=== PATIENT | male | born 1935 | race Hispanic/Latino ===

== ENCOUNTER 2018-11-17 07:55 | Emergency (ER) | payer OTHER ==
[2018-11-17 09:01] LABS: Absolute Lymphocytes (CBC) 0.7 K/uL (0.7-4.9); Basophils % 0.4 % (0-1.3); Eosinophils % 0.3 % (0-4.4); Hematocrit 38.8 % (39.6-49.0); Lymphocytes % 5.5 % (15.3-44.8); MPV 8.3 fL (7.6-11.3); Monocytes % 7.7 % (3.3-12.3); RBC Red Blood Cell Count 4.28 M/uL (4.33-5.43)
--- NOTE | 2018-11-17 09:16 | RAD REPORT ---
EXAM DESCRIPTION: CT - Stone Protocol - 11/17/2018 8:44 am CLINICAL HISTORY: Abdominal pain. COMPARISON: 2016 TECHNIQUE: Computed axial tomography of the abdomen pelvis was obtained without oral or IV contrast. Lack of IV and oral contrast limits evaluation of solid organs, bowel, and vessels. Coronal reformat ivana images were obtained and reviewed. All CT scans are performed using dose optimization technique as appropriate and may include automated exposure control or mA/KV adjustment according to patient size. FINDINGS: A renal calculus is not seen. An ureteral calculus is not noted. A bladder calculus is not present. The liver, spleen, pancreas and adrenals appear grossly normal There is no evidence of diverticulitis. The appendix appears normal Marked enlargement of the prostate gland. Small left inguinal hernia contains fat. Postsurgical gale es of a right inguinal hernia repair Mild to moderate anterior subluxation of L5 on S1 with obliteration of the disc space Tiny ventral hernia IMPRESSION: Negative for a genitourinary calculus
[2018-11-17 09:24] LABS: Blood Morphology Comment NOT SEEN (NOT SEEN); Platelet Estimate DECR; Urine White Blood Cell Casts OK
[2018-11-17 09:46] LABS: BUN Blood Urea Nitrogen 18 mg/dL (7-18); Bicarbonate 25 mmol/L (21-32); Glucose Level 111 mg/dL (74-106); Potassium 3.5 mmol/L (3.5-5.1); Sodium Level 143 mmol/L (136-145)
[2018-11-17] MEDS ORDERED: METHOCARBAMOL 1,000 MG in NA CHLORIDE 0.9% 100 ML IV ONE (10:30)
[2018-11-17] MEDS ORDERED: KETOROLAC 30 MG/ML INJ ONE (10:31)
[2018-11-17] MEDS ORDERED: dexAMETHasone 10 MG/ML VIAL ONE (10:31)
[2018-11-17 11:18] LABS: Urine Bacteria <20 /HPF (NONE SEEN); Urine Culture Reflex Order NOT NEEDED; Urine Mucus LIGHT /HPF (NONE SEEN); Urine RBC NONE SEEN /HPF (NONE SEEN)
--- NOTE | 2018-11-17 11:21 | EDPHYS ---
Physician Documentation [facility] Name: Mati Broderick Age: 83 yrs Sex: Male : 1935 Arrival Date: 11/17/2018 Time: 07:56 Bed 15 Private MD: ED Physician Rajesh Zimmerman HPI: 11/17 08:28 This 83 yrs old Male presents to ER via EMS with complaints of Back Pain. jr8 08:28 The patient presents with pain that is acute, with no known mechanism of injury. The jr8 symptoms are located in the low back, right sided. Onset: The symptoms/episode began/occurred suddenly, yesterday, at 07:00. Location: RLQ abdomen, right groin, and down right leg. Associated signs and symptoms: Pertinent positives: abdominal pain, Pertinent negatives: chest pain, dysuria, fever, hematuria, incontinence, nausea, numbness, tingling, urinary retention, vomiting, weakness. The problem was sustained from unknown cause. Modifying factors: The patient symptoms are alleviated by nothing, the patient symptoms are aggravated by any movement. Severity of symptoms: At their worst the symptoms were moderate, in the emergency department the symptoms are unchanged, a " 10" out of "10". The patient has experienced similar episodes in the past, chronically, but today's symptoms are worse, and lasting longer, today's symptoms are similar. The patient has not recently seen a physician. 08:28 right flank pain radiating to RLQ, right groin, and down right leg. Hx of back jr8 surgeries. Reports similar symptoms in past but less severe and resolved spontaneously. Sudden onset of pain at 0700 yesterday and has been constant. Took tylenol with no relief.. Historical: - Allergies: 11:18 No Known Allergies; tw2 - Home Meds: 08:02 tamsulosin 0.4 mg Oral cp24 1 cap once daily [Active]; simvastatin 40 mg Oral tab 1 tab tw2 once daily [Active]; metoprolol tartrate 100 mg Oral tab 1 tab once daily [Active]; aspirin 81 mg Oral chew PRN [Active]; - PMHx: 08:02 Hernia; Prostate Cancer; tw2 - PSHx: 08:02 cardiac stent; Heart attack; tw2 - Immunization history:: Adult Immunizations. - Social history:: Smoking status: . - Ebola Screening: : Patient negative for fever greater than or equal to 101.5 degrees Fahrenheit, and additional compatible Ebola Virus Disease symptoms. ROS: 08:28 Constitutional: Negative for fever, chills, and weight loss, Eyes: Negative for injury, jr8 pain, redness, and discharge, ENT: Negative for injury, pain, and discharge, Neck: Negative for injury, pain, and swelling, Cardiovascular: Negative for chest pain, palpitations, and edema, Respiratory: Negative for shortness of breath, cough, wheezing, and pleuritic chest pain, MS/Extremity: Negative for injury and deformity, Skin: Negative for injury, rash, and discoloration, Neuro: Negative for headache, weakness, numbness, tingling, and seizure. 08:28 Abdomen/GI: Positive for abdominal pain, Negative for nausea, vomiting, and diarrhea, jr8 constipation, rectal bleeding. 08:28 Back: Positive for flank pain, on the right, radiated pain, Negative for injury or acute deformity. 08:28 : Positive for flank pain, Negative for urinary symptoms, testicular pain 08:28 Neuro: Negative for numbness, tingling, weakness. Exam: 08:28 Constitutional: This is a well developed, well nourished patient who is awake, alert, jr8 and in no acute distress. Head/Face: Normocephalic, atraumatic. Eyes: Pupils equal round and reactive to light, extra-ocular motions intact. Lids and lashes normal. Conjunctiva and sclera are non-icteric and not injected. Cornea within normal limits. Periorbital areas with no swelling, redness, or edema. ENT: Nares patent. No nasal discharge, no septal abnormalities noted. Tympanic membranes are normal and external auditory canals are clear. Oropharynx with no redness, swelling, or masses, exudates, or evidence of obstruction, uvula midline. Mucous membranes moist. Neck: Trachea midline, no thyromegaly or masses palpated, and no cervical lymphadenopathy. Supple, full range of motion without nuchal rigidity, or vertebral point tenderness. No Meningismus. Cardiovascular: Regular rate and rhythm with a normal S1 and S2. No gallops, murmurs, or rubs. Normal PMI, no JVD. No pulse deficits. Respiratory: Lungs have equal breath sounds bilaterally, clear to auscultation and percussion. No rales, rhonchi or wheezes noted. No increased work of breathing, no retractions or nasal flaring. Skin: Warm, dry with normal turgor. Normal color with no rashes, no lesions, and no evidence of cellulitis. 08:28 Neuro: Awake and alert, GCS 15, oriented to person, place, time, and situation. Cranial nerves II-XII grossly intact. Sensory grossly intact. 08:28 Abdomen/GI: Inspection: abdomen appears normal, Bowel sounds: normal, Palpation: soft, moderate abdominal tenderness, in the right lower quadrant, no appreciated organomegaly. 08:28 Back: pain, that is moderate, of the right low back, ROM is painful, normal spinal alignment noted, CVA tenderness, that is moderate, is noted on the right, vertebral tenderness, is not appreciated, muscle spasm, is not present, Straight leg raises: left lower extremity does not illicit pain, right lower extremity illicits pain, at 30 degrees. 08:28 : CVA tenderness, on the right. 08:28 Neuro: Orientation: Vital Signs: 07:58 BP 136 / 78; Pulse 79; Resp 17; Temp 97.6(TE); Pulse Ox 95% on R/A; Weight 97.52 kg; tw2 Height 5 ft. 6 in. (167.64 cm) (R); Pain 10/10; 09:11 BP 124 / 68; Pulse 72; Resp 17; Pulse Ox 96% on R/A; tw2 10:22 BP 126 / 74; Pulse 71; Resp 17; Pulse Ox 100% on R/A; tw2 11:18 BP 110 / 68; Pulse 67; Resp 17; Pulse Ox 97% on R/A; tw2 07:58 Body Mass Index 34.70 (97.52 kg, 167.64 cm) tw2 MDM: 08:00 Patient medically screened. jr8 11:05 Data reviewed: vital signs, nurses notes, lab test result(s), radiologic studies, CT jr8 scan, and as a result, I will discharge patient. Data interpreted: Pulse oximetry: on room air is 100 %. Interpretation: normal. Counseling: I had a detailed discussion with the patient and/or guardian regarding: the historical points, exam findings, and any diagnostic results supporting the discharge/admit diagnosis, lab results, radiology results, the need for outpatient follow up, a family practitioner, to return to the emergency department if symptoms worsen or persist or if there are any questions or concerns that arise at home. 11/17 08:25 Order name: Basic Metabolic Panel; Complete Time: 09:52 11/17 08:25 Order name: CBC with Diff; Complete Time: 09:36 8 11/17 08:25 Order name: Creatinine for Radiology; Complete Time: 09:52 8 11/17 09:06 Order name: CBC Smear Scan; Complete Time: 09:36 EDMS 11/17 10:04 Order name: Urine Microscopic Only; Complete Time: 11:20 8 11/17 10:09 Order name: Urine Dipstick--Ancillary (enter results) bd 11/17 08:25 Order name: IV Saline Lock; Complete Time: 08:36 11/17 08:25 Order name: Labs collected and sent; Complete Time: 08:36 8 11/17 08:25 Order name: CT Stone Protocol; Complete Time: 09:23 11/17 08:25 Order name: Urine Dipstick-Ancillary (obtain specimen); Complete Time: 09:41 Administered Medications: 10:15 Drug: TORadol - Ketorolac 15 mg Route: IVP; Site: left antecubital; tw2 11:17 Follow up: Response: No adverse reaction tw2 11:17 Follow up: Response: No adverse reaction; Pain is decreased tw2 10:17 Drug: Decadron - Dexamethasone 10 mg Route: IVP; Site: left antecubital; tw2 11:17 Follow up: Response: No adverse reaction tw2 10:36 Drug: Robaxin 1 grams Route: IVPB; Infused Over: 30 mins; Site: left antecubital; tw2 11:09 Follow up: Response: No adverse reaction; IV Status: Completed infusion; IV Intake: aj 100ml Disposition: 13:54 Co-signature as Attending Physician, Rajesh Zimmerman MD. rn Disposition: 11/17/18 11:20 Discharged to Home. Impression: Low back pain, Radiculopathy, lumbar region. - Condition is Stable. - Discharge Instructions: Back Pain, Adult, Lumbosacral Radiculopathy, Musculoskeletal Pain, Back Exercises, [id number], Heat Therapy. - Prescriptions for Mobic 7.5 mg Oral Tablet - take 1 tablet by ORAL route once daily take with food; 20 tablet. Zanaflex 4 mg Oral Tablet - take 1 tablet by ORAL route every 8 hours As needed; 20 tablet. Medrol (Maldonado) 4 mg Oral Tablets, Dose Pack - take 1 tablet by ORAL route as directed - follow package instructions; 1 packet. - Medication Reconciliation Form, Thank You Letter, Antibiotic Education, Prescription Opioid Use form. - Follow up: Private Physician; When: 2 - 3 days; Reason: Recheck today's complaints, Continuance of care, Re-evaluation by your physician. - Problem is new. - Symptoms have improved. Signatures: Dispatcher [employer] EDMS Rajesh Zimmerman MD MD rn Roszak, Josh, PA PA jr8 Alma Velasquez RN RN tw2 Juliana Jolley RN Corrections: (The following items were deleted from the chart) 08:35 08:28 Constitutional: Negative for fever, chills, and weight loss, Eyes: Negative for jr8 injury, pain, redness, and discharge, ENT: Negative for injury, pain, and discharge, Neck: Negative for injury, pain, and swelling, Cardiovascular: Negative for chest pain, palpitations, and edema, jr8 11:44 11:20 11/17/2018 11:20 Discharged to Home. Impression: Low back pain; Radiculopathy, tw2 lumbar region. Condition is Stable. Forms are Medication Reconciliation Form, Thank You Letter, Antibiotic Education, Prescription Opioid Use. Follow up: Private Physician; When: 2 - 3 days; Reason: Recheck today's complaints, Continuance of care, Re-evaluation by your physician. Problem is new. Symptoms have improved. jr8
--- NOTE | 2018-11-17 11:21 | ER ---
Nurse's Notes [facility] Name: Mati Broderick Age: 83 yrs Sex: Male : 1935 Arrival Date: 11/17/2018 Time: 07:56 Bed 15 Private MD: Diagnosis: Low back pain;Radiculopathy, lumbar region Presentation: 11/17 07:57 Presenting complaint: EMS states: pt was walking yesterday and started having back tw2 pain, he describes as a throbbing pain, it feels better when he lays down, he has hx of chronic back pain for herniated discs, vs stable, NKDA, hx: htn, hyperlipidemia. Transition of care: patient was not received from another setting of care. Onset of symptoms was November 17, 2018. Risk Assessment: Do you want to hurt yourself or someone else? Patient reports no desire to harm self or others. Initial Sepsis Screen: Does the patient meet any 2 criteria? No. Patient's initial sepsis screen is negative. Does the patient have a suspected source of infection? No. Patient's initial sepsis screen is negative. Care prior to arrival: None. IV initiated. 20 GA, in the left antecubital area. 07:57 Method Of Arrival: EMS: [facility] tw2 07:57 Acuity: KATIE 4 tw2 09:57 Acuity: KATIE 3 iw Triage Assessment: 07:59 General: Appears in no apparent distress. Behavior is calm, cooperative, appropriate tw2 for age. Pain: Complains of pain in back. Musculoskeletal: Circulation, motion, and sensation intact. Range of motion: intact in all extremities. Historical: - Allergies: 11:18 No Known Allergies; tw2 - Home Meds: 08:02 tamsulosin 0.4 mg Oral cp24 1 cap once daily [Active]; simvastatin 40 mg Oral tab 1 tab tw2 once daily [Active]; metoprolol tartrate 100 mg Oral tab 1 tab once daily [Active]; aspirin 81 mg Oral chew PRN [Active]; - PMHx: 08:02 Hernia; Prostate Cancer; tw2 - PSHx: 08:02 cardiac stent; Heart attack; tw2 - Immunization history:: Adult Immunizations. - Social history:: Smoking status: . - Ebola Screening: : Patient negative for fever greater than or equal to 101.5 degrees Fahrenheit, and additional compatible Ebola Virus Disease symptoms. Screenin:11 Abuse screen: Denies threats or abuse. Nutritional screening: No deficits noted. tw2 Tuberculosis screening: No symptoms or risk factors identified. Fall Risk None identified. Assessment: 08:00 General: Appears in no apparent distress. Behavior is calm, cooperative, appropriate tw2 for age. Pain: Complains of pain in back. Neuro: Level of Consciousness is awake, alert, obeys commands, Oriented to person, place, time, situation. Cardiovascular: Heart tones S1 S2 Patient's skin is warm and dry. Respiratory: Airway is patent Respiratory effort is even, unlabored, Respiratory pattern is regular, symmetrical, Breath sounds are clear bilaterally. GI: Abdomen is round non-distended, Bowel sounds present X 4 quads. : No signs and/or symptoms were reported regarding the genitourinary system. EENT: No signs and/or symptoms were reported regarding the EENT system. Derm: No signs and/or symptoms reported regarding the dermatologic system. Musculoskeletal: Range of motion: intact in all extremities. 09:11 Reassessment: Patient appears in no apparent distress at this time. No changes from tw2 previously documented assessment. Patient and/or family updated on plan of care and expected duration. Pain level reassessed. Patient is alert, oriented x 3, equal unlabored respirations, skin warm/dry/pink. 10:22 Reassessment: Patient appears in no apparent distress at this time. No changes from tw2 previously documented assessment. Patient and/or family updated on plan of care and expected duration. Pain level reassessed. Patient is alert, oriented x 3, equal unlabored respirations, skin warm/dry/pink. 11:18 Reassessment: Patient appears in no apparent distress at this time. Patient and/or tw2 family updated on plan of care and expected duration. Pain level reassessed. Patient is alert, oriented x 3, equal unlabored respirations, skin warm/dry/pink. 11:42 Reassessment: Patient appears in no apparent distress at this time. No changes from tw2 previously documented assessment. Patient and/or family updated on plan of care and expected duration. Pain level reassessed. Patient is alert, oriented x 3, equal unlabored respirations, skin warm/dry/pink. Vital Signs: 07:58 BP 136 / 78; Pulse 79; Resp 17; Temp 97.6(TE); Pulse Ox 95% on R/A; Weight 97.52 kg; tw2 Height 5 ft. 6 in. (167.64 cm) (R); Pain 10/10; 09:11 BP 124 / 68; Pulse 72; Resp 17; Pulse Ox 96% on R/A; tw2 10:22 BP 126 / 74; Pulse 71; Resp 17; Pulse Ox 100% on R/A; tw2 11:18 BP 110 / 68; Pulse 67; Resp 17; Pulse Ox 97% on R/A; tw2 07:58 Body Mass Index 34.70 (97.52 kg, 167.64 cm) tw2 ED Course: 07:56 Patient arrived in ED. tw2 07:58 Triage completed. tw2 07:58 Bed in low position. Call light in reach. Side rails up X2. Pulse ox on. NIBP on. tw2 07:59 Arm band placed on. tw2 08:00 Ned Be PA is PHCP. jr8 08:00 Rajesh Zimmerman MD is Attending Physician. jr8 08:26 Alma Velasquez RN is Primary Nurse. tw2 08:36 Maintain EMS IV. Dressing intact. Good blood return noted. Site clean \T\ dry. Gauge \T\ tw 2 site: 20g LEFT ac. 08:40 CT completed. Patient tolerated procedure well. Patient moved to CT via stretcher. sj Patient moved back from CT. 08:44 CT Stone Protocol In Process Unspecified. EDMS 11:42 No provider procedures requiring assistance completed. IV discontinued, intact, tw2 bleeding controlled, No redness/swelling at site. Pressure dressing applied. Administered Medications: 10:15 Drug: TORadol - Ketorolac 15 mg Route: IVP; Site: left antecubital; tw2 11:17 Follow up: Response: No adverse reaction tw2 11:17 Follow up: Response: No adverse reaction; Pain is decreased tw2 10:17 Drug: Decadron - Dexamethasone 10 mg Route: IVP; Site: left antecubital; tw2 11:17 Follow up: Response: No adverse reaction tw2 10:36 Drug: Robaxin 1 grams Route: IVPB; Infused Over: 30 mins; Site: left antecubital; tw2 11:09 Follow up: Response: No adverse reaction; IV Status: Completed infusion; IV Intake: aj 100ml Intake: 11:09 IV: 100ml; Total: 100ml. aj Outcome: 11:20 Discharge ordered by . wade 11:42 Discharged to home via wheelchair. tw2 11:42 Condition: stable 11:42 Discharge instructions given to patient, family, Instructed on discharge instructions, follow up and referral plans. no drinking with medication, no driving heavy equipment, medication usage, Demonstrated understanding of instructions, follow-up care, medications, Prescriptions given X 3. 11:44 Patient left the ED. tw2 Signatures: Dispatcher [employer] EDMS Juliana Jolley RN Isabelle Haywood Irene, RN RN iw Roszak, Josh, PA PA jr8 Wise, Tara, RN RN tw2
[2018-11-17 13:10] LABS: Urine Blood TRACE (NEG); Urine Glucose NEGATIVE (NEG); Urine Protein 1+ (NEG); Urine Specific Gravity 1.025 (1.005-1.030); Urine pH 5.5 (5.0-7.0)
== END 2018-11-17 11:44 | disposition home or self-care (01) ==
LOC: ER 07:55
DX: M54.16 Radiculopathy, lumbar region (principal); C61 Malignant neoplasm of prostate; Z79.82 Long term (current) use of aspirin
CPT/HCPCS: 96365; 85025; 80048; 36415; 76377; 74176; 96375; 99284; J1100; J2800; 81003; 81015

== ENCOUNTER 2019-02-14 19:40 | Emergency (ER) | payer OTHER ==
--- NOTE | 2019-02-14 20:28 | ER ---
Nurse's Notes [facility] Name: Mati Broderick Age: 84 yrs Sex: Male : 1935 Arrival Date: 02/14/2019 Time: 19:42 Bed Treatment Private MD: Diagnosis: Wart right heel Presentation: 02/14 20:05 Presenting complaint: daughter states pt has wound to lateral aspect of right heel x 4 bb days but wound is not heeling and has a growth from it. Transition of care: patient was not received from another setting of care. Onset of symptoms was February 10, 2019. Risk Assessment: Do you want to hurt yourself or someone else? Patient reports no desire to harm self or others. Initial Sepsis Screen: Does the patient meet any 2 criteria? No. Patient's initial sepsis screen is negative. Does the patient have a suspected source of infection? No. Patient's initial sepsis screen is negative. Care prior to arrival: None. 20:05 Method Of Arrival: Ambulatory bb 20:05 Acuity: KATIE 4 bb Triage Assessment: 20:10 General: Appears in no apparent distress. Behavior is calm, cooperative. Pain: bb Complains of pain in lateral side of right heel Pain currently is 7 out of 10 on a pain scale. Neuro: Level of Consciousness is awake, alert, obeys commands, Oriented to person, place, situation. Cardiovascular: No deficits noted. Respiratory: Respiratory effort is even, unlabored, Respiratory pattern is regular. Derm: Wound noted lateral side of right heel. Musculoskeletal: Circulation, motion, and sensation intact. Historical: - Allergies: 20:10 No Known Allergies; bb - Home Meds: 20:10 aspirin 81 mg Oral chew PRN [Active]; tamsulosin 0.4 mg Oral cp24 1 cap once daily bb [Active]; simvastatin 40 mg Oral tab 1 tab once daily [Active]; metoprolol succinate 100 mg oral Tb24 1 tab once daily [Active]; - PMHx: 20:10 Hernia; Prostate Cancer; Myocardial infarction; CAD; bb - PSHx: 20:10 cardiac stent; back surgery; prostate surgery; bb - Immunization history:: Adult Immunizations up to date. - Social history:: Smoking status: Patient/guardian denies using tobacco. - Ebola Screening: : No symptoms or risks identified at this time. Screenin:00 Abuse screen: Denies threats or abuse. Denies injuries from another. Nutritional rv screening: No deficits noted. Tuberculosis screening: No symptoms or risk factors identified. 20:00 Fall Risk None identified. No fall in past 12 months (0 pts). Secondary diagnosis (15 rv points) impaired mobility, No IV (0 pts). Ambulatory Aid- Crutches/Cane/Walker (15 pts). Gait- Impaired (20 pts.). Mental Status- Oriented to own ability (0 pts). Total Polk Fall Scale indicates No Risk (0-24 pts). Assessment: 20:00 General: Appears in no apparent distress. uncomfortable, Behavior is calm, cooperative. rv 20:00 Pain: Complains of pain in right foot. Neuro: Level of Consciousness is awake, alert, rv obeys commands, Oriented to person, place, time, situation. Cardiovascular: Patient's skin is warm and dry. Respiratory: Airway is patent. GI: No signs and/or symptoms were reported involving the gastrointestinal system. : No signs and/or symptoms were reported regarding the genitourinary system. EENT: No signs and/or symptoms were reported regarding the EENT system. Derm: Wound noted lateral side of right heel. Musculoskeletal: Swelling present in lateral side of right heel. Vital Signs: 20:10 BP 123 / 73; Pulse 77; Resp 16 S; Temp 98.1(O); Pulse Ox 98% on R/A; Weight 84.37 kg bb (R); Height 5 ft. 9 in. (175.26 cm) (R); Pain 8/10; 20:10 Body Mass Index 27.47 (84.37 kg, 175.26 cm) bb ED Course: 19:42 Patient arrived in ED. ds1 20:00 Patient has correct armband on for positive identification. Call light in reach. rv 20:00 Cardiac monitoring not applicable on this patient. rv 20:07 Triage completed. bb 20:10 Arm band placed on Patient placed in an exam room, on a stretcher, on pulse oximetry. bb Family accompanied patient. 20:13 Mat Friend MD is Attending Physician. pkl 20:26 Dale Locke MD is Referral Physician. pkl 20:32 Héctor Hutchinson RN is Primary Nurse. rv 20:33 No provider procedures requiring assistance completed. Patient did not have IV access rv during this emergency room visit. 20:34 Wound care: to open wound located on lateral side of right heel was cleaned with rv Hibiclens, irrigated with normal saline, Patient tolerated well. put 4x4 gauze. Administered Medications: No medications were administered Outcome: 20:27 Discharge ordered by . harsha 20:33 Discharged to home ambulatory, with family. rv 20:33 Condition: good 20:33 Discharge instructions given to patient, family, Instructed on discharge instructions, follow up and referral plans. medication usage, wound care, Demonstrated understanding of instructions, follow-up care, medications, Prescriptions given X 1. 20:35 Patient left the ED. rv Signatures: Mat Friend MD MD pkl Sanford, Demi ds1 Danyell Christopher, RN RN Héctor Clemons RN RN rv
--- NOTE | 2019-02-14 20:28 | EDPHYS ---
Physician Documentation [facility] Name: Mati Broderick Age: 84 yrs Sex: Male : 1935 Arrival Date: 02/14/2019 Time: 19:42 Bed Treatment Private MD: ED Physician Mat Friend HPI: 02/14 20:22 This 84 yrs old Male presents to ER via Ambulatory with complaints of Open pkl Wound On Foot. 20:22 The patient presents with Wart on right heel. Onset: The symptoms/episode pkl began/occurred 4 day(s) ago. Historical: - Allergies: 20:10 No Known Allergies; bb - Home Meds: 20:10 aspirin 81 mg Oral chew PRN [Active]; tamsulosin 0.4 mg Oral cp24 1 cap once daily bb [Active]; simvastatin 40 mg Oral tab 1 tab once daily [Active]; metoprolol succinate 100 mg oral Tb24 1 tab once daily [Active]; - PMHx: 20:10 Hernia; Prostate Cancer; Myocardial infarction; CAD; bb - PSHx: 20:10 cardiac stent; back surgery; prostate surgery; bb - Immunization history:: Adult Immunizations up to date. - Social history:: Smoking status: Patient/guardian denies using tobacco. - Ebola Screening: : No symptoms or risks identified at this time. ROS: 20:22 MS/extremity: Positive for Wart on right heel. pkl 20:22 Eyes: Negative for injury, pain, redness, and discharge, ENT: Negative for injury, pain, and discharge, Neck: Negative for injury, pain, and swelling, Cardiovascular: Negative for chest pain, palpitations, and edema, Respiratory: Negative for shortness of breath, cough, wheezing, and pleuritic chest pain, Abdomen/GI: Negative for abdominal pain, nausea, vomiting, diarrhea, and constipation, Back: Negative for injury and pain, : Negative for injury, bleeding, discharge, and swelling. 20:22 Neuro: Negative for altered mental status. Exam: 20:22 Head/Face: Normocephalic, atraumatic. Eyes: Pupils equal round and reactive to light, pkl extra-ocular motions intact. Lids and lashes normal. Conjunctiva and sclera are non-icteric and not injected. Cornea within normal limits. Periorbital areas with no swelling, redness, or edema. ENT: Nares patent. No nasal discharge, no septal abnormalities noted. Tympanic membranes are normal and external auditory canals are clear. Oropharynx with no redness, swelling, or masses, exudates, or evidence of obstruction, uvula midline. Mucous membranes moist. Neck: Trachea midline, no thyromegaly or masses palpated, and no cervical lymphadenopathy. Supple, full range of motion without nuchal rigidity, or vertebral point tenderness. No Meningismus. Chest/axilla: Normal chest wall appearance and motion. Nontender with no deformity. No lesions are appreciated. Cardiovascular: Regular rate and rhythm with a normal S1 and S2. No gallops, murmurs, or rubs. Normal PMI, no JVD. No pulse deficits. Respiratory: Lungs have equal breath sounds bilaterally, clear to auscultation and percussion. No rales, rhonchi or wheezes noted. No increased work of breathing, no retractions or nasal flaring. Abdomen/GI: Soft, non-tender, with normal bowel sounds. No distension or tympany. No guarding or rebound. No evidence of tenderness throughout. Back: No spinal tenderness. No costovertebral tenderness. Full range of motion. Neuro: Awake and alert, GCS 15, oriented to person, place, time, and situation. Cranial nerves II-XII grossly intact. Motor strength 5/5 in all extremities. Sensory grossly intact. Cerebellar exam normal. Normal gait. 20:22 Musculoskeletal/extremity: Extremities: grossly normal except: noted in the lateral side of right heel: Wart noted. Minimal bleeding.. Vital Signs: 20:10 BP 123 / 73; Pulse 77; Resp 16 S; Temp 98.1(O); Pulse Ox 98% on R/A; Weight 84.37 kg bb (R); Height 5 ft. 9 in. (175.26 cm) (R); Pain 8/10; 20:10 Body Mass Index 27.47 (84.37 kg, 175.26 cm) bb MDM: 20:13 Patient medically screened. pkl 20:22 Data reviewed: vital signs, nurses notes. pkl Administered Medications: No medications were administered Disposition: 02/14/19 20:27 Discharged to Home. Impression: Wart right heel. - Condition is Stable. - Prescriptions for Augmentin 875- 125 mg Oral Tablet - take 1 tablet by ORAL route every 12 hours for 7 days; 14 tablet. - Medication Reconciliation Form, Thank You Letter, Antibiotic Education, Prescription Opioid Use form. - Follow up: Dale Locke MD; When: 1 - 2 days; Reason: Re-evaluation by your physician. - Problem is new. - Symptoms are unchanged. Signatures: Mat Friend MD MD pkl Danyell Christopher, RN RN bb Héctor Hutchinson RN RN rv Corrections: (The following items were deleted from the chart) 20:35 20:27 02/14/2019 20:27 Discharged to Home. Impression: Wart right heel. Condition is rv Stable. Forms are Medication Reconciliation Form, Thank You Letter, Antibiotic Education, Prescription Opioid Use. Follow up: Dale Locke; When: 1 - 2 days; Reason: Re-evaluation by your physician. Problem is new. Symptoms are unchanged. pkl
[2019-02-14 21:00] VITALS: BP 123/73; TEMP 98.1; O2SAT 98
== END 2019-02-14 20:35 | disposition home or self-care (01) ==
LOC: ER 19:40
DX: B07.0 Plantar wart (principal); I25.2 Old myocardial infarction; I25.10 Atherosclerotic heart disease of native coronary artery without angina pectoris; Z85.46 Personal history of malignant neoplasm of prostate
CPT/HCPCS: 99284

== ENCOUNTER 2020-07-14 16:35 | Emergency (ER) | payer OTHER ==
--- OUTSIDE RECORDS SUMMARY | 2020-07-14 16:38 | XMS REPORT | Continuity of Care Document ---
:1935 Author Organization [facility] t Address [address] [place] [address] Care Team Providers Name Role Phone Unavailable Unavailable Unavailable Problems This patient has no known problems. Allergies, Adverse Reactions, Alerts This patient has no known allergies or adverse reactions. Medications This patient has no known medications. Procedures This patient has no known procedures. Encounters Start End Encounter Admission Attending Care Care Encounter Source Date/Time Date/Time Type Type Clinicians Facility Department ID 2020-07-09 2020-07-[address] [facility] [id number] [facility] 2020-03-26 2020-03-[address] [facility] [id number] [facility] 00[facility]00[facility]00 [facility] 2020-01-24 2020-01-[address] [facility] [id number] [facility] 00:00:00 00:00:00 [facility] Results This patient has no known results.
--- NOTE | 2020-07-14 17:42 | RAD REPORT ---
EXAM DESCRIPTION: RAD - Chest Single View - 07/14/2020 5:26 pm CLINICAL HISTORY: SOB Chest pain. COMPARISON: CHEST PA AND LAT 2 VIEW dated 12/12/2010; CHEST SINGLE VIEW dated 11/24/2010; CHEST SINGLE VIEW dated 09/05/2008; CHEST PA AND LAT 2 VIEW dated 02/03/2008 FINDINGS: Portable technique limits examination quality. Mild linear opacity is present in the left upper lobe. The lungs are otherwise clear. The heart is mi ldly enlarged in size. No displaced fractures. IMPRESSION: Mild pattern of left upper lobe infiltrate/infection.
[2020-07-14 17:45] LABS: Absolute Lymphocytes (CBC) 0.6 K/uL (0.7-4.9); Basophils % 0.3 % (0-1.3); Hematocrit 40.1 % (39.6-49.0); Lymphocytes % 13.3 % (15.3-44.8); MPV 8.7 fL (7.6-11.3); RBC Red Blood Cell Count 4.56 M/uL (4.33-5.43)
[2020-07-14 17:48] LABS: Protime INR 1.18
[2020-07-14 17:52] LABS: ALT/SGPT 29 U/L (12-78); AST/SGOT 35 U/L (15-37); Albumin 2.8 g/dL (3.4-5.0); Alkaline Phosphatase 64 U/L (45-117); Amylase 60 U/L (25-115); BUN Blood Urea Nitrogen 17 mg/dL (7-18); Bicarbonate 26 mmol/L (21-32); Bilirubin Direct 0.2 mg/dL (0-0.2); Bilirubin Total 0.5 mg/dL (0.2-1.0); CKMB Creatine Kinase MB < 1.0 ng/mL (0.3-3.6); Creatine Phosphokinase 63 U/L (39-308); Glucose Level 107 mg/dL (74-106); Lipase 261 U/L (73-393); Potassium 3.9 mmol/L (3.5-5.1); Protein, Total 6.8 g/dL (6.4-8.2); Sodium Level 137 mmol/L (136-145); Troponin (Emerg Dept Use Only) < 0.02 ng/mL (0.0-0.045)
--- NOTE | 2020-07-14 19:42 | EDPHYS ---
Physician Documentation [facility] Name: Mati Broderick Age: 85 yrs Sex: Male : 1935 Arrival Date: 07/14/2020 Time: 16:37 Bed 25 Private MD: ED Physician Teto Smith HPI: 07/14 16:40 This 85 yrs old Male presents to ER via EMS with complaints of Shortness Of jmm Breath. 16:40 The patient has shortness of breath at rest. Onset: The symptoms/episode began/occurred jmm gradually, 5 day(s) ago. Duration: The symptoms are continuous. The patient's shortness of breath is aggravated by exertion, is alleviated by rest. Associated signs and symptoms: Pertinent negatives: fever. This is an 85 year old male with a history of CA, HTN that presents to the ED with complaints of of generalized weakness. Denies chest pain, fever, vomiting, abdominal pain. . Historical: - Allergies: 16:44 No Known Allergies; ss - PMHx: 16:44 CAD; Hernia; Myocardial infarction; Prostate Cancer; Hypertension; High Cholesterol; ss - PSHx: 16:44 cardiac stent; back surgery; prostate surgery; ss - Immunization history:: Adult Immunizations up to date. - Social history:: Smoking status: Patient denies any tobacco usage or history of. ROS: 16:40 Constitutional: Negative for fever, chills, and weight loss, Cardiovascular: Negative jmm for chest pain, palpitations, and edema, Respiratory: Negative for shortness of breath, cough, wheezing, and pleuritic chest pain. 16:40 Neuro: Positive for weakness. 16:40 All other systems are negative. Exam: 16:40 Constitutional: This is a well developed, well nourished patient who is awake, alert, jmm and in no acute distress. Head/Face: atraumatic. Eyes: EOMI, no conjunctival erythema appreciated ENT: Moist Mucus Membranes Neck: Trachea midline, Supple Chest/axilla: Normal chest wall appearance and motion. Cardiovascular: Regular rate and rhythm. No edema appreciated Respiratory: Normal respirations, no respiratory distress appreciated Abdomen/GI: Non distended, soft Back: Normal ROM Skin: General appearance color normal MS/ Extremity: Moves all extremities, no obvious deformities appreciated, no edema noted to the lower extremities Neuro: Awake and alert, normal gait Psych: Behavior is normal, Mood is normal, Patient is cooperative and pleasant Vital Signs: 16:39 BP 99 / 62; Pulse 66; Resp 26; Temp 98.8(O); Pulse Ox 95% ; Weight 90.72 kg; Height 5 ss ft. 8 in. (172.72 cm); Pain 0/10; 16:54 BP 102 / 61; Pulse 88; Resp 24; Pulse Ox 97% on 2 lpm NC; vg1 18:00 BP 116 / 70; Pulse 74; Resp 22; Pulse Ox 96% 2 lpm ; vg1 19:00 BP 115 / 71; Pulse 68; Resp 16; Pulse Ox 93% on R/A; vg1 16:39 Body Mass Index 30.41 (90.72 kg, 172.72 cm) ss MDM: 16:43 Patient medically screened. [facility] 19:37 Data reviewed: vital signs, nurses notes. Counseling: I had a detailed discussion with consuelo the patient and/or guardian regarding: the historical points, exam findings, and any diagnostic results supporting the discharge/admit diagnosis, lab results, radiology results, the need for outpatient follow up, to return to the emergency department if symptoms worsen or persist or if there are any questions or concerns that arise at home. ED course: Patient is alert and non toxic in appearance in the ED. No signs of resp distress. VS WNL. Given strict return precautions. Family understood and agrees with the plan of care. . 07/14 16:40 Order name: Amylase, Serum [facility] 07/14 16:40 Order name: Basic Metabolic Panel [facility] 07/14 16:40 Order name: Blood Culture Adult (2) [facility] 07/14 16:40 Order name: CBC with Diff [facility] 07/14 16:40 Order name: Ckmb [facility] 07/14 16:40 Order name: CPK [facility] 07/14 16:40 Order name: Lactate [facility] 07/14 16:40 Order name: LFT's [facility] 07/14 16:40 Order name: Lipase [facility] 07/14 16:40 Order name: Procalcitonin [facility] 07/14 16:40 Order name: Protime (+inr); Complete Time: 17:54 [facility] 07/14 16:40 Order name: Ptt, Activated; Complete Time: 17:54 [facility] 07/14 16:40 Order name: Troponin (emerg Dept Use Only); Complete Time: 17:54 [facility] 07/14 16:40 Order name: Chest Single View XRAY; Complete Time: 17:43 [facility] 07/14 16:41 Order name: Amylase; Complete Time: 17:54 [facility] 07/14 16:41 Order name: Basic Metabolic Panel; Complete Time: 17:54 [facility] 07/14 16:41 Order name: Blood Culture [facility] 07/14 16:41 Order name: CBC with Automated Diff; Complete Time: 17:54 [facility] 07/14 16:41 Order name: CKMB Creatine Kinase MB; Complete Time: 17:54 [facility] 07/14 16:41 Order name: Creatine Phosphokinase; Complete Time: 17:54 [facility] 07/14 16:41 Order name: Lactate; Complete Time: 17:54 [facility] 07/14 16:41 Order name: Liver (Hepatic) Function; Complete Time: 17:54 [facility] 07/14 16:41 Order name: Lipase; Complete Time: 17:54 [facility] 07/14 16:41 Order name: Procalcitonin; Complete Time: 18:29 [facility] 07/14 18:01 Order name: Glucose, Ancillary Testing; Complete Time: 18:08 [facility] 07/14 18:45 Order name: SARS-COV-2 RT PCR; Complete Time: 18:55 [facility] 07/14 16:40 Order name: Accucheck; Complete Time: 17:55 [facility] 07/14 16:40 Order name: Cardiac monitoring; Complete Time: 17:54 [facility] 07/14 16:40 Order name: EKG - Nurse/Tech; Complete Time: 17:54 [facility] 07/14 16:40 Order name: IV Saline Lock - Large Bore; Complete Time: 17:44 [facility] 07/14 16:40 Order name: Labs collected and sent; Complete Time: 17:44 [facility] 07/14 16:40 Order name: O2 Per Protocol; Complete Time: 17:44 [facility] 07/14 16:40 Order name: O2 Sat Monitoring; Complete Time: 17:44 jm Administered Medications: 19:58 Not Given (IV d/c): Decadron - Dexamethasone 10 mg IVP once vg1 19:58 Drug: AZITHromycin 500 mg Route: PO; vg1 20:00 Follow up: Response: No adverse reaction; Medication administered at discharge. vg1 19:58 Drug: Decadron 10 mg Route: IM; Site: left deltoid; vg1 19:59 Follow up: Response: No adverse reaction; Medication administered at discharge. vg1 Disposition: 07/14/20 19:41 Discharged to Home. Impression: Coronavirus infection, unspecified. - Condition is Stable. - Discharge Instructions: COVID-19. - Prescriptions for ivermectin 3 mg Oral tablet - take 6 tablet by ORAL route as directed one dose now and one dose on day 3; 12 tablet. Prednisone 20 mg Oral Tablet - take 3 tablet by ORAL route once daily for 5 days; 15 tablet. Zithromax Z- Maldonado 250 mg Oral Tablet - take 1 tablet by ORAL route as directed for 5 days Day 1 - take two (2) tablets one time. Day 2, 3, 4 , 5 take one (1) tablet once daily.; 6 tablet. Albuterol Sulfate 90 mcg/actuation - inhale 1-2 puff by INHALATION route every 4-6 hours; 1 Inhaler. - Medication Reconciliation Form, Thank You Letter, Antibiotic Education, Prescription Opioid Use form. - Follow up: Private Physician; When: As needed; Reason: Recheck today's complaints, Continuance of care, Re-evaluation by your physician. Addendum: 07/16/2020 05:21 Co-signature as Attending Physician, Teto Smith MD I agree with the assessment and t w4 plan of care. Signatures: Dispatcher [employer] [facility] Iván Calloway PA PA jmm Smirch, Shelby, RN RN ss Wadley, Terrence, MD MD tw4 Lazara Preciado RN RN vg1 Corrections: (The following items were deleted from the chart) 07/14 17:48 16:42 CORONAVIRUS+[email or web address] ordered. [facility] EDTX 20:02 19:41 07/14/2020 19:41 Discharged to Home. Impression: Coronavirus infection, vg1 unspecified. Condition is Stable. Forms are Medication Reconciliation Form, Thank You Letter, Antibiotic Education, Prescription Opioid Use. Follow up: Private Physician; When: As needed; Reason: Recheck today's complaints, Continuance of care, Re-evaluation by your physician. consuelo
--- NOTE | 2020-07-14 19:42 | ER ---
Nurse's Notes [facility] Name: Mati Broderick Age: 85 yrs Sex: Male : 1935 Arrival Date: 07/14/2020 Time: 16:37 Bed 25 Private MD: Diagnosis: Coronavirus infection, unspecified Presentation: 07/14 16:39 Chief complaint: Patient states: shortness of breath, decreased appetite, cough and ss fatigue that began 5 days ago. Denies fever. Coronavirus screen: cough unrelated to allergies, difficulty breathing, fatigue, Client presents with at least one sign or symptom that may indicate coronavirus-19. Standard/surgical mask placed on the client. Provider contacted for isolation considerations. Ebola Screen: Patient denies exposure to infectious person. Patient denies travel to an Ebola-affected area in the 21 days before illness onset. Initial Sepsis Screen: Does the patient meet any 2 criteria? RR > 20 per min. No. Patient's initial sepsis screen is negative. Does the patient have a suspected source of infection? No. Patient's initial sepsis screen is negative. Risk Assessment: Do you want to hurt yourself or someone else? Patient reports no desire to harm self or others. Onset of symptoms was July 09, 2020. 16:39 Method Of Arrival: EMS: [facility] 16:39 Acuity: KATIE 3 ss Historical: - Allergies: 16:44 No Known Allergies; ss - PMHx: 16:44 CAD; Hernia; Myocardial infarction; Prostate Cancer; Hypertension; High Cholesterol; ss - PSHx: 16:44 cardiac stent; back surgery; prostate surgery; ss - Immunization history:: Adult Immunizations up to date. - Social history:: Smoking status: Patient denies any tobacco usage or history of. Screenin:54 Abuse screen: Denies threats or abuse. Nutritional screening: No deficits noted. vg1 Tuberculosis screening: No symptoms or risk factors identified. Fall Risk No fall in past 12 months (0 pts). No secondary diagnosis (0 pts). IV access (20 points). Ambulatory Aid- None/Bed Rest/Nurse Assist (0 pts). Gait- Weak (10 pts.). Mental Status- Oriented to own ability (0 pts). Total Polk Fall Scale indicates No Risk (0-24 pts). Assessment: 16:43 General: Appears in no apparent distress. comfortable, Behavior is calm, cooperative. vg1 Pain: Denies pain. Neuro: Level of Consciousness is awake, alert, obeys commands, Oriented to person, place, time, situation. Cardiovascular: Patient's skin is warm and dry. Respiratory: Airway is patent Respiratory effort is even, labored, Breath sounds with crackles in left posterior lower lobe and right posterior lower lobe. GI: Reports nausea, loss of appetitie. : No signs and/or symptoms were reported regarding the genitourinary system. EENT: No signs and/or symptoms were reported regarding the EENT system. Derm: Skin is clammy. Musculoskeletal: Circulation, motion, and sensation intact. 17:59 Reassessment: Patient appears in no apparent distress at this time. Patient and/or vg1 family updated on plan of care and expected duration. Pain level reassessed. Patient is alert, oriented x 3, equal unlabored respirations, skin warm/dry/pink. Pt stated feeling better with the oxygen Patient states feeling better. 19:38 Reassessment: Patient's oxygen was removed for 5mins and patient's SPO2 before was 95% jg8 and pt was still 95%-93% on room air. Patient was not in any distress in room air. 19:39 Reassessment: Patient appears in no apparent distress at this time. Patient and/or vg1 family updated on plan of care and expected duration. Pain level reassessed. Patient is alert, oriented x 3, equal unlabored respirations, skin warm/dry/pink. Patient denies pain at this time. Patient states feeling better. Vital Signs: 16:39 BP 99 / 62; Pulse 66; Resp 26; Temp 98.8(O); Pulse Ox 95% ; Weight 90.72 kg; Height 5 ss ft. 8 in. (172.72 cm); Pain 0/10; 16:54 BP 102 / 61; Pulse 88; Resp 24; Pulse Ox 97% on 2 lpm NC; vg1 18:00 BP 116 / 70; Pulse 74; Resp 22; Pulse Ox 96% 2 lpm ; vg1 19:00 BP 115 / 71; Pulse 68; Resp 16; Pulse Ox 93% on R/A; vg1 16:39 Body Mass Index 30.41 (90.72 kg, 172.72 cm) ss ED Course: 16:37 Patient arrived in ED. vg1 16:39 Iván Calloway PA is PHCP. [facility] 16:39 Teto Smith MD is Attending Physician. [facility] 16:43 Triage completed. 16:43 Lazara Preciado, RN is Primary Nurse. vg1 16:44 Arm band placed on right wrist. ss 16:55 Patient has correct armband on for positive identification. Call light in reach. Side vg1 rails up X2. 17:08 Inserted saline lock: 20 gauge in left antecubital area, using aseptic technique. Blood jp3 collected. 17:08 First set of blood cultures drawn by me. jp3 17:15 Initial lab(s) drawn, by me, sent to lab. jp3 17:17 COVID swab sent to lab. X-ray(s) taken. jp3 17:18 Second set of blood cultures drawn by me. Oxygen administration via nasal cannula \T\ jp3 2L/min. 17:26 Chest Single View XRAY In Process Unspecified. EDMS 20:01 No provider procedures requiring assistance completed. IV discontinued, intact, vg1 bleeding controlled, No redness/swelling at site. Pressure dressing applied. Administered Medications: 19:58 Not Given (IV d/c): Decadron - Dexamethasone 10 mg IVP once vg1 19:58 Drug: AZITHromycin 500 mg Route: PO; vg1 20:00 Follow up: Response: No adverse reaction; Medication administered at discharge. vg1 19:58 Drug: Decadron 10 mg Route: IM; Site: left deltoid; vg1 19:59 Follow up: Response: No adverse reaction; Medication administered at discharge. vg1 Outcome: 19:[address] . [facility] 20:01 Discharged to home via wheelchair, with family. vg1 20:01 Condition: stable 20:01 Discharge instructions given to patient, family, Instructed on discharge instructions, follow up and referral plans. medication usage, Demonstrated understanding of instructions, follow-up care, medications, Prescriptions given X 4. 20:02 Patient left the ED. vg1 Signatures: Dispatcher [employer] EDMS Ivná Calloway PA PA jmm Smirch, Shelby, RN RN [employer] jp3 Lazara Preciado, RN RN vg1 Ilene Ashley jg8
[2020-07-14] MEDS ORDERED: dexAMETHasone 10 MG/ML VIAL ONE (20:06)
[2020-07-14] MEDS ORDERED: AZITHROMYCIN 250 MG TAB ONE (20:06)
[2020-07-14 20:13] VITALS: TEMP 98.8
[2020-07-14 20:16] VITALS: BP 115/71; O2SAT 93
== END 2020-07-14 20:02 | disposition home or self-care (01) ==
LOC: ER 16:35
DX: U07.1 COVID-19 (principal); I10 Essential (primary) hypertension; I25.2 Old myocardial infarction; Z95.818 Presence of other cardiac implants and grafts
CPT/HCPCS: 87040 ×2; 85025; 80048; 36415; 82150; 82550; 85610; 82947; 80076; 83605; 85730; 84484; 82553; 83690; 84145; 71045; U0003; J1100; 93005; 96372; 99284

== ENCOUNTER 2020-11-10 02:54 | Emergency (ER) | payer OTHER ==
--- OUTSIDE RECORDS SUMMARY | 2020-11-10 02:57 | XMS REPORT | Continuity of Care Document ---
:1935 Author Organization [facility] t Address [address] [place] [address] Care Team Providers Name Role Phone Unavailable Unavailable Unavailable Problems This patient has no known problems. Allergies, Adverse Reactions, Alerts This patient has no known allergies or adverse reactions. Medications This patient has no known medications. Procedures This patient has no known procedures. Encounters Start End Encounter Admission Attending Care Care Encounter Source Date/Time Date/Time Type Type Clinicians Facility Department ID 2020-11-08 2020-11-08 Outpatient [facility] [id number] 2020-10-11 2020-10-11 Outpatient [facility] [id number] [facility] 2020-07-09 2020-07-09 Outpatient [facility] [id number] [facility] 2020-03-26 2020-03-26 Outpatient [facility] [id number] 2020-01-24 2020-01-24 Outpatient [facility] [id number] [facility] Results This patient has no known results.
--- NOTE | 2020-11-10 04:23 | EDPHYS ---
Physician Documentation [facility] Name: Mati Broderick Age: 85 yrs Sex: Male : 1935 Arrival Date: 11/10/2020 Time: 02:57 Bed 5 Private MD: ED Physician Randolph Ward HPI: 11/10 04:17 This 85 yrs old Male presents to ER via Wheelchair with complaints of Problem mh7 With Urinary Catheter. 04:17 The patient presents with a Rolle catheter problem, is not draining. Onset: The mh7 symptoms/episode began/occurred yesterday. Modifying factors: The symptoms are alleviated by nothing, the symptoms are aggravated by nothing. Associated signs and symptoms: Pertinent positives: hematuria, Pertinent negatives: abdominal pain, constipation, diarrhea, dysuria, fever, nausea, vomiting. Severity of symptoms: At their worst the symptoms were moderate, yesterday, in the emergency department the symptoms are unchanged. Had Rolle placed post procedure 2 days ago due to bloody urine.. Historical: - Allergies: 03:14 No Known Allergies; em - Home Meds: 03:14 hydrocodone-acetaminophen 5-325 mg Oral tab 1 tab for pain [Active]; Bactrim DS 800-160 em mg Oral tab [Active]; metoprolol succinate 100 mg Oral Tb24 1 tab once daily [Active]; aspirin 81 mg Oral chew PRN [Active]; tamsulosin 0.4 mg Oral cp24 1 cap once daily [Active]; simvastatin 40 mg Oral tab 1 tab once daily [Active]; - PMHx: 03:14 CAD; Hernia; High Cholesterol; Prostate Cancer; Myocardial infarction; Hypertension; em - Immunization history:: Adult Immunizations up to date. - Social history:: Smoking status: Patient denies any tobacco usage or history of. ROS: 04:17 Constitutional: Negative for fever, chills, and weight loss, Eyes: Negative for injury, mh7 pain, redness, and discharge, ENT: Negative for injury, pain, and discharge, Neck: Negative for injury, pain, and swelling, Cardiovascular: Negative for chest pain, palpitations, and edema, Respiratory: Negative for shortness of breath, cough, wheezing, and pleuritic chest pain, Abdomen/GI: Negative for abdominal pain, nausea, vomiting, diarrhea, and constipation, Back: Negative for injury and pain, MS/Extremity: Negative for injury and deformity, Skin: Negative for injury, rash, and discoloration, Neuro: Negative for headache, weakness, numbness, tingling, and seizure, Psych: Negative for depression, anxiety, suicide ideation, homicidal ideation, and hallucinations, Allergy/Immunology: Negative for hives, rash, and allergies, Endocrine: Negative for neck swelling, polydipsia, polyuria, polyphagia, and marked weight changes, Hematologic/Lymphatic: Negative for swollen nodes, abnormal bleeding, and unusual bruising. Exam: 04:17 Constitutional: This is a well developed, well nourished patient who is awake, alert, mh7 and in no acute distress. Head/Face: Normocephalic, atraumatic. Eyes: Pupils equal round and reactive to light, extra-ocular motions intact. Lids and lashes normal. Conjunctiva and sclera are non-icteric and not injected. Cornea within normal limits. Periorbital areas with no swelling, redness, or edema. Neck: Trachea midline, no thyromegaly or masses palpated, and no cervical lymphadenopathy. Supple, full range of motion without nuchal rigidity, or vertebral point tenderness. No Meningismus. Chest/axilla: Normal chest wall appearance and motion. Nontender with no deformity. No lesions are appreciated. Cardiovascular: Regular rate and rhythm with a normal S1 and S2. No gallops, murmurs, or rubs. Normal PMI, no JVD. No pulse deficits. Respiratory: Lungs have equal breath sounds bilaterally, clear to auscultation and percussion. No rales, rhonchi or wheezes noted. No increased work of breathing, no retractions or nasal flaring. Abdomen/GI: Soft, non-tender, with normal bowel sounds. No distension or tympany. No guarding or rebound. No evidence of tenderness throughout. Back: No spinal tenderness. No costovertebral tenderness. Full range of motion. Male : Normal genitalia with no discharge or lesions. 04:17 Skin: Warm, dry with normal turgor. Normal color with no rashes, no lesions, and no evidence of cellulitis. MS/ Extremity: Pulses equal, no cyanosis. Neurovascular intact. Full, normal range of motion. Neuro: Awake and alert, GCS 15, oriented to person, place, time, and situation. Cranial nerves II-XII grossly intact. Motor strength 5/5 in all extremities. Sensory grossly intact. Cerebellar exam normal. Normal gait. Psych: Awake, alert, with orientation to person, place and time. Behavior, mood, and affect are within normal limits. 04:17 : CVA tenderness, is absent, Bladder: is normal, a rolle is noted, urine is noted to have nuzhat blood, dark blood, no change since initial placement per family. Vital Signs: 03:11 BP 115 / 67; Pulse 88; Resp 16; Temp 98.0; Pulse Ox 99% on R/A; Weight 92.53 kg; Height em 5 ft. 9 in. (175.26 cm); 04:26 BP 126 / 85; Pulse 80; Resp 19; Pulse Ox 98% ; rr5 03:11 Body Mass Index 30.13 (92.53 kg, 175.26 cm) em MDM: 04:17 Differential diagnosis: urinary retention, Rolle catheter problem. Data reviewed: [facility] signs, nurses notes. Counseling: I had a detailed discussion with the patient and/or guardian regarding: the historical points, exam findings, and any diagnostic results supporting the discharge/admit diagnosis, the need for outpatient follow up, a urologist, to return to the emergency department if symptoms worsen or persist or if there are any questions or concerns that arise at home. Response to treatment: the patient's symptoms have resolved after treatment, the patient's blood pressure is in an acceptable range, mental status has returned to baseline, the patient no longer shows bradycardia, the patient is not short of breath, the patient is not tachycardic, the patient's pain is gone, the patient's temperature has normalized. 04:22 Patient medically screened. 7 11/10 03:43 Order name: Bladder Irrigation; Complete Time: 03:43 rr5 11/10 03:43 Order name: Bladder Scanner; Complete Time: 03:43 rr5 Administered Medications: No medications were administered Disposition Summary: 11/10/20 04:22 Discharge Ordered Location: Home [facility] Problem: an ongoing problem [facility] Symptoms: have improved mh Condition: Stable [facility] Diagnosis - Rolle Catheter Malfunction mh7 - Hematuria, Chronic mh7 Followup: [facility] - With: Private Physician - When: 1 - 2 days - Reason: Worsening of condition, Recheck today's complaints, Continuance of care, Re-evaluation by your physician Followup: [facility] - With: Gustavo Mullen MD - When: 1 - 2 days - Reason: Worsening of condition, Recheck today's complaints, Continuance of care, Re-evaluation by your physician Discharge Instructions: - Discharge Summary Sheet [facility] - Hematuria, Adult [facility] - Indwelling Urinary Catheter Care, Adult, [id number] [facility] Forms: - Medication Reconciliation Form [facility] - Thank You Letter [facility] - Antibiotic Education [facility] - Prescription Opioid Use [facility] Signatures: Jesus Aparicio, RN RN Mono Higginbotham RN RN rr5 Randolph Ward MD MD [facility]
--- NOTE | 2020-11-10 04:23 | ER ---
Nurse's Notes [facility] Name: Mati Broderick Age: 85 yrs Sex: Male : 1935 Arrival Date: 11/10/2020 Time: 02:57 Bed 5 Private MD: Diagnosis: Rolle Catheter Malfunction;Hematuria, Chronic Presentation: 11/10 03:11 Chief complaint: Patient's son or daughter states: had a procedure done by urologist, em they inserted a cath., noticed it was not draining, called urologist and told to come to the ED to have catheter flushed. Coronavirus screen: Client denies travel out of the [place] in the last 14 days. Ebola Screen: Patient negative for fever greater than or equal to 101.5 degrees Fahrenheit, and additional compatible Ebola Virus Disease symptoms Patient denies exposure to infectious person. Patient denies travel to an Ebola-affected area in the 21 days before illness onset. No symptoms or risks identified at this time. Initial Sepsis Screen: Does the patient meet any 2 criteria? No. Patient's initial sepsis screen is negative. Does the patient have a suspected source of infection? No. Patient's initial sepsis screen is negative. Risk Assessment: Do you want to hurt yourself or someone else? Patient reports no desire to harm self or others. Onset of symptoms was November 10, 2020. 03:11 Method Of Arrival: Wheelchair em 03:11 Acuity: KATIE 4 em Historical: - Allergies: 03:14 No Known Allergies; em - Home Meds: 03:14 hydrocodone-acetaminophen 5-325 mg Oral tab 1 tab for pain [Active]; Bactrim DS 800-160 em mg Oral tab [Active]; metoprolol succinate 100 mg Oral Tb24 1 tab once daily [Active]; aspirin 81 mg Oral chew PRN [Active]; tamsulosin 0.4 mg Oral cp24 1 cap once daily [Active]; simvastatin 40 mg Oral tab 1 tab once daily [Active]; - PMHx: 03:14 CAD; Hernia; High Cholesterol; Prostate Cancer; Myocardial infarction; Hypertension; em - Immunization history:: Adult Immunizations up to date. - Social history:: Smoking status: Patient denies any tobacco usage or history of. Screenin:29 Abuse screen: Denies threats or abuse. Denies injuries from another. Nutritional rr5 screening: No deficits noted. Tuberculosis screening: No symptoms or risk factors identified. Fall Risk None identified. Total Polk Fall Scale indicates No Risk (0-24 pts). Assessment: 03:27 General: Appears in no apparent distress. uncomfortable, Behavior is calm, cooperative, rr5 appropriate for age. Pain: Complains of pain in pelvis. Neuro: Level of Consciousness is awake, alert, obeys commands, Oriented to person, place, time. Cardiovascular: Capillary refill < 3 seconds Patient's skin is warm and dry. Respiratory: Airway is patent Respiratory effort is even, unlabored, Respiratory pattern is regular, symmetrical. : Rolle in place to gravity drainage Urine is nuzhat blood, Reports discharge, bloody. Derm: Skin is intact, is healthy with good turgor, Skin temperature is warm. Musculoskeletal: Capillary refill < 3 seconds. 03:40 Reassessment: rolle catheter flushed with NS positive blood clots noted. rr5 04:26 Reassessment: Patient appears in no apparent distress at this time. Patient is alert, rr5 oriented x 3, equal unlabored respirations, skin warm/dry/pink. discharge instruction given and explained without complaints made Patient states feeling better. Patient states symptoms have improved. Vital Signs: 03:11 BP 115 / 67; Pulse 88; Resp 16; Temp 98.0; Pulse Ox 99% on R/A; Weight 92.53 kg; Height em 5 ft. 9 in. (175.26 cm); 04:26 BP 126 / 85; Pulse 80; Resp 19; Pulse Ox 98% ; rr5 03:11 Body Mass Index 30.13 (92.53 kg, 175.26 cm) em ED Course: 02:57 Patient arrived in ED. am4 03:14 Triage completed. em 03:14 Arm band placed on. em 03:21 Randolph Ward MD is Attending Physician. 7 03:27 Mono Cuba, MERON is Primary Nurse. rr5 03:28 Patient has correct armband on for positive identification. Bed in low position. Call rr5 light in reach. Pulse ox on. NIBP on. 03:28 Bladder scan completed. 340 ml. rr5 04:21 Gustavo Mullen MD is Referral Physician. mh7 04:26 No provider procedures requiring assistance completed. Patient did not have IV access rr5 during this emergency room visit. Administered Medications: No medications were administered Outcome: 04:22 Discharge ordered by . sybil 04:26 Discharged to home via wheelchair, with family. rr5 04:26 Condition: stable 04:26 Discharge instructions given to patient, family, Instructed on discharge instructions, follow up and referral plans. Demonstrated understanding of instructions, follow-up care. 04:27 Patient left the ED. rr5 Signatures: Jesus Aparicio RN RN em Roque, Raymond, RN RN rr5 Randolph Ward MD MD Shira Moore
[2020-11-10 04:39] VITALS: TEMP 98
[2020-11-10 04:40] VITALS: BP 126/85; O2SAT 98
== END 2020-11-10 04:27 | disposition home or self-care (01) ==
LOC: ER 02:54
DX: T83.018A Breakdown (mechanical) of other urinary catheter, initial encounter (principal); R31.9 Hematuria, unspecified; I10 Essential (primary) hypertension; Z85.46 Personal history of malignant neoplasm of prostate
CPT/HCPCS: 99283

== ENCOUNTER 2020-11-12 18:39 | Inpatient (IN) | payer OTHER ==
--- OUTSIDE RECORDS SUMMARY | 2020-11-12 18:42 | XMS REPORT | Continuity of Care Document ---
:1935 Author Organization [facility] t Address [address] [place] [address] Care Team Providers Name Role Phone Unavailable [...] Facility Department ID 2020-11-08 2020-11-08 Outpatient [facility] [id number] [facility] 2020-10-11 2020-10-11 Outpatient [facility] [id number] [facility] 2020-07-09 2020-07-09 Outpatient [facility] [id number] [facility] 2020-03-26 2020-03-26 Outpatient [facility] [id number] [facility] 2020-01-24 2020-01-24 Outpatient [facility] [id number] [facility] Results This patient has no known results.
--- NOTE | 2020-11-12 20:35 | ER ---
Nurse's Notes [facility] Name: Mati Broderick Age: 85 yrs Sex: Male : 1935 Arrival Date: 11/12/2020 Time: 19:50 Bed 19 Private MD: Diagnosis: Gross hematuria;Other retention of urine-BPH;Anemia, unspecified Presentation: 11/12 19:50 Chief complaint: Patient's son or daughter states: Rolle Cath placed by Dr. Mullen ca1 . Was here Thursday and they taught me how to flush the Rolle. Today, last flushed at 1500 but was not able to flush it well. He has blood in the urine with clots. Reports pain at the suprapubic area. Coronavirus screen: Client denies travel out of the [place] in the last 14 days. At this time, the client does not indicate any symptoms associated with coronavirus-19. Ebola Screen: Patient negative for fever greater than or equal to 101.5 degrees Fahrenheit, and additional compatible Ebola Virus Disease symptoms Patient denies exposure to infectious person. Patient denies travel to an Ebola-affected area in the 21 days before illness onset. No symptoms or risks identified at this time. Initial Sepsis Screen: Does the patient meet any 2 criteria? No. Patient's initial sepsis screen is negative. Does the patient have a suspected source of infection? No. Patient's initial sepsis screen is negative. Risk Assessment: Do you want to hurt yourself or someone else? Patient reports no desire to harm self or others. Onset of symptoms was November 12, 2020. 19:50 Method Of Arrival: Wheelchair ca1 19:50 Acuity: KATIE 2 ca1 Historical: - Allergies: 19:54 No Known Allergies; ca1 - PMHx: 19:54 CAD; Hernia; High Cholesterol; Hypertension; Myocardial infarction; Prostate Cancer; ca1 - Immunization history:: Client reports having NOT received the Covid vaccine. Pneumococcal vaccine is not up to date, Flu vaccine is not up to date. - Social history:: Smoking status: Patient denies any tobacco usage or history of. Screenin:13 Abuse screen: Denies threats or abuse. Denies injuries from another. Nutritional jm8 screening: No deficits noted. Tuberculosis screening: No symptoms or risk factors identified. Tuberculosis screening: No symptoms or risk factors identified. Fall Risk None identified. Assessment: 21:11 General: Appears in no apparent distress. uncomfortable, Behavior is calm, cooperative, jm8 appropriate for age. Pain: Complains of pain in left lower quadrant and right lower quadrant and suprapubic area and left leg and right leg. Neuro: No deficits noted. Level of Consciousness is awake, alert, obeys commands, Oriented to person, place, time. Cardiovascular: No deficits noted. Respiratory: No deficits noted. GI: No deficits noted. No signs and/or symptoms were reported involving the gastrointestinal system. : Rolle in place Urine is nuzhat blood, Bladder is distended Reports discharge, bloody, pain in right in left in suprapubic area. EENT: No deficits noted. No signs and/or symptoms were reported regarding the EENT system. Derm: No deficits noted. No signs and/or symptoms reported regarding the dermatologic system. Musculoskeletal: No deficits noted. No signs and/or symptoms reported regarding the musculoskeletal system. 22:35 Reassessment: Patient appears in no apparent distress at this time. No changes from jm8 previously documented assessment. Patient and/or family updated on plan of care and expected duration. Pain level reassessed. 23:48 Reassessment: Patient appears in no apparent distress at this time. No changes from jm8 previously documented assessment. Patient and/or family updated on plan of care and expected duration. Pain level reassessed. Patient states feeling better. Vital Signs: 19:50 BP 134 / 98; Pulse 104; Resp 20; Temp 98.4(TE); Pulse Ox 100% on R/A; Weight 92.53 kg ca1 (R); Height 5 ft. 9 in. (175.26 cm) (R); Pain 10/10; 23:29 BP 133 / 80; Pulse 105; Resp 16; Pulse Ox 99% on R/A; jm8 19:50 Body Mass Index 30.13 (92.53 kg, 175.26 cm) ca1 ED Course: 19:50 Patient arrived in ED. ca1 19:54 Triage completed. ca1 19:54 Arm band placed on right wrist. ca1 19:56 Alejandro Gil MD is Attending Physician. vamshi 20:34 Reyna Wayne MD is Hospitalizing Provider. vamshi 21:05 3-way catheter inserted, using sterile technique, 24 Fr. Returned bloody urine. ds4 21:05 Inserted saline lock: 20 gauge in left antecubital area, using aseptic technique. jm8 21:13 Patient has correct armband on for positive identification. Bed in low position. Call [facility] light in reach. Side rails up X2. Adult w/ patient. 21:29 US Extremity Venous W Compression Ernie In Process Unspecified. EDMS 21:33 XRAY Chest (1 view) In Process Unspecified. EDMS 21:52 CT Stone Protocol: after rolle placed In Process Unspecified. [facility] 11/13 11:09 Arlette Denis, RN is Primary Nurse. tr6 11:39 Patient admitted, IV remains in place. tr6 Administered Medications: 11/12 21:08 Drug: morphine 4 mg Route: IVP; Site: left antecubital; [facility] 22:00 Follow up: Response: No adverse reaction [facility] 21:08 Drug: Zofran (Ondansetron) 4 mg Route: IVP; Site: left antecubital; [facility] 22:00 Follow up: Response: No adverse reaction [facility] 21:08 Drug: Rocephin (cefTRIAXone) 1 grams Route: IV; Rate: per protocol; Site: left [facility] antecubital; 22:00 Follow up: IV Status: Completed infusion [facility] 21:09 Drug: Viscous Lidocaine Liquid (4 %) 10 ml Route: Mucous Membrane; [facility] 22:00 Follow up: Response: No adverse reaction [facility] 22:36 CANCELLED (Physician Discretion): morphine 2 mg IVP once; (PAIN>8) RASS on ADMN: Josy Combtv4, Very Agttd3, Agttd2, Rstlss1, AlertClm0, Drwsy-1, LtSdtn-2, ModSdtn-3, DpSdtn-4, UnArsble-5 x2 23:08 Drug: NS 0.9% 1000 ml Route: IV; Rate: 75 ml/hr; Site: left antecubital; [facility] 23:08 Drug: fentaNYL (PF) 25 mcg Route: IVP; Site: left antecubital; [facility] 23:30 Follow up: Response: No adverse reaction [facility] Outcome: 20:35 Decision to Hospitalize by Provider. [facility] 11/13 11:39 Admitted to Med/surg accompanied by tech, via wheelchair, room 209, Report called to tr6 keegan Condition: stable Instructed on the need for admit. 12:16 Patient left the ED. tr6 Signatures: Dispatcher [employer] Alejandro Guevara MD MD cha Swanson, Donovan ds4 Ashwini Carranza RN RN ca1 Michael Velasquez RN RN jm8 Arlette Denis RN RN tr6
--- NOTE | 2020-11-12 20:36 | EDPHYS ---
Physician Documentation [facility] Name: Mati Broderick Age: 85 yrs Sex: Male : 1935 Arrival Date: 11/12/2020 Time: 19:50 Bed 19 Private MD: ED Physician Alejandro Gil HPI: 11/12 20:29 This 85 yrs old Male presents to ER via Wheelchair with complaints of urinary vamshi retention,gross hematuria. 20:29 The patient presents with urinary symptoms, retention. Onset: The symptoms/episode vamshi began/occurred 1 day(s) ago. Modifying factors: The symptoms are alleviated by nothing, the symptoms are aggravated by movement, pressure. Associated signs and symptoms: Pertinent positives: abdominal pain. Severity of symptoms: At their worst the symptoms were moderate, in the emergency department the symptoms are unchanged. The patient has not experienced similar symptoms in the past. Historical: - Allergies: 19:54 No Known Allergies; ca1 - PMHx: 19:54 CAD; Hernia; High Cholesterol; Hypertension; Myocardial infarction; Prostate Cancer; ca1 - Immunization history:: Client reports having NOT received the Covid vaccine. Pneumococcal vaccine is not up to date, Flu vaccine is not up to date. - Social history:: Smoking status: Patient denies any tobacco usage or history of. ROS: 20:30 Constitutional: Negative for fever, chills, and weight loss, Eyes: Negative for injury, vamshi pain, redness, and discharge, ENT: Negative for injury, pain, and discharge, Neck: Negative for injury, pain, and swelling, Cardiovascular: Negative for chest pain, palpitations, and edema, Respiratory: Negative for shortness of breath, cough, wheezing, and pleuritic chest pain, Abdomen/GI: Negative for abdominal pain, nausea, vomiting, diarrhea, and constipation, Back: Negative for injury and pain, : Negative for injury, bleeding, discharge, and swelling, Skin: Negative for injury, rash, and discoloration, Neuro: Negative for headache, weakness, numbness, tingling, and seizure, Psych: Negative for depression, anxiety, suicide ideation, homicidal ideation, and hallucinations, Allergy/Immunology: Negative for hives, rash, and allergies, Endocrine: Negative for neck swelling, polydipsia, polyuria, polyphagia, and marked weight changes, Hematologic/Lymphatic: Negative for swollen nodes, abnormal bleeding, and unusual bruising. 20:30 MS/extremity: Positive for decreased range of motion, pain, swelling, tenderness, of the right leg and left leg. Exam: 20:30 Constitutional: This is a well developed, well nourished patient who is awake, alert, vamshi and in no acute distress. Head/Face: Normocephalic, atraumatic. Eyes: Pupils equal round and reactive to light, extra-ocular motions intact. Lids and lashes normal. Conjunctiva and sclera are non-icteric and not injected. Cornea within normal limits. Periorbital areas with no swelling, redness, or edema. ENT: Nares patent. No nasal discharge, no septal abnormalities noted. Tympanic membranes are normal and external auditory canals are clear. Oropharynx with no redness, swelling, or masses, exudates, or evidence of obstruction, uvula midline. Mucous membranes moist. Neck: Trachea midline, no thyromegaly or masses palpated, and no cervical lymphadenopathy. Supple, full range of motion without nuchal rigidity, or vertebral point tenderness. No Meningismus. Chest/axilla: Normal chest wall appearance and motion. Nontender with no deformity. No lesions are appreciated. Cardiovascular: Regular rate and rhythm with a normal S1 and S2. No gallops, murmurs, or rubs. Normal PMI, no JVD. No pulse deficits. Respiratory: Lungs have equal breath sounds bilaterally, clear to auscultation and percussion. No rales, rhonchi or wheezes noted. No increased work of breathing, no retractions or nasal flaring. Back: No spinal tenderness. No costovertebral tenderness. Full range of motion. Skin: Warm, dry with normal turgor. Normal color with no rashes, no lesions, and no evidence of cellulitis. MS/ Extremity: Pulses equal, no cyanosis. Neurovascular intact. Full, normal range of motion. Neuro: Awake and alert, GCS 15, oriented to person, place, time, and situation. Cranial nerves II-XII grossly intact. Motor strength 5/5 in all extremities. Sensory grossly intact. Cerebellar exam normal. Normal gait. Psych: Awake, alert, with orientation to person, place and time. Behavior, mood, and affect are within normal limits. 20:30 Abdomen/GI: Inspection: distension, Bowel sounds: normal, Palpation: moderate abdominal tenderness, in the suprapubic area, right lower quadrant and left lower quadrant, Liver: no appreciated palpable abnormalities, Hernia: not appreciated. 22:19 ECG was reviewed by the Attending Physician. [facility] Vital Signs: 19:50 BP 134 / 98; Pulse 104; Resp 20; Temp 98.4(TE); Pulse Ox 100% on R/A; Weight 92.53 kg ca1 (R); Height 5 ft. 9 in. (175.26 cm) (R); Pain 10/10; 23:29 BP 133 / 80; Pulse 105; Resp 16; Pulse Ox 99% on R/A; jm8 19:50 Body Mass Index 30.13 (92.53 kg, 175.26 cm) ca1 MDM: 19:58 Patient medically screened. [facility] 20:32 Differential diagnosis: UTI, urinary retention, Rolle catheter problem, prostatitis, vamshi urethritis. Data reviewed: vital signs, nurses notes, lab test result(s), EKG, radiologic studies, CT scan, plain films. 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 Test interpretation: by ED physician or midlevel provider: ECG, plain radiologic studies. Counseling: I had a detailed discussion with the patient and/or guardian regarding: the historical points, exam findings, and any diagnostic results supporting the discharge/admit diagnosis, lab results, radiology results. 11/12 20:28 Order name: Basic Metabolic Panel; Complete Time: 21:38 [facility] 11/12 20:28 Order name: CBC with Diff; Complete Time: 21:38 [facility] 11/12 20:28 Order name: LFT's; Complete Time: 21:38 [facility] 11/12 20:28 Order name: Magnesium; Complete Time: 21:38 [facility] 11/12 20:28 Order name: NT PRO-BNP; Complete Time: 21:38 [facility] 11/12 20:28 Order name: PT-INR; Complete Time: 22:17 [facility] 11/12 20:28 Order name: Troponin (emerg Dept Use Only); Complete Time: 21:38 [facility] 11/12 20:28 Order name: Urine Culture [facility] 11/12 21:38 Order name: Type And Screen [facility] 11/12 22:42 Order name: SARS-COV-2 RT PCR; Complete Time: 01:18 EDMS 11/13 06:04 Order name: CBC with Automated Diff [facility] 11/13 06:11 Order name: Protime (+INR) [facility] 11/13 06:11 Order name: PTT, Activated Partial Thromb EDKS 11/12 20:28 Order name: XRAY Chest (1 view); Complete Time: 01:18 [facility] 11/12 20:28 Order name: EKG; Complete Time: 20:29 [facility] 11/12 20:28 Order name: Cardiac monitoring; Complete Time: 22:15 [facility] 11/12 20:28 Order name: US Extremity Venous W Compression Ernie; Complete Time: 22:17 [facility] 11/12 20:28 Order name: CT Stone Protocol: after rolle placed; Complete Time: 01:18 [facility] 11/12 22:54 Order name: CONS Physician Consult [facility] 11/13 06:20 Order name: Comprehensive Metabolic Panel [facility] 11/13 06:21 Order name: Phosphorus [facility] 11/13 06:21 Order name: Magnesium [facility] 11/12 20:28 Order name: EKG - Nurse/Tech; Complete Time: 22:15 [facility] 11/12 20:28 Order name: IV Saline Lock; Complete Time: 21:15 [facility] 11/12 20:28 Order name: Labs collected and sent; Complete Time: 21:15 [facility] 11/12 20:28 Order name: O2 Per Protocol; Complete Time: 21:15 [facility] 11/12 20:28 Order name: O2 Sat Monitoring; Complete Time: 21:15 [facility] 11/12 20:28 Order name: Urine Dipstick-Ancillary (obtain specimen); Complete Time: 22:54 [facility] 11/12 20:28 Order name: Three way rolle irrigation; Complete Time: 21:08 [facility] 11/12 21:08 Order name: Labs - recollect needed: blue top; Complete Time: 21:16 mw2 11/12 22:50 Order name: Bladder Irrigation; Complete Time: 22:50 jm8 EC:19 Rate is 104 beats/min. Rhythm is regular. QRS Huger is Normal. ME interval is normal. [facility] QRS interval is prolonged at 140 msec. QT interval is normal. No Q waves. T waves are Normal. No ST changes noted. Clinical impression: Abnormal EKG without significant change and No evidence of ischemia. Interpreted by me. Reviewed by me. Administered Medications: 21:08 Drug: morphine 4 mg Route: IVP; Site: left antecubital; 8 22:00 Follow up: Response: No adverse reaction 8 21:08 Drug: Zofran (Ondansetron) 4 mg Route: IVP; Site: left antecubital; 8 22:00 Follow up: Response: No adverse reaction 8 21:08 Drug: Rocephin (cefTRIAXone) 1 grams Route: IV; Rate: per protocol; Site: left [facility] antecubital; 22:00 Follow up: IV Status: Completed infusion 8 21:09 Drug: Viscous Lidocaine Liquid (4 %) 10 ml Route: Mucous Membrane; [facility] 22:00 Follow up: Response: No adverse reaction [facility] 22:36 CANCELLED (Physician Discretion): morphine 2 mg IVP once; (PAIN>8) RASS on ADMN: [facility] Combtv4, Very Agttd3, Agttd2, Rstlss1, AlertClm0, Drwsy-1, LtSdtn-2, ModSdtn-3, DpSdtn-4, UnArsble-5 x2 23:08 Drug: NS 0.9% 1000 ml Route: IV; Rate: 75 ml/hr; Site: left antecubital; [facility] 23:08 Drug: fentaNYL (PF) 25 mcg Route: IVP; Site: left antecubital; [facility] 23:30 Follow up: Response: No adverse reaction [facility] Disposition Summary: 11/12/20 20:35 Hospitalization Ordered Hospitalization Status: Inpatient Admission vamshi Provider: Reyna Wayne cha Condition: Fair vamshi Problem: new vamshi Symptoms: have improved vamshi Bed/Room Type: Standard vamshi Location: Telemetry/MedSurg (Inpatient)(11/13/20 11:08) ne Room Assignment: [facility](11/13/20 11:08) ne Diagnosis - Gross hematuria vamshi - Other retention of urine - BPH vamshi - Anemia, unspecified vamshi Forms: - Medication Reconciliation Form vamshi - SBAR form vamshi Signatures: Dispatcher [employer] EDAlejandro Javed MD MD cha Garcia, Cindy, RN RN Tre[facility] ShieldsSt. John's HospitalTigist mw2 Ashwini Carranza RN RN [facility] Michael Velasquez RN RN jm8 Corrections: (The following items were deleted from the chart) 21:34 20:51 CORONAVIRUS+MR.LAB.ALAINAParisa ordered. EDMS EDMS 22:36 22:36 morphine 2 mg IVP once; (PAIN>8) RASS on ADMN: Combtv4, Very Agttd3, Agttd2, jm8 Rstlss1, AlertClm0, Drwsy-1, LtSdtn-2, ModSdtn-3, DpSdtn-4, UnArsble-5 x2 ordered. jmJosy 23:31 20:35 Telemetry/MedSurg (Inpatient) [facility] 23:31 20:35 [facility] 11/13 11:08 11/12 23:31 [facility] ER HOLD [facility] 11/13 11:08 11/12 23:31 ERHOLD- [facility]
[2020-11-12 20:56] LABS: Absolute Lymphocytes (CBC) 1.6 K/uL (0.7-4.9); Basophils % 0.7 % (0-1.3); Hematocrit 25.7 % (39.6-49.0); Lymphocytes % 15.2 % (15.3-44.8); MPV 8.1 fL (7.6-11.3); RBC Red Blood Cell Count 2.85 M/uL (4.33-5.43)
[2020-11-12] MEDS ORDERED: LIDOCAINE VISCOUS 2% SOLN 15 ML UDC ONE (20:57)
[2020-11-12] MEDS ORDERED: MORPHINE 4 MG/ML SYR ONE (21:10)
[2020-11-12] MEDS ORDERED: ONDANSETRON 4 MG/2 ML VIAL ONE (21:10)
[2020-11-12] MEDS ORDERED: CEFTRIAXONE/SWI 1gm 1 GM/10 ML SYR ONE (21:10)
[2020-11-12] MEDS ORDERED: NA CHLORIDE 0.9% 1,000 ML ONE (21:10)
[2020-11-12 21:19] LABS: ALT/SGPT 21 U/L (12-78); AST/SGOT 15 U/L (15-37); Albumin 3.2 g/dL (3.4-5.0); Alkaline Phosphatase 70 U/L (45-117); BUN Blood Urea Nitrogen 22 mg/dL (7-18); Bicarbonate 23 mmol/L (21-32); Bilirubin Direct < 0.1 mg/dL (0-0.2); Bilirubin Total 0.3 mg/dL (0.2-1.0); Glucose Level 135 mg/dL (74-106); Magnesium 2.2 mg/dL (1.8-2.4); NT PRO-BNP 144 pg/mL (<450); Potassium 3.8 mmol/L (3.5-5.1); Protein, Total 6.1 g/dL (6.4-8.2); Sodium Level 137 mmol/L (136-145); Troponin (Emerg Dept Use Only) < 0.02 ng/mL (0.0-0.045)
[2020-11-12 21:39] LABS: Protime INR 1.08
--- NOTE | 2020-11-12 21:42 | RAD REPORT ---
EXAM DESCRIPTION: US - Extrem Venous W Compress Ernie - 11/12/2020 9:29 pm CLINICAL HISTORY: Pain;Swelling COMPARISON: None. TECHNIQUE: Real-time sonographic evaluation of the bilateral lower extremity common femoral, superfi cial femoral, popliteal and posterior tibial veins was performed. FINDINGS: Normal compressibility, flow augmentation, phasic flow and spontaneous flow are identified in the left and right lower extremity common femoral, superficial femoral, popliteal and posterior t ibial veins. No intraluminal filling defects seen. Compression of the left popliteal vein was limite d due to patient pain. Doppler showed normal flow through this vessel. IMPRESSION: No DVT in either lower extremity.
--- NOTE | 2020-11-12 22:18 | RAD REPORT ---
EXAM DESCRIPTION: CT - Stone Protocol - 11/12/2020 9:52 pm CLINICAL HISTORY: ABD PAIN COMPARISON: Abdomen Pelvis W/Wo Contrast dated 10/12/2020 TECHNIQUE: Axial 3 mm thick images were obtained without oral or IV contrast. The [id number] span s the entirety of the system including uppermost abdomen and lung bases. All CT scans are performed using dose optimization technique as appropriate and may include automated exposure control or mA/KV adjustment according to patient size. FINDINGS: No hydronephrosis is present and no obstructing ureteral calculi. No suspicious renal mass es. Isodense masses and pyelonephritis are not excluded on a stone protocol CT scan. No significant a drenal finding. Urinary bladder is distended. Ramirez catheter is in place. Prostate gland is enlarged projecting into the bladder base. Lobulated heterogeneous soft tissue attenuation is present in the u rinary bladder lumen. Probably hematoma. This could obscure any bladder base mass. Air within the lum en of the urinary bladder is probably from Ramirez catheter manipulation. Imaged portions of the liver, spleen and pancreas show no suspicious findings on non-contrast imaging . No gallbladder or biliary tree abnormality identified. No suspicious bowel findings. Small hiatal hernia is present. Moderate stool volume seen in the colo n. No hernia, mass or bulky lymphadenopathy noted. No free air, free fluid or inflammatory stranding. No significant bony abnormality. IMPRESSION: Large 7-8 cm sized hematoma within a distended urinary bladder. The size of the hematoma could obscure any bladder base mass. Ramirez catheter is in place. Air is present within the lumen of the bladder presumed to be from placem ent, manipulation or adjustment of the Ramirez catheter. Enlarged prostate gland projecting into the bladder base. Isodense masses and pyelonephritis are not excluded on stone protocol technique.
--- NOTE | 2020-11-12 22:19 | RAD REPORT ---
EXAM DESCRIPTION: RAD - Chest Single View - 11/12/2020 9:33 pm CLINICAL HISTORY: ABDOMINAL DISTENTION COMPARISON: Portable July 14 TECHNIQUE: AP portable chest image was obtained 11/12/2020 9:33 pm . FINDINGS: Lungs are clear. Low lung volumes accentuate interstitial pattern. Heart and vasculature a re normal. No measurable pleural effusion and no pneumothorax. No acute bony abnormality seen. No acu te aortic findings suspected. IMPRESSION: No acute cardiopulmonary process.
[2020-11-12] MEDS ORDERED: NACL 0.9% IRR SOLN 2,000 ML IRR ONE (22:55)
[2020-11-12] MEDS ORDERED: FENTANYL CITR 100 MCG/2 ML ONE (23:23)
[2020-11-13] MEDS ORDERED: NACL 0.9% IRR SOLN 2,000 ML IRR ONE ×2 (00:42→02:26)
[2020-11-13 01:00] VITALS: BMI 30.1
[2020-11-13] MEDS ORDERED: ONDANSETRON 4 MG/2 ML VIAL IV PRN (01:52)
[2020-11-13] MEDS: MORPHINE 4 MG/ML SYR IV PRN ×3 (02:09→19:22)
[2020-11-13] MEDS ORDERED: MORPHINE 4 MG/ML SYR ONE ×2 (02:20→10:57)
[2020-11-13] MEDS ORDERED: ONDANSETRON 4 MG/2 ML VIAL ONE (02:20)
--- NOTE | 2020-11-13 03:26 | P.HP ---
Certification for Inpatient Patient admitted to: Inpatient With expected LOS: >2 Midnights Patient will require the following post-hospital care: None Practitioner: I am a practitioner with admitting privileges, knowledge of patient current condition, hospital course, and medical plan of care. Services: Services provided to patient in accordance with Admission requirements found in Title 42 Section 412.3 of the Code of Federal Regulations Patient History Date of Service: 11/13/20 Primary Care Provider: Mike Reason for admission: hematuria History of Present Illness: Mr. Broderick is an 85 yo M with CAd, HLD, HTN, history of prostate cancer here today for urinary retention, hematuria and abdominal pain. He says hematuria in itially began 2-3 months ago but was not daily. Last week he saw his urologist who placed a rolle at that time. Symptoms persisted so on Thursday they placed a larger rolle. His daughter says she has still had to flush clots and blood from his rolle. Symptoms are worse with movement, pressure, urination, and the bigger catheter. Symptoms relieved with pain medication. Denies fever. Had episodes of vomiting on Thursday and Thursday. Ct scan shows large 7-8 cm hematoma with distended urinary bladder and enlarged prostate gland projecting into bladder base. H/H 9.0. Allergies No Known Allergies Allergy (Unverified 11/13/20 01:52) - Past Medical/Surgical History -: CAD -: HLD -: HTN -: history of prostate ca -: back surgery -: shoulder surgery -: knee surgery - Family History Family History: Reviewed- Non-Contributory - Social History Smoking Status: Never smoker Alcohol use: No CD- Drugs: No Caffeine use: No Place of Residence: Home Review of Systems 10-point ROS is otherwise unremarkable Gastrointestinal: Vomiting, Abdominal Pain Genitourinary: Hematuria, Retention Physical Examination - Vital Signs Blood Pressure: 148/79 Pulse: 102 Respirations: 16 Pulse Ox (%): 98 - Physical Exam General: Alert, In no apparent distress, Oriented x3, Cooperative HEENT: Atraumatic, PERRLA, Mucous membr. moist/pink, EOMI, Sclerae nonicteric Neck: Supple, 2+ carotid pulse no bruit, No LAD, Without JVD or thyroid abnormality Respiratory: Clear to auscultation bilaterally, Normal air movement Cardiovascular: Regular rate/rhythm, Normal S1 S2, Other (murmur) Gastrointestinal: Normal bowel sounds, No tenderness Musculoskeletal: No tenderness Integumentary: No rashes Neurological: Normal gait, Normal speech, Normal strength at 5/5 x4 extr, Normal tone, Normal affect Lymphatics: No axilla or inguinal lymphadenopathy Urinary: Rolle catheter External genitalia: Tenderness - Studies Laboratory Data (last 24 hrs) 11/12/20 21:18: PT 12.4, INR 1.08 11/12/20 20:45: WBC 10.40, Hgb 9.0 L, Hct 25.7 L, Plt Count 200 11/12/20 20:45: Sodium 137, Potassium 3.8, BUN 22 H, Creatinine 1.07, Glucose 135 H, Magnesium 2.2, Total Bilirubin 0.3, AST 15, ALT 21, Alkaline Phosphatase 70 Assessment and Plan - Plan Assessment urinary retention, hematuria, bladder hematoma and distension HLD HTN CAD anemia Plan urinary retention, hematuria, bladder hematoma and distension - urology consulted, NPO after midnight, hold anticoagulation, continue continuous bladder irrigation overnight, pain management as needed HLD - stable, continue to monitor HTN - stable, reconcile and continue home medications CAD - stable, continue to monitor anemia - type and screen complete, will transfuse to goal >7, monitor closely Discharge Plan: Home Plan to discharge in: 72 Hours - Advance Directives Does patient have a Living Will: No Does patient have a Durable POA for Healthcare: No - Code Status/Comfort Care Code Status Assessed: Yes (full code ) Critical Care: No Time Spent Managing Pts Care (In Minutes): 70
[2020-11-13 05:54] LABS: Absolute Lymphocytes (CBC) 1.6 K/uL (0.7-4.9); Basophils % 0.6 % (0-1.3); Hematocrit 22.8 % (39.6-49.0); Lymphocytes % 18.8 % (15.3-44.8); MPV 8.1 fL (7.6-11.3); RBC Red Blood Cell Count 2.51 M/uL (4.33-5.43)
[2020-11-13 06:08] LABS: Protime INR 1.11
[2020-11-13 06:20] LABS: ALT/SGPT 17 U/L (12-78); AST/SGOT 15 U/L (15-37); Albumin 2.8 g/dL (3.4-5.0); Alkaline Phosphatase 55 U/L (45-117); BUN Blood Urea Nitrogen 19 mg/dL (7-18); Bicarbonate 26 mmol/L (21-32); Bilirubin Total 0.3 mg/dL (0.2-1.0); Glucose Level 108 mg/dL (74-106); Magnesium 2.3 mg/dL (1.8-2.4); Phosphorus 3.9 mg/dL (2.5-4.9); Potassium 4.1 mmol/L (3.5-5.1); Protein, Total 5.5 g/dL (6.4-8.2); Sodium Level 142 mmol/L (136-145)
[2020-11-13] MEDS ORDERED: NA CHLORIDE 0.9% 2,000 ML ONE (07:34)
[2020-11-13] MEDS ORDERED: PNEUMOCOCCAL VACCINE 0.5 ML IMVAC ONE (10:00)
[2020-11-13] MEDS ORDERED: NACL 0.9% IRR SOLN 4,000 ML IRR ONE (11:19)
--- NOTE | 2020-11-13 14:08 | P.PN ---
Subjective Date of Service: 11/13/20 Primary Care Provider: Mike Chief Complaint: hematuria No new complain. Patient with persistent hematuria with ongoing CBI. He denies pain at this time. Physical Examination - Vital Signs Temperature: 98.5 F Blood Pressure: 148/65 Pulse: 87 Respirations: 16 Pulse Ox (%): 98 - Physical Exam General: Alert, In no apparent distress, Oriented x3 HEENT: Mucous membr. moist/pink Neck: JVD not distended Respiratory: Clear to auscultation bilaterally, Normal air movement Cardiovascular: No edema, Regular rate/rhythm, Normal S1 S2 Gastrointestinal: Normal bowel sounds, Soft and benign, Non-distended Musculoskeletal: No swelling, No tenderness Integumentary: No rashes, No erythema Neurological: Normal strength at 5/5 x4 extr, Cranial nerves 3-12 intact Urinary: Ramirez catheter - Studies Laboratory Data (last 24 hrs) 11/12/20 21:18: PT 12.4, INR 1.08 11/12/20 20:45: WBC 10.40, Hgb 9.0 L, Hct 25.7 L, Plt Count 200 11/12/20 20:45: Sodium 137, Potassium 3.8, BUN 22 H, Creatinine 1.07, Glucose 135 H, Magnesium 2.2, Total Bilirubin 0.3, AST 15, ALT 21, Alkaline Phosphatase 70 Assessment And Plan - Current Problems (Diagnosis) (1) Hematuria Current Visit: Yes Status: Acute (2) History of prostate cancer Current Visit: Yes Status: Acute (3) Acute blood loss anemia Current Visit: Yes Status: Acute (4) Hypertension Current Visit: Yes Status: Acute (5) Coronary artery disease Current Visit: Yes Status: Acute - Plan Continue bladder irrigation. Transfused 2 units PRBC for significant drop in hemoglobin. Empiric IV Rocephin Pain management as needed. Urology consulted Continue Flomax. Hold aspirin. Continue other home medications.
[2020-11-13] MEDS: METOPROLOL XL 100 MG TAB PO SCH (15:00)
[2020-11-13] MEDS: TAMSULOSIN 0.4 MG SR CAP PO SCH (15:00)
[2020-11-13] MEDS ORDERED: NA CHLORIDE 0.9% 1,000 ML ONE (15:57)
[2020-11-13] MEDS ORDERED: CEFTRIAXONE/SWI 1gm 1 GM/10 ML SYR IVP ONE (16:00)
[2020-11-13] MEDS ORDERED: LIDOCAINE JELLY 2% 5 ML SYRINGE TOP ONE (16:10)
[2020-11-13] MEDS ORDERED: propofoL 200 MG/20 ML VIAL IV ONE (16:10)
[2020-11-13] MEDS ORDERED: FENTANYL CITR 100 MCG/2 ML ONE ×2 (16:11→17:03)
[2020-11-13] MEDS ORDERED: FENTANYL CITR 250 MCG/5 ML ONE (17:12)
[2020-11-13] MEDS ORDERED: BACITRACIN OINTMENT 15 GM TUBE TOP ONE (17:59)
[2020-11-13] MEDS ORDERED: HYDROMORPHONE HCL 1 MG/ML INJ ONE (18:24)
[2020-11-13] MEDS ORDERED: MIDAZOLAM HCL 2 MG/2 ML INJ ONE (18:29)
[2020-11-13] MEDS ORDERED: OPIUM/BELLADONNA SUPPOS (30-16.2 MG) PR ONE (18:36)
[2020-11-13] MEDS ORDERED: OPIUM/BELLADONNA SUPPOS (30-16.2 MG) PR SCH (19:00)
[2020-11-13] MEDS ORDERED: PHENAZOPYRIDINE 100MG TAB PO ONE (19:00)
--- NOTE | 2020-11-13 19:16 | EKG ---
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
[2020-11-13] MEDS: ATORVASTATIN 20 MG TAB PO SCH (20:12)
[2020-11-13] MEDS: SODIUM CHL 0.9% IRR SOLN 2000 ML IRR SCH (20:40)
[2020-11-13] MEDS: NA CHLORIDE 0.9% 250 ML IV SCH (20:40)
[2020-11-13] MEDS ORDERED: HOME MED 1 EA UNK (Simvastatin [Simvastatin] 40 MG Tablet) PO SCH (21:00)
--- NOTE | 2020-11-13 22:12 | CON ---
Reason For Consultation: Gross hematuria and clot urinary retention. History Of Present Illness: Mr. 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 He presented with new gross hematuri a and clot retention despite unremarkable upper tract evaluation via CT urography. Outpatient cystos copy revealed massive benign prostatic hypertrophy with intraluminal projection, which could potentia lly be carcinoma in nature. He was treated as an outpatient with Bactrim double strength tablets twi ce daily for presumptive prostatitis causing the gross hematuria and was recommended for followup cys toscopy, but in the interim, he came to the hospital symptomatic of anemia with gross hematuria and c lot retention. As a result, a 24-[place] hematuria catheter was placed and he was put on CBI via the emergency department and admitted. I was then consulted and evaluated the patient, who at this point was somewhat more comfortable with CBI draining. Past Medical History: Significant for hyperlipidemia, hypertension. Physical Examination: GENERAL: The patient lying comfortably in the stretcher, in no acute distress. ABDOMEN: Soft and nondistended. Urethral catheter emanating from the meatus with evidence of inferior meatal trauma. CBI on slow drip with port wine colored urine. The patient was getting a unit of packed red blood cells actively at the time of my consultation. 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 I recommend IV ceftriaxone be provided now along with operative cystoscopy and clot evacuation with f ulguration were necessary. I counseled the patient and his son, who has his power of research attorney, on potential that he might have a bladder tumor underlying this gross hematuria and the potential need to resect it. We also discussed the potential for bladder perforation associated with such a resect ion along with the risk of urethral stricture and otherwise generalized infection. The patient conse nted for the procedure accordingly. WR/MODL Voice ID: [id number] Report ID: [id number]
--- NOTE | 2020-11-13 23:16 | OP ---
Date of Procedure: 11/13/2020 Surgeon: AZAEL VARGAS Preoperative Diagnoses: 1.Gross hematuria. 2.Clot urinary retention. 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 4.History of prior transurethral resection of the prostate in 2010. Postoperative Diagnoses: 1.Gross hematuria. 2.Clot urinary retention. 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 4.History of prior transurethral resection of the prostate in 2010. Principal Procedures: 1.Cystoscopy with clot evacuation and bladder irrigation. 2.Bipolar fulguration of the prostatic urethra and channel transurethral resection of the prostate. Indication For Procedure: This is an 85-year-old gentleman who is Portuguese-speaking only and whose so n has his power of contracts attorney, who presents with known Caldwell 3 + 3 adenocarcinoma of the prostate lele gnosed in 2008, on watchful waiting, but with PSA increasing slowly and a doubling time of greater th an 4 years. He had gross hematuria that resulted in symptomatic anemia and clot retention and presen ts for cystoscopy and clot evacuation with fulguration and other necessary procedures. Procedure In Detail: The patient was consented in the preoperative holding area before being transfe rred to operative suite where general anesthesia was induced. He was given ceftriaxone 1 g IV antimi crobial prophylaxis and pneumoboots were provided for DVT prophylaxis. He was placed in the lithotom y position, padded and secured to the table appropriately. His genitalia were prepped using Hibiclen s and draped in standard fashion. The case was begun using urethral sounds to dilate his meatus and fossa navicularis to 30-Ivorian after the indwelling urethral Ramirez catheter was removed. Then using a visual obturator, the 26-Ivorian resectoscope was placed via the urethra and traversed a massive int raluminal adenomatous projection laterally, in the median bar, and anteriorly overhanging within the prostatic urethra. Upon entry into the bladder, massive clot was noted to obscure the entirety of th e bladder lumen. As a result, I utilized an Ellik evacuator to remove the clot. Multiple rounds of Ellik evacuation were required, and I utilized sterile water during a portion of it to completely gilda ar the clot burden. I was then finally able to survey the bladder, and while there was still some on going hematuria, a reasonable survey was made. No mucosal lesions, foreign bodies or stones were not ed within the bladder given the mildly limited cystoscopic evaluation. As a result, I turned my atte ntion to the prostatic urethra, which was the obvious source of ongoing hematuria. To manage it, I i nitially resected the intravesically projecting component of the median lobe and resected the entiret y of the median bar down to the level of the verumontanum creating a trough to aid his voiding and ri d him hopefully of the issues with urinary retention. I then carefully fulgurated the entirety of th at channel created along with the remainder of the prostate that was intravesically invaginating and bleeding causing the ongoing gross hematuria. Once this was done, I was able to remove all prostate chips from within the bladder with ease, and with the bladder decompressed, there was minimal ongoing hematuria. As a result, I placed a 24-Ivorian 3-way Ramirez catheter into his bladder with ease and pl aced 50 cc of sterile water in the balloon. The catheter was irrigated and the irrigant fluid was cl ear to light pink. I then placed the catheter to moderate traction and reconnected normal saline CBI and the resulting efflux was completely clear. This was clear despite very slow drip about 1 drop p er second CBI. As a result, the patient was taken out of the lithotomy position, transferred to a [facility], and then transferred to the recovery room in good condition. Complications: None. Discharge Disposition: We will request that he follow up in the Urology Clinic within the next 1-2 w eeks to discuss the results of the pathology of the channel resection of his prostate. In the meanti me, I recommend he continue with a few additional days of ceftriaxone IV therapy in case there is a c omponent of inflammation/prostatitis causing the gross hematuria. While I suspect this is likely due to his prostate cancer and he would likely benefit from initiation of androgen deprivation therapy. If this is the case, we will await the pathology to make that determination. The patient may reason ably be given a voiding trial after about 3-5 days; so if he is still admitted and an inpatient at at time, his bladder may be backfilled with at least 200-400 cc of normal saline until he expresses t he urge to void. The catheter should then be clamped and removed by deflating the balloon of 50 cc o f sterile water with the bladder still full. The patient should then be given a urinal and requested to void. As long as he voids more than half of the volume of fluid instilled, he will have passed t he voiding trial and will not need to have the catheter reinserted. ALESHA/RACHAEL Voice ID: [id number] Report ID: [id number]
[2020-11-14] MEDS: MORPHINE 4 MG/ML SYR IV PRN (00:25)
[2020-11-14] MEDS: SODIUM CHL 0.9% IRR SOLN 2000 ML IRR SCH ×2 (01:20→05:00)
[2020-11-14] MEDS ORDERED: NA CHLORIDE 0.9% 250 ML ONE (03:14)
[2020-11-14] MEDS ORDERED: ACETAMINOPHEN 325 MG TABLET PO ONE (04:21)
[2020-11-14] MEDS ORDERED: ACETAMINOPHEN 325 MG TABLET ONE (04:43)
[2020-11-14] MEDS: METOPROLOL XL 100 MG TAB PO SCH (08:05)
[2020-11-14] MEDS: TAMSULOSIN 0.4 MG SR CAP PO SCH (08:06)
[2020-11-14 08:07] LABS: Absolute Lymphocytes (CBC) 1.1 K/uL (0.7-4.9); Basophils % 0.6 % (0-1.3); Hematocrit 26.5 % (39.6-49.0); Lymphocytes % 14.9 % (15.3-44.8); MPV 7.6 fL (7.6-11.3); RBC Red Blood Cell Count 2.94 M/uL (4.33-5.43)
[2020-11-14 08:22] LABS: BUN Blood Urea Nitrogen 12 mg/dL (7-18); Bicarbonate 26 mmol/L (21-32); Glucose Level 91 mg/dL (74-106); Potassium 3.6 mmol/L (3.5-5.1); Sodium Level 140 mmol/L (136-145)
[2020-11-14] MEDS ORDERED: CEFTRIAXONE/SWI 1gm 1 GM/10 ML SYR IVP SCH (09:00)
[2020-11-14] MEDS: CODEINE 30MG/APAP 300MG TAB PO PRN ×3 (09:02→20:06)
--- NOTE | 2020-11-14 12:38 | EKG ---
Test Date: 2020-11-14 Test Time: 08:26:40 Senior Telecommunications Specialist: GENESIS MEASUREMENT RESULTS: Intervals: Rate: 97 NE: 152 QRSD: 146 QT: 400 QTc: 508 [place]: P: 55 NE: 152 QRS: -62 T: 44 INTERPRETIVE STATEMENTS: Normal sinus rhythm Left axis deviation Left ventricular hypertrophy with QRS widening Abnormal ECG Compared to ECG 11/12/2020 22:10:02 Left-axis deviation now present Left ventricular hypertrophy now present Sinus tachycardia no longer present Right bundle-branch block no longer present Left anterior fascicular block no longer present Bifascicular block no longer present Electronically Signed On 11-14-20 12:37:15 CDT by Howard Villalobos
[2020-11-14] MEDS: NA CHLORIDE 0.9% 250 ML IV SCH (13:39)
[2020-11-14] MEDS ORDERED: POTASSIUM CL SA 10 MEQ TAB PO ONE (14:00)
--- NOTE | 2020-11-14 17:54 | P.PN ---
Subjective Date of Service: 11/14/20 Primary Care Provider: Mike Chief Complaint: hematuria Status post cystoscopy with clot evacuation, and transurethral prostate resection. Patient states his suprapubic pain is much better today. CBI is ongoing. Physical Examination - Vital Signs Temperature: 98.6 F Blood Pressure: 117/58 Pulse: 79 Respirations: 16 Pulse Ox (%): 95 - Physical Exam General: Alert, In no apparent distress, Oriented x3 HEENT: Mucous membr. moist/pink Neck: JVD not distended Respiratory: Clear to auscultation bilaterally, Normal air movement Cardiovascular: Regular rate/rhythm, Normal S1 S2 Gastrointestinal: Normal bowel sounds, Soft and benign, Non-distended, No tenderness Musculoskeletal: No swelling Integumentary: No rashes Neurological: Normal strength at 5/5 x4 extr Assessment And Plan - Current Problems (Diagnosis) (1) Hematuria Current Visit: Yes Status: Acute (2) History of prostate cancer Current Visit: Yes Status: Acute (3) Acute blood loss anemia Current Visit: Yes Status: Acute (4) Hypertension Current Visit: Yes Status: Acute (5) Coronary artery disease Current Visit: Yes Status: Acute - Plan Continue bladder irrigation. SP 1 unit PRBC transfusion. Posttransfusion hemoglobin is 9. Continue empiric IV Rocephin Pain management as needed. Urology is following Continue Flomax. Hold aspirin. Continue other home medications.
[2020-11-14] MEDS: ATORVASTATIN 20 MG TAB PO SCH (20:06)
[2020-11-15] MEDS: MORPHINE 4 MG/ML SYR IV PRN ×2 (03:05→22:28)
[2020-11-15] MEDS: NA CHLORIDE 0.9% 250 ML IV SCH (03:06)
[2020-11-15] MEDS: SODIUM CHL 0.9% IRR SOLN 2000 ML IRR SCH (03:06)
[2020-11-15 05:42] LABS: Absolute Lymphocytes (CBC) 1.4 K/uL (0.7-4.9); Basophils % 0.4 % (0-1.3); Hematocrit 27.4 % (39.6-49.0); Lymphocytes % 18.1 % (15.3-44.8); MPV 7.8 fL (7.6-11.3); RBC Red Blood Cell Count 3.04 M/uL (4.33-5.43)
[2020-11-15 05:57] LABS: BUN Blood Urea Nitrogen 13 mg/dL (7-18); Bicarbonate 26 mmol/L (21-32); Glucose Level 93 mg/dL (74-106); Potassium 3.6 mmol/L (3.5-5.1); Sodium Level 140 mmol/L (136-145)
[2020-11-15] MEDS ORDERED: POTASSIUM CL SA 10 MEQ TAB PO ONE (09:00)
[2020-11-15] MEDS: TAMSULOSIN 0.4 MG SR CAP PO SCH (09:55)
[2020-11-15] MEDS: METOPROLOL XL 100 MG TAB PO SCH (09:55)
--- NOTE | 2020-11-15 14:30 | P.PN ---
Subjective Date of Service: 11/15/20 Primary Care Provider: Mike Chief Complaint: hematuria Status post cystoscopy with clot evacuation, and transurethral prostate resection. Urine has cleared, CBI discontinued and Ramirez catheter removed. Patient has not voided yet. Physical Examination - Vital Signs Temperature: 97.5 F Blood Pressure: 134/69 Pulse: 71 Respirations: 18 Pulse Ox (%): 95 - Physical Exam General: Alert, In no apparent distress, Oriented x3 HEENT: Mucous membr. moist/pink Neck: Supple, JVD not distended Respiratory: Clear to auscultation bilaterally, Normal air movement Cardiovascular: No edema, Regular rate/rhythm, Normal S1 S2 Gastrointestinal: Normal bowel sounds, Soft and benign, Non-distended, No tenderness Musculoskeletal: No swelling, No tenderness Integumentary: No rashes, No erythema Neurological: Normal strength at 5/5 x4 extr - Studies Microbiology Data (last 24 hrs): 11/12/20 22:19 Catheterized Urine [place] Count - Final 11/12/20 22:19 Catheterized Urine - Final Escherichia Coli Gram Neg Delfino Assessment And Plan - Current Problems (Diagnosis) (1) Hematuria Current Visit: Yes Status: Acute (2) History of prostate cancer Current Visit: Yes Status: Acute (3) Acute blood loss anemia Current Visit: Yes Status: Acute (4) Hypertension Current Visit: Yes Status: Acute (5) Coronary artery disease Current Visit: Yes Status: Acute - Plan Urine has been clear for several hours. Bladder irrigation discontinued per Dr. Martinez's recommendation. Patient has no voided yet. Will wait for him to void. Bladder scan periodically. SP 1 unit PRBC transfusion. Posttransfusion hemoglobin is stable around 9. Continue empiric IV Rocephin Pain management as needed. Continue Flomax. Hold aspirin. Continue other home medications.
[2020-11-15] MEDS: CEFTRIAXONE/SWI 1gm 1 GM/10 ML SYR IV SCH (14:53)
[2020-11-15] MEDS: CODEINE 30MG/APAP 300MG TAB PO PRN (18:42)
[2020-11-15] MEDS: ATORVASTATIN 20 MG TAB PO SCH (22:28)
[2020-11-16] MEDS: MORPHINE 4 MG/ML SYR IV PRN ×3 (02:20→11:59)
[2020-11-16 06:28] LABS: BUN Blood Urea Nitrogen 12 mg/dL (7-18); Bicarbonate 27 mmol/L (21-32); Glucose Level 88 mg/dL (74-106); Potassium 3.8 mmol/L (3.5-5.1); Sodium Level 140 mmol/L (136-145)
[2020-11-16] MEDS: METOPROLOL XL 100 MG TAB PO SCH (08:49)
[2020-11-16] MEDS: TAMSULOSIN 0.4 MG SR CAP PO SCH (08:50)
[2020-11-16] MEDS: CEFTRIAXONE/SWI 1gm 1 GM/10 ML SYR IV SCH (08:51)
[2020-11-16] MEDS ORDERED: POTASSIUM CL SA 10 MEQ TAB PO ONE (09:00)
[2020-11-16] MEDS ORDERED: CODEINE 30MG/APAP 300MG TAB PO PRN (12:28)
--- NOTE | 2020-11-16 14:25 | RAD REPORT ---
EXAM DESCRIPTION: US - Urinary Bladder - 11/16/2020 2:11 pm CLINICAL HISTORY: not emptying bladder Pelvic pain COMPARISON: [facility] Protocol dated 11/12/2020 TECHNIQUE: Real-time sonographic evaluation of the urinary bladder with pre and postvoid volume kourtney urements was performed. FINDINGS: Echogenic material is present in the inferior portion of the urinary bladder, correlating with recent CT findings of a clot within the bladder. Prevoid bladder volume is 517 mL. Postvoid bladder volume is 466 mL. IMPRESSION: Significant postvoid residual is seen as detailed. Echogenic material within the dependent portion of the urinary bladder again noted, presumably relate d to blood clot.
--- NOTE | 2020-11-16 18:15 | P.DS ---
Admission Date: 11/12/20 Discharge Date: 11/16/20 Primary Care Provider: Mike Disposition: ROUTINE DISCHARGE Discharge Condition: FAIR Reason for Admission: hematuria Consultations: Urology-Dr. Mullen Procedures: 1. Cystoscopy with clot evacuation and bladder irrigation. 2. Bipolar fulguration of the prostatic urethra and channel transurethral resection of the prostate. - Problems (1) Hematuria Status: Acute (2) History of prostate cancer Status: Acute (3) Acute blood loss anemia Status: Acute (4) Hypertension Status: Acute (5) Coronary artery disease Status: Acute Brief History of Present Illness: 85 yo M with CAd, HLD, HTN, history of prostate cancer presented to the ED for urinary retention, hematuria and abdominal pain. He says hematuria initially began 2-3 months ago but was not daily. He saw his urologist who placed a rolle. His daughter had to flush clots and blood from his rolle. Had episodes of vo miting. Ct scan shows large 7-8 cm hematoma with distended urinary bladder and enlarged prostate gland projecting into bladder base. H/H 9.0. Patient admitted for further management. Hospital Course: Patient admitted to the medical floor, had a 3 way catheter placed, and CBI. He was seen by urology-Dr. Mullen O2 came to the OR and performed cystoscopy with blood clot evacuation, and transurethral prostatic resection. CBI continued postop until his urine cleared. CBI then discontinued and three-way catheter. Patient urine continued to be clear but he was retaining about 400-[address] Mullen instructed to insert Coude catheter and follow up with him within 1 week for voiding trial. Coude Catheter inserted, no hematuria. He was transfused 2 units for acute blood loss anemia. He was also treated with empiric IV Rocephin. His pain will be managed with [place] as outpatient. Vital Signs/Physical Exam: Temp Pulse Resp BP Pulse Ox 97.6 F 73 16 114/61 96 11/16/20 16:00 11/16/20 16:00 11/16/20 16:00 11/16/20 16:00 11/16/20 16:00 General: Alert, In no apparent distress, Oriented x3 HEENT: Mucous membr. moist/pink Neck: JVD not distended Respiratory: Clear to auscultation bilaterally, Normal air movement Cardiovascular: No edema, Regular rate/rhythm, Normal S1 S2 Gastrointestinal: Soft and benign, Non-distended Musculoskeletal: No swelling Integumentary: No rashes Neurological: Normal strength at 5/5 x4 extr Laboratory Data at Discharge: WBC 7.50 K/uL (4.3-10.9) 11/15/20 05:06 Hgb 9.3 g/dL (13.6-17.9) L 11/15/20 05:06 Hct 27.4 % (39.6-49.0) L 11/15/20 05:06 Plt Count 176 K/uL (152-406) 11/15/20 05:06 PT 12.8 SECONDS (9.5-12.5) H 11/13/20 05:35 INR 1.11 11/13/20 05:35 APTT 25.5 SECONDS (24.3-36.9) 11/13/20 05:35 Sodium 140 mmol/L (136-145) 11/16/20 05:56 Potassium 3.8 mmol/L (3.5-5.1) 11/16/20 05:56 BUN 12 mg/dL (7-18) 11/16/20 05:56 Creatinine 0.62 mg/dL (0.55-1.3) 11/16/20 05:56 Glucose 88 mg/dL (74-106) 11/16/20 05:56 Phosphorus 3.9 mg/dL (2.5-4.9) 11/13/20 05:35 Magnesium 2.3 mg/dL (1.8-2.4) 11/13/20 05:35 Total Bilirubin 0.3 mg/dL (0.2-1.0) 11/13/20 05:35 AST 15 U/L (15-37) 11/13/20 05:35 ALT 17 U/L (12-78) 11/13/20 05:35 Alkaline Phosphatase 55 U/L (45-117) 11/13/20 05:35 Home Medications: Metoprolol Succinate 100 mg PO DAILY 11/13/20 Simvastatin 40 mg PO BEDTIME 11/13/20 Tamsulosin HCl 0.4 mg PO DAILY 11/13/20 Cefpodoxime Proxetil 100 mg PO BID #6 tablet 11/16/20 Hydrocodone 5/APAP 325 [[place] 5/325] 1 tab PO Q6H PRN #20 tab 11/16/20 New Medications: Cefpodoxime Proxetil 100 mg PO BID #6 tablet Hydrocodone 5/APAP 325 [[place] 5/325] 1 tab PO Q6H PRN #20 tab PRN Reason: Pain Physician Discharge Instructions: PROBLEM: Hematuria, Cystoscopy with clot evacuation GOAL: Clear understanding of disease process E-scripts sent to [facility] [place]. INSTRUCTIONS: - Follow up with your primary care provider in 1 week. - Follow up with Dr. Mullen in 1 week. - Empty your rolle bag often. Do not let the bag get over half full. - Take all antibiotics in their entirety as ordered. - Return to the ER if your symptoms worsen. - Call the 2nd floor at if you have any questions regarding your hospital stay. Diet: Heart Healthy Activity: Fall precautions IMMUNIZATION Influenza Vaccine Indicated: Influenza Vaccine Given: Date Given: Pneumonia Vaccine Indicated: No Pneumonia Vaccine Given: No Date Given: Diet: AHA Activity: Fall precautions Followup: Gustavo Mullen [ACTIVE - CAN ADMIT] - 1 Week (Follow up in office in 1 week. Call to schedule an appointment. ) DELLA ISBELL [Primary Care Provider] - (Follow up in office in 1 week. Call to schedule an appointment. ) Time spent managing pt's care (in minutes): 43
--- NOTE | 2020-11-16 18:25 | P.PN ---
Subjective Date of Service: 11/16/20 Primary Care Provider: Mike Chief Complaint: hematuria Status post cystoscopy with clot evacuation, and transurethral prostate resection. Urine has cleared, CBI discontinued and Ramirez catheter removed. Patient voiding clear urine but retaining about 400-500 mL of urine after voiding. Physical Examination - Vital Signs Temperature: 97.6 F Blood Pressure: 114/61 Pulse: 73 Respirations: 16 Pulse Ox (%): 96 - Physical Exam General: Alert, In no apparent distress, Oriented x3 HEENT: Mucous membr. moist/pink Neck: JVD not distended Respiratory: Clear to auscultation bilaterally, Normal air movement Cardiovascular: Regular rate/rhythm, Normal S1 S2 Gastrointestinal: Normal bowel sounds, Soft and benign Musculoskeletal: No swelling, No tenderness Neurological: Normal strength at 5/5 x4 extr Assessment And Plan - Current Problems (Diagnosis) (1) Hematuria Current Visit: Yes Status: Acute (2) History of prostate cancer Current Visit: Yes Status: Acute (3) Acute blood loss anemia Current Visit: Yes Status: Acute (4) Hypertension Current Visit: Yes Status: Acute (5) Coronary artery disease Current Visit: Yes Status: Acute - Plan Urine has been clear for several hours. Bladder irrigation discontinued. Patient with urinary retention Insert Coude per Dr. Mullen and follow up with him within 1 week for voiding trial. SP 2 unit PRBC transfusion. Posttransfusion hemoglobin is stable. Continue empiric IV Rocephin Pain management as needed. Continue Flomax. Hold aspirin. Continue other home medications. Awaiting Coude to be inserted for discharge.
[2020-11-16] MEDS: ATORVASTATIN 20 MG TAB PO SCH (21:16)
[2020-11-16 21:54] VITALS: BP 132/67; TEMP 99
[2020-11-16 23:24] VITALS: O2SAT 96
== END 2020-11-16 22:03 | disposition home or self-care (01) | DRG 666 ==
LOC: ER 18:39 → ERHOLD 22:53 → 2ND 11-13 11:39
PROVIDERS: ADMIT Internal Medicine; ATTEND Internal Medicine
PROC: 0TCB8ZZ Extirpation of Matter from Bladder, Via Natural or Artificial Opening Endoscopic (ICD-10-PCS; 2020-11-13)
PROC: 30233N1 Transfusion of Nonautologous Red Blood Cells into Peripheral Vein, Percutaneous Approach (ICD-10-PCS; 2020-11-13)
PROC: 0VT08ZZ Resection of Prostate, Via Natural or Artificial Opening Endoscopic (ICD-10-PCS; principal; 2020-11-13 16:00)
PROC: 0T5D8ZZ Destruction of Urethra, Via Natural or Artificial Opening Endoscopic (ICD-10-PCS; 2020-11-13 16:00)
DX: R31.0 Gross hematuria (principal); D62 Acute posthemorrhagic anemia; S37.22XA Contusion of bladder, initial encounter; N32.89 Other specified disorders of bladder; I25.10 Atherosclerotic heart disease of native coronary artery without angina pectoris; I10 Essential (primary) hypertension; E78.5 Hyperlipidemia, unspecified; I25.2 Old myocardial infarction; N40.1 Benign prostatic hyperplasia with lower urinary tract symptoms; R33.8 Other retention of urine; Z79.899 Other long term (current) drug therapy; Z85.46 Personal history of malignant neoplasm of prostate; Z20.822 Contact with and (suspected) exposure to COVID-19
CPT/HCPCS: 36415; 71045; 74176; 76377; 76857; 80048; 80053; 80076; 83735; 83880; 84100; 84484; 85025; 85610; 85730; 86850; 86900; 86901; 87077; 87086; 87088; 87186; 88300; 88305; 93005; 93970; 94760; 96365; 96375; 99283; 99285; J0696; J1170; J2250; J2405; J2704; J3010; J7030; J7050; P9016; U0003

== ENCOUNTER 2023-06-06 20:36 | Inpatient (IN) | payer OTHER ==
--- OUTSIDE RECORDS SUMMARY | 2023-06-06 20:39 | XMS REPORT | Continuity of Care Document ---
Author Name Unknown Address [address] [place] [address] [facility] thconnect Address [address] [place] [address] Care Team Providers Care Precise Winder Name Role Phone MIKE ISBELL Primary Care Physician Unav ailable Sis Isbell Attending Clinician Unavailmelanie e HEAVENLY KRUEGER Attending Clinician UnavailHeavenly Duenas Attending Clinician Amrita Landin DO Attending Clinician [phone] AMRITA LANDIN Attending Clinician Unavailable Payers Payer Name Policy Type Policy Number Effective Date Expirati on Date Source [facility] Dual Complete [facility] PPO [id number] 2021 00:00:00 [facility] MEDICAID 2 [id number] 2012 00:00:00 [facility] DUAL COMP CHOICE PPO DSNP [id number] 2022 00:00:00 [place]ICA[place] [id number] 2022 00:00:00 Problems Condition Name Condition Details Condition Category Status Onset Date Resolution Date Last Treatment Date Treating Clinician Comments Source [id number] 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 Problem [facility] [id number] Primary osteoarthr itis of right hip Problem [facility] [id number] Other obstructiv e and reflux uropathy Problem [facility] [id number] 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 and PSA greater than 20 Problem [facility] Prostate cancer Prostate cancer Problem [facility] [id number] S/P radiation therapy Problem Active [facility] [id number] Gross hematuria Problem Active [facility] [id number] S/P TURP (status post transureth ral resection of prostate) Problem Active [facility] [id number] Urinary retention Problem Active [facility] [id number] Right hip pain Problem Active [facility] No known active problems No known active problems Disease [facility] Allergies, Adverse Reactions, Alerts Allergy Name Allergy Type Status Severity Reaction(s) Onset Date Inactive Date Treating Clinician Comments Source NO KNOWN ALLERGIE S Drug Class Active [facility] Social History Social Habit Start Date Stop Date Quantity Comments Source History of Tobacco Use [facility] Exposure to SARS-CoV-2 (event) 2022-02-11 00:00:00 2022-02-21 13:43:00 Not sure [facility] Sex Assigned At 1935 00:00:00 1935 00:00:00 [facility] Smoking Status Start Date Stop Date Source Tobacco smoking consumption unknown [facility] Never Smoker [facility] Medications Ordered Medication Name Filled Medication Name Start Date Stop Date Current Medication? Ordering Clinician Indication Dosage Frequency Signature (SIG) Comments Components Source lidocaine-r acepinep-te tracaine (L.E.T. (LIDO-EPINE PH-TETRA)) 4-0.05-0.5 % topical gel 3 mL 2021-05 0 19:45: 00 02-21 18:56 :00 No 3mL 3 mL, Topical, ONCE, 1 dose, On Thu02/21/22 at 1445, Routine [facility] mupirocin 2 % ointment 2021-05 0 00:00: 00 Yes [id number] Apply to area(s) 3 (three) times daily. [facility] cephALEXin 500 mg tablet 2021-05 00:00: 00 02-27 04:59 :00 No [id number] 500mg Take 1 tablet by mouth 4 (four) times daily for 5 days. [facility] sulfamethox azole-trime thoprim 800-160 mg per tablet 2021-05 00:00: 00 02-27 04:59 :00 No [id number] 1{tbl} Take 1 tablet by mouth every 12 (twelve) hours for 5 days. [facility] cefTRIAXone (ROCEPHIN) injection 1,000 mg 2021-05 0-16 00:15: 00 Yes 1000mg 1,000 mg, Slow IV Push, Q24H ABX, First dose on Thu02/15/22 at 1915, Until Discontinu ed, MANUEL
Re ason for Anti-Infec tive: Empiric Therapy for Suspected Infection< br>Empiric Therapy Site: Skin / Soft tissue
Duration of therapy: 72 hours [facility] cephALEXin (KEFLEX) 500 mg capsule 2021-05 0 00:00: 00 02-23 04:59 :00 No [id number] 500mg Take 1 capsule by mouth 3 (three) times daily for 7 days. [facility] sulfamethox azole-trime thoprim 800-160 mg per tablet 2021-05 0 00:00: 00 02-23 04:59 :00 No [id number] 1{tbl} Take 1 tablet by mouth 2 (two) times daily for 7 days. [facility] HYDROcodone -acetaminop hen (NORCO) 10-325 mg tablet 2021-05 0-15 00:00: 00 02-23 04:59 :00 No 4647 .5{tbl} Take 0.5-1 tablets by mouth every 6 (six) hours as needed for Pain (scale 7-10) for up to 7 days. Indication s: acute pain [facility] cephALEXin (KEFLEX) 500 mg capsule 2021-05 0-15 00:00: 00 02-23 04:59 :00 No [id number] 500mg Take 1 capsule by mouth 3 (three) times daily for 7 days. [facility] sulfamethox azole-trime thoprim 800-160 mg per tablet 2021-05 0-15 00:00: 00 02-23 04:59 :00 No [id number] 1{tbl} Take 1 tablet by mouth 2 (two) times daily for 7 days. [facility] HYDROcodone -acetaminop hen (NORCO) 10-325 mg tablet 2021-05 015 00:00: 00 02-23 04:59 :00 No 4647 .5{tbl} Take 0.5-1 tablets by mouth every 6 (six) hours as needed for Pain (scale 7-10) for up to 7 days. Indication s: acute pain [facility] Bactrim DS 800-160 MG Bactrim DS 800-160 MG 7-08 00:00: 00 11-22 00:00 :00 No 1{table t} BID Bactrim DS 800-160 MG Bactrim DS 800-160 MG Bactrim DS 800-160 MG 7-08 00:00: 00 11-22 00:00 :00 No 1{table t} BID Bactrim DS 800-160 MG Aspirin 81 81 MG Aspirin 81 81 MG No 1{table t} QD Aspirin 81 81 MG Metoprolol Tartrate 100 MG Metoprolol Tartrate 100 MG No 1{table t_with_ food} BID Metoprolol Tartrate 100 MG Simvastatin 40 MG Simvastatin 40 MG No 1{table t_in_th e_eveni ng} QD Simvastati n 40 MG Tamsulosin HCl 0.4 MG Tamsulosin HCl 0.4 MG No 1{capsu le} QD Tamsulosin HCl 0.4 MG Aspirin 81 81 MG Aspirin 81 81 MG No 1{table t} QD Aspirin 81 81 MG Metoprolol Tartrate 100 MG Metoprolol Tartrate 100 MG No 1{table t_with_ food} BID Metoprolol Tartrate 100 MG Simvastatin 40 MG Simvastatin 40 MG No 1{table t_in_ e_eveni ng} QD Simvastati n 40 MG Tamsulosin HCl 0.4 MG Tamsulosin HCl 0.4 MG No 1{capsu le} QD Tamsulosin HCl 0.4 MG Atorvastati n Calcium 40 MG Atorvastati n Calcium 40 MG No Atorvastat in Calcium 40 MG Allopurinol 300 MG Allopurinol 300 MG No 1{table t} QD Allopurino l 300 MG Aspirin 81 81 MG Aspirin 81 81 MG No 1{table t} QD Aspirin 81 81 MG Tamsulosin HCl 0.4 MG Tamsulosin HCl 0.4 MG No 1{capsu le} BID Tamsulosin HCl 0.4 MG Furosemide 40 MG Furosemide 40 MG No 1{table t} QD Furosemide 40 MG Potassium Chloride 20 MEQ/15ML (10%) Potassium Chloride 20 MEQ/15ML (10%) No 15{ml_w ith_foo d} QD Potassium Chloride 20 MEQ/15ML (10%) Simvastatin 40 MG Simvastatin 40 MG No 1{table t_in_ e_eveni ng} QD Simvastati n 40 MG Losartan Potassium 50 MG Losartan Potassium 50 MG No 1{table t} QD Losartan Potassium 50 MG Metoprolol Tartrate 100 MG Metoprolol Tartrate 100 MG No 1{table t_with_ food} BID Metoprolol Tartrate 100 MG Atorvastati n Calcium 40 MG Atorvastati n Calcium 40 MG No Atorvastat in Calcium 40 MG Allopurinol 300 MG Allopurinol 300 MG No 1{table t} QD Allopurino l 300 MG Aspirin 81 81 MG Aspirin 81 81 MG No 1{table t} QD Aspirin 81 81 MG Tamsulosin HCl 0.4 MG Tamsulosin HCl 0.4 MG No 1{capsu le} BID Tamsulosin HCl 0.4 MG Furosemide 40 MG Furosemide 40 MG No 1{table t} QD Furosemide 40 MG Potassium Chloride 20 MEQ/15ML (10%) Potassium Chloride 20 MEQ/15ML (10%) No 15{ml_w ith_foo d} QD Potassium Chloride 20 MEQ/15ML (10%) Simvastatin 40 MG Simvastatin 40 MG No 1{table t_in e_eveni ng} QD Simvastati n 40 MG Losartan Potassium 50 MG Losartan Potassium 50 MG No 1{table t} QD Losartan Potassium 50 MG Metoprolol Tartrate 100 MG Metoprolol Tartrate 100 MG No 1{table t_with_ food} BID Metoprolol Tartrate 100 MG Atorvastati n Calcium 40 MG Atorvastati n Calcium 40 MG No Atorvastat in Calcium 40 MG Allopurinol 300 MG Allopurinol 300 MG No 1{table t} QD Allopurino l 300 MG Aspirin 81 81 MG Aspirin 81 81 MG No 1{table t} QD Aspirin 81 81 MG Tamsulosin HCl 0.4 MG Tamsulosin HCl 0.4 MG No 1{capsu le} BID Tamsulosin HCl 0.4 MG Furosemide 40 MG Furosemide 40 MG No 1{table t} QD Furosemide 40 MG Potassium Chloride 20 MEQ/15ML (10%) Potassium Chloride 20 MEQ/15ML (10%) No 15{ml_w ith_foo d} QD Potassium Chloride 20 MEQ/15ML (10%) Simvastatin 40 MG Simvastatin 40 MG No 1{table t_in e_eveni ng} QD Simvastati n 40 MG Losartan Potassium 50 MG Losartan Potassium 50 MG No 1{table t} QD Losartan Potassium 50 MG Metoprolol Tartrate 100 MG Metoprolol Tartrate 100 MG No 1{table t_with_ food} BID Metoprolol Tartrate 100 MG Tamsulosin HCl 0.4 MG Tamsulosin HCl 0.4 MG No 1{capsu le} BID Tamsulosin HCl 0.4 MG Potassium Chloride 20 MEQ/15ML (10%) Potassium Chloride 20 MEQ/15ML (10%) No 15{ml_w ith_foo d} QD Potassium Chloride 20 MEQ/15ML (10%) Losartan Potassium 50 MG Losartan Potassium 50 MG No 1{table t} QD Losartan Potassium 50 MG Atorvastati n Calcium 40 MG Atorvastati n Calcium 40 MG No Atorvastat in Calcium 40 MG Allopurinol 300 MG Allopurinol 300 MG No 1{table t} QD Allopurino l 300 MG Furosemide 40 MG Furosemide 40 MG No 1{table t} QD Furosemide 40 MG Aspirin 81 81 MG Aspirin 81 81 MG No 1{table t} QD Aspirin 81 81 MG Aspirin 81 81 MG Aspirin 81 81 MG No 1{table t} QD Aspirin 81 81 MG Tamsulosin HCl 0.4 MG Tamsulosin HCl 0.4 MG No 1{capsu le} QD Tamsulosin HCl 0.4 MG Metoprolol Tartrate 100 MG Metoprolol Tartrate 100 MG No 1{table t_with_ food} BID Metoprolol Tartrate 100 MG Simvastatin 40 MG Simvastatin 40 MG No 1{table t_in_th e_eveni ng} QD Simvastati n 40 MG Metoprolol Tartrate 100 MG Metoprolol Tartrate 100 MG No 1{table t_with_ food} BID Metoprolol Tartrate 100 MG Aspirin 81 81 MG Aspirin 81 81 MG No 1{table t} QD Aspirin 81 81 MG Tamsulosin HCl 0.4 MG Tamsulosin HCl 0.4 MG No 1{capsu le} QD Tamsulosin HCl 0.4 MG Simvastatin 40 MG Simvastatin 40 MG No 1{table t_in_th e_eveni ng} QD Simvastati n 40 MG Metoprolol Tartrate 100 MG Metoprolol Tartrate 100 MG No 1{table t_with_ food} BID Metoprolol Tartrate 100 MG Aspirin 81 81 MG Aspirin 81 81 MG No 1{table t} QD Aspirin 81 81 MG Tamsulosin HCl 0.4 MG Tamsulosin HCl 0.4 MG No 1{capsu le} QD Tamsulosin HCl 0.4 MG Simvastatin 40 MG Simvastatin 40 MG No 1{table t_in_th e_eveni ng} QD Simvastati n 40 MG Simvastatin 40 MG Simvastatin 40 MG No 1{table t_in_th e_eveni ng} QD Simvastati n 40 MG Tamsulosin HCl 0.4 MG Tamsulosin HCl 0.4 MG No 1{capsu le} QD Tamsulosin HCl 0.4 MG Aspirin 81 81 MG Aspirin 81 81 MG No 1{table t} QD Aspirin 81 81 MG Metoprolol Tartrate 100 MG Metoprolol Tartrate 100 MG No 1{table t_with_ food} BID Metoprolol Tartrate 100 MG Aspirin 81 81 MG Aspirin 81 81 MG No 1{table t} QD Aspirin 81 81 MG Metoprolol Tartrate 100 MG Metoprolol Tartrate 100 MG No 1{table t_with_ food} BID Metoprolol Tartrate 100 MG Simvastatin 40 MG Simvastatin 40 MG No 1{table t_in_th e_eveni ng} QD Simvastati n 40 MG Tamsulosin HCl 0.4 MG Tamsulosin HCl 0.4 MG No 1{capsu le} QD Tamsulosin HCl 0.4 MG Vital Signs Vital Name Observation Time Observation Value Comments S teresoce height 2022-12-09 09:00:00 68 [in_i] Commo n [facility] weight 2022-12-09 09:00:00 202.6 [lb_av] Co [facility] bmi 2022-12-09 09:00:00 30.8 kg/m2 Commo n [facility] blood pressure systolic 2022-12-09 09:00:00 126 mm[Hg] [facility] blood pressure diastolic 2022-12-09 09:00:00 80 mm[Hg] [facility] height 2022-11-26 11:15:00 68 [in_i] Commo n [facility] weight 2022-11-26 11:15:00 200 [lb_av] Comm on [facility] temperature 2022-11-26 11:15:00 98.1 [degF] Com mon [facility] bmi 2022-11-26 11:15:00 30.41 kg/m2 Comm on [facility] oximetry 2022-11-26 11:15:00 99 % Comm n [facility] respiratory rate 2022-11-26 11:15:00 18 /min [facility] blood pressure systolic 2022-11-26 11:15:00 147 mm[Hg] [facility] blood pressure diastolic 2022-11-26 11:15:00 66 mm[Hg] [facility] height 2022-10-22 11:00:00 68 [in_i] Commo n [facility] weight 2022-10-22 11:00:00 200 [lb_av] Comm on [facility] temperature 2022-10-22 11:00:00 98.6 [degF] Com mon [facility] bmi 2022-10-22 11:00:00 30.41 kg/m2 Comm on [facility] oximetry 2022-10-22 11:00:00 99 % Commo n [facility] respiratory rate 2022-10-22 11:00:00 18 /min [facility] blood pressure systolic 2022-10-22 11:00:00 158 mm[Hg] Common [facility] blood pressure diastolic 2022-10-22 11:00:00 75 mm[Hg] [facility] Systolic blood pressure 2022-02-21 19:00:00 124 mm[Hg] [facility] Diastolic blood pressure 2022-02-21 19:00:00 65 mm[Hg] [facility] Heart rate 2022-02-21 19:00:00 80 /min [facility] Respiratory rate 2022-02-21 19:00:00 18 /min [facility] Oxygen saturation in Arterial blood by Pulse oximetry 2022-02-21 19:00:00 94 /min [facility] Body temperature 2022-02-21 18:44:00 35.78 Amanda [facility] Body height 2022-02-21 18:44:00 172.7 cm [facility] Body weight 2022-02-21 18:44:00 90.719 kg [facility] BMI 2022-02-21 18:44:00 30.41 kg/m2 [facility] Systolic blood pressure 2022-02-15 22:12:00 118 mm[Hg] [facility] Diastolic blood pressure 2022-02-15 22:12:00 69 mm[Hg] [facility] Heart rate 2022-02-15 22:12:00 99 /min [facility] Body temperature 2022-02-15 22:12:00 37.33 Amanda [facility] Respiratory rate 2022-02-15 22:12:00 20 /min [facility] Body height 2022-02-15 22:12:00 69 cm [facility] Body weight 2022-02-15 22:12:00 90.719 kg [facility] BMI 2022-02-15 22:12:00 190.55 kg/m2 Uni [facility] Oxygen saturation in Arterial blood by Pulse oximetry 2022-02-15 22:12:00 97 /min [place] [facility] blood pressure systolic 2021-10-07 11:45:00 146 mm[Hg] [facility] blood pressure diastolic 2021-10-07 11:45:00 68 mm[Hg] Common [facility] height 2021-10-07 11:45:00 68 [in_i] Commo n [facility] weight 2021-10-07 11:45:00 207.4 [lb_av] Co mmon [facility] temperature 2021-10-07 11:45:00 98.3 [degF] Com mon [facility] bmi 2021-10-07 11:45:00 31.53 kg/m2 Comm on [facility] oximetry 2021-10-07 11:45:00 97 % Commo n [facility] respiratory rate 2021-10-07 11:45:00 16 /min Common [facility] height 2021-04-11 10:30:00 68 [in_i] Commo n [facility] weight 2021-04-11 10:30:00 190 [lb_av] Comm on [facility] temperature 2021-04-11 10:30:00 98.2 [degF] Com mon [facility] bmi 2021-04-11 10:30:00 28.89 kg/m2 Comm on [facility] oximetry 2021-04-11 10:30:00 97 % Commo n [facility] respiratory rate 2021-04-11 10:30:00 18 /min Common [facility] blood pressure systolic 2021-04-11 10:30:00 174 mm[Hg[facility] blood pressure diastolic 2021-04-11 10:30:00 77 mm[Hg] [facility] height 2020-11-21 13:30:00 68 [in_i] Commo n [facility] weight 2020-11-21 13:30:00 204 [lb_av] Comm on [facility] temperature 2020-11-21 13:30:00 97.3 [degF] Com [facility] bmi 2020-11-21 13:30:00 31.01 kg/m2 Comm on [facility] oximetry 2020-11-21 13:30:00 94 % Commo n [facility] blood pressure systolic 2020-11-21 13:30:00 168 mm[Hg] [facility] blood pressure diastolic 2020-11-21 13:30:00 75 mm[Hg] [facility] height 2020-11-08 10:00:00 68 [in_i] Commo n [facility] weight 2020-11-08 10:00:00 204 [lb_av] Comm on [facility] temperature 2020-11-08 10:00:00 97.7 [degF] Com [facility] bmi 2020-11-08 10:00:00 31.01 kg/m2 Comm on [facility] oximetry 2020-11-08 10:00:00 97 % Commo n [facility] blood pressure systolic 2020-11-08 10:00:00 190 mm[Hg] [facility] blood pressure diastolic 2020-11-08 10:00:00 86 mm[Hg] [facility] Procedures Procedure Date / Time Performed Performing Clinicia n Source PVR 2022-10-22 00:00:00 Common [facility] INCISION AND DRAINAGE 2022-02-21 19:02:54 Moises Krueger [facility] CONSENT/REFUSAL FOR DIAGNOSIS AND TREATMENT 2022-02-21 18:34:14 Doctor Unassigned, [place] [facility] CONSENT/REFUSAL FOR DIAGNOSIS AND TREATMENT 2022-02-15 22:32:08 Doctor Unassigned, [place] [facility] COMP. METABOLIC PANEL ([id number]) 2022-02-15 22:30:00 Amrita Landin [facility] CBC WITH DIFF 2022-02-15 22:30:00 Amrita Landin [facility] LACTIC ACID WHOLE BLOOD 2022-02-15 22:30:00 Amrita Landin [facility] Encounters Start Date/Time End Date/Time Encounter Type Admission Type Attending [facility] Care Facility Care Department Encounter ID Source 2023-05-20 12:42:00 Outpatient Sis Isbell [facility] [id number] [facility] 2022-12-09 09:14:00 Outpatient Sis Isbell [facility] [id number] [facility] 2022-12-05 10:47:00 Outpatient Sis Isbell [facility] [id number] [facility] 2022-11-24 07:38:00 Outpatient Sis sIbell [facility] [id number] [facility] 2022-11-19 11:29:00 Outpatient Sis Isbell [facility] [id number] [facility] 2022-10-20 10:51:00 Outpatient Sis Isbell [facility] [id number] [facility] 2021-10-22 12:14:01 Outpatient Sis [facility]bell[facility] [id number] [facility] 2021-05-29 14:19:05 Outpatient Sis Isbell [facility] [id number] [facility] 2021-05-29 13:50:42 Outpatient Sis Isbell [facility] [id number] [facility] 2021-05-29 13:30:36 Outpatient Sis Isbell [facility] [id number] [facility] 2021-05-29 13:12:39 Outpatient Sis Isbell [facility] [id number] [facility] 2021-05-29 12:21:00 Outpatient [facility] [id number] [facility] 2021-05-29 11:47:56 Outpatient [facility] [id number] [facility] 2023-05-19 00:00:00 2023-05-19 00:00:00 (TEL) [facility] [id number] [facility] 2023-04-07 08:21:22 2023-04-07 08:21:22 Outpatient SFA EDELMIRA [id number] Nguyễn Tompkins 2022-12-09 00:00:00 2022-12-09 00:00:00 OFFICE VISIT NEW PT LEVEL 4 [facility] [id number] [facility] 2022-11-26 00:00:00 2022-11-26 00:00:00 OFFICE VISIT ESTAB PT LEVEL 3 [facility] [id number] [facility] 2022-10-22 00:00:00 2022-10-22 00:00:00 OFFICE VISIT ESTAB PT LEVEL 4 [facility] [id number] [facility] 2022-10-15 14:51:56 2022-10-15 14:51:56 Outpatient SFA SFA [id number] Nguynễ Tompkins 2022-10-08 13:59:34 2022-10-08 13:59:34 Outpatient SFA [facility] [id number] Nguyễn Tompkins 2022-02-21 13:41:00 2022-02-21 14:55:00 Emergency X HEAVENLY KRUEGER [facility] ERT [id number] [facility] 2022-02-21 13:41:00 2022-02-21 14:55:00 Emergency Heavenly Krueger [facility] [id number] [facility] 2022-02-15 17:16:00 2022-02-15 18:22:00 Emergency Amrita Landin [facility] [id number] [facility] 2022-02-15 17:16:00 2022-02-15 18:22:00 Emergency X AMRITA LANDIN [facility] ERT [id number] [facility] 2021-10-22 00:00:00 2021-10-22 00:00:00 (TEL) [facility] [id number] [facility] 2021-10-11 00:00:00 2021-10-11 00:00:00 (TEL) [facility] [id number] [facility] 2021-10-07 00:00:00 2021-10-07 00:00:00 OFFICE VISIT EST PT LEVEL 3 [facility] [id number] [facility] 2021-04-25 00:00:00 2021-04-25 00:00:00 OL DIG E/M SVC 5-10 MIN [facility] [id number] [facility] 2021-04-11 00:00:00 2021-04-11 00:00:00 OFFICE VISIT ESTAB PT LEVEL 2 [facility] [id number] [facility] 2020-11-21 00:00:00 2020-11-21 00:00:00 OFFICE VISIT ESTAB PT LEVEL 2 [facility] [id number] [facility] 2020-11-08 00:00:00 2020-11-08 00:00:00 OFFICE VISIT ESTAB PT LEVEL 2 [facility] [id number] [facility] 2020-10-11 00:00:00 2020-10-11 00:00:00 Outpatient [facility] [id number] [facility] 2020-07-09 00:00:00 2020-07-09 00:00:00 Outpatient [facility] [id number] [facility] 2020-03-26 00:00:00 2020-03-26 00:00:00 Outpatient [facility] [id number] [facility] 2020-01-24 00:00:00 2020-01-24 00:00:00 Outpatient [facility] [id number] [facility] Results Test Description Test Time Test Comments Results Result Co mments Source [facility]
[2023-06-06] MEDS ORDERED: NA CHLORIDE 0.9% 500 ML ONE (21:08)
[2023-06-06 21:25] LABS: Absolute Lymphocytes (CBC) 0.5 K/uL (0.7-4.9); Hematocrit 40.1 % (39.6-49.0); Lymphocytes % 2.6 % (15.3-44.8); MCV 94.8 fL (80-100); MPV 7.9 fL (7.6-11.3); Platelets 154 thou/uL (152-406); RBC Red Blood Cell Count 4.23 M/uL (4.33-5.43)
[2023-06-06 21:33] LABS: Protime INR 1.58
[2023-06-06] MEDS ORDERED: NA CHLORIDE 0.9% 100 ML ONE (21:39)
[2023-06-06] MEDS ORDERED: PIPERACIL/TAZO 3.375 GM VIAL IV ONE (21:39)
[2023-06-06 21:43] LABS: Bilirubin Total 1.2 mg/dL (0.2-1.0); Potassium 3.7 mEq/L (3.5-5.1); Protein, Total 6.4 g/dL (6.4-8.2); Troponin High Sensitivity 23.1 pg/mL (<58.9)
[2023-06-06 21:53] LABS: Blood Morphology Comment NOT SEEN (NOT SEEN); Platelet Estimate ADEQ
[2023-06-06 21:54] LABS: SARS-CoV-2 Antigen Rapid Res Negative (Negative)
--- NOTE | 2023-06-06 21:54 | RAD REPORT ---
EXAM DESCRIPTION: RAD - Chest Single View - 06/06/2023 9:43 pm CLINICAL HISTORY: DYSPNEA Chest pain. COMPARISON: Chest Single View dated 11/12/2020; Chest Single View dated 07/14/2020; CHEST PA AND LAT 2 VIEW dated 12/12/2010; CHEST SINGLE VIEW dated 11/24/2010 FINDINGS: Portable technique limits examination quality. The lungs are grossly clear. The heart is mildly enlarged in size. No displaced fractures. IMPRESSION: No acute intrathoracic process suspected.
--- NOTE | 2023-06-06 22:08 | RAD REPORT ---
EXAM DESCRIPTION: CT - Abdomen Pelvis Wo Contrast - 06/06/2023 9:58 pm CLINICAL HISTORY: Abdominal pain. vomiting, weakness, prostate cancer COMPARISON: Stone Protocol dated 11/12/2020 TECHNIQUE: CT imaging of the abdomen and pelvis was performed without contrast. Solid organ, bowel a nd vascular assessment is limited due to lack of IV and oral contrast. All CT scans are performed using dose optimization technique as appropriate and may include automated exposure control or mA/KV adjustment according to patient size. FINDINGS: The lower lung lyn are clear.Small hiatal hernia. The liver, spleen, pancreas, adrenal glands and kidneys are within normal limits for a limited non-co ntrast examination. No bowel obstruction, free air, free fluid or abscess. Mild sigmoid diverticulosis coli with prominen t stool retention. The appendix is normal. Prostate is significantly enlarged. Small left fat contain ing inguinal hernia. Postsurgical clips are present right inguinal region Advanced degenerative changes are present right hip.Advanced lumbosacral degenerative changes. Mild a nterolisthesis L5 on S1. IMPRESSION: Significant prostatomegaly. A limited non-contrast examination was performed as detailed.
--- NOTE | 2023-06-06 22:38 | RAD REPORT ---
EXAM DESCRIPTION: US - Abdomen Exam Limited - 06/06/2023 10:30 pm CLINICAL HISTORY: abnormal LFTs COMPARISON: Abdomen Pelvis Wo Contrast dated 06/06/2023 FINDINGS: The gallbladder demonstrates no gallstones. No pericholecystic fluid or gallbladder wall t hickening. The common bile duct is not well visualized due to bowel gas. The liver demonstrates no findings of intrahepatic biliary dilatation. IMPRESSION: Unremarkable examination.
[2023-06-06 22:54] LABS: Specific Gravity 1.024 (1.005-1.030); Urine Bacteria None Seen /HPF (<20); Urine Bilirubin NEGATIVE (Negative); Urine Blood 1+ (Negative); Urine Clarity Extremely Turbid (Clear); Urine Color Yellow (Yellow); Urine Glucose NEGATIVE (Negative); Urine Mucus Slight /HPF (None Seen); Urine Protein 1+ (Negative); Urine RBC <5 /HPF (None Seen); Urine Urobilinogen 1+ (Normal)
--- NOTE | 2023-06-06 23:01 | EDPHYS ---
Physician Documentation [facility] Name: Mati Broderick Age: 88 yrs Sex: Male : 1935 Arrival Date: 06/06/2023 Time: 20:36 Bed 4 Private MD: ED Physician Rajesh Zimmerman HPI: 06/06 21:04 This 88 yrs old Male presents to ER via Wheelchair with complaints of rn Nausea/Vomiting, Weakness. 21:04 The patient presents to the emergency department with nausea, vomiting. Onset: The rn symptoms/episode began/occurred today. Possible causes: unknown. The symptoms are aggravated by nothing. The symptoms are alleviated by nothing. Associated signs and symptoms: Pertinent positives: nausea, vomiting, Pertinent negatives: fever, GI bleeding. Severity of symptoms: At their worst the symptoms were moderate in the emergency department the symptoms are unchanged. The patient has not experienced similar symptoms in the past. 21:05 Patient reports nausea/vomiting that began today, generalized weakness and malaise, rn lightheadedness. Reports history of congestive heart failure, takes furosemide once daily. No known sick contacts but did have hospital visit last week. Reports subjective fever and chills. No abdominal pain. No chest pain. No cough.. Historical: - Allergies: 21:02 No Known Allergies; cm10 - PMHx: 21:02 CAD; Hernia; High Cholesterol; Hypertension; Myocardial infarction; Prostate Cancer; cm10 - Immunization history:: Adult Immunizations unknown. - Social history:: Smoking status: Patient denies any tobacco usage or history of. - Family history:: not pertinent. - Hospitalizations: : No recent hospitalization is reported. 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 rn 21:05 Constitutional: This is a well developed, well nourished patient who is awake, alert, rn generalized weakness and requiring assistance to get into bed. Head/Face: Normocephalic, atraumatic. ENT: Dry mucous membranes Cardiovascular: Tachycardic, regular. No pulse deficits. Respiratory: + mild tachypnea, no retractions, diminished breath sounds and bases Abdomen/GI: Soft, nontender Skin: Warm, dry. Truncal rash in a linear distribution anteriorly. MS/ Extremity: Pulses equal, no cyanosis. Neurovascular intact. Full, normal range of motion. Equal circumference. Neuro: Awake and alert, GCS 15, oriented to person, place, time, and situation. Cranial nerves II-XII grossly intact. Motor strength 4/5 in all extremities. Sensory grossly intact. Vital Signs: 21:01 BP 100 / 56; Pulse 89; Resp 22; Temp 98.3(O); Pulse Ox 89% on R/A; Weight 92.99 kg; cm10 21:30 BP 103 / 47; Pulse 102; Resp 20; Pulse Ox 92% on 2 lpm NC; km8 22:00 BP 102 / 60; Pulse 102; Resp 24; Pulse Ox 95% on 2 lpm NC; km8 22:30 BP 120 / 62; Pulse 103; Resp 21; Pulse Ox 98% on 2 lpm NC; km8 23:00 BP 99 / 62; Pulse 102; Resp 24; Pulse Ox 94% on 2 lpm NC; km8 23:15 BP 107 / 63; Pulse 102; Resp 22; Pulse Ox 100% on 2 lpm NC; km8 MDM: 20:45 Patient medically screened. rn 22:59 Differential diagnosis: cholecystitis, pancreatitis, appendicitis, viral rn gastroenteritis, gastroenteritis, Flu, COVID, prostatitis, UTI, pneumonia. Data reviewed: vital signs, nurses notes, lab test result(s), radiologic studies, CT scan, plain films, and as a result, I will admit patient. Consideration of Admission/Observation Patient was admitted/placed on observation. Escalation of care including admission/observation considered. Management of patient was discussed with the following: Hospitalist: Will see and admit patient. I considered the following discharge prescriptions or medication management in the emergency department Medications were administered in the Emergency Department. See MAR. Care significantly affected by the following chronic conditions: Hypertension. Counseling: I had a detailed discussion with the patient and/or guardian regarding the historical points, exam findings, and any diagnostic results supporting the discharge/admit diagnosis, lab results, radiology results, the need for further work-up and treatment in the hospital. Response to treatment: the patient's symptoms have mildly improved after treatment, and as a result, I will admit patient. 23:01 ED course: I personally spent 35 minutes engaged in work directly related to the rn individual patient's care. This does not include any time spent performing procedures. The patient has been deemed critically ill because of severe sepsis without septic shock, requiring some fluid resuscitation in the setting of congestive heart failure, IV antibiotics, admission to hospital with chart review and discussion with multiple family members.. 06/06 20:54 Order name: Blood Culture Adult (2) rn 06/06 20:54 Order name: CBC with Diff; Complete Time: 22:36 rn 06/06 20:54 Order name: CMP; Complete Time: 21:51 rn 06/06 20:54 Order name: Lactate w/ 2H reflex if indic.; Complete Time: 22:36 06/06 20:54 Order name: Protime (+inr); Complete Time: 21:51 rn 06/06 20:54 Order name: Ptt, Activated; Complete Time: 21:51 rn 06/06 20:54 Order name: Urinalysis w/ reflexes; Complete Time: 22:56 rn 06/06 20:54 Order name: SARS RAPID; Complete Time: 22:36 rn 06/06 20:54 Order name: Flu; Complete Time: 22:36 rn 06/06 20:54 Order name: BNP; Complete Time: 21:51 rn 06/06 20:54 Order name: Troponin High Sensitivity; Complete Time: 21:51 rn 06/06 21:30 Order name: Manual Differential; Complete Time: 22:36 EDMI 06/06 22:57 Order name: Urine Culture EDMI 06/06 23:20 Order name: Basic Metabolic Panel EDMI 06/06 23:20 Order name: Basic Metabolic Panel EDMS 06/06 23:20 Order name: Comprehensive Metabolic Panel EDMS 06/06 23:20 Order name: Comprehensive Metabolic Panel EDMS 06/06 23:20 Order name: Magnesium EDMS 06/06 23:20 Order name: Magnesium EDMS 06/06 20:54 Order name: Chest Single View XRAY; Complete Time: 22:36 rn 06/06 21:52 Order name: US Abdomen Limited; Complete Time: 22:40 rn 06/06 22:00 Order name: Abdomen ; Complete Time: 22:36 EDMS 06/06 20:54 Order name: EKG; Complete Time: 20:54 rn 06/06 20:54 Order name: Accucheck; Complete Time: 21:57 rn 06/06 20:54 Order name: Cardiac monitoring; Complete Time: 21: rn 06/06 20:54 Order name: EKG - Nurse/Tech; Complete Time: 21: rn 06/06 20:54 Order name: IV Saline Lock - Large Bore; Complete Time: : rn 06/06 20:54 Order name: Labs collected and sent; Complete Time: : rn 06/06 20:54 Order name: O2 Per Protocol; Complete Time: : rn 06/06 20:54 Order name: O2 Sat Monitoring; Complete Time: : rn 06/06 20:54 Order name: Vital Signs; Complete Time: 21:05 rn EC:03 Rate is 111 beats/min. Rhythm is regular. Right axis deviation noted. QRS is negative rn in leads I, aVF. QRS interval is prolonged at 132 msec. QT interval is normal. No Q waves. T waves are Normal. No ST changes noted. Clinical impression: Sinus tachycardia. Interpreted by me. Reviewed by me. Administered Medications: 21:23 Drug: NS 0.9% IV 500 ml IV at bolus once Route: IV; Rate: bolus; Site: left antecubital;[facility] 22:30 Follow up: IV Status: Completed infusion; IV Intake: 500ml km8 22:11 Drug: Piperacillin-Tazobactam IVPB 3.375 grams IVPB once over 60 mins; (mix in NS 100 tm6 mL) Route: IVPB; Infused Over: 60 mins; Site: left hand; 23:11 Follow up: IV Status: Completed infusion; IV Intake: 100ml km8 Disposition Summary: 06/06/23 23:00 Hospitalization Ordered Notes: Hospitalization Status: Inpatient Admission rn Provider: Ramakrishna Zuniga [facility]n [facility] rn Condition: Stable rn Problem: new rn Symptoms: have improved rn Bed/Room Type: Standard rn Room Assignment: 224(06/06/23 23:30) jbNicole Diagnosis - Severe sepsis without septic shock rn - UTI/ Urinary tract infection, site not specified rn - Acute kidney failure, unspecified rn Forms: - Medication Reconciliation Form rn - SBAR form rn - Leadership Thank You Letter admissions rn time excluding procedures: 22:59 Critical care time: Bedside Care: 35 minutes. Total time: 35 minutes rn Signatures: Dispatcher [employer] EDMS Rajesh Zimmerman MD MD rn Bryson, James, RN RN jb4 Jeni Locke, RN RN cm10 Christina Jennings, RN RN km8 Freddy Hernandez, RN RN tm6 Corrections: (The following items were deleted from the chart) 22:00 20:54 Abdomen Pelvis W Con+CT.RAD.BRZ ordered. [facility] EDMI 23:30 23:00 rn jb4
--- NOTE | 2023-06-06 23:01 | ER ---
Nurse's Notes [facility] Name: Mati Broderick Age: 88 yrs Sex: Male : 1935 Arrival Date: 06/06/2023 Time: 20:36 Bed 4 Private MD: Diagnosis: Severe sepsis without septic shock;UTI/ Urinary tract infection, site not specified;Acute kidney failure, unspecified Presentation: 06/06 21:01 Chief complaint: Patient's son or daughter states: Generalized weakness onset today. Pt cm10 had 1 episode of vomiting. Pt noted to have generalized hives. Coronavirus screen: Vaccine status: Patient reports being unvaccinated. Client denies travel out of the [place] in the last 14 days. Ebola Screen: Patient denies travel to an Ebola-affected area in the 21 days before illness onset. No symptoms or risks identified at this time. Initial Sepsis Screen: Does the patient meet any 2 criteria? No. Patient's initial sepsis screen is negative. Does the patient have a suspected source of infection? No. Patient's initial sepsis screen is negative. Risk Assessment: Do you want to hurt yourself or someone else? Patient reports no desire to harm self or others. Onset of symptoms was June 06, 2023. 21:01 Method Of Arrival: Wheelchair cm10 21:01 Acuity: KATIE 3 cm10 Historical: - Allergies: 21:02 No Known Allergies; cm10 - PMHx: 21:02 CAD; Hernia; High Cholesterol; Hypertension; Myocardial infarction; Prostate Cancer; cm10 - Immunization history:: Adult Immunizations unknown. - Social history:: Smoking status: Patient denies any tobacco usage or history of. - Family history:: not pertinent. - Hospitalizations: : No recent hospitalization is reported. Screenin:51 [facility] ED Fall Risk Assessment (Adult) History of falling in the last 3 months, tm6 including since admission No falls in past 3 months (0 pts). Abuse screen: Denies threats or abuse. Denies injuries from another. Nutritional screening: No deficits noted. Tuberculosis screening: No symptoms or risk factors identified. Assessment: 21:00 General: Appears in no apparent distress. Behavior is calm, cooperative, appropriate km8 for age. Pain: Denies pain. Neuro: Level of Consciousness is awake, alert, obeys commands, Oriented to person, place, time, situation. Cardiovascular: Denies chest pain, shortness of breath. Respiratory: Airway is patent Respiratory effort is even, unlabored, Respiratory pattern is regular, symmetrical. GI: Abdomen is non-distended, Reports nausea, vomiting. : No signs and/or symptoms were reported regarding the genitourinary system. EENT: No signs and/or symptoms were reported regarding the EENT system. Derm: Skin is intact, Skin is dry, Skin is normal, Skin temperature is warm Rash noted that is itchy, red, raised, on chest and abdomen. Musculoskeletal: No signs and/or symptoms reported regarding the musculoskeletal system. Circulation, motion, and sensation intact. Range of motion: intact in all extremities, Reports weakness in generalized. 21:30 Reassessment: daughter remembers that she changed pt's laundry detergent at some point km8 this week; the rash to pt's chest and ABD appeared after the change in detergent . 22:00 Reassessment: Patient appears in no apparent distress at this time. No changes from km8 previously documented assessment. Patient and/or family updated on plan of care and expected duration. Pain level reassessed. Patient is alert, oriented x 3, equal unlabored respirations, skin warm/dry/pink. 23:00 Reassessment: Patient appears in no apparent distress at this time. No changes from km8 previously documented assessment. Patient and/or family updated on plan of care and expected duration. Pain level reassessed. Patient is alert, oriented x 3, equal unlabored respirations, skin warm/dry/pink. Vital Signs: 21:01 BP 100 / 56; Pulse 89; Resp 22; Temp 98.3(O); Pulse Ox 89% on R/A; Weight 92.99 kg; cm10 21:30 BP 103 / 47; Pulse 102; Resp 20; Pulse Ox 92% on 2 lpm NC; km8 22:00 BP 102 / 60; Pulse 102; Resp 24; Pulse Ox 95% on 2 lpm NC; km8 22:30 BP 120 / 62; Pulse 103; Resp 21; Pulse Ox 98% on 2 lpm NC; km8 23:00 BP 99 / 62; Pulse 102; Resp 24; Pulse Ox 94% on 2 lpm NC; km8 23:15 BP 107 / 63; Pulse 102; Resp 22; Pulse Ox 100% on 2 lpm NC; km8 ED Course: 20:45 Patient arrived in ED. gm2 20:45 Rajesh Zimmerman MD is Attending Physician. rn 21:00 Inserted saline lock: 20 gauge in left antecubital area, using aseptic technique. Blood km8 collected. 21:02 Triage completed. cm10 21:03 Arm band placed on Patient placed in an exam room, on a stretcher, on road supervisor, cm10 on pulse oximetry. 21:20 Inserted saline lock: 22 gauge in left hand, using aseptic technique. Blood collected. km8 21:28 Christina Jennings, MERON is Primary Nurse. km8 21:45 Chest Single View XRAY In Process Unspecified. EDMS 21:51 Patient has correct armband on for positive identification. Bed in low position. Call tm6 light in reach. Side rails up X2. Provided Education on: plan of care. 21:52 Client placed on continuous cardiac and pulse oximetry monitoring. NIBP monitoring tm6 applied. human services manager on. 21:52 No provider procedures requiring assistance completed. tm6 22:00 Abdomen In Process Unspecified. EDMS 22:32 US Abdomen Limited In Process Unspecified. EDMS 23:00 Ramakrishna Zuniga MD is Hospitalizing Provider. rn 23:35 Patient admitted, IV remains in place. km8 Administered Medications: 21:23 Drug: NS 0.9% IV 500 ml IV at bolus once Route: IV; Rate: bolus; Site: left antecubital;km8 22:30 Follow up: IV Status: Completed infusion; IV Intake: 500ml km8 22:11 Drug: Piperacillin-Tazobactam IVPB 3.375 grams IVPB once over 60 mins; (mix in NS 100 tm6 mL) Route: IVPB; Infused Over: 60 mins; Site: left hand; 23:11 Follow up: IV Status: Completed infusion; IV Intake: 100ml km8 Medication: 21:00 VIS not applicable for this client. km8 Intake: 22:30 IV: 500ml; Total: 500ml. km8 23:11 IV: 100ml; Total: 600ml. km8 Outcome: 23:00 Decision to Hospitalize by Provider. rn 23:52 Admitted to Med/surg accompanied by tech, room 224, with oxygen, with chart, Report tm6 called to Manoj CHANCE 23:52 Condition: stable 23:52 Instructed on the need for admit, 23:55 Patient left the ED. tm6 Signatures: Dispatcher [employer] EDMS Rajesh Zimmerman MD MD rn Martinez, Clarissa, RN RN 10 Miriam Trevino [facility] Christina Jennings RN RN km8 Freddy Hernandez RN RN tm6 Corrections: (The following items were deleted from the chart) 21:58 21:00 Musculoskeletal: No signs and/or symptoms reported regarding the musculoskeletal 8 system. Circulation, motion, and sensation intact. Range of motion: intact in all extremities, 8 22:42 22:00 BP 120 / 62; Pulse 103bpm; Resp 21bpm; Pulse Ox 98% 2 lpm Nasal Cannula; km8 km8
--- NOTE | 2023-06-06 23:32 | P.HP ---
Certification for Inpatient Patient admitted to: Inpatient With expected LOS: >2 Midnights Practitioner: I am a practitioner with admitting privileges, knowledge of patient current condition, hospital course, and medical plan of care. Services: Services provided to patient in accordance with Admission requirements found in Title 42 Section 412.3 of the Code of Federal Regulations Patient History Date of Service: 06/07/23 Reason for admission: Urinary tract infection, sepsis. History of Present Illness: 88-year-old male patient with medical history significant for hypertension, hyperlipidemia, history of prostate cancer status post therapy who also has been following with urology. He came to the ED with complaint of lethargy and weakness and was found to have elevated lactate of 4 and UA highly concerning for urinary tract infection. White cell of 19,000 was found on recent lab. He denied overt episode of burning on micturition, night sweats. CT of the abdomen and pelvis done revealed prostatomegaly. He was admitted for inpatient care for management of sepsis. Allergies No Known Allergies Allergy (Verified 06/07/23 01:59) Home Medications: Tamsulosin HCl 0.4 mg PO DAILY 11/13/20 Allopurinol 300 mg PO DAILY 06/07/23 Aspirin [Aspirin EC 81 MG] 81 mg PO DAILY 06/07/23 Atorvastatin Calcium 40 mg PO DAILY 06/07/23 Furosemide 40 mg PO BID 06/07/23 Losartan Potassium 50 mg PO DAILY 06/07/23 Potassium Chloride 20 meq PO DAILY 06/07/23 - Past Medical/Surgical History -: CAD -: HLD -: HTN -: history of prostate ca -: back surgery -: shoulder surgery -: knee surgery - Social History Alcohol use: No CD- Drugs: No Caffeine use: No Review of Systems General: Weakness, Malaise Eyes: Unremarkable ENT: Unremarkable Respiratory: Unremarkable Cardiovascular: Unremarkable Gastrointestinal: Unremarkable Genitourinary: Unremarkable Musculoskeletal: Unremarkable Integumentary: Unremarkable Neurological: Unremarkable Lymphatics: Unremarkable Physical Examination - Physical Exam General: Alert, Oriented x3 HEENT: Atraumatic Neck: Supple Respiratory: Normal air movement Cardiovascular: Regular rate/rhythm, Normal S1 S2 Gastrointestinal: Soft and benign Musculoskeletal: No swelling Neurological: Normal speech, Normal strength at 5/5 x4 extr - Studies Laboratory Data (last 24 hrs) 06/06/23 06/06/23 06/06/23 21:00 21:00 21:00 WBC 19.00 H Hgb 13.8 Hct 40.1 Plt Count 154 PT 17.2 H INR 1.58 APTT 30.7 Sodium 133 L Potassium 3.7 BUN 28 H Creatinine 2.40 H Glucose 153 H Total Bilirubin 1.2 H AST 65 H ALT 83 H Alkaline Phosphatase 158 H Microbiology Data (last 24 hrs): 06/06/23 21:20 Nasopharnyx Influenza Type A Antigen Screen - Final 06/06/23 21:20 Nasopharnyx Influenza Type B Antigen Screen - Final Assessment and Plan - Plan Sepsis: Present on admission, and deemed due to urinary tract infection/suspected prostatitis. White cell was elevated at 19,000. Continue empiric antibiotic therapy with Zosyn. Will obtain urine and blood culture. Will trend lactic acid reflexively. We have urology evaluate as needed. UTI: Empiric antibiotic therapy started. Urine culture pending. Continue to monitor culture report for adjustment to antibiotic therapy as needed. History of hypertension: Borderline low blood pressure noted. Isotonic fluids has been started Monitor vitals per unit protocol. Prophylaxis: Lovenox for DVT prophylaxis CODE STATUS: Full code pending further review. Disposition: We will treat his sepsis/UTI be discharged once he is deemed clinically stable. - Advance Directives Does patient have a Living Will: No Does patient have a Durable POA for Healthcare: No
[2023-06-07] MEDS: HEPARIN 5000 UNIT/ML 1 ML VIAL SQ SCH (00:24)
[2023-06-07] MEDS: NA CHLORIDE 0.9% 1,000 ML IV SCH (00:24)
[2023-06-07] MEDS: PIPER TAZO 3.375 GM in NA CHLORIDE 0.9% 100 ML IV SCH (01:00)
[2023-06-07 05:06] LABS: Albumin 2.7 g/dL (3.4-5.0); Bilirubin Total 1.1 mg/dL (0.2-1.0); Magnesium 2.3 mg/dL (1.6-2.4); Potassium 3.7 mEq/L (3.5-5.1); Protein, Total 5.9 g/dL (6.4-8.2)
--- NOTE | 2023-06-07 09:27 | P.PN ---
Subjective Date of Service: 06/07/23 Chief Complaint: Urinary tract infection, sepsis. Pt is resting comfortably in bed. He is getting iv zosyn for UTI/ prostatitis. His son requested to see Dr. Martinez, his Urologist. No other complaints. Review of Systems Unremarkable General: Unremarkable Eyes: Unremarkable ENT: Unremarkable Respiratory: Unremarkable Cardiovascular: Unremarkable Gastrointestinal: Unremarkable Genitourinary: Unremarkable Musculoskeletal: Unremarkable Integumentary: Unremarkable Neurological: Unremarkable Lymphatics: Unremarkable Physical Examination - Vital Signs Temperature: 100.2 F Blood Pressure: 98/53 Pulse: 110 Respirations: 18 Pulse Ox (%): 95 - Physical Exam General: Alert, In no apparent distress, Oriented x3 HEENT: Atraumatic, Normocephalic Neck: Supple, 2+ carotid pulse no bruit Respiratory: Clear to auscultation bilaterally, Normal air movement Cardiovascular: No edema, Normal pulses, Regular rate/rhythm, Normal S1 S2 Capillary refill: <2 Seconds Gastrointestinal: Normal bowel sounds, Soft and benign, Non-distended Musculoskeletal: No clubbing, No swelling Integumentary: No rashes, No breakdown Neurological: Normal speech, Normal strength at 5/5 x4 extr, Normal tone, Sensation intact, Cranial nerves 3-12 intact Lymphatics: No axilla or inguinal lymphadenopathy - Studies Laboratory Data (last 24 hrs) 06/06/23 06/06/23 06/06/23 21:00 21:00 21:00 WBC 19.00 H Hgb 13.8 Hct 40.1 Plt Count 154 PT 17.2 H INR 1.58 APTT 30.7 Sodium 133 L Potassium 3.7 BUN 28 H Creatinine 2.40 H Glucose 153 H Total Bilirubin 1.2 H AST 65 H ALT 83 H Alkaline Phosphatase 158 H Microbiology Data (last 24 hrs): 06/06/23 21:20 Nasopharnyx Influenza Type A Antigen Screen - Final 06/06/23 21:20 Nasopharnyx Influenza Type B Antigen Screen - Final Assessment And Plan - Plan Severe sepsis 2/2 UTI/ prostatitis: Will continue xzosyna nd follow up urine cx. WBC is 19. Lactate improved from 2.4 to 1.4. Will continue IVF. CT abd/pelvis shows prostatitis. Consulted Urology. COMFORT: Cr is 1.78 <- 2.4. Will continue IVF, avoid nephrotoxins and monitor renal function. History of hypertension: Will monitor BP for now. Will hold BP meds. Transaminitis: Will continue IVF and tremnd LFTs. AST 44 <- 64, ALT 74 <- 83, Alk phos 145 <- 158. DVT ppx: Lovenox Code: Full code Disposition: Pending hospital course.
[2023-06-07] MEDS: ACETAMINOPHEN 325 MG TABLET PO PRN (09:42)
[2023-06-07] MEDS: POTASSIUM CL SA 10 MEQ TAB PO ONE (09:42)
[2023-06-07] MEDS: ONDANSETRON 4 MG/2 ML VIAL IV PRN (15:14)
[2023-06-07] MEDS: predniSONE 20 MG TAB PO SCH (16:13)
[2023-06-07] MEDS: LABETALOL 20 MG/4ML SYRINGE IV ONE (16:18)
[2023-06-07] MEDS: NA CHLORIDE 0.9% 1,000 ML IV ONE (17:18)
[2023-06-07] MEDS: CEFTRIAXONE 1,000 MG in NA CHLORIDE 0.9% 50 ML IVPB SCH (18:04)
[2023-06-07] MEDS: LORATADINE 10 MG TAB PO PRN (20:53)
[2023-06-08] MEDS ORDERED: NA CHLORIDE 0.9% 1,000 ML ONE ×2 (05:17→16:29)
[2023-06-08 06:15] LABS: Absolute Lymphocytes (CBC) 0.8 K/uL (0.7-4.9); Hematocrit 35.6 % (39.6-49.0); Lymphocytes % 6.1 % (15.3-44.8); MCV 94.1 fL (80-100); MPV 7.8 fL (7.6-11.3); Platelets 129 thou/uL (152-406); RBC Red Blood Cell Count 3.79 M/uL (4.33-5.43)
[2023-06-08 06:28] LABS: Potassium 3.6 mEq/L (3.5-5.1)
[2023-06-08] MEDS ORDERED: CEFTRIAXONE 1000 MG/VIAL ONE (07:41)
[2023-06-08] MEDS ORDERED: predniSONE 20 MG TAB ONE (07:42)
[2023-06-08] MEDS ORDERED: HEPARIN 5000 UNIT/ML 1 ML VIAL ONE ×3 (07:42→21:52)
[2023-06-08] MEDS ORDERED: NA CHLORIDE 0.9% 100 ML ONE (07:42)
[2023-06-08] MEDS ORDERED: POTASSIUM CL SA 10 MEQ TAB PO ONE (07:42)
--- NOTE | 2023-06-08 07:50 | P.PN ---
Subjective Date of Service: 06/09/23 Chief Complaint: Urinary tract infection, sepsis. No complaint of abdominal pain, no reported fever, nausea vomiting diarrhea follows Dr. Mullen from urology, - Physical Exam General: Alert, In no apparent distress, Oriented x3 HEENT: Atraumatic, Normocephalic Neck: Supple, 2+ carotid pulse no bruit Respiratory: Clear to auscultation bilaterally, Normal air movement Cardiovascular: No edema, Normal pulses, Regular rate/rhythm, Normal S1 S2 Capillary refill: <2 Seconds Gastrointestinal: Normal bowel sounds, Soft and benign, Non-distended Musculoskeletal: No clubbing, No swelling Integumentary: No rashes, No breakdown Neurological: Normal speech, Normal strength at 5/5 x4 extr, Normal tone, Sensation intact, Cranial nerves 3-12 intact Lymphatics: No axilla or inguinal lymphadenopathy <AryanRose - Last Filed: 06/09/23 18:45> Date of Service: 06/15/23 <Natalee Talavera - Last Filed: 06/15/23 15:39> Review of Systems per HPI <AryanRose - Last Filed: 06/09/23 18:45> Physical Examination - Vital Signs Temperature: 98.1 F Blood Pressure: 112/58 Pulse: 88 Respirations: 21 Pulse Ox (%): 99 <Rose Baeza - Last Filed: 06/09/23 18:45> Assessment And Plan - Plan Assessment plan Severe sepsis secondary to UTI versus prostatitis, Leukocytosis improving History of prostate cancer History of hematuria [address] Mullen consulted, IV Zosyn, IV fluid urine cultures, WBCs was 19-->13.70 Lactic 2.4 trending down to 1.[address] of the abdomen pelvis IMPRESSION: Significant prostatomegaly Abdominal US IMPRESSION: Unremarkable examination. Chest x-ray IMPRESSION: No acute intrathoracic process suspected. Acute on chronic kidney injury Unknown baseline improving Cr is 1.78 <- 2.4. -0.94 Will continue IVF, avoid nephrotoxins and monitor renal function. Allergic dermatitis secondary to poison rehana Prednisone, Benadryl Infectious disease consult Transaminitis Will continue IVF and tremnd LFTs. AST 44 <- 64, -> ALT 74 <- 83, Alk phos 145 <- 158. Constipation Diverticulosis CT mild sigmoid diverticulosis coli with prominent stool retention As needed. History of hypertension Hiatal hernia Degenerative disc disease Resume home antihypertensive, cardiac diet. CT Advanced degenerative changes are present right hip.Advanced lumbosacral degenerative changes. Mild anterolisthesis L5 on S1. DVT ppx: Lovenox Cardiac diet Code: Full code Disposition: Pending hospital course. Discharge Plan: Home - Code Status/Comfort Care Code Status: Full Code Critical Care: No <Rose Baeza - Last Filed: 06/09/23 18:45> - Plan Pt seen and examined. I agree with the note by the WRAPPING CLERK. Pt has allergic dermatitis 2/2 poison rehana. Will continue benadryl and steroid. ID is following. <Natalee Talavera - Last Filed: 06/15/23 15:39>
[2023-06-08] MEDS ORDERED: DIPHENHYDRAMINE 50 MG/ML VIAL ONE ×2 (08:34→21:52)
[2023-06-08] MEDS: DIPHENHYDRAMINE 50 MG/ML VIAL IV PRN (08:37)
[2023-06-08] MEDS: POTASSIUM CL SA 10 MEQ TAB PO ONE (08:38)
[2023-06-08] MEDS ORDERED: hydrOXYzine HCL 25 MG TAB PO PRN (09:10)
[2023-06-08] MEDS ORDERED: GLUCAGON 1 MG/VIAL IM PRN (09:34)
[2023-06-08] MEDS ORDERED: D10W 250 ML BAG IV PRN (09:34)
--- NOTE | 2023-06-08 09:40 | P.CNS ---
Date of Consult: 06/08/23 Reason for Consult: sepsis Chief Complaint: Urinary tract infection, sepsis. History of Present Illness: Patient is an 88-year-old male with a medical history of hypertension, hyperlipidemia, prostate cancer, coronary artery disease who presented to the ED with complaints of weakness and lethargy. ED workup revealing leukocytosis WBC 19, lactate 2.4, urinalysis concerning for urinary tract infection. CT abdomen pelvis revealing prostatomegaly. Patient was admitted for sepsis, Blood cultures and urine cultures obtained, started on empiric antibiotics. Infectious disease was consulted. Allergies No Known Allergies Allergy (Verified 06/07/23 01:59) Home Medications: Tamsulosin HCl 0.4 mg PO DAILY 11/13/20 Allopurinol 300 mg PO DAILY 06/07/23 Aspirin [Aspirin EC 81 MG] 81 mg PO DAILY 06/07/23 Atorvastatin Calcium 40 mg PO DAILY 06/07/23 Furosemide 40 mg PO BID 06/07/23 Losartan Potassium 50 mg PO DAILY 06/07/23 Potassium Chloride 20 meq PO DAILY 06/07/23 - Past Medical/Surgical History Diabetic: No -: CAD -: HLD -: HTN -: history of prostate ca -: back surgery -: shoulder surgery -: knee surgery - Social History Alcohol use: No CD- Drugs: No Caffeine use: No Place of Residence: Home Review of Systems General: Weakness ENT: Unremarkable Respiratory: Unremarkable Cardiovascular: Unremarkable Gastrointestinal: Constipation Genitourinary: Frequency Musculoskeletal: Unremarkable Integumentary: Rash (generalized, itching) Physical Examination Temp Pulse Resp BP Pulse Ox 98.1 F 90 20 122/70 98 06/08/23 07:52 06/08/23 08:00 06/08/23 08:00 06/08/23 08:00 06/08/23 08:00 General: Alert, In no apparent distress, Oriented x3 HEENT: Atraumatic, Normocephalic Neck: Supple Respiratory: Clear to auscultation bilaterally, Normal air movement Cardiovascular: Normal pulses, Regular rate/rhythm, Edema (BLE) Gastrointestinal: Soft and benign Integumentary: Rash(es) (generalized, pruritic) Laboratory Data - Reviewed Microbiology Data - Reviewed Imagings Data: - Reviewed Conclusions/Impression: Problem List Severe sepsis secondary to UTI versus prostatitis Acute kidney injury Allergic dermatitis secondary to poison rehana Transaminitis Diverticulosis Hypertension Hyperlipidemia Hiatal hernia history of prostate cancer Sepsis secondary to suspected urinary tract infection vs prostatitis history of prostate cancer -CT abdomen pelvis 06/06: "Significant prostatomegaly" -Abdominal ultrasound 06/06: "Unremarkable examination" - urinalysis: extremely turbid; 1+ blood ; 1+ urine urobilinogen; LE 75; WBC 10- 20; + protein -Urine culture 06/06: pending -Blood cultures 06/06: no growth to date -Currently on Rocephin (started 06/07) Lactic acid trending down (2.4 -> 1.4) Pruritic rash - - Rash reportedly started about 3 days prior to admission. Denies any recent travel. Denies any new medications or recent antibiotic use. No sick contacts. - reported poison rehnaa in backyard; unknown if pt - eosinophils WNL - On IV solumedrol Leukocytosis improving (WBC 19 -> 13.7) Afebrile -XR chest 06/06: "No acute intrathoracic process suspected" Negative covid. negative influenza. Recommendations - Continue Rocephin for now. Follow up with final urine culture results. - generalized rash: continue with corticosteroids and antihistamines for now. Monitor for worsening/spreading rash. Consider autoimmune panel +/- punch biopsy of rash - Monitor WBC and fever trends - pending CRP/procal - Continue supportive care Case discussed with Dr. Johnson, N>
[2023-06-08] MEDS ORDERED: METHYLPREDNISOLONE 125 MG INJ ONE ×2 (10:10→16:59)
[2023-06-08] MEDS: METHYLPREDNISOLONE 125 MG INJ IV ONE (10:17)
[2023-06-08] MEDS: BETAMETHASONE DIP 0.05% CREAM TOP SCH (11:20)
[2023-06-08] MEDS: INSULIN REGULAR (HUMAN) 100 UNIT/ML SQ SCH (11:30)
[2023-06-08] MEDS: METHYLPREDNISOLONE 125 MG INJ IV SCH (13:00)
[2023-06-08] MEDS ORDERED: HYDROCORTISONE SUC 100 MG INJ ONE (13:02)
--- NOTE | 2023-06-08 15:02 | EKG ---
Test Date: 2023-06-06 Test Time: 20:57:45 Display Director: MICHELLE MEASUREMENT RESULTS: Intervals: Rate: 111 [place]: 148 QRSD: 132 QT: 364 QTc: 495 [place]: P: 65 [place]: 148 QRS: 268 T: 51 INTERPRETIVE STATEMENTS: Sinus tachycardia Right bundle branch block Septal infarct, age undetermined Abnormal ECG Compared to ECG 11/14/2020 08:26:40 Right bundle-branch block now present Myocardial infarct finding now present Sinus rhythm no longer present Left-axis deviation no longer present Left ventricular hypertrophy no longer present Electronically Signed On 06-08-23 14:58:50 [employer] OFFICER by Macario Kim
--- NOTE | 2023-06-08 18:08 | P.CNS ---
Date of Consult: 06/08/23 Reason for Consult: Suspected prostatitis and urosepsis Requesting Physician: Rose Baeza Chief Complaint: Urinary tract infection, sepsis. History of Present Illness: 88-year-old Mongolian-speaking gentleman well-known to me with [place] 3+3 adenocarcinoma the prostate diagnosed in 2008 status post TURP in 2010 on watchful waiting with stable PSA (PSA-DT > 4 years) with gross hematuria p unremarkable CT urogram and very limited cystoscopy revealing massive BPH with intraluminal projection and presumptive prostatitis treated with Bactrim but then admitted for anemia s/p Cystoscopy with clot evacuation and bladder irrigation, bipolar fulguration of the prostatic urethra and channel TURP 11/13/20 pathology revealing 6 g of tissue and BPH only, now with diminished mobility due to severe right hip pain, presumptively due to osteoarthritis. The patient was initially very reticent to initiate definitive management of his known low-grade, now high risk, prostate cancer despite rising PSA over time. Below is the history: 05/25/2023 CT chest abdomen and pelvis with contrast impression: No metastatic disease or LAD. Kidneys normal 05/25/2023 creatinine 1.0 05/18/2023 PSA 36.4 11/17/2022 PSA 26.20 10/10/2022 PSA 26.4, creatinine 0.95, hemoglobin/hematocrit 13.2/38.4, cholesterol/triglycerides 166/96 with LDL 100, TSH 1.44, UA micro negative nitrites, 21-30 WBCs and 2+ leukocyte esterase but no bacteria seen. 09/26/2021 -14.0 10/12/2020 CT - Abdomen Pelvis W/Wo Contrast - IMPRESSION: No evidence of metastatic disease 04/11/2021 - 14.1 10/03/20 - 15.6 06/29/20 14.60 03/2020 11.9 01/04/2020 16.89, 12 % free 12/18/2018 16.30, 10% free 01/17/2019 8.37, 11% free 06/06/2017 9.01, 19% free 12/18/2017 9.23 06/04/2016 7.48 06/02/2015 6.46 01/19/2014 5.29 01/11/2013 5.2 01/14/2012 5.0 11/22/2010 6.1 05/23/2010 4.7 01/09/2010 5.9 10/11/2009 6.7 01/22/2009 3.6. He finally elected to proceed with androgen deprivation therapy treatment of his prostate cancer, which is reasonable given the doubling time greater than 1 year and his advanced age, but in the interim, he has been admitted via the emergency department with lethargy and weakness. He explains that he underwent a CT scan with IV contrast, which I had ordered an metastatic evaluation of his high risk prostate cancer, and after the CT scan, he felt like things were off and he had not felt right since then. This culminated in an episode of emesis, which resulted in the patient requesting to be brought to the emergency department. In the emergency department, his daughter indicated she had noticed a degree of a rash on his arms, but once his clothes were removed, she saw the rash occupying the entirety of his torso. This was not previously attended to. He denied any difficulty urinating, noting he voids with a strong stream during the day, though it is a bit weak at night. He also has nocturia x 3. He denies any dysuria or gross hematuria associated. On evaluation, the ER reported a lactate of 4.0 on admission. 06/06/2023 WBC 19.0, creatinine 2.4, INR 1.58, elevated LFTs, elevated alkaline phosphatase, UA micro 1+ heme, trace leukocyte Estrace, 10-20 WBCs per hpf Urine culture negative. Blood cultures x 2 negative. 06/08/2023 WBC 13.7, hemoglobin 12.3, platelets 129, creatinine 0.94, persistent increased LFTs and alk phos 06/06/2023 chest x-ray unremarkable 06/06/2023 EKG Sinus tachycardia, Right bundle branch block, Septal infarct, age undetermined, Abnormal ECG, Compared to ECG 11/14/2020 08:26:40 Right bundle- branch block now present. Myocardial infarct finding now present. Sinus rhythm no longer present. Left-axis deviation no longer present. Left ventricular hypertrophy no longer present. 06/06/2023 CT abdomen and pelvis without contrast: Findings: Sigmoid diverticulosis with prominent stool retention and prostatic megaly. Small fat- containing left inguinal hernia. Degenerative changes of the hip and lumbosacral spine. Examination: Patient alert, awake, and in no acute distress Conversive with no dyspnea or sign of respiratory distress Seated at bedside eating dinner Comfortable and well-appearing Rash clearly occupying skin of his arm and neck, visible despite his gown. 05/25/2023 2:[address] - Chest Abdomen Pelvis W Cont - FINDINGS: The lungs are clear.No pleural or pericardial effusion.No intrathoracic adenopathy. The liver, spleen, pancreas, adrenal glands and kidneys are within normal limits. No bowel obstruction, free air, free fluid or abscess. Loculated markedly enlarged appearance of the prostate gland, with an ovoid posterior left paramidline relatively hyperdense component. No pathologic lymphadenopathy in the abdomen or pelvis. No worrisome osseous finding. IMPRESSION: Markedly enlarged prostate gland. Limited evaluation for primary prostatic malignancy on CT. No findings to suggest metastatic adenopathy or distant metastatic disease. Assessment and recommendation: 88-year-old Mongolian-speaking gentleman well-known to me with [place] 3+3 adenocarcinoma the prostate diagnosed in 2008 status post TURP in 2010 on watchful waiting with stable PSA (PSA-DT > 4 years) with gross hematuria p unremarkable CT urogram and very limited cystoscopy revealing massive BPH with intraluminal projection and presumptive prostatitis treated with Bactrim but then admitted for anemia s/p Cystoscopy with clot evacuation and bladder irrigation, bipolar fulguration of the prostatic urethra and channel TURP 11/13/20 pathology revealing 6 g of tissue and BPH only, with rising PSA consistent with transition to high risk prostate cancer, now admitted with leukocytosis, transaminasemia and malaise, initially suspected prostatitis/complicated UTI, but no confirmatory evidence of such available on imaging or cultures, potentially associated with prior IV contrast CT scan. -I reviewed the images of the CT scan in detail. No significant evidence of perinephric stranding on this noncontrast study, but additionally, there was no significant bladder wall thickening or signs of perivesical stranding, and there was no JACQUIE prostatic stranding or visible abscess on this noncontrast study. -No urologic intervention recommended or required at this time. -Will list iodinated contrast dye among his possible medication allergies to avoid future IV contrast administration, which may have precipitated a bit of hepatorenal syndrome and also the rash now being treated. -Bladder scan postvoid residual assessment to ensure adequate emptying, and as long as <200 cc, no significant concern from a urologic perspective at this time. -Follow-up as scheduled, hopefully once his liver enzymes returned to baseline so that we might begin therapy for his high risk prostate cancer. Allergies No Known Allergies Allergy (Verified 06/07/23 01:59) Home medications list reviewed: Yes Home Medications: Tamsulosin HCl 0.4 mg PO DAILY 11/13/20 Allopurinol 300 mg PO DAILY 06/07/23 Aspirin [Aspirin EC 81 MG] 81 mg PO DAILY 06/07/23 Atorvastatin Calcium 40 mg PO DAILY 06/07/23 Furosemide 40 mg PO BID 06/07/23 Losartan Potassium 50 mg PO DAILY 06/07/23 Potassium Chloride 20 meq PO DAILY 06/07/23 - Past Medical/Surgical History Diabetic: No -: CAD -: HLD -: HTN -: history of prostate ca -: back surgery -: shoulder surgery -: knee surgery - Social History Alcohol use: No CD- Drugs: No Caffeine use: No Place of Residence: Home Physical Examination Temp Pulse Resp BP Pulse Ox 97.8 F 88 22 H 129/81 97 06/08/23 16:00 06/08/23 17:00 06/08/23 17:00 06/08/23 17:00 06/08/23 17:00 - Problems (1) 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 to [place] score of 8 to 10 and PSA greater than 20 Current Visit: Yes Status: Acute (2) Leucocytosis Current Visit: Yes Status: Acute (3) Transaminasemia Current Visit: Yes Status: Acute Conclusions/Impression: see A&P in HPI Critical Care: No Time Spent Managing Pts care (In Minutes): 45
[2023-06-08] MEDS ORDERED: KETOROLAC 30 MG/ML INJ IV PRN (21:29)
[2023-06-08] MEDS ORDERED: ACETAMIN/CAFFEINE/BUTALB TAB PO ONE (21:52)
[2023-06-08] MEDS: ACETAMIN/CAFFEINE/BUTALB TAB PO ONE (22:27)
[2023-06-09] MEDS ORDERED: METHYLPREDNISOLONE 125 MG INJ ONE ×4 (00:28→16:35)
[2023-06-09] MEDS ORDERED: NA CHLORIDE 0.9% 1,000 ML ONE ×2 (04:45→21:07)
[2023-06-09 05:18] LABS: Absolute Lymphocytes (CBC) 1.1 K/uL (0.7-4.9); Hematocrit 33.2 % (39.6-49.0); Lymphocytes % 7.6 % (15.3-44.8); MCV 94.9 fL (80-100); MPV 8.3 fL (7.6-11.3); Platelets 120 thou/uL (152-406); RBC Red Blood Cell Count 3.51 M/uL (4.33-5.43)
[2023-06-09] MEDS ORDERED: INSULIN GLARGINE 100 UNIT/ML SQ ONE (07:13)
[2023-06-09] MEDS ORDERED: predniSONE 20 MG TAB ONE (08:17)
--- NOTE | 2023-06-09 12:58 | EKG ---
Test Date: 2023-06-07 Test Time: 16:22:09 Rescue Instructor: HADLEY Gardner MEASUREMENT RESULTS: Intervals: Rate: 139 [place]: 116 QRSD: 138 QT: 306 QTc: 465 [place]: P: 74 [place]: 116 QRS: 266 T: 64 INTERPRETIVE STATEMENTS: Sinus tachycardia with occasional premature ventricular complexes Right bundle branch block Septal infarct, age undetermined Abnormal ECG Compared to ECG 06/06/2023 20:57:45 Ventricular premature complex(es) now present Myocardial infarct finding still present Electronically Signed On 06-09-23 12:53:15 SUPERVISOR [employer]ACE [employer]ARING by Macario Kim
--- NOTE | 2023-06-09 13:49 | P.PN ---
Date of Service: 06/09/23 Chief Complaint: Urinary tract infection, sepsis. Subjective: Improving. No acute events overnight. In no apparent distress. Patient denies any new or worsening complaints. + rash, slightly improved + urinary frequency (reports this is "normal" for him due to BPH and prostate cancer) Denies any abdominal or suprapubic pain. Denies dysuria, hematuria or hesitancy. Physical Examination Temp Pulse Resp BP Pulse Ox 98.3 F 86 22 H 143/99 H 94 06/09/23 12:06/09/23 12:06/09/23 12:06/09/23 12:06/09/23 12:00 General: Alert, In no apparent distress, Oriented x3 HEENT: Atraumatic, Normocephalic Respiratory: Clear to auscultation bilaterally, Normal air movement Cardiovascular: Normal pulses, Regular rate/rhythm. BLE edema. Gastrointestinal: Soft and benign Integumentary: rashes on bilateral upper and lower extremities and chest/back Laboratory Data - Reviewed Microbiology Data - Reviewed Imagings Data: - Reviewed Medications List: Reviewed Assessment and Plan Problem List Severe sepsis secondary to UTI versus prostatitis Acute kidney injury Allergic dermatitis secondary to poison rehana Transaminitis Diverticulosis Hypertension Hyperlipidemia Hiatal hernia history of prostate cancer Sepsis secondary to suspected urinary tract infection vs prostatitis Prostate Cancer -CT abdomen pelvis 06/06: "Significant prostatomegaly" -Abdominal ultrasound 06/06: "Unremarkable examination" - urinalysis: extremely turbid; 1+ blood ; 1+ urine urobilinogen; LE 75; WBC 10- 20; + protein -Urine culture 06/06: no growth to date -Blood cultures 06/06: no growth to date -Currently on Rocephin (started 06/07) Lactic acid trending down (2.4 -> 1.4) elevated procal 8.03 and CRP 88.6 ALT/AST elevated, trending down Prostate cancer: urology following Pruritic rash - Rash reportedly started about 3 days prior to admission. Denies any recent travel. Denies any new medications or recent antibiotic use. No sick contacts. - eosinophils WNL - On IV solumedrol - topical corticosteroids - antihistamine Leukocytosis improving (WBC 19 -> 13.7) Afebrile -XR chest 06/06: "No acute intrathoracic process suspected" Negative covid. negative influenza. Recommendations - Urine and blood cultures without growth. Consider discontinuation of Rocephin and continue to monitor for worsening s/s of infection. - generalized rash: slightly improving. Continue with corticosteroids and antihistamines for now. Consider punch biopsy of rash - Monitor WBC and fever trends - Continue supportive care Case discussed with Margo Ewing.
[2023-06-09] MEDS ORDERED: LIDOCAINE 2% W/EPI 1:200,000 MPF 20 ML VIAL IM ONE (14:06)
[2023-06-09 14:19] LABS: Albumin 2.2 g/dL (3.4-5.0); Bilirubin Direct 0.1 mg/dL (0-0.2); Bilirubin Total 0.4 mg/dL (0.2-1.0); Potassium 4.4 mEq/L (3.5-5.1); Protein, Total 5.5 g/dL (6.4-8.2)
--- NOTE | 2023-06-09 14:26 | P.OP ---
Preoperative diagnosis: Possible Vasculitis Postoperative diagnosis: Possible Vasculitis Primary procedure: Punch Biopsy of RIGHT Thigh - 3mm Anesthesia: 2% lidocaine w/epi Estimated blood loss: <1cc Specimen: RIGHT Thigh Findings: patchy redness Complications: None Transferred to: Recovery Room Condition: Good
[2023-06-09] MEDS ORDERED: INSULIN REGULAR (HUMAN) 100 UNIT/ML ONE (21:08)
[2023-06-10] MEDS ORDERED: METHYLPREDNISOLONE 125 MG INJ ONE ×3 (00:29→11:50)
--- NOTE | 2023-06-10 02:15 | OP ---
Surgeon: Attila Monahan MD, MD Preoperative Diagnosis: Possible vasculitis. Postoperative Diagnosis: Possible vasculitis. Procedure: Punch biopsy of the right thigh, 3 mm punch biopsy . Anesthesia: lidocaine with epinephrine, 1.5 cc utilized. Estimated Blood Loss: 1 cc. Specimen: Right thigh skin and subcutaneous tissues. Findings: Patchy redness to the right thigh. Complications: None. Disposition: The patient remained in ICU in good condition throughout the procedure. Procedure In Detail: After informed consent was obtained, patient was prepped and draped in the usua l sterile fashion after adequate anesthesia was achieved with lidocaine in the area of the right mid thigh. I then used a punch biopsy. 3 mm punch biopsy device used down into subcutaneous fat. The specimen was placed in a fresh container and sent off for pathologic examination. The area was irrigated and then sutured closed with interrupted 3-0 Prolene suture and a single interrupted s uture utilized. Sterile dressing placed over top. The patient tolerated the procedure without incide nt or complication, remained in ICU in good condition throughout the procedure. All counts were correct at the end of the case. DELLA/RACHAEL Voice ID: [id number] Report ID: [id number]
[2023-06-10 08:05] LABS: Absolute Lymphocytes (CBC) 1.2 K/uL (0.7-4.9); Hematocrit 33.2 % (39.6-49.0); Lymphocytes % 6.7 % (15.3-44.8); MPV 8.4 fL (7.6-11.3); Platelets 142 thou/uL (152-406)
[2023-06-10] MEDS: METHYLPREDNISOLONE 40 MG INJ ONE (08:09)
[2023-06-10] MEDS ORDERED: predniSONE 20 MG TAB ONE (08:17)
[2023-06-10 08:19] LABS: Magnesium 2.5 mg/dL (1.6-2.4)
--- NOTE | 2023-06-10 09:23 | P.PN ---
Date of Service: 06/10/23 Chief Complaint: Urinary tract infection, sepsis. Subjective: s/p punch biopsy yesterday Temp Pulse Resp BP Pulse Ox 97.6 F 66 20 125/74 100 06/10/23 12:00 06/10/23 12:00 06/10/23 12:00 06/10/23 12:00 06/10/23 12:00 Laboratory Data - Reviewed Microbiology Data - Reviewed Imagings Data: - Reviewed Medications List: Reviewed Assessment and Plan Problem List Severe sepsis secondary to UTI versus prostatitis Acute kidney injury Allergic dermatitis secondary to poison rehana Transaminitis Diverticulosis Hypertension Hyperlipidemia Hiatal hernia history of prostate cancer Sepsis secondary to suspected urinary tract infection vs prostatitis Prostate Cancer -CT abdomen pelvis 06/06: "Significant prostatomegaly" -Abdominal ultrasound 06/06: "Unremarkable examination" - urinalysis: extremely turbid; 1+ blood ; 1+ urine urobilinogen; LE 75; WBC 10- 20; + protein -Urine culture 06/06: no growth to date -Blood cultures 06/06: no growth to date - Rocephin (06/07-06/10). Prostate cancer: urology following Lactic acid (2.4 -> 1.4) ALT 84, AST 22 Pruritic Rash / Vasculitis - Rash reportedly started about 3 days prior to admission. Denies any recent travel. Denies any new medications or recent antibiotic use. No sick contacts. - On Prednisone PO - antihistamine - s/p punch biopsy 06/09 - pathology report: pending Leukocytosis Afebrile -XR chest 06/06: "No acute intrathoracic process suspected" Negative covid. negative influenza. Recommendations - Rocephin discontinued. Continue to monitor for worsening s/s of infection. - generalized rash: slightly improving. Continue with prednisone and antihistami ramila for now. - s/p punch biopsy yesterday, pending pathology report - Monitor WBC and fever trends - Continue supportive care Case discussed with Apollo Ewing
[2023-06-10 10:41] LABS: Blood Morphology Comment NOT SEEN (NOT SEEN); Platelet Estimate ADEQ
[2023-06-10 12:21] VITALS: O2SAT 94
--- NOTE | 2023-06-11 10:07 | P.PN ---
Date of Service: 06/11/23 Chief Complaint: Urinary tract infection, sepsis. Subjective: Patient seen in room. Rashes improving. Denies any new or worsening complaints at this time. In no apparent distress. Physical Examination Temp Pulse Resp BP Pulse Ox 97.8 F 63 14 129/69 93 06/11/23 08:00 06/11/23 08:00 06/11/23 08:00 06/11/23 08:00 06/11/23 08:00 General: Alert, In no apparent distress, Oriented x3 HEENT: Atraumatic, Normocephalic Respiratory: Clear to auscultation bilaterally, Normal air movement Cardiovascular: Normal pulses, Regular rate/rhythm. BLE edema. Gastrointestinal: Soft and benign Integumentary: rashes on bilateral upper and lower extremities and chest/back Laboratory Data - Reviewed Microbiology Data - Reviewed Imagings Data: - Reviewed Medications List: Reviewed Assessment and Plan Problem List Severe sepsis secondary to UTI versus prostatitis Acute kidney injury Allergic dermatitis secondary to poison rehana Transaminitis Diverticulosis Hypertension Hyperlipidemia Hiatal hernia history of prostate cancer Sepsis secondary to suspected urinary tract infection vs prostatitis Prostate Cancer -CT abdomen pelvis 06/06: "Significant prostatomegaly" -Abdominal ultrasound 06/06: "Unremarkable examination" - urinalysis: extremely turbid; 1+ blood ; 1+ urine urobilinogen; LE 75; WBC 10-20; + protein -Urine culture 06/06: no growth to date -Blood cultures 06/06: no growth to date - Previously on Rocephin (06/07-06/10). Prostate cancer: urology following Lactic acid (2.4 -> 1.4) ALT 84, AST 22 Pruritic Rash / Vasculitis - Rash reportedly started about 3 days prior to admission. Denies any recent travel. Denies any new medications or recent antibiotic use. No sick contacts. - On Prednisone PO - antihistamine - s/p punch biopsy 06/09 - pathology report: pending Leukocytosis Afebrile -XR chest 06/06: "No acute intrathoracic process suspected" Negative covid. negative influenza. Recommendations - Rocephin discontinued. Continue to monitor for worsening s/s of infection. - generalized rash: continues to improve. Continue with prednisone and antihistamines for now. - s/p punch biopsy yesterday, pending pathology report - Monitor WBC and fever trends - Continue supportive care Case discussed with Apollo Ewing
--- NOTE | 2023-06-12 08:28 | P.PN ---
Date of Service: 06/12/23 Chief Complaint: Urinary tract infection, sepsis. Subjective: Improving. No acute events overnight. In no apparent distress. Denies any new or worsening complaints. Physical Examination Temp Pulse Resp BP Pulse Ox 97.2 F 81 20 165/88 H 92 06/12/23 04:00 06/12/23 04:00 06/12/23 04:00 06/12/23 04:00 06/12/23 04:00 General: Alert, In no apparent distress, Oriented x3 HEENT: Atraumatic, Normocephalic Respiratory: Clear to auscultation bilaterally, Normal air movement Cardiovascular: Normal pulses, Regular rate/rhythm. BLE edema. Gastrointestinal: Soft and benign Integumentary: rashes on bilateral upper and lower extremities and chest/back- improving Laboratory Data - Reviewed Microbiology Data - Reviewed Imagings Data: - Reviewed Medications List: Reviewed Assessment and Plan Problem List Severe sepsis secondary to UTI versus prostatitis Acute kidney injury Allergic dermatitis secondary to poison rehana Transaminitis Diverticulosis Hypertension Hyperlipidemia Hiatal hernia history of prostate cancer Sepsis secondary to suspected urinary tract infection vs prostatitis Prostate Cancer -CT abdomen pelvis 06/06: "Significant prostatomegaly" -Abdominal ultrasound 06/06: "Unremarkable examination" - urinalysis: extremely turbid; 1+ blood ; 1+ urine urobilinogen; LE 75; WBC 10- 20; + protein -Urine culture 06/06: no growth to date -Blood cultures 06/06: no growth to date - Previously on Rocephin (06/07-06/10). Pruritic Rash / Vasculitis - improving - Rash reportedly started about 3 days prior to admission. Denies any recent travel. Denies any new medications or recent antibiotic use. No sick contacts. - On Prednisone PO - antihistamine - s/p punch biopsy 06/09 - pathology report: pending Leukocytosis Afebrile Negative covid. negative influenza. -XR chest 06/06: "No acute intrathoracic process suspected" Recommendations - Awaiting punch biopsy pathology report. Rash improving, continue to monitor. Continue with prednisone and antihistamines for now. - Rocephin discontinued. Continue to monitor for worsening s/s of infection. - Monitor WBC and fever trends - Continue supportive care - Prostate cancer: urology following Case discussed with Apollo Ewing
[2023-06-12 11:20] LABS: Absolute Lymphocytes (CBC) 1.8 K/uL (0.7-4.9); Hematocrit 32.4 % (39.6-49.0); Lymphocytes % 15.8 % (15.3-44.8); MCV 94.3 fL (80-100); MPV 7.9 fL (7.6-11.3); Platelets 138 thou/uL (152-406); RBC Red Blood Cell Count 3.44 M/uL (4.33-5.43)
[2023-06-12 11:38] LABS: Albumin 2.1 g/dL (3.4-5.0); Bilirubin Total 0.6 mg/dL (0.2-1.0); Magnesium 2.3 mg/dL (1.6-2.4); Potassium 3.5 mEq/L (3.5-5.1); Protein, Total 5.1 g/dL (6.4-8.2)
--- NOTE | 2023-06-12 12:28 | P.PN ---
Date of Service: 06/12/23 Subjective Patient has done well during his hospital stay. Patient's clinical symptoms have improved. Anticipate discharge in the morning. Physical Examination - Vital Signs reviewed - Physical Exam General: Alert, In no apparent distress, Oriented x3 Respiratory: Clear to auscultation bilaterally Cardiovascular: Regular rate/rhythm, Normal S1 S2 Gastrointestinal: Normal bowel sounds, Soft and benign, Non-distended Neurological: No focal Deficits Assessment And Plan - Plan Plan Severe sepsis secondary to UTI versus prostatitis, Leukocytosis improving History of prostate cancer History of hematuria 2020 Continue with IV antibiotics. Monitor urine analysis. Anticipate discharge in the morning. Acute on chronic kidney injury Unknown baseline improving Cr is 1.78 <- 2.4. -0.94 Will continue IVF, avoid nephrotoxins and monitor renal function. Allergic dermatitis secondary to poison rehana Continue with Benadryl and prednisone. Constipation Diverticulosis CT mild sigmoid diverticulosis coli with prominent stool retention As needed. History of hypertension Hiatal hernia Degenerative disc disease Resume home antihypertensive, cardiac diet. CT Advanced degenerative changes are present right hip.Advanced lumbosacral degenerative changes. Mild anterolisthesis L5 on S1. DVT ppx: Lovenox Cardiac diet Code: Full code Disposition: Pending hospital course. Discharge Plan: Home - Code Status/Comfort Care Code Status: Full Code Critical Care: No
--- NOTE | 2023-06-12 12:29 | P.PN ---
Date of Service: 06/09/23 Subjective Patient improving clinically, rash is still prominent Physical Examination - Vital Signs reviewed - Physical Exam General: Alert, In no apparent distress, Oriented x3 Respiratory: Clear to auscultation bilaterally Cardiovascular: Regular rate/rhythm, Normal S1 S2 Gastrointestinal: Normal bowel sounds, Soft and benign, Non-distended Neurological: No focal intact, Cranial nerves 3-12 intact Assessment And Plan - Assessment/Plan Assessment/Plan Severe sepsis secondary to UTI versus prostatitis, Leukocytosis improving History of prostate cancer History of hematuria 2020 Continue with IV antibiotics Acute on chronic kidney injury Unknown baseline improving Cr is 1.78 <- 2.4. -0.94 Will continue IVF, avoid nephrotoxins and monitor renal function. Allergic dermatitis secondary to poison rehana Prednisone, Benadryl Infectious disease consult Constipation Diverticulosis CT mild sigmoid diverticulosis coli with prominent stool retention As needed. History of hypertension Hiatal hernia Degenerative disc disease Resume home antihypertensive, cardiac diet. CT Advanced degenerative changes are present right hip.Advanced lumbosacral degenerative changes. Mild anterolisthesis L5 on S1. DVT ppx: Lovenox Cardiac diet Code: Full code Disposition: Pending hospital course. Discharge Plan: Home - Code Status/Comfort Care Code Status: Full Code Critical Care: No
[2023-06-12 13:15] LABS: Blood Morphology Comment NOT SEEN (NOT SEEN); Platelet Estimate DECR
[2023-06-12] MEDS: INSULIN REGULAR (HUMAN) 100 UNIT/ML SQ SCH (16:30)
[2023-06-12] MEDS: POTASSIUM 25 MEQ EFFERV TAB PO ONE (17:13)
[2023-06-13] MEDS ORDERED: LABETALOL 20 MG/4ML SYRINGE IV PRN ×2 (00:14→00:41)
[2023-06-13] MEDS: METOPROLOL TAR 25 MG TAB PO SCH (17:57)
[2023-06-13] MEDS: predniSONE 20 MG TAB PO SCH (21:24)
[2023-06-14 06:03] VITALS: BMI 31.1
[2023-06-14 06:42] LABS: RBC Red Blood Cell Count 3.73 M/uL (4.33-5.43)
[2023-06-14 06:43] LABS: Absolute Lymphocytes (CBC) 0.9 K/uL (0.7-4.9); Lymphocytes % 8.8 % (15.3-44.8); MCV 93.7 fL (80-100); MPV 7.8 fL (7.6-11.3); Platelets 201 thou/uL (152-406)
[2023-06-14 07:01] LABS: Albumin 2.1 g/dL (3.4-5.0); Bilirubin Total 0.7 mg/dL (0.2-1.0); Magnesium 2.3 mg/dL (1.6-2.4); Potassium 4.3 mEq/L (3.5-5.1); Protein, Total 5.7 g/dL (6.4-8.2)
[2023-06-14] MEDS: AMLODIPINE 10 MG TAB PO SCH (08:08)
[2023-06-14 08:49] VITALS: BP 148/67; TEMP 97.2
[2023-06-14 08:59] LABS: Blood Morphology Comment NOT SEEN (NOT SEEN); Platelet Estimate ADEQ; White Blood Cell Scan OK (OK)
--- NOTE | 2023-06-15 13:44 | EKG ---
Test Date: 2023-06-12 Test Time: 06:23:17 [employer]: OLAMIDE MEASUREMENT RESULTS: Intervals: Rate: 74 MS: 140 QRSD: 148 QT: 410 QTc: 455 Harrell: P: 51 MS: 140 QRS: -43 T: 23 INTERPRETIVE STATEMENTS: Normal sinus rhythm Left axis deviation Right bundle branch block Septal infarct, age undetermined Abnormal ECG Compared to ECG 06/07/2023 16:22:09 Left-axis deviation now present Sinus tachycardia no longer present Ventricular premature complex(es) no longer present Myocardial infarct finding still present Electronically Signed On 06-15-23 13:35:42 [employer] by Macario Kim
--- NOTE | 2023-06-17 02:04 | P.PN ---
Date of Service: 06/13/23 Subjective Patient is doing better with no new complaints. Will go ahead and wean him off oxygen. Physical therapy is going to work with him today. If patient does well then anticipate discharge in the morning. Physical Examination - Vital Signs reviewed - Physical Exam General: Alert, In no apparent distress, Oriented x3 Respiratory: Clear to auscultation bilaterally Cardiovascular: Regular rate/rhythm, Normal S1 S2 Gastrointestinal: Normal bowel sounds, Soft and benign, Non-distended Neurological: No focal Deficits Assessment And Plan - Assessment/Plan Assessment/Plan Severe sepsis secondary to UTI versus prostatitis, Leukocytosis improving History of prostate cancer History of hematuria 2020 Continue with IV antibiotics Acute on chronic kidney injury Unknown baseline improving Cr is 1.78 <- 2.4. -0.94 Will continue IVF, avoid nephrotoxins and monitor renal function. Allergic dermatitis secondary to poison rehana Prednisone, Benadryl Infectious disease consult Constipation Diverticulosis CT mild sigmoid diverticulosis coli with prominent stool retention As needed. History of hypertension Hiatal hernia Degenerative disc disease Resume home antihypertensive, cardiac diet. CT Advanced degenerative changes are present right hip.Advanced lumbosacral degenerative changes. Mild anterolisthesis L5 on S1. DVT ppx: Lovenox Cardiac diet Code: Full code Disposition: Plan to discharge in the morning. Discharge Plan: Home - Code Status/Comfort Care Code Status: Full Code Critical Care: No
--- NOTE | 2023-06-17 02:05 | P.PN ---
Date of Service: 06/10/23 Subjective Patient's rash has improved. Patient denies any new complaints. Patient's clinical symptoms continue to improve. Will downgrade to general medical floor. Physical Examination - Vital Signs reviewed - Physical Exam General: Alert, In no apparent distress, Oriented x3 Respiratory: Clear to auscultation bilaterally Cardiovascular: Regular rate/rhythm, Normal S1 S2 Gastrointestinal: Normal bowel sounds, Soft and benign, Non-distended Neurological: No focal intact, Cranial nerves 3-12 intact Assessment And Plan - Assessment/Plan Assessment/Plan Severe sepsis secondary to UTI versus prostatitis, Leukocytosis improving History of prostate cancer History of hematuria 2020 Continue with IV antibiotics; Continue with gentle hydration. Monitor H&H. Acute on chronic kidney injury Unknown baseline improving Cr is 1.78 <- 2.4. -0.94 Will continue IVF, avoid nephrotoxins and monitor renal function. Allergic dermatitis secondary to poison rehana Continue with steroids and Benadryl. Constipation Diverticulosis CT mild sigmoid diverticulosis coli with prominent stool retention As needed. History of hypertension Hiatal hernia Degenerative disc disease Resume home antihypertensive, cardiac diet. CT Advanced degenerative changes are present right hip.Advanced lumbosacral degenerative changes. Mild anterolisthesis L5 on S1. DVT ppx: Lovenox Cardiac diet Code: Full code Disposition: Pending hospital course. Discharge Plan: Home - Code Status/Comfort Care Code Status: Full Code Critical Care: No
--- NOTE | 2023-06-17 02:07 | P.PN ---
Date of Service: 06/11/23 Subjective Patient doing well with no new complaints. Patient has improved. Rash is much better. Weaning off of the oxygen. Anticipate discharge over the next 24 to 48 hours. Physical Examination - Vital Signs reviewed - Physical Exam General: Alert, In no apparent distress, Oriented x3 Respiratory: Clear to auscultation bilaterally Cardiovascular: Regular rate/rhythm, Normal S1 S2 Gastrointestinal: Normal bowel sounds, Soft and benign, Non-distended Neurological: No focal intact, Cranial nerves are intact Assessment And Plan - Assessment/Plan Assessment/Plan Severe sepsis secondary to UTI versus prostatitis, Leukocytosis improving History of prostate cancer History of hematuria 2020 Continue with IV antibiotics; Continue with gentle hydration. Monitor H&H. Acute on chronic kidney injury Unknown baseline improving Cr is 1.78 <- 2.4. -0.94 Will continue IVF, avoid nephrotoxins and monitor renal function. Allergic dermatitis secondary to poison rehana Continue with steroids and Benadryl. Constipation Diverticulosis CT mild sigmoid diverticulosis coli with prominent stool retention As needed. History of hypertension Hiatal hernia Degenerative disc disease Resume home antihypertensive, cardiac diet. CT Advanced degenerative changes are present right hip.Advanced lumbosacral degenerative changes. Mild anterolisthesis L5 on S1. DVT ppx: Lovenox Cardiac diet Code: Full code Disposition: Pending hospital course. Discharge Plan: Home - Code Status/Comfort Care Code Status: Full Code Critical Care: No
--- NOTE | 2023-06-17 02:11 | P.DS ---
Discharge Date: 06/14/23 Disposition: [facility] Discharge Condition: GOOD Reason for Admission: Urinary tract infection, sepsis. Brief History of Present Illness: 88-year-old male patient with medical history significant for hypertension, hyperlipidemia, history of prostate cancer status post therapy who also has been following with urology. He came to the ED with complaint of lethargy and weakness and was found to have elevated lactate of 4 and UA highly concerning for urinary tract infection. White cell of 19,000 was found on recent lab. He denied overt episode of burning on micturition, night sweats. CT of the abdomen and pelvis done revealed prostatomegaly. He was admitted for inpatient care for management of sepsis. Hospital Course: Patient developed a rash diffusely on his skin. This went ahead & started with IV steroid use. Patient is clinically doing well and will need to continue with therapy as an outpatient. Vital Signs/Physical Exam: Temp Pulse Resp BP Pulse Ox 97.2 F 68 16 148/67 H 96 06/14/23 08:00 06/14/23 08:00 06/14/23 08:00 06/14/23 08:00 06/14/23 08:00 General: Alert, In no apparent distress, Oriented x3 Laboratory Data at Discharge: WBC 10.80 thou/uL (4.3-10.9) 06/14/23 06:27 Hgb 12.2 g/dL (13.6-17.9) L 06/14/23 06:27 Hct 35.0 % (39.6-49.0) L 06/14/23 06:27 Plt Count 201 thou/uL (152-406) 06/14/23 06:27 PT 17.2 SECONDS (9.5-12.5) H 06/06/23 21:00 INR 1.58 06/06/23 21:00 APTT 30.7 SECONDS (24.3-36.9) 06/06/23 21:00 Sodium 138 mEq/L (136-145) 06/14/23 06:27 Potassium 4.3 mEq/L (3.5-5.1) 06/14/23 06:27 BUN 12 mg/dL (7-18) 06/14/23 06:27 Creatinine 0.68 mg/dL (0.70-1.30) L 06/14/23 06:27 Glucose 130 mg/dL (74-106) H 06/14/23 06:27 Magnesium 2.3 mg/dL (1.6-2.4) 06/14/23 06:27 Total Bilirubin 0.7 mg/dL (0.2-1.0) 06/14/23 06:27 AST 8 U/L (15-37) L 06/14/23 06:27 ALT 73 U/L (16-61) H 06/14/23 06:27 Alkaline Phosphatase 111 U/L (45-117) 06/14/23 06:27 Home Medications: Tamsulosin HCl 0.4 mg PO DAILY 11/13/20 Allopurinol 300 mg PO DAILY 06/07/23 Aspirin [Aspirin EC 81 MG] 81 mg PO DAILY 06/07/23 Atorvastatin Calcium 40 mg PO DAILY 06/07/23 Furosemide 40 mg PO BID 06/07/23 Losartan Potassium 50 mg PO DAILY 06/07/23 Potassium Chloride 20 meq PO DAILY 06/07/23 Amlodipine [Norvasc*] 10 mg PO DAILY #30 tab 06/14/23 Betameth Dip 0.05% [Diprosone 0.05% Cream*] 1 appl TOP BID #1 tube 06/14/23 Metoprolol Tartrate [Lopressor*] 25 mg PO BID 6AM 6PM #60 tab 06/14/23 predniSONE [Prednisone*] 20 mg PO BID #15 tab 06/14/23 New Medications: Betameth Dip 0.05% [Diprosone 0.05% Cream*] 1 appl TOP BID #1 tube Metoprolol Tartrate [Lopressor*] 25 mg PO BID 6AM 6PM #60 tab Amlodipine [Norvasc*] 10 mg PO DAILY #30 tab predniSONE [Prednisone*] 20 mg PO BID #15 tab Physician Discharge Instructions: -DC IV and DC home -Follow-up with PCP in 1 to 2 weeks -Follow-up with UROLOGY in 1 to 2 weeks -Please call Dr. Wayne at [phone] if any questions regarding hospital stay -Please call nursing station at [phone] if any nursing or medication questions -Return to the emergency room if symptoms worsen Diet: AHA Activity: Fall precautions Followup: DELLA ISBELL [Primary Care Provider] - Time spent managing pt's care (in minutes): 35
== END 2023-06-14 10:53 | disposition home health service (06) | DRG 872 ==
LOC: ER 20:36 → ERHOLD 23:16 → 2ND 23:30 → 3RD-ICU 06-07 18:31 → 2ND 06-10 14:00
PROVIDERS: ADMIT Internal Medicine Nephrology; ATTEND Hospitalist
PROC: 0HBHXZX Excision of Right Upper Leg Skin, External Approach, Diagnostic (ICD-10-PCS; principal; 2023-06-09)
DX: A41.9 Sepsis, unspecified organism (principal); N39.0 Urinary tract infection, site not specified; N17.9 Acute kidney failure, unspecified; I10 Essential (primary) hypertension; N41.9 Inflammatory disease of prostate, unspecified; K59.00 Constipation, unspecified; E78.5 Hyperlipidemia, unspecified; L29.9 Pruritus, unspecified; C61 Malignant neoplasm of prostate; K44.9 Diaphragmatic hernia without obstruction or gangrene; I77.6 Arteritis, unspecified; L23.7 Allergic contact dermatitis due to plants, except food; M51.37 Other intervertebral disc degeneration, lumbosacral region; K57.30 Diverticulosis of large intestine without perforation or abscess without bleeding; I25.10 Atherosclerotic heart disease of native coronary artery without angina pectoris; R21 Rash and other nonspecific skin eruption; R65.20 Severe sepsis without septic shock; R74.01 Elevation of levels of liver transaminase levels; Z79.82 Long term (current) use of aspirin; Z11.52 Encounter for screening for COVID-19; Z79.52 Long term (current) use of systemic steroids; Z79.899 Other long term (current) drug therapy
CPT/HCPCS: 36415; 71045; 74176; 76705; 80048; 80053; 81001; 82248; 82947; 83605; 83615; 83735; 83880; 84145; 84484; 85025; 85610; 85730; 86140; 86880; 87040; 87086; 87088; 87804; 87811; 88304; 88305; 93005; 97116; 97161; 97530; J0696; J1200; J1644; J1720; J1815; J2405; J2543; J2920; J2930; J7030; J7040; J7512

== ENCOUNTER 2023-11-12 14:31 | Emergency (ER) | payer OTHER ==
--- OUTSIDE RECORDS SUMMARY | 2023-11-12 14:34 | XMS REPORT | Continuity of Care Document ---
Author Name Unknown Address [address] [facility] [address] [place] [address] [facility] thconnect Address [address] [facility] [place] [address] Care Team Providers Care Social Science Teacher Name Role Phone Sis Mckeon NP Primary Care Physician Sis Mckeon Attending Clinician UnavailHeavenly Bernardo Attending Clinician [phone] HEAVENLY KRUEGER Attending Clinician UnavailAmrita Parish DO Attending Clinician [phone] AMRITA LANDIN Attending Clinician Unavailable Payers Payer Name Policy Type Policy Number Effective Date Expirati on Date Source [facility] Dual Complete MCR PPO [id number] 2021 00:00:00 [facility] MEDICAID 2 [id number] 2012 00:00:00 [facility] Problems Condition Name Condition Details Condition Category Status Onset Date Resolution Date Last Treatment Date Treating Clinician Comments Source No known active problems No known active problems Disease [facility] [id number] 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 Problem [facility] [id number] Primary osteoarthr itis of right hip Problem [facility] [id number] Other obstructiv e and reflux uropathy Problem [facility] [id number] 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 and PSA greater than 20 Problem [facility] Prostate cancer Prostate cancer Problem [facility] [id number] Urge incontinen ce Problem [facility] Leucocytos is Leucocytos is Problem [facility] [id number] S/P radiation therapy Problem Active [facility] [id number] Gross hematuria Problem Active [facility] [id number] S/P TURP (status post transureth ral resection of prostate) Problem Active [facility] [id number] Urinary retention Problem Active [facility] [id number] Right hip pain Problem Active [facility] Allergies, Adverse Reactions, Alerts Allergy Name Allergy Type Status Severity Reaction(s) Onset Date Inactive Date Treating Clinician Comments Source NO KNOWN ALLERGIE S Drug Class Active [facility] Social History Social Habit Start Date Stop Date Quantity Comments Source History of Tobacco Use [facility] Exposure to SARS-CoV-2 (event) 2022-02-11 00:00:00 2022-02-21 13:43:00 Not sure [facility] Sex Assigned At 1935 00:00:00 1935 00:00:00 [facility] Smoking Status Start Date Stop Date Source Tobacco smoking consumption unknown [facility] Never Smoker [facility] Medications Ordered Medication Name Filled Medication Name Start Date Stop Date Current Medication? Ordering Clinician Indication Dosage Frequency Signature (SIG) Comments Components Source losartan 50 mg tablet 10-18 00:00: 00 Yes 1mg Nguyễn Tompkins METOPROLOL TARTRATE 25 MG TABS 2-11 00:00: 00 Yes Nguyễn Tompkins AMLODIPINE BESYLATE 10 MG TABS 2-11 00:00: 00 Yes Nguyễn Tompkins PREDNISONE 20 MG TABS 2- 00:00: 00 Yes Nguyễn Tompkins BETAMETHASO NE DIPROPIONAT E 0.05 % CREA 2- 00:00: 00 Yes Nguyễn Tompkins TAKE 1 TABLET DAILY. 2022-05 2 00:00: 00 Yes 300 Nguyễn Tompkins TAKE 1 TABLET DAILY. 2022-05 00:00: 00 Yes 50 Nguyễn Tompkins TAKE 1 TABLET DAILY. 2022-05 00:00: 00 Yes 81 Nguyễn Tompkins TAKE 1 TABLET DAILY. 2022-05 00:00: 00 Yes 20 Nguyễn Tompkins TAKE 1 TABLET DAILY. 2022-05 00:00: 00 Yes 40 Nguyễn Tompkins TAKE 1 CAPSULE BY MOUTH ONCE DAILY 2022-05 00:00: 00 Yes 4 Nguyễn Tompkins TAKE 1 TABLET DAILY. 2022-05 00:00: 00 09-09 00:00 :00 No 40 Nguyễn Tompkins 1 TABLET DAILY FOR TOENAIL FUNGUS 2022-05 00:00: 00 09-09 00:00 :00 No 250 Nguyễn Tompkins TAKE 1 TABLET DAILY. 2022-05 1 00:00: 00 09-09 00:00 :00 No 40 Nguyễn Tompkins TAKE 1 TABLET DAILY. 9-18 00:00: 00 09-09 00:00 :00 No 40 Nguyễn Tompkins NAPROXEN 500 MG TABS 8-24 00:00: 00 Yes Nguyễn Tompkins TAKE 1 TABLET DAILY. 10-15 00:00: 00 09-09 00:00 :00 No 50 Nguyễn Tompkins TAKE 1 TABLET DAILY. 10-15 00:00: 00 09-09 00:00 :00 No 40 Nguyễn Tompkins TAKE 1 TABLET DAILY. 10-15 00:00: 00 09-09 00:00 :00 No 300 Nguyễn Tompkins TAKE 1 TABLET DAILY. 10-15 00:00: 00 09-09 00:00 :00 No 81 Nguyễn Tompkins TAKE 1 CAPSULE BY MOUTH ONCE DAILY 10-15 00:00: 00 09-09 00:00 :00 No 4 Nguyễn Tompkins TAKE 1 TABLET DAILY. 10-15 00:00: 00 09-09 00:00 :00 No 20 Nguyễn Tompkins POTASSIUM CHLORIDE ER 20 MEQ TBCR - 00:00: 00 Yes Nguyễn Tompkins FUROSEMIDE 40 MG TABS 3- 00:00: 00 09-09 00:00 :00 No Nguyễn Tompkins AMOXICILLIN 500 MG - 00:00: 00 Yes Nguyễn Tompkins ATORVASTATI N CALCIUM 40 MG TABS - 00:00: 00 09-09 00:00 :00 No Nguyễn Tompkins lidocaine-r acepinep-te tracaine (L.E.T. (LIDO-EPINE PH-TETRA)) 4-0.05-0.5 % topical gel 3 mL 2021-05 19:45: 00 02-21 18:56 :00 No 3mL 3 mL, Topical, ONCE, 1 dose, On Thu02/21/22 at 1445, Routine [facility] mupirocin 2 % ointment 2021-05 00:00: 00 Yes [id number] Apply to area(s) 3 (three) times daily. [facility] MUPIROCIN 2 % OINT 2021-05 00:00: 00 Yes Nguyễn Tompkins CEPHALEXIN 500 MG 2021-05 00:00: 00 Yes Nguyễn Tompkins SULFAMETHOX AZOLE/TRIME THOPRIM DS 800-160 MG TABS 2021-05 00:00: 00 Yes Nguyễn Tompkins cephALEXin 500 mg tablet 2021-05 00:00: 00 02-27 04:59 :00 No [id number] 500mg Take 1 tablet by mouth 4 (four) times daily for 5 days. [facility] sulfamethox azole-trime thoprim 800-160 mg per tablet 2021-05 0- 00:00: 00 02-27 04:59 :00 No [id number] 1{tbl} Take 1 tablet by mouth every 12 (twelve) hours for 5 days. [facility] cefTRIAXone (ROCEPHIN) injection 1,000 mg 2021-05 0-16 00:15: 00 Yes 1000mg 1,000 mg, Slow IV Push, Q24H ABX, First dose on 02/15/22 at 1915, Until Discontinu ed, MANUEL
Re ason for Anti-Infec tive: Empiric Therapy for Suspected Infection< br>Empiric Therapy Site: Skin / Soft tissue
Duration of therapy: 72 hours [facility] HYDROCODONE BITARTRATE/ ACETAMINOPH E N 10-325 MG TABS 2021-05 0-15 00:00: 00 Yes Nguyễn Tompkins SULFAMETHOX AZOLE/TRIME THOPRIM DS 800-160 MG TABS 2021-05 0-15 00:00: 00 Yes Nguyễn Tompkins CEPHALEXIN 500 MG 2021-05 0-15 00:00: 00 Yes Nguyễn Tompkins cephALEXin (KEFLEX) 500 mg capsule 2021-05 0-15 00:00: 00 02-23 04:59 :00 No [id number] 500mg Take 1 capsule by mouth 3 (three) times daily for 7 days. [facility] sulfamethox azole-trime thoprim 800-160 mg per tablet 2021-05 0-15 00:00: 00 02-23 04:59 :00 No [id number] 1{tbl} Take 1 tablet by mouth 2 (two) times daily for 7 days. [facility] HYDROcodone -acetaminop hen (NORCO) 10-325 mg tablet 2021-05 0-15 00:00: 00 02-23 04:59 :00 No 4647 .5{tbl} Take 0.5-1 tablets by mouth every 6 (six) hours as needed for Pain (scale 7-10) for up to 7 days. Indication s: acute pain [facility] POTASSIUM CHLORIDE ER 20 MEQ TBCR 2021-05 0-14 00:00: 00 Yes Nguyễn Tompkins FUROSEMIDE 40 MG TABS 2021-05 0-14 00:00: 00 09-09 00:00 :00 No Nguyễn Tompkins LOSARTAN POTASSIUM 50 MG TABS 2021-05 0-14 00:00: 00 09-09 00:00 :00 No Nguyễn Tompkins POTASSIUM CHLORIDE ER 20 MEQ TBCR 2021-05 0-04 00:00: 00 Yes Nguyễn Tompkins METOPROLOL SUCCINATE ER 100 MG TB24 2021-05 0-04 00:00: 00 Yes Nguyễn Tompkins TAMSULOSIN HYDROCHLORI DE 0.4 MG 2021-05 0-04 00:00: 00 09-09 00:00 :00 No Nguyễn Tompkins ATORVASTATI N CALCIUM 40 MG TABS 2021-05 0-04 00:00: 00 09-09 00:00 :00 No Nguyễn Tompkins POTASSIUM CHLORIDE ER 10 MEQ TBCR 0 6-24 00:00: 00 Yes Nguyễn Tompkins NITROFURANT OIN MONOHYDRATE 100 MG 0 6-24 00:00: 00 Yes Nguyễn Tompkins FUROSEMIDE 20 MG TABS 0 6-24 00:00: 00 Yes Nguyễn Tompkins ALLOPURINOL 300 MG TABS 0 6-24 00:00: 00 09-09 00:00 :00 No Nguyễn Tompkins METOPROLOL SUCCINATE ER 100 MG TB24 0 6-15 00:00: 00 Yes Nguyễn Tompkins MELOXICAM 15 MG TABS 0 6-15 00:00: 00 Yes Nguyễn Tompkins METHYLPREDN ISOLONE DOSE PACK 4 MG TBPK 0 6-15 00:00: 00 Yes Nguyễn Tompkins SIMVASTATIN 40 MG TABS 0 6-15 00:00: 00 Yes Nguyễn Tompkins CYCLOBENZAP RINE HYDROCHLORI DE 10 MG TABS 0 6-15 00:00: 00 Yes Nguyễn Tompkins Tamsulosin HCl 0.4 MG Tamsulosin HCl 0.4 MG No 1{capsu le} BID Tamsulosin HCl 0.4 MG Atorvastati n Calcium [...] 1{table t} QD Losartan Potassium 50 MG Aspirin 81 81 MG Aspirin 81 81 MG No 1{table t} QD Aspirin 81 81 MG Vital Signs Vital Name Observation Time Observation Value Comments S teresoce height 2023-10-28 17:15:00 68 [in_i] [facility] weight 2023-10-28 17:15:00 204.6 [lb_av] Co mmon [facility] temperature 2023-10-28 17:15:00 98.4 [degF] Com [facility] bmi 2023-10-28 17:15:00 31.11 kg/m2 Comm on [facility] oximetry 2023-10-28 17:15:00 93 % [facility] respiratory rate 2023-10-28 17:15:00 18 /min [facility] blood pressure systolic 2023-10-28 17:15:00 143 mm[Hg] [facility] blood pressure diastolic 2023-10-28 17:15:00 81 mm[Hg] [facility] height 2023-05-27 10:15:00 68 [in_i] [facility]mo n [facility] weight 2023-05-27 10:15:00 202 [lb_av] Comm on [facility] temperature 2023-05-27 10:15:00 98.6 [degF] Com [facility] bmi 2023-05-27 10:15:00 30.71 kg/m2 Comm on [facility] oximetry 2023-05-27 10:15:00 99 % [facility] respiratory rate 2023-05-27 10:15:00 18 /min [facility] blood pressure systolic 2023-05-27 10:15:00 126 mm[Hg] Common [facility] blood pressure diastolic 2023-05-27 10:15:00 68 mm[Hg] [facility] height 2022-12-09 09:00:00 68 [in_i] [facility]mo [facility] weight 2022-12-09 09:00:00 202.6 [lb_av] Co mmon [facility] bmi 2022-12-09 09:00:00 30.8 kg/m2 [facility] blood pressure systolic 2022-12-09 09:00:00 126 mm[Hg] [facility] blood pressure diastolic 2022-12-09 09:00:00 80 mm[Hg] [facility] height 2022-11-26 11:15:00 68 [in_i] [facility] weight 2022-11-26 11:15:00 200 [lb_av] Comm on [facility] temperature 2022-11-26 11:15:00 98.1 [degF] Com mon [facility] bmi 2022-11-26 11:15:00 30.41 kg/m2 Comm on [facility] oximetry 2022-11-26 11:15:00 99 % [facility] respiratory rate 2022-11-26 11:15:00 18 /min [facility] blood pressure systolic 2022-11-26 11:15:00 147 mm[Hg] [facility] blood pressure diastolic 2022-11-26 11:15:00 66 mm[Hg] [facility] height 2022-10-22 11:00:00 68 [in_i] [facility] weight 2022-10-22 11:00:00 200 [lb_av] Comm on [facility] temperature 2022-10-22 11:00:00 98.6 [degF] Com mon [facility] bmi 2022-10-22 11:00:00 30.41 kg/m2 Comm on [facility] oximetry 2022-10-22 11:00:00 99 % [facility] respiratory rate 2022-10-22 11:00:00 18 /min [facility] blood pressure systolic 2022-10-22 11:00:00 158 mm[Hg] [facility] blood pressure diastolic 2022-10-22 11:00:00 75 mm[Hg] [facility] Systolic blood pressure 2022-02-21 19:00:00 124 mm[Hg] [facility] Diastolic blood pressure 2022-02-21 19:00:00 65 mm[Hg] [facility] Heart rate 2022-02-21 19:00:00 80 /min [facility] Respiratory rate 2022-02-21 19:00:00 18 /min [facility] Oxygen saturation in Arterial blood by Pulse oximetry 2022-02-21 19:00:00 94 /min [facility] Body temperature 2022-02-21 18:44:00 35.78 Amanda [facility] Body height 2022-02-21 18:44:00 172.7 cm [facility] Body weight 2022-02-21 18:44:00 90.719 kg [facility] BMI 2022-02-21 18:44:00 30.41 kg/m2 [facility] Systolic blood pressure 2022-02-15 22:12:00 118 mm[Hg] [facility] Diastolic blood pressure 2022-02-15 22:12:00 69 mm[Hg] [facility] Heart rate 2022-02-15 22:12:00 99 /min [facility] Body temperature 2022-02-15 22:12:00 37.33 Amanda [facility] Respiratory rate 2022-02-15 22:12:00 20 /min [facility] Body height 2022-02-15 22:12:00 69 cm [facility] Body weight 2022-02-15 22:12:00 90.719 kg [facility] BMI 2022-02-15 22:12:00 190.55 kg/m2 [facility] Oxygen saturation in Arterial blood by Pulse oximetry 2022-02-15 22:12:00 97 /min [facility] blood pressure systolic 2021-10-07 11:45:00 146 mm[Hg] [facility] blood pressure diastolic 2021-10-07 11:45:00 68 mm[Hg] [facility] height 2021-10-07 11:45:00 68 [in_i] [facility] weight 2021-10-07 11:45:00 207.4 [lb_av] Co [facility] temperature 2021-10-07 11:45:00 98.3 [degF] Com [facility] bmi 2021-10-07 11:45:00 31.53 kg/m2 Comm [facility] oximetry 2021-10-07 11:45:00 97 % [facility] respiratory rate 2021-10-07 11:45:00 16 /min [facility] height 2021-04-11 10:30:00 68 [in_i] [facility] weight 2021-04-11 10:30:00 190 [lb_av] Comm on [facility] temperature 2021-04-11 10:30:00 98.2 [degF] Com [facility] bmi 2021-04-11 10:30:00 28.89 kg/m2 Comm [facility] oximetry 2021-04-11 10:30:00 97 % [facility] respiratory rate 2021-04-11 10:30:00 18 /min [facility] blood pressure systolic 2021-04-11 10:30:00 174 mm[Hg] [facility] blood pressure diastolic 2021-04-11 10:30:00 77 mm[Hg] [facility] height 2020-11-21 13:30:00 68 [in_i] [facility] weight 2020-11-21 13:30:00 204 [lb_av] Comm on [facility] temperature 2020-11-21 13:30:00 97.3 [degF] Com [facility] bmi 2020-11-21 13:30:00 31.01 kg/m2 Comm on [facility] oximetry 2020-11-21 13:30:00 94 % [facility] blood pressure systolic 2020-11-21 13:30:00 168 mm[Hg] [facility] blood pressure diastolic 2020-11-21 13:30:00 75 mm[Hg] Common [facility] height 2020-11-08 10:00:00 68 [in_i] [facility] weight 2020-11-08 10:00:00 204 [lb_av] Comm on [facility] temperature 2020-11-08 10:00:00 97.7 [degF] Com [facility] bmi 2020-11-08 10:00:00 31.01 kg/m2 Comm [facility] oximetry 2020-11-08 10:00:00 97 % [facility] blood pressure systolic 2020-11-08 10:00:00 190 mm[Hg] Common [facility] blood pressure diastolic 2020-11-08 10:00:00 86 mm[Hg] Common [facility] Height Measured 2023-11-03 15:28:00 66.00 inches Nguyễn F Turner Body Temperature 2023-11-03 15:28:00 98.40 degrees Nguyễn F Turner Heart Rate 2023-11-03 15:28:00 94.00 /min Zonia en F Turner Respiratory Rate 2023-11-03 15:28:00 20.00 /min Nguyễn F Turner BP Systolic 2023-11-03 15:28:00 152 mm[Hg] Step hen F Turner BP Diastolic 2023-11-03 15:28:00 82 mm[Hg] [facility] phen [facility] Turner Weight Measured 2023-11-03 15:28:00 206.00 pounds Nguyễn F Turner BP Systolic 2023-04-07 08:22:00 132 mm[Hg] Step hen F Turner BP Diastolic 2023-04-07 08:22:00 70 mm[Hg] [facility] phen F Turner Weight Measured 2023-04-07 08:22:00 205.00 pounds Nguyễn F Turner Height Measured 2023-04-07 08:22:00 67.00 inches Nguyễn F Turner Body Temperature 2023-04-07 08:22:00 97.50 degrees Nguyễn F Turner Heart Rate 2023-04-07 08:22:00 65.00 /min Zonia en F Turner Respiratory Rate 2023-04-07 08:22:00 18.00 /min Nguyễn F Turner BP Systolic 2022-10-15 16:24:00 116 mm[Hg] Step hen F Turner BP Diastolic 2022-10-15 16:24:00 82 mm[Hg] [facility] phen F Turner Weight Measured 2022-10-15 16:24:00 200.00 pounds Nguyễn F Turner Height Measured 2022-10-15 16:24:00 67.00 inches Nguyễn F Turner Body Temperature 2022-10-15 16:24:00 97.80 degrees Nguyễn F Turner Heart Rate 2022-10-15 16:24:00 87.00 /min Zonia en F Turner Respiratory Rate 2022-10-15 16:24:00 18.00 /min Nguyễn F Turner BP Systolic 2022-10-08 14:29:00 122 mm[Hg] Step hen F Turner BP Diastolic 2022-10-08 14:29:00 70 mm[Hg] Peterson Tompkins Weight Measured 2022-10-08 14:29:00 200.00 pounds Nguyễn Tompkins Height Measured 2022-10-08 14:29:00 67.00 inches Nguyễn Tompkins Body Temperature 2022-10-08 14:29:00 98.00 degrees Nguyễn Tompkins Heart Rate 2022-10-08 14:29:00 72.00 /min Zonia Tompkins Respiratory Rate 2022-10-08 14:29:00 18.00 /min Nguyễn Tompkins Procedures Procedure Date / Time Performed Performing Clinicia n Source PVR 2023-10-28 00:00:00 [facility] PVR 2022-10-22 00:00:00 [facility] INCISION AND DRAINAGE 2022-02-21 19:02:54 Moises Krueger [facility] CONSENT/REFUSAL FOR DIAGNOSIS AND TREATMENT 2022-02-21 18:34:14 Doctor Unassigned, [place] [facility] CONSENT/REFUSAL FOR DIAGNOSIS AND TREATMENT 2022-02-15 22:32:08 Doctor Unassigned, [place] [facility] COMP. METABOLIC PANEL ([id number]) 2022-02-15 22:30:00 Amrita Landin [facility] CBC WITH DIFF 2022-02-15 22:30:00 Amrita Landin [facility] LACTIC ACID WHOLE BLOOD 2022-02-15 22:30:00 Amrita Landin [facility] Encounters Start Date/Time End Date/Time Encounter Type Admission Type Attending Clinicians Care Facility Care Department Encounter ID Source 2023-08-21 10:34:00 Outpatient Sis Mckeon [facility] [id number] [facility] 2023-05-20 12:42:00 Outpatient Sis Mckeon [facility] [id number] [facility] 2022-12-09 09:14:00 Outpatient Sis Mckeon [facility] [id number] [facility] 2022-12-05 10:47:00 Outpatient Sis Mckeon [facility] [id number] [facility] 2022-11-24 07:38:00 Outpatient Sis Mckeon [facility] [id number] [facility] 2022-11-19 11:29:00 Outpatient Sis Mckeon [facility] [id number] [facility] 2022-10-20 10:51:00 Outpatient Sis Mckeon [facility] [id number] [facility] 2021-10-22 12:14:01 Outpatient Sis Mckeon [facility] [id number] [facility] 2021-05-29 14:19:05 Outpatient Sis Mckeon [facility] [id number] [facility] 2021-05-29 13:50:42 Outpatient Sis Mckeon [facility] [id number] [facility] 2021-05-29 13:30:36 Outpatient Sis Mckeon [facility] [id number] [facility] 2021-05-29 13:12:39 Outpatient Sis Mckeon [facility] [id number] [facility] 2021-05-29 12:21:00 Outpatient [facility] [id number] [facility] 2021-05-29 11:47:56 Outpatient [facility] [id number] [facility] 2023-11-03 15:20:51 2023-11-03 15:20:51 Outpatient SFA SFA [id number] Nguyễn Tompkins 2023-11-03 00:00:00 2023-11-03 00:00:00 Outpatient Visit SFA [id number] Nguyễn Tompkins 2023-10-28 00:00:00 2023-10-28 00:00:00 OFFICE VISIT ESTAB PT LEVEL 5 [facility] [id number] [facility] 2023-06-04 00:00:00 2023-06-04 00:00:00 (TEL) [facility] [id number] [facility] 2023-05-27 00:00:00 2023-05-27 00:00:00 OFFICE VISIT ESTAB PT LEVEL 5 [facility] [id number] [facility] 2023-05-19 00:00:00 2023-05-19 00:00:00 (TEL) [facility]C [facility] [id number] [facility] 2023-04-07 08:21:22 2023-04-07 08:21:22 Outpatient SFA SFA [id number] Nguyễn Tompkins 2022-12-09 00:00:00 2022-12-09 00:00:00 OFFICE VISIT NEW PT LEVEL 4 [facility] [id number] [facility] 2022-11-26 00:00:00 2022-11-26 00:00:00 OFFICE VISIT ESTAB PT LEVEL 3 [facility] [id number] [facility] 2022-10-22 00:00:00 2022-10-22 00:00:00 OFFICE VISIT ESTAB PT LEVEL 4 [facility] [id number] [facility] 2022-10-15 14:51:56 2022-10-15 14:51:56 Outpatient SFA SFA [id number] Nguyễn Tompkins 2022-10-08 13:59:34 2022-10-08 13:59:34 Outpatient SFA SFA [id number] Nguyễn Tompkins 2022-02-21 13:41:00 2022-02-21 14:55:[address] [facility] [id number] [facility] 2022-02-21 13:41:00 2022-02-21 14:55:00 Emergency X HEAVENLY KRUEGER [facility] ERT [id number] [facility] 2022-02-15 17:16:00 2022-02-15 18:22:[address] [facility] [id number] [facility] 2022-02-15 17:16:00 2022-02-15 18:22:00 Emergency X AMRITA LANDIN [facility] ERT [id number] [facility] 2021-10-22 00:00:00 2021-10-22 00:00:00 (TEL) [facility]C [facility] [id number] [facility] 2021-10-11 00:00:00 2021-10-11 00:00:00 (TEL) [facility]C ST[facility] [id number] [facility] 2021-10-07 00:00:00 2021-10-07 00:00:00 OFFICE VISIT EST PT LEVEL 3 [facility] [id number] [facility] 2021-04-25 00:00:00 2021-04-25 00:00:00 OL DIG E/M SVC 5-10 MIN [facility] ST[facility] [id number] [facility] 2021-04-11 00:00:00 2021-04-11 00:00:00 OFFICE VISIT ESTAB PT LEVEL 2 [facility] ST[facility] [id number] [facility] 2020-11-21 00:00:00 2020-11-21 00:00:00 OFFICE VISIT ESTAB PT LEVEL 2 [facility] [id number] [facility] 2020-11-08 00:00:00 2020-11-08 00:00:00 OFFICE VISIT ESTAB PT LEVEL 2 [facility] [id number] [facility] 2020-10-11 00:00:00 2020-10-11 00:00:00 Outpatient [facility] [id number] [facility] 2020-07-09 00:00:00 2020-07-09 00:00:00 Outpatient [facility] [id number] [facility] 2020-03-26 00:00:00 2020-03-26 00:00:00 Outpatient [facility] [id number] [facility] 2020-01-24 00:00:00 2020-01-24 00:00:00 Outpatient [facility] [id number] [facility] Results Test Description Test Time Test Comments Results Result Co mments Source Nguyễn Waller TurnerURINALYSIS W/REFLEX [id number] 00:00:00* Test Item Value Reference Range Interpretation Comme nts COLOR (test code = 1501) YELLOW APPEARANCE (test code = 1502) CLEAR SPECIFIC GRAVITY (test code = 1503) 1.021 LEUKOCYTE ESTERASE (test cod e = 1504) NEGATIVE NITRITE (test code = 1505) NEGATIVE pH (test code = 1506) 5.0 PROTEIN (test code = 1507) TRACE GLUCOSE (test code = 1508) NEGATIVE KETONES (test code = 1509) NEGATIVE UROBILINOGEN (test code = 1510) 1.0 MG/DL BILIRUBIN (test code = 1511) NEGATIVE OCCULT BLOOD (test code = 1512) NEGATIVE WHITE BLOOD CELLS (test code = 1513) 0-5 /HPF RED BLOOD CELLS (test code = 1514) 0-2 /HPF EPITHELIAL CELLS (test code = 66754) 0-5 /HPF BACTERIA (test code = 1515) NONE SEEN CASTS, HYALINE (test code = 1517) TRACE Nguyễn Waller [place] W/AUTO [id number] 00:00:00* Test Item Value Reference Range Interpretation Comme nts WBC (test code = 1001) 7.2 K/UL RBC (test code = 1002) 4.32 M/UL HEMOGLOBIN (test code = 1003) 14.1 G/DL HEMATOCRIT (test code = 1004) 41.0 % MCV (test code = 1005) 94.9 fL MCH (test code = 1006) 32.6 PG MCHC (test code = 1007) 34.4 G/DL RDW (test code = 1038) 13.1 % NEUTROPHILS (test code = 1008) 72.8 % LYMPHOCYTES (test code = 1010) 17.2 % MONOCYTES (test code = 1011) 7.8 % EOSINOPHILS (test code = 1012) 1.2 % BASOPHILS (test code = 1013) 0.6 % IMMATURE GRANULOCYTES (test code = 1036) 0.4 % NUCLEATED RBCS (test code = 1065) 0.0 /100WBC'S PLATELET COUNT (test code = 1015) 198 K/UL ABSOLUTE NEUTROPHILS (test c ode = 1066) 5.25 K/UL ABSOLUTE LYMPHOCYTES (test c ode = 1067) 1.24 K/UL ABSOLUTE MONOCYTES (test cod e = 1068) 0.56 K/UL ABSOLUTE EOSINOPHILS (test c ode = 1040) 0.09 K/UL ABSOLUTE BASOPHILS (test cod e = 1069) 0.04 K/UL ABS IMMATURE GRANULOCYTES (t est code = 1020) 0.03 K/UL ABS NUCLEATED RBCS (test cod e = 41566) 0.00 K/UL Nguyễn TompkinsPSA, [id number] 00:00:00* Test Item Value Reference Range Interpretation Comme nts PSA, TOTAL (test code = 2606) 30.80 NG/ML Nguyễn TompkinsCOMPREHENSIVE METABOLIC [id number] 00:00:00* Test Item Value Reference Range Interpretation Comme nts GLUCOSE (test code = 2217) 100 MG/DL BUN (test code = 2208) 16 MG/DL CREATININE (test code = 2214) 0.94 MG/DL eGFR (2020 CKD-EPI) (test co de = 78110) 79 ML/MIN/1.73 CALC BUN/CREAT (test code = 2235) 17 RATIO SODIUM (test code = 2231) 140 MEQ/L POTASSIUM (test code = 2228) 4.2 MEQ/L CHLORIDE (test code = 2215) 103 MEQ/L CARBON DIOXIDE (test code = 2206) 22 MEQ/L CALCIUM (test code = 2209) 9.0 MG/DL PROTEIN, TOTAL (test code = 2229) 6.3 G/DL ALBUMIN (test code = 2201) 4.2 G/DL CALC GLOBULIN (test code = 2240) 2.1 G/DL CALC A/G RATIO (test code = 2234) 2.0 RATIO BILIRUBIN, TOTAL (test code = 2207) 0.8 MG/DL ALKALINE PHOSPHATASE (test code = 2204) 98 U/L AST (test code = 2218) 16 U/L ALT (test code = 2219) 16 U/L Nguyễn TompkinsCOMPREHENSIVE METABOLIC [id number] 00:00:00* Test Item Value Reference Range Interpretation Comme nts GLUCOSE (test code = 2217) 93 MG/DL BUN (test code = 2208) 15 MG/DL CREATININE (test code = 2214) 0.95 MG/DL eGFR (2020 CKD-EPI) (test co de = 74910) 78 ML/MIN/1.73 CALC BUN/CREAT (test code = 2235) 16 RATIO SODIUM (test code = 2231) 141 MEQ/L POTASSIUM (test code = 2228) 3.9 MEQ/L CHLORIDE (test code = 2215) 106 MEQ/L CARBON DIOXIDE (test code = 2206) 23 MEQ/L CALCIUM (test code = 2209) 9.1 MG/DL PROTEIN, TOTAL (test code = 2229) 6.2 G/DL ALBUMIN (test code = 2201) 4.1 G/DL CALC GLOBULIN (test code = 2240) 2.1 G/DL CALC A/G RATIO (test code = 2234) 2.0 RATIO BILIRUBIN, TOTAL (test code = 2207) 0.7 MG/DL ALKALINE PHOSPHATASE (test code = 2204) 102 U/L AST (test code = 2218) 13 U/L ALT (test code = 2219) 11 U/L Nguyễn TompkinsLIPID [id number] 00:00:00* Test Item Value Reference Range Interpretation Comme nts CHOLESTEROL (test code = 2210) 166 MG/DL TRIGLYCERIDES (test code = 2232) 96 MG/DL HDL CHOLESTEROL (test code = 2220) 47 MG/DL CALC LDL CHOL (test code = 2237) 100 MG/DL RISK RATIO LDL/HDL (test cod e = 2238) 2.13 RATIO Nguyễn TompkinsCBC W/AUTO [id number] 00:00:00* Test Item Value Reference Range Interpretation Comme nts WBC (test code = 1001) 6.8 K/UL RBC (test code = 1002) 4.02 M/UL HEMOGLOBIN (test code = 1003) 13.2 G/DL HEMATOCRIT (test code = 1004) 38.4 % MCV (test code = 1005) 95.5 fL MCH (test code = 1006) 32.8 PG MCHC (test code = 1007) 34.4 G/DL RDW (test code = 1038) 13.4 % NEUTROPHILS (test code = 1008) 66.8 % LYMPHOCYTES (test code = 1010) 22.5 % MONOCYTES (test code = 1011) 7.3 % EOSINOPHILS (test code = 1012) 2.2 % BASOPHILS (test code = 1013) 0.6 % IMMATURE GRANULOCYTES (test code = 1036) 0.6 % NUCLEATED RBCS (test code = 1065) 0.0 /100WBC'S PLATELET COUNT (test code = 1015) 200 K/UL ABSOLUTE NEUTROPHILS (test c ode = 1066) 4.57 K/UL ABSOLUTE LYMPHOCYTES (test c ode = 1067) 1.54 K/UL ABSOLUTE MONOCYTES (test cod e = 1068) 0.50 K/UL ABSOLUTE EOSINOPHILS (test c ode = 1040) 0.15 K/UL ABSOLUTE BASOPHILS (test cod e = 1069) 0.04 K/UL ABS IMMATURE GRANULOCYTES (t est code = 1020) 0.04 K/UL ABS NUCLEATED RBCS (test cod e = 28762) 0.00 K/UL Nguyễn Waller AustinURINALYSIS W/REFLEX [id number] 00:00:00* Test Item Value Reference Range Interpretation Comme nts COLOR (test code = 1501) DARK YELLOW APPEARANCE (test code = 1502) CLEAR SPECIFIC GRAVITY (test code = 1503) 1.023 LEUKOCYTE ESTERASE (test cod e = 1504) 2+ NITRITE (test code = 1505) NEGATIVE pH (test code = 1506) 5.5 PROTEIN (test code = 1507) 1+ GLUCOSE (test code = 1508) NEGATIVE KETONES (test code = 1509) NEGATIVE UROBILINOGEN (test code = 1510) 1.0 MG/DL BILIRUBIN (test code = 1511) NEGATIVE OCCULT BLOOD (test code = 1512) NEGATIVE WHITE BLOOD CELLS (test code = 1513) 21-30 /HPF RED BLOOD CELLS (test code = 1514) 0-2 /HPF EPITHELIAL CELLS (test code = 41701) 0-5 /HPF BACTERIA (test code = 1515) NONE SEEN CRYSTALS (test code = 1516) PRESENT CASTS, HYALINE (test code = 1517) NONE SEEN Nguyễn Queen, [id number] 00:00:00* Test Item Value Reference Range Interpretation Comme nts PSA, TOTAL (test code = 2606) 26.40 NG/ML Nguyễn TompkinsTSH, THIRD [id number] 00:00:00* Test Item Value Reference Range Interpretation Comme nts TSH, THIRD GENERATION (test code = 2821) 1.440 UIU/ML Nguyễn TompkinsLactic Acid Whole [id number] 22:37:31* Test Item Value Reference Range Interpretation Comme nts LACTIC ACID (test code = 5087097097) 1.01 mmol/L 0.5-2.2 Lab Interpretation (test cod e = 74776-1) Normal [facility] Notes Date/Time Note Provider Source 2023-11-03 00:00:00 [id number] T00:00:00+ + +| Plan Activity | Plan Date |+ + +| ONLY DO WHAT DOES NOT HURT | 2022-10-08 |+ + +| Recommend diet high in fruits and vegetables, lean meats, low in fat and | 2022-10-08 || processed sugars. Monitor portion size | |+ + +| Seeing chronic pain Kirby Watkins - injections right hip | 2022-10-08 || MEDS - TOPICAL ONLY BIOFREEZE, DICLOFENAC GEL, AND CAPZASYN | || IF NEEDS SURGERY - MUST GET CARDIAC CLEARANCE FROM - DR WHITMAN | |+ + +| cbc | 2022-10-14 || cmp | || U/A | |+ + +| Atorvastatin 40mg 1 tab po QD | 2022-10-14 || Recommendations- alcohol avoidance, exercise, low cholesterol/low fat diet and | || weight loss -stop smoking | || F/u- 6 months | || LIPIDS | |+ + +| Recommend diet high in fruits and vegetables, lean meats, low in fat and | 2022-10-14 || processed sugars. Monitor portion size | || PSA | |+ + +| refer urologist- already has Dr Vargas - will see him/daughter | 2022-10-15 |+ + +| LOSARTAN 50mg 1 tab PO QD | 2022-10-15 || TAMSULOSIN 0.4MG 1 TAB POQD | || FUROSEMIDE 40MG 2 tablets PO BID | || POTASSIUM ER 20MEQ 2TABLETS PO BID | || REFER TO DR WHITMAN - FOR CHF CHECK TO SEE IF HE WANTS TO ADD A BETABLOCKER - | || OR DIURETIC AT THE HOSPITAL | || GO TO ER IF EDEMA IN LEG DOES NOT GET BETTER OR CHEST PAIN | || ASPRIN 81 MG | || Begin checking BP at home and keep log to bring to next clinic visit. | || DASH diet, Sodium reduction <2.4 g/day | || Weight reduction, Exercise 150 mins/wk | || Limit alcohol and caffeine consumption, Smoking cessation | |+ + +| ALLOPURINOL 300MG 1 PO QD | 2022-10-15 || | || F/U Q YEARLY | |+ + +| Weight loss through diet - He is 87 have fun at as | 2023-04-07 |+ + +| meds- Tamsulosin 0.4 mg PO 1 capsule PO in AM following the same meal everyday | 2023-04-07 || #90 1 refill | || BPH without lower urinary tract symptoms | |+ + +| TERBUTIFINE 250 MG 1 TABLET PO QD #90 - MAY ONLY HAVE 6 MONTHS OF THIS | 2023-04-07 || MEDICATION AT A TIME AND PT HAS GOOD LIVER FUNCTIONS | || | || KEEP THE AREA CLEAN AND DRY ESPECIALLY BETWEEN THE TOES-- WATCH FOR INFECTION | || REDNESS HEAT OR SWELLING AND DO NOT WEAR TIGHT SHOES- WEAR ABSORBENT COTTON | || SOCKS AND CHANGE TOWELS AND SOCKS DAILY- AIR OUT SHOES WHEN NOT WEARING THEM OR | || ALTERNATE SHOES-- DISINFECT SHOWER WITH BLEACH SPRAY BEFORE AND AFTER ENTERING | || SHOWER -LOW SUGAR DIET | || F/U PRN | |+ + +| CARLOSG-3020- refer Dr Whitman | 2023-04-07 |+ + +| diet and exercise decrease caloric intake | 2023-11-03 |+ + +| SEEING DR VARGAS [facility]- [place] | 2023-11-03 |+ + +[id number] of TreatmentLNCARE PLANTXTSFA|[id number] for patient [id number] Section NarrativeNARRATIVEFormatted C-CDA narrative textSFAStdara [facility]2024-07-02T00:00:00 Nguyễn [facility]"
--- NOTE | 2023-11-12 15:12 | RAD REPORT ---
EXAM DESCRIPTION: US - Extrem Venous W Compress Ernie - 11/12/2023 3:03 pm CLINICAL HISTORY: Pain;Swelling COMPARISON: Extrem Venous W Compress Ernie dated 11/12/2020 TECHNIQUE: Real-time sonographic evaluation of the lower extremity deep venous systems was performed using color Doppler, grayscale, and compression. FINDINGS: Bilateral lower extremities. Normal compressibility, flow augmentation, phasic flow and spontaneous flow is identified in both the left and right lower extremity deep venous systems. No intraluminal filling defects seen. IMPRESSION: No DVT in either lower extremity.
--- NOTE | 2023-11-12 15:28 | RAD REPORT ---
EXAM DESCRIPTION: RAD - Chest Single View - 11/12/2023 3:23 pm CLINICAL HISTORY: swelling, volume overload COMPARISON: <Comparisons> FINDINGS: Lines: None. Lungs: No evidence of edema or pneumonia. Pleural: No significant pleural effusions or pneumothorax. Cardiac: The heart size is within normal limits. Mediastinum: Within normal limits. Bones: No acute fractures. Other: None IMPRESSION: No acute cardiopulmonary disease.
[2023-11-12 15:56] LABS: Absolute Basophils 0.1 K/uL (0-0.5); Absolute Eosinophils 0.2 K/uL (0-0.5); Absolute Lymphocytes (CBC) 1.4 K/uL (0.7-4.9); Absolute Monocytes 0.7 K/uL (0.1-1.3); Absolute Neutrophil 6.5 K/uL (1.8-8.0); Basophils % 0.6 % (0-1.3); Eosinophils % 2.4 % (0-4.4); Hematocrit 37.8 % (39.6-49.0); Hemoglobin 12.9 g/dL (13.6-17.9); Lymphocytes % 15.9 % (15.3-44.8); MCH 32.7 pg (27.0-35.0); MCHC 34.1 g/dL (32.0-36.0); MCV 95.6 fL (80-100); MPV 7.3 fL (7.6-11.3); Monocytes % 7.9 % (3.3-12.3); Neutrophils % 73.2 % (41.7-73.7); Nucleated Red Blood Cells % 0.1 % (0-0); Platelets 198 thou/uL (152-406); RBC Red Blood Cell Count 3.96 M/uL (4.33-5.43); Red Cell Distribution Width 14.8 % (12.1-15.2)
[2023-11-12 16:01] LABS: Albumin 3.3 g/dL (3.4-5.0); Albumin/Globulin Ratio 1.1 (1.1-1.8); Anion Gap 4.7 mEq/L (5.0-15.0); Bilirubin Direct 0.2 mg/dL (0-0.2); Bilirubin Indirect, Calculated 0.5 mg/dL (0.2-0.8); Bilirubin Total 0.7 mg/dL (0.2-1.0); Globulin 3.1 g/dL (2.3-3.5); Magnesium 2.3 mg/dL (1.6-2.4); Potassium 3.7 mEq/L (3.5-5.1); Protein, Total 6.4 g/dL (6.4-8.2); Troponin High Sensitivity 10.8 pg/mL (<58.9)
--- NOTE | 2023-11-12 16:36 | EDPHYS ---
Physician Documentation [facility] Name: Mati Broderick Age: 88 yrs Sex: Male : 1935 Arrival Date: 11/12/2023 Time: 14:31 Bed 19 Private MD: ED Physician Rajesh Zimmerman HPI: 11/11 15:00 This 88 yrs old Male presents to ER via Ambulatory with complaints of Leg rn Swelling. 15:00 The patient presents with pain, swelling. The complaints affect the. Onset: The rn symptoms/episode began/occurred 1 week(s) ago. Modifying factors: The symptoms are alleviated by nothing. the symptoms are aggravated by weight bearing. Severity of symptoms: At their worst the symptoms were moderate, in the emergency department the symptoms are unchanged. The patient has experienced similar episodes in the past. Patient reports bilateral lower extremity swelling, right greater than left, for a week. PCP increased his furosemide but still swollen. Reports itchiness but no redness or warmth. No fever. No injury. Denies shortness of breath or cough. Historical: - Allergies: 14:37 No Known Allergies; ll1 - PMHx: 14:37 CAD; Hernia; High Cholesterol; Hypertension; Myocardial infarction; Prostate Cancer; ll1 - Immunization history:: Adult Immunizations up to date. - Infectious Disease History:: Denies. - Social history:: Smoking status: Patient denies any tobacco usage or history of. - Family history:: not pertinent. - Hospitalizations: : No recent hospitalization is reported. ROS: 15:00 Constitutional: Negative for fever, chills, and weight loss, Cardiovascular: Negative rn for chest pain, palpitations Respiratory: Negative for shortness of breath, cough, wheezing, and pleuritic chest pain, Abdomen/GI: Negative for abdominal pain, nausea, vomiting, diarrhea, and constipation, MS/Extremity: Positive for swelling to bilateral lower legs Skin: Negative for injury, rash, and discoloration, Neuro: Negative for headache, weakness, numbness, tingling, and seizure, Exam: 15:00 Constitutional: This is a well developed, well nourished patient who is awake, alert, rn and in no acute distress. Cardiovascular: Regular rate and rhythm. No pulse deficits. Respiratory: No increased work of breathing, no retractions or nasal flaring. MS/ Extremity: Pulses equal, no cyanosis. Neurovascular intact. Full, normal range of motion. 2+ edema bilateral lower extremities with right leg more swollen than left. No focal tenderness. No evidence of cellulitis. Neuro: Awake and alert, GCS 15 17:24 ECG was reviewed by the Attending Physician. rn Vital Signs: 14:35 BP 118 / 70; Pulse 91; Resp 18; Temp 97.6; Pulse Ox 96% ; Weight 92.99 kg; Height 5 ft. ll1 7 in. ; Pain 6/10; 16:45 BP 115 / 74; Pulse 80; Resp 17; Pulse Ox 99% on R/A; rs5 14:35 Body Mass Index 32.11 (92.99 kg, 170.18 cm) ll1 14:35 Pain Scale: Adult ll1 MDM: 14:33 Patient medically screened. rn 16:33 Differential diagnosis: Lymphedema, congestive heart failure, renal failure, dependent rn edema. Data reviewed: vital signs, nurses notes, lab test result(s), radiologic studies, doppler, plain films, and as a result, I will discharge patient. Counseling: I had a detailed discussion with the patient and/or guardian regarding the historical points, exam findings, and any diagnostic results supporting the discharge/admit diagnosis, lab results, radiology results, the need for outpatient follow up, to return to the emergency department if symptoms worsen or persist or if there are any questions or concerns that arise at home. Special discussion: I discussed with the patient/guardian in detail that at this point there is no indication for admission to the hospital. It is understood, however, that if the symptoms persist or worsen the patient needs to return immediately for re-evaluation. ED course: No indication for admission at this time. Given IV Lasix and told to take extra Lasix pill daily for 3 days and follow-up with PCP. No pulmonary edema on imaging. Ultrasound negative for for DVT. I have personally reviewed all of the results, including but not limited to blood tests and imaging deemed necessary to safely discharge this patient at this time. All results given to and printed out for patient. I personally went over all the results with the patient and answered all questions. Patient will follow-up with PCP and or specialist as discussed. Return precautions given and understood.. 11/11 14:40 Order name: Basic Metabolic Panel; Complete Time: 16:13 ll1 11/11 14:40 Order name: CBC with Diff; Complete Time: 16:13 11/11 14:40 Order name: LFT's; Complete Time: 16:13 11/11 14:40 Order name: Magnesium; Complete Time: 16:13 11/11 14:40 Order name: NT PRO-BNP; Complete Time: 16:13 11/11 14:40 Order name: Troponin HS; Complete Time: 16:13 11/11 14:40 Order name: XRAY Chest (1 view); Complete Time: 16:13 11/11 14:40 Order name: Extrem Venous W Compression Ernie US; Complete Time: 15:17 11/11 14:40 Order name: EKG; Complete Time: 14:40 11/11 14:40 Order name: Cardiac monitoring; Complete Time: 16: 11/11 14:40 Order name: EKG - Nurse/Tech; Complete Time: 16: 11/11 14:40 Order name: IV Saline Lock; Complete Time: 16: 11/11 14:40 Order name: Labs collected and sent; Complete Time: 16: 11/11 14:40 Order name: O2 Per Protocol; Complete Time: 16: 11/11 14:40 Order name: O2 Sat Monitoring; Complete Time: 16:31 ll1 EC:24 Rate is 80 beats/min. Rhythm is regular. QRS Drifting is Normal. MA interval is normal. QRS rn interval is prolonged at 154 msec. QT interval is normal. No Q waves. T waves are Normal. No ST changes noted. Clinical impression: NSR w/ Non-specific ST/T Changes. Interpreted by me. Reviewed by me. Administered Medications: 16:15 Drug: Furosemide IVP 40 mg IVP once; give over 2 minutes Route: IVP; Site: right rs5 antecubital; 16:33 Follow up: Response: No adverse reaction rs5 Disposition Summary: 11/12/23 16:35 Discharge Ordered Notes: Location: Home rn Problem: an ongoing problem rn Symptoms: have improved rn Condition: Stable rn Diagnosis - Edema, unspecified rn Followup: rn - With: Private Physician - When: As needed - Reason: Recheck today's complaints, Re-evaluation by your physician Discharge Instructions: - Discharge Summary Sheet rn - Edema rn - Peripheral Edema rn Forms: - Medication Reconciliation Form rn - Antibiotic brazing furnace feeder - Prescription Opioid Use rn - Patient Portal Instructions rn - Leadership Thank You Letter rn Signatures: Dispatcher [employer] EDMS Rajesh Zimmerman MD MD rn Lewis, Lynsay RN RN ll1 Bob Arango RN RN rs5 Corrections: (The following items were deleted from the chart) 14:40 14:40 BASIC METABOLIC PANEL+C.LAB.BRZ ordered. EDMS EDMS 14:40 14:40 CBC+H.LAB.BRZ ordered. EDMS EDMS 14:40 14:40 HEPATIC FUNCTION+C.LAB.BRZ ordered. EDMS EDMS 14:40 14:40 MAGNESIUM+C.LAB.BRZ ordered. EDMS EDMS 14:40 14:40 PROBNP+C.LAB.BRZ ordered. EDMS EDMS 14:40 14:40 Troponin High Sensitivity+C.LAB.BRZ ordered. EDMS EDMS 15:01 15:00 Patient reports bilateral lower extremity swelling, right greater than left, for rn a week. PCP increased his furosemide but still swollen. Reports itchiness but no redness or warmth. No fever. No injury.. rn
--- NOTE | 2023-11-12 16:36 | ER ---
Nurse's Notes [facility] Name: Mati Broderick Age: 88 yrs Sex: Male : 1935 Arrival Date: 11/12/2023 Time: 14:31 Bed 19 Private MD: Diagnosis: Edema, unspecified Presentation: 11/11 14:35 Chief complaint: Patient states: BLE swelling for 2 weeks. Doubled diuretic dose, but ll1 not better. +itching and pain. Coronavirus screen: Client denies travel out of the [place] in the last 14 days. At this time, the client does not indicate any symptoms associated with coronavirus-19. Ebola Screen: Patient denies travel to an Ebola-affected area in the 21 days before illness onset. 14:35 Method Of Arrival: Ambulatory ll1 14:37 Initial Sepsis Screen: Does the patient meet any 2 criteria? No. Patient's initial ll1 sepsis screen is negative. Does the patient have a suspected source of infection? No. Patient's initial sepsis screen is negative. Risk Assessment: Do you want to hurt yourself or someone else? Patient reports no desire to harm self or others. Onset of symptoms was October 29, 2023. 14:37 Acuity: KATIE 3 ll1 Triage Assessment: 14:35 General: Appears in no apparent distress. uncomfortable, Behavior is calm, cooperative. ll1 14:35 General: Reports fatigue for. Musculoskeletal: Reports BLE swelling. ll1 Historical: - Allergies: 14:37 No Known Allergies; ll1 - PMHx: 14:37 CAD; Hernia; High Cholesterol; Hypertension; Myocardial infarction; Prostate Cancer; ll1 - Immunization history:: Adult Immunizations up to date. - Infectious Disease History:: Denies. - Social history:: Smoking status: Patient denies any tobacco usage or history of. - Family history:: not pertinent. - Hospitalizations: : No recent hospitalization is reported. Screenin:34 [facility] ED Fall Risk Assessment (Adult) History of falling in the last 3 months, rs5 including since admission No falls in past 3 months (0 pts) Confusion or Disorientation No (0 pts) Intoxicated or Sedated No (0 pts) Impaired Gait Yes (1 pt) Mobility Assist Device Used Yes (1 pt) Altered Elimination No (0 pt) Score/Fall Risk Level 0 - 2 = Low Risk Oriented to surroundings, Maintained a safe environment. Abuse screen: Denies threats or abuse. Nutritional screening: No deficits noted. Tuberculosis screening: No symptoms or risk factors identified. Assessment: 14:34 General: Appears in no apparent distress. uncomfortable, Behavior is calm, cooperative. rs5 Pain: Denies pain. Neuro: Level of Consciousness is awake, alert, obeys commands, Oriented to person, place, time, situation. Cardiovascular: Patient's skin is warm and dry. Respiratory: Airway is patent Respiratory effort is even, unlabored, Respiratory pattern is regular, symmetrical. GI: Abdomen is round non-distended, Abd is soft and non tender X 4 quads. : No signs and/or symptoms were reported regarding the genitourinary system. EENT: No signs and/or symptoms were reported regarding the EENT system. Derm: Skin is intact, Skin is pink, warm \T\ dry. Musculoskeletal: Swelling present in right leg and left leg. 15:44 Reassessment: No changes from previously documented assessment. rs5 16:52 Reassessment: Patient and/or family updated on plan of care and expected duration. Pain rs5 level reassessed. Patient is alert, oriented x 3, equal unlabored respirations, skin warm/dry/pink. Vital Signs: 14:35 BP 118 / 70; Pulse 91; Resp 18; Temp 97.6; Pulse Ox 96% ; Weight 92.99 kg; Height 5 ft. ll1 7 in. ; Pain 6/10; 16:45 BP 115 / 74; Pulse 80; Resp 17; Pulse Ox 99% on R/A; rs5 14:35 Body Mass Index 32.11 (92.99 kg, 170.18 cm) ll1 14:35 Pain Scale: Adult ll1 ED Course: 14:32 Patient arrived in ED. im 14:33 Rajesh Zimmerman MD is Attending Physician. rn 14:34 Patient has correct armband on for positive identification. Placed in gown. Bed in low rs5 position. Call light in reach. Side rails up X2. 14:34 No provider procedures requiring assistance completed. rs5 14:37 Triage completed. ll1 14:37 Arm band placed on. ll1 14:41 Inserted saline lock: 20 gauge in right antecubital area, using aseptic technique. rs5 15:05 Extrem Venous W Compression Ernie US In Process Unspecified. EDMS 15:21 Bob Arango, RN is Primary Nurse. rs5 15:25 XRAY Chest (1 view) In Process Unspecified. EDMS 16:52 IV discontinued, intact, bleeding controlled, No redness/swelling at site. Pressure rs5 dressing applied. Administered Medications: 16:15 Drug: Furosemide IVP 40 mg IVP once; give over 2 minutes Route: IVP; Site: right rs5 antecubital; 16:33 Follow up: Response: No adverse reaction rs5 Medication: 16:35 VIS not applicable for this client. rs5 Outcome: 16:35 Discharge ordered by . rn 16:52 Patient left the ED. rs5 16:52 Discharged to home ambulatory, with family, rs5 16:52 Condition: stable 16:52 Discharge instructions given to patient, family, Instructed on discharge instructions, follow up and referral plans. Signatures: Dispatcher [employer] EDMS Rajesh Zimmreman MD MD rn Lewis, Lynsay RN RN ll1 Bob Arango, RN RN rs5 Ila Maurice Corrections: (The following items were deleted from the chart) 17:15 16:55 Reassessment: Patient and/or family updated on plan of care and expected rs5 duration. Pain level reassessed. Patient is alert, oriented x 3, equal unlabored respirations, skin warm/dry/pink. rs5 19:21 14:35 General: Appears in no apparent distress. uncomfortable, Behavior is calm, ll1 cooperative, rs5
[2023-11-12] MEDS ORDERED: FUROSEMIDE 40 MG/4 ML VIAL ONE (16:38)
[2023-11-12 19:33] VITALS: BP 118/70; TEMP 97.6; O2SAT 96
--- NOTE | 2023-11-13 12:05 | EKG ---
Test Date: 2023-11-12 Test Time: 15:59:35 Assessment Services Manager: SHOBHA MEASUREMENT RESULTS: Intervals: Rate: 80 ID: [id number] QRSD: 154 QT: 416 QTc: 479 Mcgregor: P: 52 ID: [id number] QRS: -78 T: 28 INTERPRETIVE STATEMENTS: Normal sinus rhythm Right bundle branch block Left anterior fascicular block Bifascicular block Abnormal ECG Compared to ECG 06/12/2023 06:23:17 Left anterior fascicular block now present Bifascicular block now present Left-axis deviation no longer present Myocardial infarct finding no longer present Electronically Signed On 11-13-23 12:02:07 CDT by Macario Kim
== END 2023-11-12 16:52 | disposition home or self-care (01) ==
LOC: ER 14:31
DX: R60.9 Edema, unspecified (principal)
CPT/HCPCS: 93005; 85025; 80048; 36415; 83735; 80076; 84484; 83880; 71045; 93970; 96374; 99284; J1940

== ENCOUNTER 2024-06-25 08:44 | Emergency (ER) | payer OTHER ==
--- OUTSIDE RECORDS SUMMARY | 2024-06-25 08:48 | XMS REPORT | Continuity of Care Document ---
Author Name Unknown Address [address] [facility] [place] [address] [facility] thconnect Address [address] [facility] [address] [place] [address] Care Team Providers Care Fuel Assembler Name Role Phone MIKE ISBELL Primary Care Physician Unav ailable Sis Isbell Attending Clinician Unavailmelanie e HEAVENLY KRUEGER Attending Clinician UnavailHeavenly Duenas Attending Clinician Amrita Landin DO Attending Clinician [phone] AMRITA LANDIN Attending Clinician Unavailable Payers Payer Name Policy Type Policy Number Effective Date Expirati on Date Source MEDICAID 2 [id number] 2012 00:00:00 [facility] Dual Complete MCR PPO [id number] 2021 00:00:00 [facility] DUAL COMP CHOICE PPO DSNP [id number] 2022 00:00:00 [place] [id number] 2022 00:00:00 Problems Condition Name Condition Details Condition Category Status Onset Date Resolution Date Last Treatment Date Treating Clinician Comments Source [id number] 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 Problem [facility] [id number] Primary osteoarthr itis of right hip Problem [facility] [id number] Other obstructiv e and reflux uropathy Problem [facility] [id number] 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 and PSA greater than 20 Problem [facility] Prostate cancer Prostate cancer Problem [facility] [id number] Urge incontinen ce Problem [facility] Leucocytos is Leucocytos is Problem [facility] [id number] S/P radiation therapy Problem Active [facility] [id number] Gross hematuria Problem Active [facility] [id number] S/P TURP (status post transureth ral resection of prostate) Problem Active [facility] [id number] Urinary retention Problem Active [facility] [id number] Right hip pain Problem Active [facility] No known active problems No known active problems Disease [facility] Allergies, Adverse Reactions, Alerts Allergy Name Allergy Type Status Severity Reaction(s) Onset Date Inactive Date Treating Clinician Comments Source none (Not Checked) Propensi ty to adverse reaction to drug Active 11-03 00:00: 00 Nguyễn Tompkins Iodinate d contrast media (substan ce) Iodinate d contrast media (substan ce) Active Unknown [facility] NO KNOWN ALLERGIE S Drug Class Active [facility] Social History Social Habit Start Date Stop Date Quantity Comments Source History of Tobacco Use [facility] Exposure to SARS-CoV-2 (event) 2022-02-11 00:00:00 2022-02-21 13:43:00 Not sure [facility] Sex Assigned At 1935 00:00:00 1935 00:00:00 [facility] Smoking Status Start Date Stop Date Source Tobacco smoking consumption unknown [facility] Never Smoker [facility] Medications Ordered Medication Name Filled Medication Name Start Date Stop Date Current Medication? Ordering Clinician Indication Dosage Frequency Signature (SIG) Comments Components Source furosemide 40 mg tablet 2- 00:00: 00 Yes 12mg Nguyễn Tompkins atorvastati n 40 mg tablet 1-31 00:00: 00 Yes mg Nguyễn Tompkins methylPREDN ISolone 32 MG methylPREDN ISolone 32 MG 1-16 00:00: 00 No methylPRED NISolone 32 MG atorvastati n 40 mg tablet 2023-05 2-24 00:00: 00 Yes mg Nguyễn Tompkins nystatin 100,000 unit/gram topical cream 2023-05 2-17 00:00: 00 Yes 1unit/g kobe Nguyễn Tompkins atorvastati n 40 mg tablet 9-15 00:00: 00 Yes mg Nguyễn Tompkins losartan 50 mg tablet - 00:00: 00 Yes 1mg Nguyễn Tompkins tamsulosin 0.4 mg capsule - 00:00: 00 Yes 1mg Nguyễn Tompkins allopurinol 300 mg tablet - 00:00: 00 Yes 1mg Nguyễn Tompkins furosemide 40 mg tablet - 00:00: 00 Yes 12mg Nguyễn Tompkins potassium chloride ER 20 mEq tablet,exte nded release(par t/cryst) - 00:00: 00 Yes 12mEq Nguyễn Tompkins atorvastati n 40 mg tablet 6-19 00:00: 00 Yes mg Nguyễn Tompkins losartan 50 mg tablet 6-17 00:00: 00 Yes 1mg Nguyễn Tompkins allopurinol 300 mg tablet 6-03 00:00: 00 Yes mg Nguyễn Tompkins tamsulosin 0.4 mg capsule 5-08 00:00: 00 Yes mg Nguyễn Tompkins METOPROLOL TARTRATE 25 MG TABS [...] Tompkins POTASSIUM CHLORIDE ER 20 MEQ TBCR 07-04 00:00: 00 Yes Nguyễn Tompkins FUROSEMIDE 40 MG TABS 07-04 00:00: 00 09-09 00:00 :00 No Nguyễn Tompkins AMOXICILLIN 500 MG 06-27 00:00: 00 Yes Nguyễn Tompkins ATORVASTATI N CALCIUM 40 MG TABS 06-27 00:00: 00 09-09 00:00 :00 No Nguyễn Tompkins lidocaine-r acepinep-te tracaine (L.E.T. (LIDO-EPINE PH-TETRA)) 4-0.05-0.5 % topical gel 3 mL 2021-05 19:45: 00 02-21 18:56 :00 No 3mL 3 mL, Topical, ONCE, 1 dose, On Thu02/21/22 at 1445, Routine [facility] MUPIROCIN 2 % OINT 2021-05 00:00: 00 Yes Nguyễn Tompkins CEPHALEXIN 500 MG 2021-05 00:00: 00 Yes Nguyễn Tompkins SULFAMETHOX AZOLE/TRIME THOPRIM DS 800-160 MG TABS 2021-05 00:00: 00 Yes Nguyễn Tompkins mupirocin 2 % ointment 2021-05 00:00: 00 Yes [id number] Apply to area(s) 3 (three) times daily. [facility] cephALEXin 500 mg tablet 2021-05 00:00: 00 02-27 04:59 :00 No [id number] 500mg Take 1 tablet by mouth 4 (four) times daily for 5 days. [facility] sulfamethox azole-trime thoprim 800-160 mg per tablet 2021-05 0-21 00:00: 00 02-27 04:59 :00 No [id number] 1{tbl} Take 1 tablet by mouth every 12 (twelve) hours for 5 days. [facility] cefTRIAXone (ROCEPHIN) injection 1,000 mg 2021-05 0-16 00:15: 00 Yes 1000mg 1,000 mg, Slow IV Push, Q24H ABX, First dose on 02/15/22 at 1915, Until Discontinu ed, MANUEL
Re ason for Anti-Infec tive: Empiric Therapy for Suspected Infection< br>Empiric Therapy Site: Skin / Soft tissue
Duration of therapy: 72 hours [facility] HYDROCODONE BITARTRATE/ ACETAMINOPH E N 10-325 MG TABS 2021-05 0-15 00:00: 00 Yes Nguyễn Tompkins SULFAMETHOX AZOLE/TRIME THOPRIM DS 800-160 MG TABS 2021-05 0-15 00:00: 00 Yes Nguyễn Tompkins CEPHALEXIN 500 MG 2021-05 0-15 00:00: 00 Yes Nguyễn Tompkins cephALEXin (KEFLEX) 500 mg capsule 2021-05 0-15 00:00: 00 02-23 04:59 :00 No [id number] 500mg Take 1 capsule by mouth 3 (three) times daily for 7 days. [facility] sulfamethox azole-trime thoprim 800-160 mg per tablet 2021-05 0-15 00:00: 00 02-23 04:59 :00 No [id number] 1{tbl} Take 1 tablet by mouth 2 (two) times daily for 7 days. [facility] HYDROcodone -acetaminop hen (NORCO) 10-325 mg tablet 2021-05 0-15 00:00: 00 02-23 04:59 :00 No 4647 .5{tbl} Take 0.5-1 tablets by mouth every 6 (six) hours as needed for Pain (scale 7-10) for up to 7 days. Indication s: acute pain [facility] POTASSIUM CHLORIDE ER 20 MEQ TBCR [...] Name Observation Time Observation Value Comments S rita height 2024-04-21 16:45:00 68 [in_i] Commo n [facility] weight 2024-04-21 16:45:00 205.6 [lb_av] Co [facility] temperature 2024-04-21 16:45:00 97.4 [degF] Com [facility] [place] bmi 2024-04-21 16:45:00 31.26 kg/m2 Comm on [facility] oximetry 2024-04-21 16:45:00 93 % Commo n [facility] respiratory rate 2024-04-21 16:45:00 18 /min [facility] blood pressure systolic 2024-04-21 16:45:00 155 mm[Hg] [facility] blood pressure diastolic 2024-04-21 16:45:00 79 mm[Hg] [facility] height 2023-10-28 17:15:00 68 [in_i] Commo n [facility] weight 2023-10-28 17:15:00 204.6 [lb_av] Co [facility] temperature 2023-10-28 17:15:00 98.4 [degF] [facility] [place] bmi 2023-10-28 17:15:00 31.11 kg/m2 Comm on [facility] oximetry 2023-10-28 17:15:00 93 % Commo n [facility] respiratory rate 2023-10-28 17:15:00 18 /min Common [facility] blood pressure systolic 2023-10-28 17:15:00 143 mm[Hg] [facility] blood pressure diastolic 2023-10-28 17:15:00 81 mm[Hg] [facility] height 2023-05-27 10:15:00 68 [in_i] Commo n [facility] weight 2023-05-27 10:15:00 202 [lb_av] Comm on [facility] temperature 2023-05-27 10:15:00 98.6 [degF] Com mon [facility] bmi 2023-05-27 10:15:00 30.71 kg/m2 Comm on [facility] oximetry 2023-05-27 10:15:00 99 % Commo n [facility] respiratory rate 2023-05-27 10:15:00 18 /min Common [facility] blood pressure systolic 2023-05-27 10:15:00 126 mm[Hg] [facility] blood pressure diastolic 2023-05-27 10:15:00 68 mm[Hg] [facility] height 2022-12-09 09:00:00 68 [in_i] Commo n [facility] weight 2022-12-09 09:00:00 202.6 [lb_av] Co mmon [facility] bmi 2022-12-09 09:00:00 30.8 kg/m2 Commo n [facility] blood pressure systolic 2022-12-09 09:00:00 126 mm[Hg] [facility] blood pressure diastolic 2022-12-09 09:00:00 80 mm[Hg] [facility] height 2022-11-26 11:15:00 68 [in_i] Commo n [facility] weight 2022-11-26 11:15:00 200 [lb_av] Comm on [facility] temperature 2022-11-26 11:15:00 98.1 [degF] Com mon [facility] bmi 2022-11-26 11:15:00 30.41 kg/m2 Comm on [facility] oximetry 2022-11-26 11:15:00 99 % Commo n [facility] respiratory rate 2022-11-26 11:15:00 18 /min Common [facility] blood pressure systolic 2022-11-26 11:15:00 147 mm[Hg] [facility] blood pressure diastolic 2022-11-26 11:15:00 66 mm[Hg] Common [facility] height 2022-10-22 11:00:00 68 [in_i] Commo n [facility] weight 2022-10-22 11:00:00 200 [lb_av] Comm on [facility] temperature 2022-10-22 11:00:00 98.6 [degF] Com mon [facility] bmi 2022-10-22 11:00:00 30.41 kg/m2 Comm on [facility] oximetry 2022-10-22 11:00:00 99 % Commo n [facility] respiratory rate 2022-10-22 11:00:00 18 /min Common [facility] blood pressure systolic 2022-10-22 11:00:00 158 mm[Hg] [facility] blood pressure diastolic 2022-10-22 11:00:00 75 mm[Hg] [facility] Systolic blood pressure 2022-02-21 19:00:00 124 mm[Hg] [facility] Diastolic blood pressure 2022-02-21 19:00:00 65 mm[Hg] [facility] Heart rate 2022-02-21 19:00:00 80 /min [facility] Respiratory rate 2022-02-21 19:00:00 18 /min [facility] Oxygen saturation in Arterial blood by Pulse oximetry 2022-02-21 19:00:00 94 /min [facility] Body temperature 2022-02-21 18:44:00 35.78 Amanda [facility] Body height 2022-02-21 18:44:00 172.7 cm [facility] Body weight 2022-02-21 18:44:00 90.719 kg [facility] BMI 2022-02-21 18:44:00 30.41 kg/m2 [facility] Systolic blood pressure 2022-02-15 22:12:00 118 mm[Hg] [facility] Diastolic blood pressure 2022-02-15 22:12:00 69 mm[Hg] [facility] Heart rate 2022-02-15 22:12:00 99 /min [facility] 2022-02-15 22:12:00 37.33 Amanda [facility] Respiratory rate 2022-02-15 22:12:00 20 /min [facility] Body height 2022-02-15 22:12:00 69 cm [facility] Body weight 2022-02-15 22:12:00 90.719 kg [facility] BMI 2022-02-15 22:12:00 190.55 kg/m2 [facility] Oxygen saturation in Arterial blood by Pulse oximetry 2022-02-15 22:12:00 97 /min [facility] blood pressure systolic 2021-10-07 11:45:00 146 mm[Hg] [facility] blood pressure diastolic 2021-10-07 11:45:00 68 mm[Hg] [facility] height 2021-10-07 11:45:00 68 [in_i] Commo n [facility] weight 2021-10-07 11:45:00 207.4 [lb_av] Co mmon [facility] temperature 2021-10-07 11:45:00 98.3 [degF] Com [facility] [place] bmi 2021-10-07 11:45:00 31.53 kg/m2 Comm on [facility] oximetry 2021-10-07 11:45:00 97 % Commo n [facility] respiratory rate 2021-10-07 11:45:00 16 /min [facility] height 2021-04-11 10:30:00 68 [in_i] Commo n [facility] weight 2021-04-11 10:30:00 190 [lb_av] Comm on [facility] temperature 2021-04-11 10:30:00 98.2 [degF] [facility] [place] bmi 2021-04-11 10:30:00 28.89 kg/m2 Comm on [facility] oximetry 2021-04-11 10:30:00 97 % Commo n [facility] respiratory rate 2021-04-11 10:30:00 18 /min [facility] blood pressure systolic 2021-04-11 10:30:00 174 mm[Hg] [facility] blood pressure diastolic 2021-04-11 10:30:00 77 mm[Hg] [facility] height 2020-11-21 13:30:00 68 [in_i] Commo n [facility] weight 2020-11-21 13:30:00 204 [lb_av] Comm on [facility] temperature 2020-11-21 13:30:00 97.3 [degF] [facility] [place] bmi 2020-11-21 13:30:00 31.01 kg/m2 Comm on [facility] oximetry 2020-11-21 13:30:00 94 % Commo n [facility] blood pressure systolic 2020-11-21 13:30:00 168 mm[Hg] [facility] blood pressure diastolic 2020-11-21 13:30:00 75 mm[Hg] [facility] height 2020-11-08 10:00:00 68 [in_i] Commo n [facility] weight 2020-11-08 10:00:00 204 [lb_av] Comm on [facility] temperature 2020-11-08 10:00:00 97.7 [degF] Com mon [facility] bmi 2020-11-08 10:00:00 31.01 kg/m2 Comm on [facility] oximetry 2020-11-08 10:00:00 97 % Commo n [facility] blood pressure systolic 2020-11-08 10:00:00 190 mm[Hg] [facility] blood pressure diastolic 2020-11-08 10:00:00 86 mm[Hg] [facility] BP Systolic 2024-06-24 14:41:00 140 mm[Hg] Step hen F Turner BP Diastolic 2024-06-24 14:41:00 80 mm[Hg] [facility] phen F Turner Weight Measured 2024-06-24 14:41:00 184.00 pounds Nguyễn F Turner Height Measured 2024-06-24 14:41:00 64.00 inches Nguyễn F Turner Body Temperature 2024-06-24 14:41:00 97.90 degrees Nguyễn F Turner Heart Rate 2024-06-24 14:41:00 92.00 /min Zonia en F Turner Respiratory Rate 2024-06-24 14:41:00 18.00 /min Nguyễn F Turner BP Diastolic 2024-04-19 08:09:00 72 mm[Hg] Peterson phen F Turner Weight Measured 2024-04-19 08:09:00 206.00 pounds Nguyễn F Turner Height Measured 2024-04-19 08:09:00 66.00 inches Nguyễn F Turner Body Temperature 2024-04-19 08:09:00 98.00 degrees Nguyễn F Turner Heart Rate 2024-04-19 08:09:00 62.00 /min Zonia en F Turner Respiratory Rate 2024-04-19 08:09:00 16.00 /min Nguyễn F Turner BP Systolic 2024-04-19 08:09:00 138 mm[Hg] Step hen F Turner Height Measured 2023-11-03 15:28:00 66.00 inches Nguyễn [...] Turner Heart Rate 2022-10-15 16:24:00 87.00 /min Zoina en F Turner Respiratory Rate 2022-10-15 16:24:00 18.00 /min Nguyễn F Turner BP Systolic 2022-10-08 14:29:00 122 mm[Hg] Oneil Tompkins BP Diastolic 2022-10-08 14:29:00 70 mm[Hg] Peterson Tompkins Weight Measured 2022-10-08 14:29:00 200.00 pounds Nguyễn Tompkins Height Measured 2022-10-08 14:29:00 67.00 inches Nguyễn Tompkins Body Temperature 2022-10-08 14:29:00 98.00 degrees Nguyễn Tompkins Heart Rate 2022-10-08 14:29:00 72.00 /min Zonia Tompkins Respiratory Rate 2022-10-08 14:29:00 18.00 /min Nguyễn Tompkins Procedures Procedure Date / Time Performed Performing Clinicia n Source PVR 2023-10-28 00:00:00 Common [facility] PVR 2022-10-22 00:00:00 [facility] INCISION AND DRAINAGE 2022-02-21 19:02:54 Moises Krueger [facility] CONSENT/REFUSAL FOR DIAGNOSIS AND TREATMENT 2022-02-21 18:34:14 Doctor Unassigned, [place] [facility] CONSENT/REFUSAL FOR DIAGNOSIS AND TREATMENT 2022-02-15 22:32:08 Doctor Unassigned, [place] [facility] COMP. METABOLIC PANEL ([id number]) 2022-02-15 22:30:00 Amrita Landin [facility] CBC WITH DIFF 2022-02-15 22:30:00 Amrita Landin [facility] LACTIC ACID WHOLE BLOOD 2022-02-15 22:30:00 Amrita Landin [facility] Encounters Start Date/Time End Date/Time Encounter Type Admission Type Attending Clinicians Care Facility Care Department Encounter ID Source 2023-08-21 10:34:00 Outpatient Sis Isbell [facility] [id number] [facility] 2023-05-20 12:42:00 Outpatient Sis Isbell [facility] [id number] [facility] 2022-12-09 09:14:00 Outpatient Sis Isbell [facility] [id number] [facility] 2022-12-05 10:47:00 Outpatient Sis Isbell [facility] [id number] [facility] 2022-11-24 07:38:00 Outpatient Sis Isbell [facility] [id number] [facility] 2022-11-19 11:29:00 Outpatient Sis Isbell [facility] [id number] [facility] 2022-10-20 10:51:00 Outpatient Sis Isbell [facility] [id number] [facility] 2021-10-22 12:14:01 Outpatient Sis Isbell [facility] [id number] [facility] 2021-05-29 14:19:05 Outpatient Sis Isbell [facility] [id number] [facility] 2021-05-29 13:50:42 Outpatient Sis Isbell [facility] [id number] [facility] 2021-05-29 13:30:36 Outpatient Sis Isbell [facility] [id number] [facility] 2021-05-29 13:12:39 Outpatient Sis Isbell [facility] [id number] [facility] 2021-05-29 12:21:00 Outpatient [facility] [id number] [facility] 2021-05-29 11:47:56 Outpatient [facility] [id number] [facility] 2024-06-24 14:40:32 2024-06-24 14:40:32 Outpatient SFA SFA [id number] Nguyễn Tompkins 2024-06-24 00:00:00 2024-06-24 00:00:00 Outpatient Visit SFA [id number] Nguyễn Tompkins 2024-05-19 00:00:00 2024-05-19 00:00:00 (TEL) [facility] [id number] [facility] 2024-05-12 00:00:00 2024-05-12 00:00:00 (TEL) [facility] [id number] [facility] 2024-04-25 00:00:00 2024-04-25 00:00:00 (TEL) [facility] [id number] [facility] 2024-04-21 00:00:00 2024-04-21 00:00:00 OFFICE VISIT ESTAB PT LEVEL 4 [facility] [id number] [facility] 2024-04-19 07:55:50 2024-04-19 07:55:50 Outpatient SFA SFA [id number] Nguyễn Tompkins 2024-04-19 00:00:00 2024-04-19 00:00:00 Outpatient Visit SFA [id number] Nguyễn Tompkins 2023-11-03 15:20:51 2023-11-03 15:20:51 Outpatient SFA SFA [id number] Nguyễn Tompkins 2023-11-03 00:00:00 2023-11-03 00:00:00 Outpatient Visit SFA [id number] Nguyễn Tompkins 2023-10-28 00:00:00 2023-10-28 00:00:00 OFFICE VISIT ESTAB PT LEVEL 5 [facility] [id number] [facility] 2023-06-04 00:00:00 2023-06-04 00:00:00 (TEL) [facility]C [facility] [id number] [facility] 2023-05-27 00:00:00 2023-05-27 00:00:00 OFFICE VISIT ESTAB PT LEVEL 5 [facility] [id number] [facility] 2023-05-19 00:00:00 2023-05-19 00:00:00 (TEL) [facility] [id number] [facility] 2023-04-07 08:21:22 2023-04-07 08:21:[address] [facility] [id number] Nguyễn Tompkins 2022-12-09 00:00:00 2022-12-09 00:00:00 OFFICE VISIT NEW PT LEVEL 4 [facility] [id number] [facility] 2022-11-26 00:00:00 2022-11-26 00:00:00 OFFICE VISIT ESTAB PT LEVEL 3 [facility] [id number] [facility] 2022-10-22 00:00:00 2022-10-22 00:00:00 OFFICE VISIT ESTAB PT LEVEL 4 [facility] [id number] [facility] 2022-10-15 14:51:56 2022-10-15 14:51:[address] [facility] [id number] Nguyễn Tompkins 2022-10-08 13:59:34 2022-10-08 13:59:[address] [facility] [id number] Nguyễn Tompkins 2022-02-21 13:41:00 2022-02-21 14:55:00 Emergency X HEAVENLY KRUEGER [facility] ERT [id number] [facility] 2022-02-21 13:41:00 2022-02-21 14:55:00 Emergency Heavenly Krueger [facility] [id number] [facility] 2022-02-15 17:16:00 2022-02-15 18:22:00 Emergency Amrita Landin [facility] [id number] [facility] 2022-02-15 17:16:00 2022-02-15 18:22:00 Emergency X AMRITA LANDIN [facility] ERT [id number] [facility] 2021-10-22 00:00:00 2021-10-22 00:00:00 (TEL) [facility]C [facility] [id number] [facility] 2021-10-11 00:00:00 2021-10-11 00:00:00 (TEL) [facility]C [facility] [id number] [facility] 2021-10-07 00:00:00 2021-10-07 00:00:00 OFFICE VISIT EST PT LEVEL 3 [facility] [id number] [facility] 2021-04-25 00:00:00 2021-04-25 00:00:00 OL DIG E/M SVC 5-10 MIN [facility] [id number] [facility] 2021-04-11 00:00:00 2021-04-11 00:00:00 OFFICE VISIT ESTAB PT LEVEL 2 [facility] [id number] [facility] 2020-11-21 00:00:00 2020-11-21 00:00:00 OFFICE VISIT ESTAB PT LEVEL 2 [facility] [id number] [facility] 2020-11-08 00:00:00 2020-11-08 00:00:00 OFFICE VISIT ESTAB PT LEVEL 2 [facility] [id number] [facility] 2020-10-11 00:00:00 2020-10-11 00:00:00 Outpatient [facility] [id number] [facility] 2020-07-09 00:00:00 2020-07-09 00:00:00 Outpatient [facility] [id number] [facility] 2020-03-26 00:00:00 2020-03-26 00:00:00 Outpatient [facility] [id number] [facility] 2020-01-24 00:00:00 2020-01-24 00:00:00 [id number] Results Test Description Test Time Test Comments Results Result Co mments Source CBC W/AUTO [id number] 00:00:00* Test Item Value Reference Range Interpretation [...] ABS NUCLEATED RBCS (test cod e = 75139) 0.00 K/UL Nguyễn TompkinsPSA, [id number] 00:00:00* Test Item Value Reference Range Interpretation Comme nts PSA, TOTAL (test code = 2606) 30.80 NG/ML Nguyễn TompkinsCOMPREHENSIVE METABOLIC [id number] 00:00:00* Test Item Value Reference Range Interpretation Comme nts GLUCOSE (test code = 2217) 100 MG/DL BUN (test code = 2208) 16 MG/DL CREATININE (test code = 2214) 0.94 MG/DL eGFR (2020 CKD-EPI) (test co de = 24223) 79 ML/MIN/1.73 CALC BUN/CREAT (test code = [...] (test code = 2219) 16 U/L Nguyễn Waller TurnerLIPID [id number] 00:00:00* Test Item Value Reference Range Interpretation Comme nts CHOLESTEROL (test code = 2210) 161 MG/DL TRIGLYCERIDES (test code = 2232) 84 MG/DL HDL CHOLESTEROL (test code = 2220) 59 MG/DL CALC LDL CHOL (test code = 2237) 85 MG/DL RISK RATIO LDL/HDL (test cod e = 2238) 1.44 RATIO Nguyễn Waller AustinURINALYSIS W/REFLEX [id number] 00:00:00* Test Item Value Reference Range Interpretation [...] 0-2 /HPF EPITHELIAL CELLS (test code = 42395) 0-5 /HPF BACTERIA (test code = 1515) NONE SEEN CASTS, HYALINE (test code = 1517) TRACE Nguyễn TompkinsCBC W/AUTO [id number] 00:00:00* Test Item Value Reference Range Interpretation [...] ABS NUCLEATED RBCS (test cod e = 83169) 0.00 K/UL Nguyễn TompkinsPSA, [id number] 00:00:00* Test Item Value Reference Range Interpretation Comme nts PSA, TOTAL (test code = 2606) 30.80 NG/ML Nguyễn TompkinsCOMPREHENSIVE METABOLIC [id number] 00:00:00* Test Item Value Reference Range Interpretation Comme nts GLUCOSE (test code = 2217) 100 MG/DL BUN (test code = 2208) 16 MG/DL CREATININE (test code = 2214) 0.94 MG/DL eGFR (2020 CKD-EPI) (test co de = 68947) 79 ML/MIN/1.73 CALC BUN/CREAT (test code = [...] (test code = 2219) 16 U/L Nguyễn F TurnerLIPID [id number] 00:00:00* Test Item Value Reference Range Interpretation Comme nts CHOLESTEROL (test code = 2210) 161 MG/DL TRIGLYCERIDES (test code = 2232) 84 MG/DL HDL CHOLESTEROL (test code = 2220) 59 MG/DL CALC LDL CHOL (test code = 2237) 85 MG/DL RISK RATIO LDL/HDL (test cod e = 2238) 1.44 RATIO Nguyễn Waller AustinURINALYSIS W/REFLEX [id number] 00:00:00* Test Item Value Reference Range Interpretation [...] 0-2 /HPF EPITHELIAL CELLS (test code = 88537) 0-5 /HPF BACTERIA (test code = 1515) NONE SEEN CASTS, HYALINE (test code = 1517) TRACE Nguyễn TompkinsCBC W/AUTO [id number] 00:00:00* Test Item Value Reference Range Interpretation [...] ABS NUCLEATED RBCS (test cod e = 27446) 0.00 K/UL Nguyễn TompkinsPSA, [id number] 00:00:00* Test Item Value Reference Range Interpretation Comme nts PSA, TOTAL (test code = 2606) 30.80 NG/ML Nguyễn TompkinsCOMPREHENSIVE METABOLIC [id number] 00:00:00* Test Item Value Reference Range Interpretation Comme nts GLUCOSE (test code = 2217) 100 MG/DL BUN (test code = 2208) 16 MG/DL CREATININE (test code = 2214) 0.94 MG/DL eGFR (2020 CKD-EPI) (test co de = 39136) 79 ML/MIN/1.73 CALC BUN/CREAT (test code = [...] (test code = 2219) 16 U/L Nguyễn TompkinsLIPID [id number] 00:00:00* Test Item Value Reference Range Interpretation Comme nts CHOLESTEROL (test code = 2210) 161 MG/DL TRIGLYCERIDES (test code = 2232) 84 MG/DL HDL CHOLESTEROL (test code = 2220) 59 MG/DL CALC LDL CHOL (test code = 2237) 85 MG/DL RISK RATIO LDL/HDL (test cod e = 2238) 1.44 RATIO Nguyễn Waller AustinURINALYSIS W/REFLEX [id number] 00:00:00* Test Item Value Reference Range Interpretation [...] 0-2 /HPF EPITHELIAL CELLS (test code = 13439) 0-5 /HPF BACTERIA (test code = 1515) NONE SEEN CASTS, HYALINE (test code = 1517) TRACE Nguyễn TompkinsURINALYSIS W/REFLEX [id number] 00:00:00* Test Item Value Reference Range Interpretation [...] 0-2 /HPF EPITHELIAL CELLS (test code = 81261) 0-5 /HPF BACTERIA (test code = 1515) NONE SEEN CRYSTALS (test code = 1516) PRESENT CASTS, HYALINE (test code = 1517) NONE SEEN Nguyễn TompkinsPSA, [id number] 00:00:00* Test Item Value Reference Range Interpretation Comme nts PSA, TOTAL (test code = 2606) 26.40 NG/ML Nguyễn TompkinsTSH, THIRD [id number] 00:00:00* Test Item Value Reference Range Interpretation Comme nts TSH, THIRD GENERATION (test code = 2821) 1.440 UIU/ML Nguyễn TompkinsCOMPREHENSIVE METABOLIC [id number] 00:00:00* Test Item Value Reference Range Interpretation Comme nts GLUCOSE (test code = 2217) 93 MG/DL BUN (test code = 2208) 15 MG/DL CREATININE (test code = 2214) 0.95 MG/DL eGFR (2020 CKD-EPI) (test co de = 90993) 78 ML/MIN/1.73 CALC BUN/CREAT (test code = [...] (test code = 2219) 11 U/L Nguyễn Waller TurnerLIPID [id number] 00:00:00* Test Item Value Reference Range Interpretation Comme nts CHOLESTEROL (test code = 2210) 166 MG/DL TRIGLYCERIDES (test code = 2232) 96 MG/DL HDL CHOLESTEROL (test code = 2220) 47 MG/DL CALC LDL CHOL (test code = 2237) 100 MG/DL RISK RATIO LDL/HDL (test cod e = 2238) 2.13 RATIO Nguyễn TompkinsCBC W/AUTO [id number] 00:00:00* Test Item Value Reference Range Interpretation [...] ABS NUCLEATED RBCS (test cod e = 75006) 0.00 K/UL Nguyễn TompkinsURINALYSIS W/REFLEX [id number] 00:00:00* Test Item Value Reference Range Interpretation [...] 0-2 /HPF EPITHELIAL CELLS (test code = 30683) 0-5 /HPF BACTERIA (test code = 1515) NONE SEEN CRYSTALS (test code = 1516) PRESENT CASTS, HYALINE (test code = 1517) NONE SEEN Nguyễn TompkinsPSA, [id number] 00:00:00* Test Item Value Reference Range Interpretation Comme nts PSA, TOTAL (test code = 2606) 26.40 NG/ML Nguyễn TompkinsTSH, THIRD [id number] 00:00:00* Test Item Value Reference Range Interpretation Comme nts TSH, THIRD GENERATION (test code = 2821) 1.440 UIU/ML Nguyễn TompkinsCOMPREHENSIVE METABOLIC [id number] 00:00:00* Test Item Value Reference Range Interpretation Comme nts GLUCOSE (test code = 2217) 93 MG/DL BUN (test code = 2208) 15 MG/DL CREATININE (test code = 2214) 0.95 MG/DL eGFR (2020 CKD-EPI) (test co de = 00172) 78 ML/MIN/1.73 CALC BUN/CREAT (test code = [...] ALT (test code = 2219) 11 U/L Ngyuễn TompkinsLIPID [id number] 00:00:00* Test Item Value Reference Range Interpretation Comme nts CHOLESTEROL (test code = 2210) 166 MG/DL TRIGLYCERIDES (test code = 2232) 96 MG/DL HDL CHOLESTEROL (test code = 2220) 47 MG/DL CALC LDL CHOL (test code = 2237) 100 MG/DL RISK RATIO LDL/HDL (test cod e = 2238) 2.13 RATIO Nguyễn Waller TurnerCBC W/AUTO [id number] 00:00:00* Test Item Value Reference Range Interpretation [...] ABS NUCLEATED RBCS (test cod e = 70993) 0.00 K/UL Nguyễn TompkinsURINALYSIS W/REFLEX [id number] 00:00:00* Test Item Value Reference Range Interpretation [...] 0-2 /HPF EPITHELIAL CELLS (test code = 81002) 0-5 /HPF BACTERIA (test code = 1515) NONE SEEN CRYSTALS (test code = 1516) PRESENT CASTS, HYALINE (test code = 1517) NONE SEEN Nguyễn Queen, [id number] 00:00:00* Test Item Value Reference Range Interpretation Comme nts PSA, TOTAL (test code = 2606) 26.40 NG/ML Nguyễn Venegas, THIRD [id number] 00:00:00* Test Item Value Reference Range Interpretation Comme nts TSH, THIRD GENERATION (test code = 2821) 1.440 UIU/ML Nguyễn TompkinsCOMPREHENSIVE METABOLIC [id number] 00:00:00* Test Item Value Reference Range Interpretation Comme nts GLUCOSE (test code = 2217) 93 MG/DL BUN (test code = 2208) 15 MG/DL CREATININE (test code = 2214) 0.95 MG/DL eGFR (2020 CKD-EPI) (test co de = 70524) 78 ML/MIN/1.73 CALC BUN/CREAT (test code = [...] code = 2219) 11 U/L Nguyễn TompkinsLIPID [id number] 00:00:00* Test Item Value Reference Range Interpretation Comme nts CHOLESTEROL (test code = 2210) 166 MG/DL TRIGLYCERIDES (test code = 2232) 96 MG/DL HDL CHOLESTEROL (test code = 2220) 47 MG/DL CALC LDL CHOL (test code = 2237) 100 MG/DL RISK RATIO LDL/HDL (test cod e = 2238) 2.13 RATIO Nguyễn TompkinsCBC W/AUTO [id number] 00:00:00* Test Item Value Reference Range Interpretation [...] ABS NUCLEATED RBCS (test cod e = 79089) 0.00 K/UL Nguyễn TompkinsLactic Acid Whole [id number] 22:37:31* Test Item Value Reference Range Interpretation Comme nts LACTIC ACID (test code = 9861026315) 1.01 mmol/L 0.5-2.2 Lab Interpretation (test cod e = 69010-5) Normal [facility] Notes Date/Time Note Provider Source Nguyễn Radha [facility]2024-12-17 00:00:00 [facility]2024-07-02 00:00:00 [facility]
[2024-06-25] MEDS ORDERED: TAMSULOSIN 0.4 MG SR CAP ONE (09:09)
[2024-06-25] MEDS ORDERED: ONDANSETRON 4 MG/2 ML VIAL ONE (09:09)
[2024-06-25] MEDS ORDERED: CEFTRIAXONE 2000 MG/VIAL ONE (09:10)
[2024-06-25] MEDS ORDERED: NA CHLORIDE 0.9% 500 ML ONE (09:10)
[2024-06-25] MEDS ORDERED: PHENAZOPYRIDINE 100MG TAB PO ONE (09:10)
[2024-06-25] MEDS ORDERED: FENTANYL CITR 100 MCG/2 ML ONE (09:10)
[2024-06-25 09:19] LABS: Absolute Basophils 0.1 K/uL (0-0.5); Absolute Eosinophils 0.1 K/uL (0-0.5); Absolute Monocytes 0.8 K/uL (0.1-1.3); Absolute Neutrophil 8.7 K/uL (1.8-8.0); Basophils % 0.6 % (0-1.3); Eosinophils % 0.8 % (0-4.4); Hematocrit 38.8 % (39.6-49.0); Lymphocytes % 9.4 % (15.3-44.8); MCHC 33.5 g/dL (32.0-36.0); MCV 95.4 fL (80-100); MPV 7.8 fL (7.6-11.3); Monocytes % 7.2 % (3.3-12.3); Platelets 206 thou/uL (152-406); RBC Red Blood Cell Count 4.06 M/uL (4.33-5.43); Red Cell Distribution Width 14.6 % (12.1-15.2)
[2024-06-25 09:24] LABS: PT Prothrombin Time 13.7 SECONDS (10.0-13.0); Protime INR 1.21
[2024-06-25 09:38] LABS: Albumin 3.1 g/dL (3.4-5.0); Albumin/Globulin Ratio 0.8 (1.1-1.8); Anion Gap 11.5 mEq/L (5.0-15.0); Bilirubin Direct 0.5 mg/dL (0-0.2); Bilirubin Indirect, Calculated 0.8 mg/dL (0.2-0.8); Bilirubin Total 1.3 mg/dL (0.2-1.0); Globulin 3.7 g/dL (2.3-3.5); Potassium 3.5 mEq/L (3.5-5.1); Protein, Total 6.8 g/dL (6.4-8.2); Troponin High Sensitivity 18.5 pg/mL (<58.9)
[2024-06-25 10:40] LABS: Specific Gravity 1.016 (1.005-1.030); Sqamous Epithelial <5 /HPF (None Seen); Urine Bacteria None Seen /HPF (<20); Urine Bilirubin NEGATIVE (Negative); Urine Blood 1+ (Negative); Urine Clarity Extremely Turbid (Clear); Urine Color Light-Orange (Yellow); Urine Culture Reflex Order REFLEXED; Urine Glucose NEGATIVE (Negative); Urine Ketones NEGATIVE (Negative); Urine Microscopic Reflex YN ORDER UMIC; Urine Mucus 2+ /HPF (None Seen); Urine Nitrite NEGATIVE (Negative); Urine Protein 1+ (Negative); Urine Urobilinogen Normal (Normal); Urine WBC >50 /HPF (<5); Urine WBC Clump Many /HPF (None Seen); Urine Yeast (Budding) Many /HPF (None Seen); Urine Yeast with Hyphae Few /HPF (None Seen); Urine pH 5.5 (5.0-7.0)
[2024-06-25] MEDS ORDERED: CIPROFLOXACIN HCL 500 MG TAB ONE (11:00)
[2024-06-25] MEDS ORDERED: CEFDINIR 300 MG CAP PO ONE (11:00)
--- NOTE | 2024-06-25 11:00 | RAD REPORT ---
EXAMINATION: CT Stone Protocol CLINICAL INDICATION: Male, 89 years old. ABD PAIN TECHNIQUE: CT abdomen and pelvis was performed, without IV contrast, as per department protocol. Axia l, sagittal and coronal reconstructions were obtained. One or more of the following dose reduction techniques were used: Automated exposure control, adjustment of the mA and kV according to the patien t size, and iterative reconstruction. Unless otherwise specified, incidental findings do not require dedicated imaging follow-up. COMPARISON: 06/06/2023. FINDINGS: The lack of intravenous contrast limits the sensitivity of this exam for evaluation of solid visceral organs, vascular structures, and retroperitoneum. LOWER CHEST: The visualized lung bases are clear. Elevation of the left hemidiaphragm. LIVER: Normal in size and contour. No focal lesion. BILIARY SYSTEM: No suspicious abnormalities. SPLEEN: Normal size. No focal lesion. PANCREAS: No mass, ductal dilation, or ian-pancreatic fluid. ADRENALS: Normal; no mass. KIDNEYS AND URETERS: Normal size and contour. Mild bilateral hydroureteronephrosis. No evidence of ca lculi. URINARY BLADDER: Marked urinary bladder distention. GASTROINTESTINAL TRACT: Small sliding hiatal hernia. No evidence of bowel obstruction, significant fr ee fluid, free air or abscess. Mild stranding circumferentially in the mesorectal fat. Mild sigmoid diverticulosis without evidence of acute diverticulitis. APPENDIX: Normal appendix. LYMPH NODES: No lymphadenopathy. MUSCULOSKELETAL: No acute or suspicious osseous abnormality. Advanced right hip joint degenerative ch anges. ADDITIONAL FINDINGS: Prostatomegaly with lobulated components probably related to enlargement of the median eminence, larger left of midline, measuring up to 5.7 x 3.9 cm. IMPRESSION: Marked urinary bladder distention with bilateral mild hydroureteronephrosis, suggesting retrograde re flux. No evidence of obstructing calculi. Prostatomegaly with lobulated soft tissue density components probably related to enlargement of the m edian eminence. Mild fat stranding in the mesorectal fat, could relate to infectious or inflammatory proctocolitis. M ild sigmoid diverticulosis without evidence of acute diverticulitis.
--- NOTE | 2024-06-25 11:07 | RAD REPORT ---
EXAMINATION: ONE VIEW CHEST XR CLINICAL INDICATION: Male, 89 years old.,COUGH TECHNIQUE: Frontal chest projection is submitted. Examination is limited by patient positioning and t echnique. COMPARISON: 11/12/2023 FINDINGS: The lungs are well inflated and clear. No pneumothorax or sizable effusion. The heart is normal in s ize. Mediastinal contours are unremarkable. IMPRESSION: No acute intrathoracic abnormalities.
--- NOTE | 2024-06-25 11:26 | EDPHYS ---
Physician Documentation [facility] Name: Mati Broderick Age: 89 yrs Sex: Male : 1935 Arrival Date: 06/25/2024 Time: 08:44 Bed 2 Private MD: ED Physician Alejandro Gil HPI: 06/25 10:59 This 89 yrs old Male presents to ER via EMS with complaints of Pain With vamshi Urination. 10:59 The patient presents with urinary symptoms, dribbling of urine, dysuria, urinary vamshi frequency. Onset: The symptoms/episode began/occurred 3 day(s) ago. Modifying factors: The symptoms are alleviated by nothing, the symptoms are aggravated by urinating. Associated signs and symptoms: The patient has no apparent associated signs or symptoms. Severity of symptoms: At their worst the symptoms were moderate, in the emergency department the symptoms are unchanged. The patient has experienced similar episodes in the past, multiple times. Historical: - Allergies: 09:59 Iodinated Contrast Media - IV Dye; ld1 - Home Meds: 09:59 potassium chloride 20 mEq oral Tablet, ER Particles/Crystals 1 tab daily [Active]; ld1 aspirin 81 mg Oral chew PRN [Active]; atorvastatin 40 mg oral tablet 1 tab daily [Active]; losartan potassium (bulk) 50 mg daily [Active]; furosemide 40 mg Oral tablet 2 tabs daily [Active]; allopurinol 300 mg Oral tablet 1 tab daily [Active]; tamsulosin 0.4 mg Oral cp24 1 cap once daily [Active]; - PMHx: 08:49 CAD; High Cholesterol; Hernia; Myocardial infarction; Prostate Cancer; Hypertension; ld1 - Immunization history:: Adult Immunizations up to date. - Infectious Disease History:: Denies. - Social history:: Smoking status: Patient denies any tobacco usage or history of. ROS: 11:00 Constitutional: Negative for fever, chills, and weight loss, Eyes: Negative for injury, vamshi pain, redness, and discharge, ENT: Negative for injury, pain, and discharge, Neck: Negative for injury, pain, and swelling, Cardiovascular: Negative for chest pain, palpitations, and edema, Respiratory: Negative for shortness of breath, cough, wheezing, and pleuritic chest pain, Back: Negative for injury and pain, MS/Extremity: Negative for injury and deformity, Skin: Negative for injury, rash, and discoloration, Neuro: Negative for headache, weakness, numbness, tingling, and seizure, Psych: Negative for depression, anxiety, suicide ideation, homicidal ideation, and hallucinations, Allergy/Immunology: Negative for hives, rash, and allergies, Endocrine: Negative for neck swelling, polydipsia, polyuria, polyphagia, and marked weight changes, Hematologic/Lymphatic: Negative for swollen nodes, abnormal bleeding, and unusual bruising, 11:00 Abdomen/GI: Positive for abdominal pain, of the suprapubic area, Exam: 11:00 Constitutional: This is a well developed, well nourished patient who is awake, alert, vamshi and in no acute distress. Head/Face: Normocephalic, atraumatic. Eyes: Pupils equal round and reactive to light, extra-ocular motions intact. Lids and lashes normal. Conjunctiva and sclera are non-icteric and not injected. Cornea within normal limits. Periorbital areas with no swelling, redness, or edema. ENT: Nares patent. No nasal discharge, no septal abnormalities noted. Tympanic membranes are normal and external auditory canals are clear. Oropharynx with no redness, swelling, or masses, exudates, or evidence of obstruction, uvula midline. Mucous membranes moist. Neck: Trachea midline, no thyromegaly or masses palpated, and no cervical lymphadenopathy. Supple, full range of motion without nuchal rigidity, or vertebral point tenderness. No Meningismus. Chest/axilla: Normal chest wall appearance and motion. Nontender with no deformity. No lesions are appreciated. Cardiovascular: Regular rate and rhythm with a normal S1 and S2. No gallops, murmurs, or rubs. Normal PMI, no JVD. No pulse deficits. Respiratory: Lungs have equal breath sounds bilaterally, clear to auscultation and percussion. No rales, rhonchi or wheezes noted. No increased work of breathing, no retractions or nasal flaring. Back: No spinal tenderness. No costovertebral tenderness. Full range of motion. Skin: Warm, dry with normal turgor. Normal color with no rashes, no lesions, and no evidence of cellulitis. MS/ Extremity: Pulses equal, no cyanosis. Neurovascular intact. Full, normal range of motion., bilateral aka Neuro: Awake and alert, GCS 15, oriented to person, place, time, and situation. Cranial nerves II-XII grossly intact. Motor strength 5/5 in all extremities. Sensory grossly intact. Cerebellar exam normal. Normal gait. Psych: Awake, alert, with orientation to person, place and time. Behavior, mood, and affect are within normal limits. 11:00 Abdomen/GI: Inspection: abdomen appears normal, Bowel sounds: normal, Palpation: mild abdominal tenderness, in the suprapubic area, Liver: no appreciated palpable abnormalities, Hernia: not appreciated, 11:13 ECG was reviewed by the Attending Physician. [facility] Vital Signs: 09:56 BP 113 / 85; Pulse 94; Resp 18; Temp 98.4(TE); Pulse Ox 97% on R/A; Height 5 ft. 8 in. ld1 ; Pain 7/10; 12:03 BP 121 / 76; Pulse 91; Resp 18; Pulse Ox 100% on R/A; ld1 09:56 Pain Scale: Adult ld1 MDM: 08:47 Medical Screening Exam initiated vamshi 11:02 Differential diagnosis: nonspecific abdominal pain, UTI, urinary retention, vamshi prostatitis, urethritis. Data reviewed: vital signs, nurses notes, lab test result(s), EKG, radiologic studies, CT scan. Consideration of Admission/Observation Escalation of care including admission/observation considered. I considered the following discharge prescriptions or medication management in the emergency department Medications were administered in the Emergency Department. See MAR. Independent interpretation of the following test(s) in the Emergency Department EKG: See my EKG interpretation above. Test considered but Not performed: Ultrasound NO ABD USG. Historians other than the Patient: Daughter/Son: DAUGHTER WELL INFORMED. Care significantly affected by the following chronic conditions: Hypertension, Obesity, HERNIA, HIGH CHLESTEROL. Counseling: I had a detailed discussion with the patient and/or guardian regarding the historical points, exam findings, and any diagnostic results supporting the discharge/admit diagnosis, lab results, radiology results, the need for outpatient follow up, for definitive care, a family practitioner, a urologist. 06/25 08:50 Order name: Basic Metabolic Panel; Complete Time: 10:28 [facility] 06/25 08:50 Order name: CBC with Diff; Complete Time: 10: [facility] 06/25 08:50 Order name: LFT's; Complete Time: 10:28 [facility] 06/25 08:50 Order name: Magnesium; Complete Time: 10:28 06/25 08:50 Order name: NT PRO-BNP; Complete Time: 10:06/25 08:50 Order name: PT-INR; Complete Time: 10:06/25 08:50 Order name: Troponin HS; Complete Time: 10:28 06/25 08:50 Order name: Urinalysis w/ reflexes; Complete Time: 10:46 06/25 08:50 Order name: Lipase; Complete Time: 10:06/25 08:50 Order name: Urine Culture 06/25 08:50 Order name: XRAY Chest (1 view); Complete Time: 11:06/25 09:02 Order name: CT Stone Protocol; Complete Time: :06/25 08:50 Order name: Cardiac monitoring; Complete Time: 09:55 06/25 08:50 Order name: EKG - Nurse/Tech; Complete Time: 09:55 06/25 08:50 Order name: IV Saline Lock; Complete Time: 09:06/25 08:50 Order name: Labs collected and sent; Complete Time: 09:06/25 08:50 Order name: O2 Per Protocol; Complete Time: 08:57 06/25 08:50 Order name: O2 Sat Monitoring; Complete Time: 08:57 06/25 10:48 Order name: Ramirez; Complete Time: 11:31 06/25 10:48 Order name: Ramirez Leg Bag; Complete Time: 11:31 06/25 10:52 Order name: Misc. Order: PVR PLEASE; Complete Time: 12:03 [facility] EC:13 Rate is 100 beats/min. Rhythm is regular. QRS [place] is Normal. MT interval is normal. vamshi QRS interval is normal. QT interval is normal. No Q waves. T waves are Normal. No ST changes noted. Clinical impression: NSR w/ Non-specific ST/T Changes and No evidence of ischemia. Interpreted by me. Reviewed by me. Administered Medications: Drug: NS 0.9% IV 500 ml IV at bolus once; to be given as a bolus over 30 minutes Route: ld1 IV; Rate: bolus; Site: right antecubital; Drug: fentaNYL (PF) IVP 50 mcg IVP once Route: IVP; Site: right antecubital; ld1 09:55 Drug: Ondansetron IVP 4 mg IVP once; over 2 minutes Route: IVP; Site: right antecubital;ld1 09:55 Drug: Phenazopyridine PO 200 mg PO once Route: PO; ld1 09:56 Drug: Rocephin IV 2 grams IV at per protocol once; Given slow IV push per pharmarcy ld1 instructions Route: IV; Rate: per protocol; Site: right antecubital; 09:56 Drug: Flomax PO 0.4 mg PO once Route: PO; ld1 11:02 Drug: Ciprofloxacin PO 500 mg PO once Route: PO; ld1 11:02 Drug: Cefdinir PO 300 mg PO once Route: PO; ld1 Disposition Summary: 06/25/24 11:26 Discharge Ordered Notes: Location: Home vamshi Problem: new vamshi Symptoms: have improved vamshi Condition: Stable vamshi Diagnosis - Dysuria vamshi - Retention of urine, unspecified vamshi - UTI/ Urinary tract infection, site not specified vamshi Followup: vamshi - With: Private Physician - When: 2 - 3 days - Reason: Recheck today's complaints, Continuance of care, Re-evaluation by your physician Followup: vamshi - With: Gustavo Mullen MD - When: 2 - 3 days - Reason: Recheck today's complaints, Re-evaluation by your physician Discharge Instructions: - Discharge Summary Sheet vamshi - Dysuria vamshi - Indwelling Urinary Catheter Care, Adult vamshi - Acute Urinary Retention, Male vamshi - Urinary Tract Infection, Adult vamshi - Urinary Tract Infection, Adult, [id number]-[id number]-[id number] vamshi - Acute Urinary Retention, Male, [id number] vamshi - Indwelling Urinary Catheter Care, Adult, [id number] vamhsi Forms: - Medication Reconciliation Form vamshi - Antibiotic Education vamshi - Prescription Opioid Use vamshi - Patient Portal Instructions [facility] - Leadership Thank You Letter [facility] Prescriptions: - Flomax 0.4 mg Oral capsule - take 1 capsule ORAL route every day at bedtime; 30 capsule; Refills: 0, Product vamshi Selection Permitted - cefdinir 300 mg Oral capsule - take 1 capsule ORAL route 2 times per day for 10 days; 20 capsule; Refills: 0, vamshi Product Selection Permitted - Cipro 250 mg Oral tablet - take 1 tablet ORAL route every 12 hours; 20 tablet; Refills: 0, Product vamshi Selection Permitted - Pyridium 200 mg Oral Tablet - take 1 tablet ORAL route every 8 hours for 3 days; 9 tablet; Refills: 0, vamshi Product Selection Permitted Signatures: Dispatcher [employer] Alejandro Guevara MD MD cha Sims, Lauren RN RN ld1 Corrections: (The following items were deleted from the chart) 10:02 08:49 Allergies: No Known Allergies; ld1 ld1
--- NOTE | 2024-06-25 11:26 | ER ---
Nurse's Notes [facility] Name: Mati Broderick Age: 89 yrs Sex: Male : 1935 Arrival Date: 06/25/2024 Time: 08:44 Bed 2 Private MD: Diagnosis: Dysuria;Retention of urine, unspecified;UTI/ Urinary tract infection, site not specified Presentation: 06/25 08:52 Chief complaint: EMS states: toned out to patient home for trouble urinating. Pt ld1 reports being able to urinate, but c/o pain. Coronavirus screen: At this time, the client does not indicate any symptoms associated with coronavirus-19. Ebola Screen: No symptoms or risks identified at this time. Risk Assessment: Do you want to hurt yourself or someone else? Patient reports no desire to harm self or others. Onset of symptoms was June 25, 2024. 08:52 Method Of Arrival: EMS: [facility] ld1 08:52 Acuity: KATIE 3 ld1 12:09 Initial Sepsis Screen: Does the patient meet any 2 criteria? No. Patient's initial ld1 sepsis screen is negative. Does the patient have a suspected source of infection? No. Patient's initial sepsis screen is negative. Triage Assessment: 08:52 General: Appears in no apparent distress. comfortable, Behavior is calm, cooperative, ld1 appropriate for age. Pain: Complains of pain in pelvis Pain does not radiate. Pain currently is 8 out of 10 on a pain scale. Quality of pain is described as burning, Pain began 2-3 days ago. Is continuous. EENT: No signs and/or symptoms were reported regarding the EENT system. Neuro: Level of Consciousness is awake, alert, obeys commands, Oriented to person, place, time, situation. Cardiovascular: Capillary refill < 3 seconds Patient's skin is warm and dry. Respiratory: Airway is patent Respiratory effort is even, unlabored. GI: Abdomen is round non-distended. : Reports burning with urination. Derm: No signs and/or symptoms reported regarding the dermatologic system. Musculoskeletal: No signs and/or symptoms reported regarding the musculoskeletal system. Historical: - Allergies: 09:59 Iodinated Contrast Media - IV Dye; ld1 - Home Meds: 09:59 potassium chloride 20 mEq oral Tablet, ER Particles/Crystals 1 tab daily [Active]; ld1 aspirin 81 mg Oral chew PRN [Active]; atorvastatin 40 mg oral tablet 1 tab daily [Active]; losartan potassium (bulk) 50 mg daily [Active]; furosemide 40 mg Oral tablet 2 tabs daily [Active]; allopurinol 300 mg Oral tablet 1 tab daily [Active]; tamsulosin 0.4 mg Oral cp24 1 cap once daily [Active]; - PMHx: 08:49 CAD; High Cholesterol; Hernia; Myocardial infarction; Prostate Cancer; Hypertension; ld1 - Immunization history:: Adult Immunizations up to date. - Infectious Disease History:: Denies. - Social history:: Smoking status: Patient denies any tobacco usage or history of. Screenin:56 [facility] ED Fall Risk Assessment (Adult) History of falling in the last 3 months, ld1 including since admission No falls in past 3 months (0 pts) Confusion or Disorientation No (0 pts) Intoxicated or Sedated No (0 pts) Impaired Gait No (0 pts) Mobility Assist Device Used No (0 pt) Altered Elimination No (0 pt) Score/Fall Risk Level 0 - 2 = Low Risk Oriented to surroundings, Hourly rounding (assess needs \T\ fall precautionary measures) done. Abuse screen: Denies threats or abuse. Denies injuries from another. Nutritional screening: No deficits noted. Tuberculosis screening: No symptoms or risk factors identified. Assessment: 08:56 Reassessment: See triage assessment. ld1 Vital Signs: 09:56 BP 113 / 85; Pulse 94; Resp 18; Temp 98.4(TE); Pulse Ox 97% on R/A; Height 5 ft. 8 in. ld1 ; Pain 7/10; 12:03 BP 121 / 76; Pulse 91; Resp 18; Pulse Ox 100% on R/A; ld1 09:56 Pain Scale: Adult ld1 ED Course: 08:46 Patient arrived in ED. ld1 08:47 Alejandro Gil MD is Attending Physician. vamshi 08:52 Arm band placed on right wrist. ld1 08:55 Triage completed. ld1 08:56 Patient has correct armband on for positive identification. Placed in gown. Bed in low ld1 position. Call light in reach. Side rails up X2. Pulse ox on. NIBP on. Door closed. Noise minimized. Warm blanket given. 08:56 No provider procedures requiring assistance completed. ld1 08:57 Trena Kong, RN is Primary Nurse. ld1 09:09 Basic Metabolic Panel Sent. cc6 09:09 CBC with Diff Sent. cc6 09:09 LFT's Sent. cc6 09:09 Magnesium Sent. cc6 09:09 NT PRO-BNP Sent. cc6 09:09 PT-INR Sent. cc6 09:09 Troponin HS Sent. cc6 09:09 Inserted saline lock: 22 gauge in right antecubital area, using aseptic technique. cc6 Blood collected. Flushed with 10 mL NS. 09:11 Initial lab(s) drawn, by me, sent to lab. cc6 09:29 CT Stone Protocol In Process Unspecified. EDMS 09:38 XRAY Chest (1 view) In Process Unspecified. EDMS 10:28 Male PureWick applied to pt connected to suction. em1 11:26 Gustavo Mullen MD is Referral Physician. vamshi 12:09 IV discontinued, intact, bleeding controlled, No redness/swelling at site. ld1 Administered Medications: 09:55 Drug: NS 0.9% IV 500 ml IV at bolus once; to be given as a bolus over 30 minutes Route: ld1 IV; Rate: bolus; Site: right antecubital; 09:55 Drug: fentaNYL (PF) IVP 50 mcg IVP once Route: IVP; Site: right antecubital; ld1 09:55 Drug: Ondansetron IVP 4 mg IVP once; over 2 minutes Route: IVP; Site: right antecubital;ld1 09:55 Drug: Phenazopyridine PO 200 mg PO once Route: PO; ld1 09:56 Drug: Rocephin IV 2 grams IV at per protocol once; Given slow IV push per pharmarcy ld1 instructions Route: IV; Rate: per protocol; Site: right antecubital; :56 Drug: Flomax PO 0.4 mg PO once Route: PO; ld1 11:02 Drug: Ciprofloxacin PO 500 mg PO once Route: PO; ld1 11:02 Drug: Cefdinir PO 300 mg PO once Route: PO; ld1 Medication: 08:56 VIS not applicable for this client. ld1 Output: 12:03 Urine: 1400ml (Ramirez); Total: 1400ml. ld1 Outcome: :26 Discharge ordered by MD. bonds 12:09 Discharged to home via wheelchair, with family, ld1 12:09 Condition: stable 12:09 Discharge instructions given to patient, family, Instructed on discharge instructions, follow up and referral plans. medication usage, Demonstrated understanding of instructions, follow-up care, medications, Prescriptions given X 4, 12:10 Patient left the ED. ld1 Signatures: Dispatcher [employer] Alejandro Gil MD MD cha Martinez, Eric em1 Trena Kong RN RN ld1 Licha Sharma cc6 Corrections: (The following items were deleted from the chart) 10:02 08:49 Allergies: No Known Allergies; ld1 ld1
[2024-06-25 15:29] VITALS: BP 121/76; O2SAT 100
[2024-06-25 15:30] VITALS: TEMP 98.4
--- NOTE | 2024-06-27 12:03 | EKG ---
Test Date: 2024-06-25 Test Time: 09:44:21 Completion Supervisor: CHELLE MEASUREMENT RESULTS: Intervals: Rate: 100 WA: 156 QRSD: 134 QT: 376 QTc: 485 [place]: P: 75 WA: 156 QRS: -74 T: 63 INTERPRETIVE STATEMENTS: Normal sinus rhythm Right bundle branch block Left anterior fascicular block Bifascicular block Abnormal ECG Compared to ECG 11/12/2023 15:59:35 No significant changes Electronically Signed On 06-27-24 11:59:51 PAD HAND by Jesse Chamberlain
== END 2024-06-25 12:10 | disposition home or self-care (01) ==
LOC: ER 08:44
DX: N39.0 Urinary tract infection, site not specified (principal); R33.9 Retention of urine, unspecified; Z85.46 Personal history of malignant neoplasm of prostate; Z79.82 Long term (current) use of aspirin
CPT/HCPCS: 93005; 87088; 85025; 81001; 87086; 80048; 36415; 83735; 85610; 80076; 84484; 83690; 83880; 76377; 74176; 71045; 96375; 96374; 99284; J3010; J2405; J0696; J7040

== ENCOUNTER 2024-08-03 18:03 | Emergency (ER) | payer OTHER ==
--- OUTSIDE RECORDS SUMMARY | 2024-08-03 18:07 | XMS REPORT | Continuity of Care Document ---
Author Name Unknown Address [address] [facility] [place] [address] Organization [facility] [place] Address [address] 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[employer] Name Role Phone MIKE ISBELL Primary Care Physician Unav ailable Sis Isbell Attending Clinician Unavailmelanie e HEAVENLY KRUEGER Attending Clinician UnavailHeavenly Duenas Attending Clinician Amrita Landin DO Attending Clinician [phone] AMRITA LANDIN Attending Clinician Unavailable Payers Payer Name Policy Type Policy Number Effective Date Expirati on Date Source [facility] Dual Complete [facility] PPO [id number] 2021 00:00:00 [facility] MEDICAID 2 [id number] 2012 00:00:00 [facility] DUAL COMP CHOICE PPO DSNP [id number] 2022 00:00:00 MEDICAID [place] [id number] 2022 00:00:00 Problems Condition Name Condition Details Condition Category Status Onset Date Resolution Date Last Treatment Date Treating Clinician Comments Source [id number] 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 Problem [facility] [id number] Primary osteoarthr itis of right hip Problem [facility] [id number] Other obstructiv e and reflux uropathy Problem [facility] [id number] 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 and PSA greater than 20 Problem [facility] Prostate cancer Prostate cancer Problem [facility] [id number] Urge incontinen ce Problem [facility] Leucocytos is Leucocytos is Problem [facility] [id number] Acute urinary retention Problem [facility] [id number] S/P radiation therapy Problem Active [facility] [id number] Gross hematuria Problem Active [facility] [id number] S/P TURP (status post transureth ral resection of prostate) Problem Active [facility] [id number] Urinary retention Problem Active [facility] [id number] Right hip pain Problem Active [facility] No known active problems No known active problems Disease [facility] Allergies, Adverse Reactions, Alerts Allergy Name Allergy Type Status Severity Reaction(s) Onset Date Inactive Date Treating Clinician Comments Source none (Not Checked) Propensi ty to adverse reaction to drug Active 11-03 00:00: 00 Nguyễn Tompkins Iodinate d contrast media (substan ce) Iodinate d contrast media (substan ce) Active Unknown [facility] NO KNOWN ALLERGIE S Drug Class Active [facility] Social History Social Habit Start Date Stop Date Quantity Comments Source History of Tobacco Use [facility] Exposure to SARS-CoV-2 (event) 2022-02-11 00:00:00 2022-02-21 13:43:00 Not sure [facility] Sex Assigned At 1935 00:00:00 1935 00:00:00 [facility] Smoking Status Start Date Stop Date Source Tobacco smoking consumption unknown [facility] Never Smoker [facility] Medications Ordered Medication Name Filled Medication Name Start Date Stop Date Current Medication? Ordering Clinician Indication Dosage Frequency Signature (SIG) Comments Components Source Hillary Thornton 3-20 00:00: 00 No 22.5mg [facility] Bicalutamid e 50 MG Bicalutamid e 50 MG 2-26 00:00: 00 No 1{table t} QD Bicalutami de 50 MG furosemide 40 mg tablet 2-03 00:00: 00 Yes 12mg Nguyễn Tompkins atorvastati [...] mg Nguyễn Tompkins losartan 50 mg tablet 7- 00:00: 00 Yes 1mg Nguyễn Tompkins tamsulosin 0.4 mg capsule - 00:00: 00 Yes 1mg Nguyễn Tompkins allopurinol 300 mg tablet 7- 00:00: 00 Yes 1mg Nguyễn Tompkins furosemide [...] MG TABS 2-11 00:00: 00 Yes Nguyễn Tompikns AMLODIPINE BESYLATE 10 MG TABS 2-11 00:00: 00 Yes Nguyễn Tompkins PREDNISONE 20 MG TABS 2-11 00:00: 00 Yes Nguyễn Tompkins BETAMETHASO NE DIPROPIONAT E 0.05 % CREA 2- 00:00: 00 Yes Nguyễn Tompkins TAKE 1 TABLET DAILY. 2022-05 2- 00:00: 00 Yes 300 Nguyễn Tompkins TAKE 1 TABLET DAILY. 2022-05 2 00:00: 00 Yes 50 Nguyễn Tompkins TAKE 1 TABLET DAILY. 2022-05 2 00:00: 00 Yes 81 Nguyễn Tompkins TAKE 1 TABLET DAILY. 2022-05 00:00: 00 Yes 20 Nguyễn Tompkins TAKE 1 TABLET DAILY. 2022-05 2 00:00: 00 Yes 40 Nguyễn Tompkins TAKE 1 CAPSULE BY MOUTH ONCE DAILY 2022-05 2- 00:00: 00 Yes 4 Nguyễn Tompkins TAKE 1 TABLET DAILY. 2022-05 2- 00:00: 00 09-09 00:00 :00 No 40 Nguyễn Tompkins 1 TABLET DAILY FOR TOENAIL FUNGUS 2022-05 2- 00:00: 00 09-09 00:00 :00 No 250 Nguyễn Tompkins TAKE 1 TABLET DAILY. 2022-05 129 00:00: 00 09-09 00:00 :00 No 40 Nguyễn Tompkins TAKE 1 TABLET DAILY. 9-18 00:00: 00 09-09 00:00 :00 No 40 Nguyễn Tompkins NAPROXEN 500 MG TABS 8-24 00:00: 00 Yes Nguyễn Tompkins TAKE 1 TABLET DAILY. 6-14 00:00: 00 09-09 00:00 :00 No 50 [...] 1 dose, On Thu02/21/22 at 1445, Routine [facility] MUPIROCIN 2 % OINT 2021-05 00:00: 00 Yes Nguyễn Tompkins CEPHALEXIN 500 MG 2021-05 00:00: 00 Yes Nguyễn Tompkins SULFAMETHOX AZOLE/TRIME THOPRIM DS 800-160 MG TABS 2021-05 0 00:00: 00 Yes Nguyễn Tompkins mupirocin 2 % ointment 2021-05 00:00: 00 Yes [id number] Apply to area(s) 3 (three) times daily. [facility] cephALEXin 500 mg tablet 2021-05 0 00:00: 00 02-27 04:59 :00 No [id number] 500mg Take 1 tablet by mouth 4 (four) times daily for 5 days. [facility] sulfamethox azole-trime thoprim 800-160 mg per tablet 2021-05 0- 00:00: 00 02-27 04:59 :00 No [id number] 1{tbl} Take 1 tablet by mouth every 12 (twelve) hours for 5 days. [facility] cefTRIAXone (ROCEPHIN) injection 1,000 mg 2021-05 0-16 00:15: 00 Yes 1000mg 1,000 mg, Slow IV Push, Q24H ABX, First dose on 02/15/22 at 1915, Until Discontinu ed, AMNUEL
Re ason for Anti-Infec tive: Empiric Therapy for Suspected Infection< br>Empiric Therapy Site: Skin / Soft tissue
Duration of therapy: 72 hours [facility] HYDROCODONE BITARTRATE/ ACETAMINOPH E N 10-325 MG TABS 2021-05 0- 00:00: 00 Yes Nguyễn Tompkins SULFAMETHOX AZOLE/TRIME THOPRIM DS 800-160 MG TABS 2021-05 0-15 00:00: 00 Yes Nguyễn Sridhar Tompkins CEPHALEXIN 500 MG 2021-05 0-15 00:00: 00 Yes Nguyễn Tompkins cephALEXin (KEFLEX) 500 mg capsule 2021-05 0-15 00:00: 00 02-23 04:59 :00 No [id number] 500mg Take 1 capsule by mouth 3 (three) times daily for 7 days. [facility] sulfamethox azole-trime thoprim 800-160 mg per tablet 2021-05 0- 00:00: 00 02-23 04:59 :00 No [id number] 1{tbl} Take 1 tablet by mouth 2 (two) times daily for 7 days. [facility] HYDROcodone -acetaminop hen (NORCO) 10-325 mg tablet 2021-05 0-15 00:00: 00 02-23 04:59 :00 No 4647 .5{tbl} Take 0.5-1 tablets by mouth every 6 (six) hours as needed for Pain (scale 7-10) for up to 7 days. Indication s: acute pain [facility] POTASSIUM CHLORIDE ER 20 MEQ TBCR 2021-05 0-14 00:00: 00 Yes Nguyễn Tompkins FUROSEMIDE 40 MG TABS 2021-05 0-14 00:00: 00 09-09 00:00 :00 No Nguyễn Sridhar Tompkins LOSARTAN POTASSIUM 50 MG TABS 2021-05 0-14 00:00: 00 09-09 00:00 :00 No Nguyễn Sridhar Tompkins POTASSIUM CHLORIDE ER 20 MEQ TBCR 2021-05 0-04 00:00: 00 Yes Nguyễn Sridhar Tompkins METOPROLOL SUCCINATE ER 100 MG TB24 2021-05 0-04 00:00: 00 Yes Nguyễn Sridhar Tompkins TAMSULOSIN HYDROCHLORI DE 0.4 MG 2021-05 0-04 00:00: 00 09-09 00:00 :00 No Nguyễn Sridhar Tompkins ATORVASTATI N CALCIUM 40 MG TABS 2021-05 0-04 00:00: 00 09-09 00:00 :00 No Nguyễn Sridhar Tompkins POTASSIUM CHLORIDE ER 10 MEQ TBCR 6-24 00:00: 00 Yes Nguyễn Sridhar Tompkins NITROFURANT OIN MONOHYDRATE 100 MG 6-24 00:00: 00 Yes Nguyễn Sridhar Tompkins FUROSEMIDE 20 MG TABS 6-24 00:00: 00 Yes Nguyễn Sridhar Tompkins ALLOPURINOL 300 MG TABS 6-24 00:00: 00 09-09 00:00 :00 No Nguyễn Sridhar Tompkins METOPROLOL SUCCINATE ER 100 MG TB24 6-15 00:00: 00 Yes Nguyễn Sridhar Tompkins MELOXICAM 15 MG TABS -15 00:00: 00 Yes Nguyễn Sridhar Tompkins METHYLPREDN ISOLONE DOSE PACK 4 MG TBPK 6-15 00:00: 00 Yes Nguyễn Sridhar Tompkins SIMVASTATIN 40 MG TABS 6-15 00:00: 00 Yes Nguyễn Tompkins CYCLOBENZAP RINE HYDROCHLORI DE 10 MG TABS 615 00:00: 00 Yes Nguyễn Tompkins Tamsulosin HCl [...] Name Observation Time Observation Value Comments S ource height 2024-07-21 08:15:00 68 [in_i] Commo n [facility] weight 2024-07-21 08:15:00 197.0 [lb_av] Co mmon [facility] temperature 2024-07-21 08:15:00 97.2 [degF] Com mon [facility] bmi 2024-07-21 08:15:00 29.95 kg/m2 Comm on [facility] oximetry 2024-07-21 08:15:00 96 % Commo n [facility] respiratory rate 2024-07-21 08:15:00 18 /min Common [facility] blood pressure systolic 2024-07-21 08:15:00 135 mm[Hg] Common [facility] blood pressure diastolic 2024-07-21 08:15:00 64 mm[Hg] [facility] height 2024-06-29 16:30:00 68 [in_i] Commo n [facility] weight 2024-06-29 16:30:00 200.00 [lb_av] C ommon [facility] temperature 2024-06-29 16:30:00 97.5 [degF] Com mon [facility] bmi 2024-06-29 16:30:00 30.41 kg/m2 Comm on [facility] oximetry 2024-06-29 16:30:00 91 % Commo n [facility] respiratory rate 2024-06-29 16:30:00 18 /min [facility] blood pressure systolic 2024-06-29 16:30:00 123 mm[Hg] [facility] blood pressure diastolic 2024-06-29 16:30:00 66 mm[Hg] Common [facility] height 2024-04-21 16:45:00 68 [in_i] Commo n [facility] weight 2024-04-21 16:45:00 205.6 [lb_av] Co mmon [facility] temperature 2024-04-21 16:45:00 97.4 [degF] Com [facility] bmi 2024-04-21 16:45:00 31.26 kg/m2 Comm on [facility] oximetry 2024-04-21 16:45:00 93 % Commo n [facility] respiratory rate 2024-04-21 16:45:00 18 /min [facility] blood pressure systolic 2024-04-21 16:45:00 155 mm[Hg] [facility] blood pressure diastolic 2024-04-21 16:45:00 79 mm[Hg] Common [facility] height 2023-10-28 17:15:00 68 [in_i] Commo n [facility] weight 2023-10-28 17:15:00 204.6 [lb_av] Co mmon [facility] temperature 2023-10-28 17:15:00 98.4 [degF] Com [facility] bmi 2023-10-28 17:15:00 31.11 kg/m2 Comm on [facility] oximetry 2023-10-28 17:15:00 93 % Commo n [facility] respiratory rate 2023-10-28 17:15:00 18 /min [facility] blood pressure systolic 2023-10-28 17:15:00 143 mm[Hg] [facility] blood pressure diastolic 2023-10-28 17:15:00 81 mm[Hg] [facility] height 2023-05-27 10:15:00 68 [in_i] Commo n [facility] weight 2023-05-27 10:15:00 202 [lb_av] Comm on [facility] temperature 2023-05-27 10:15:00 98.6 [degF] Com mon [facility] bmi 2023-05-27 10:15:00 30.71 kg/m2 Comm on [facility] oximetry 2023-05-27 10:15:00 99 % Commo n [facility] respiratory rate 2023-05-27 10:15:00 18 /min [facility] blood pressure systolic 2023-05-27 10:15:00 126 mm[Hg] [facility] blood pressure diastolic 2023-05-27 10:15:00 68 mm[Hg] [facility] height 2022-12-09 09:00:00 68 [in_i] Commo n [facility] weight 2022-12-09 09:00:00 202.6 [lb_av] Co mmon [facility] bmi 2022-12-09 09:00:00 30.8 kg/m2 Commo n [facility] blood pressure systolic 2022-12-09 09:00:00 126 mm[Hg] [facility] blood pressure diastolic 2022-12-09 09:00:00 80 mm[Hg] Common [facility] height 2022-11-26 11:15:00 68 [in_i] Commo n [facility] weight 2022-11-26 11:15:00 200 [lb_av] Comm on [facility] temperature 2022-11-26 11:15:00 98.1 [degF] Com [facility] bmi 2022-11-26 11:15:00 30.41 kg/m2 Comm on [facility] oximetry 2022-11-26 11:15:00 99 % Commo n [facility] respiratory rate 2022-11-26 11:15:00 18 /min [facility] blood pressure systolic 2022-11-26 11:15:00 147 mm[Hg] Common [facility] blood pressure diastolic 2022-11-26 11:15:00 66 mm[Hg] Common [facility] height 2022-10-22 11:00:00 68 [in_i] Commo n [facility] weight 2022-10-22 11:00:00 200 [lb_av] Comm on [facility] temperature 2022-10-22 11:00:00 98.6 [degF] Com [facility] bmi 2022-10-22 11:00:00 30.41 kg/m2 Comm on [facility] oximetry 2022-10-22 11:00:00 99 % Commo n [facility] respiratory rate 2022-10-22 11:00:00 18 /min [facility] blood pressure systolic 2022-10-22 11:00:00 158 mm[Hg] Common [facility] blood pressure diastolic 2022-10-22 11:00:00 75 mm[Hg] [facility] Systolic blood pressure 2022-02-21 19:00:00 124 mm[Hg] [facility] Diastolic blood pressure 2022-02-21 19:00:00 65 mm[Hg] [facility] Heart rate 2022-02-21 19:00:00 80 /[facility] 2022-02-21 19:00:00 18 /min [facility] Oxygen saturation in Arterial blood by Pulse oximetry 2022-02-21 19:00:00 94 /min [facility] Body temperature 2022-02-21 18:44:00 35.78 Amanda [facility] Body height 2022-02-21 18:44:00 172.7 cm [facility] Body weight 2022-02-21 18:44:00 90.719 kg [facility] BMI 2022-02-21 18:44:00 30.41 kg/m2 [facility] Systolic blood pressure 2022-02-15 22:12:00 118 mm[Hg] [facility] Diastolic blood pressure 2022-02-15 22:12:00 69 mm[Hg] [facility] Heart rate 2022-02-15 22:12:00 99 /min [facility] Body temperature 2022-02-15 22:12:00 37.33 Amanda [facility] Respiratory rate 2022-02-15 22:12:00 20 /min [facility] Body height 2022-02-15 22:12:00 69 cm [facility] Body weight 2022-02-15 22:12:00 90.719 kg [facility] BMI 2022-02-15 22:12:00 190.55 kg/m2 [facility] Oxygen saturation in Arterial blood by Pulse oximetry 2022-02-15 22:12:00 97 /min [facility] blood pressure systolic 2021-10-07 11:45:00 146 mm[Hg] [facility] blood pressure diastolic 2021-10-07 11:45:00 68 mm[Hg] [facility] height 2021-10-07 11:45:00 68 [in_i] [facility] weight 2021-10-07 11:45:00 207.4 [lb_av] Co mmon [facility] temperature 2021-10-07 11:45:00 98.3 [degF] Com mon [facility] bmi 2021-10-07 11:45:00 31.53 kg/m2 Comm on [facility] oximetry 2021-10-07 11:45:00 97 % Commo n [facility] respiratory rate 2021-10-07 11:45:00 16 /min Common [facility] height 2021-04-11 10:30:00 68 [in_i] Commo n [facility] weight 2021-04-11 10:30:00 190 [lb_av] Comm on [facility] temperature 2021-04-11 10:30:00 98.2 [degF] Com [facility] bmi 2021-04-11 10:30:00 28.89 kg/m2 Comm on [facility] oximetry 2021-04-11 10:30:00 97 % Commo n [facility] respiratory rate 2021-04-11 10:30:00 18 /min Common [facility] blood pressure systolic 2021-04-11 10:30:00 174 mm[Hg] [facility] blood pressure diastolic 2021-04-11 10:30:00 77 mm[Hg] Common [facility] height 2020-11-21 13:30:00 68 [in_i] Commo n [facility] weight 2020-11-21 13:30:00 204 [lb_av] Comm on [facility] temperature 2020-11-21 13:30:00 97.3 [degF] Com [facility] bmi 2020-11-21 13:30:00 31.01 kg/m2 Comm on [facility] oximetry 2020-11-21 13:30:00 94 % Commo n [facility] blood pressure systolic 2020-11-21 13:30:00 168 mm[Hg] [facility] blood pressure diastolic 2020-11-21 13:30:00 75 mm[Hg] [facility] height 2020-11-08 10:00:00 68 [in_i] Commo n [facility] weight 2020-11-08 10:00:00 204 [lb_av] Comm on [facility] temperature 2020-11-08 10:00:00 97.7 [degF] Com mon [facility] bmi 2020-11-08 10:00:00 31.01 kg/m2 Comm on [facility] oximetry 2020-11-08 10:00:00 97 % Commo n [facility] blood pressure systolic 2020-11-08 10:00:00 190 mm[Hg] [facility] blood pressure diastolic 2020-11-08 10:00:00 86 mm[Hg] [facility] BP Systolic 2024-06-24 14:41:00 140 mm[Hg] Step [...] Heart Rate 2022-10-15 16:24:00 87.00 /min Zonia Tompkins Respiratory Rate 2022-10-15 16:24:00 18.00 /min Nguyễn Tompkins BP Systolic 2022-10-08 14:29:00 122 mm[Hg] Oneil Tompkins BP Diastolic 2022-10-08 14:29:00 70 mm[Hg] Peterson Tompkins Weight Measured 2022-10-08 14:29:00 200.00 pounds Nguyễn Tompkins Height Measured 2022-10-08 14:29:00 67.00 inches Nguyễn Tompkins Body Temperature 2022-10-08 14:29:00 98.00 degrees Nguyễn Tompkins Heart Rate 2022-10-08 14:29:00 72.00 /min Zonia en Sridhar Tompkins Respiratory Rate 2022-10-08 14:29:00 18.00 /min Nguyễn Tompkins Procedures Procedure Date / Time Performed Performing Clinicia n Source PVR 2023-10-28 00:00:[address] [facility] 2022-02-21 19:02:54 Moises Krueger [facility] CONSENT/REFUSAL FOR DIAGNOSIS AND TREATMENT 2022-02-21 18:34:14 Doctor Unassigned, [place] [facility] CONSENT/REFUSAL FOR DIAGNOSIS AND TREATMENT 2022-02-15 22:32:08 Doctor Unassigned, [place] [facility] COMP. METABOLIC PANEL ([id number]) 2022-02-15 22:30:00 Amrita Landin [facility] CBC WITH DIFF 2022-02-15 22:30:00 Amrita Landin [facility] LACTIC ACID WHOLE BLOOD 2022-02-15 22:30:00 Amrita Landin [facility] Encounters Start Date/Time End Date/Time Encounter Type Admission Type Attending Clinicians Care Facility Care Department Encounter ID Source 2023-08-21 10:34:00 [facility] [id number] [facility] 2023-05-20 12:42:00 Outpatient Sis Isbell [facility] [id number] [facility] 2022-12-09 09:14:00 Outpatient Sis Isbell [facility] [id number] [facility] 2022-12-05 10:47:00 Outpatient Sis Isbell [facility] [id number] [facility] 2022-11-24 07:38:00 Outpatient Sis Isbell [facility] [id number] [facility] 2022-11-19 11:29:00 Outpatient Sis Isbell [facility] [id number] [facility] 2022-10-20 10:51:00 Outpatient Sis Isbell [facility] [id number] [facility] 2021-10-22 12:14:01 Outpatient Sis Isbell [facility] [id number] [facility] 2021-05-29 14:19:05 Outpatient Sis Isbell [facility] [id number] [facility] 2021-05-29 13:50:42 Outpatient Sis Isbell [facility] [id number] [facility] 2021-05-29 13:30:36 Outpatient Sis Isbell [facility] [id number] [facility] 2021-05-29 13:12:39 Outpatient Sis Isbell [facility] [id number] [facility] 2021-05-29 12:21:00 Outpatient [facility] [id number] [facility] 2021-05-29 11:47:56 Outpatient [facility] [id number] [facility] 2024-07-21 00:00:2024-07-21 00:00:00 OFFICE VISIT ESTAB PT LEVEL 4 [facility] [id number] [facility] 2024-07-08 00:00:00 2024-07-08 00:00:00 ([place]) Nurse Visit [facility] [id number] [facility] 2024-06-29 00:00:00 2024-06-29 00:00:00 OFFICE VISIT ESTAB PT LEVEL 5 [facility] [id number] [facility] 2024-06-24 14:40:32 2024-06-24 14:40:32 Outpatient SFA SFA [id number] Nguyễn Tompkins 2024-06-24 00:00:00 2024-06-24 00:00:00 Outpatient Visit SFA [id number] Nguyễn Tompkins 2024-05-19 00:00:00 2024-05-19 00:00:00 (TEL) [facility] [id number] [facility] 2024-05-12 00:00:00 2024-05-12 00:00:00 (TEL) [facility] [id number] [facility] 2024-04-25 00:00:00 2024-04-25 00:00:00 (TEL) [facility] [id number] [facility] 2024-04-21 00:00:00 2024-04-21 00:00:00 OFFICE VISIT ESTAB PT LEVEL 4 [facility] [id number] [facility] 2024-04-19 07:55:50 2024-04-19 07:55:50 Outpatient SFA SFA [id number] Nguyễn Tompkins 2024-04-19 00:00:00 2024-04-19 00:00:00 Outpatient Visit SFA [id number] Nguyễn Tompkins 2023-11-03 15:20:51 2023-11-03 15:20:51 Outpatient SFA SFA [id number] Nguyễn Tompkins 2023-11-03 00:00:00 2023-11-03 00:00:00 Outpatient Visit SFA [id number] Nguyễn Tompkins 2023-10-28 00:00:00 2023-10-28 00:00:00 OFFICE VISIT ESTAB PT LEVEL 5 [facility] [id number] [facility] 2023-06-04 00:00:00 2023-06-04 00:00:00 (TEL) [facility] [id number] [facility] 2023-05-27 00:00:00 2023-05-27 00:00:00 OFFICE VISIT ESTAB PT LEVEL 5 [facility] [id number] [facility] 2023-05-19 00:00:00 2023-05-19 00:00:00 (TEL) [facility] [id number] [facility] 2023-04-07 08:21:22 2023-04-07 08:21:22 Outpatient SFA SFA [id number] Nguyễn Tompkins 2022-12-09 00:00:00 2022-12-09 00:00:00 OFFICE VISIT NEW PT LEVEL 4 [facility] [id number] [facility] 2022-11-26 00:00:00 2022-11-26 00:00:00 OFFICE VISIT ESTAB PT LEVEL 3 [facility] [id number] [facility] 2022-10-22 00:00:00 2022-10-22 00:00:00 OFFICE VISIT ESTAB PT LEVEL 4 [facility] [id number] [facility] 2022-10-15 14:51:56 2022-10-15 14:51:56 Outpatient SFA SFA [id number] Nguyễn Tompkins 2022-10-08 13:59:34 2022-10-08 13:59:34 Outpatient SFA SFA [id number] Nguyễn Tompkins 2022-02-21 13:41:00 2022-02-21 14:55:00 Emergency X HEAVENLY KRUEGER [facility] ERT [id number] [facility] 2022-02-21 13:41:00 2022-02-21 14:55:00 Emergency Heavenly Krueger [facility] [id number] [facility] 2022-02-15 17:16:00 2022-02-15 18:22:00 Emergency Singer Amrita [facility] [id number] [facility] 2022-02-15 17:16:00 2022-02-15 18:22:00 Emergency X AMRITA LANDIN [facility] ERT [id number] [facility] 2021-10-22 00:00:00 2021-10-22 00:00:00 (TEL) [facility] [id number] [facility] 2021-10-11 00:00:00 2021-10-11 00:00:00 (TEL) [facility] [id number] [facility] 2021-10-07 00:00:00 2021-10-07 00:00:00 OFFICE VISIT EST PT LEVEL 3 [facility] [id number] [facility] 2021-04-25 00:00:00 2021-04-25 00:00:00 OL DIG E/M SVC 5-10 MIN [facility] [id number] [facility] 2021-04-11 00:00:00 2021-04-11 00:00:00 OFFICE VISIT ESTAB PT LEVEL 2 [facility] [id number] [facility] 2020-11-21 00:00:00 2020-11-21 00:00:00 OFFICE VISIT ESTAB PT LEVEL 2 [facility] [id number] [facility] 2020-11-08 00:00:00 2020-11-08 00:00:00 OFFICE VISIT ESTAB PT LEVEL 2 [facility]C STL[facility]C [id number] [facility] 2020-10-11 00:00:00 2020-10-11 00:00:00 Outpatient [facility]LMLC ST[facility]C [id number] [facility] 2020-07-09 00:00:00 2020-07-09 00:00:00 Outpatient [facility]C STL[facility]C [id number] [facility] 2020-03-26 00:00:00 2020-03-26 00:00:00 Outpatient [facility]LMLC STLMLC [id number] [facility] 2020-01-24 00:00:00 2020-01-24 00:00:00 Outpatient [facility]LMLC STLMLC [id number] [facility] Results Test Description Test Time Test Comments Results Result Co mments Source CBC W/AUTO [id number] 00:00:00* Test Item Value Reference Range Interpretation [...] ABS NUCLEATED RBCS (test cod e = 49861) 0.00 K/UL Nguyễn TompkinsPSA, [id number] 00:00:00* Test Item Value Reference Range Interpretation Comme nts PSA, TOTAL (test code = 2606) 30.80 NG/ML Nguyễn TompkinsCOMPREHENSIVE METABOLIC [id number] 00:00:00* Test Item Value Reference Range Interpretation Comme nts GLUCOSE (test code = 2217) 100 MG/DL BUN (test code = 2208) 16 MG/DL CREATININE (test code = 2214) 0.94 MG/DL eGFR (2020 CKD-EPI) (test co de = 31475) 79 ML/MIN/1.73 CALC BUN/CREAT (test code = [...] code = 2219) 16 U/L Nguyễn TompkinsLIPID [id number] 00:00:00* Test Item Value Reference Range Interpretation Comme nts CHOLESTEROL (test code = 2210) 161 MG/DL TRIGLYCERIDES (test code = 2232) 84 MG/DL HDL CHOLESTEROL (test code = 2220) 59 MG/DL CALC LDL CHOL (test code = 2237) 85 MG/DL RISK RATIO LDL/HDL (test cod e = 2238) 1.44 RATIO Nguyễn Waller AustinURINALYSIS W/REFLEX [id number] 00:00:00* Test Item Value Reference Range Interpretation [...] 0-2 /HPF EPITHELIAL CELLS (test code = 34674) 0-5 /HPF BACTERIA (test code = 1515) NONE SEEN CASTS, HYALINE (test code = 1517) TRACE Nguyễn Waller AustinCBC W/AUTO [id number] 00:00:00* Test Item Value Reference Range Interpretation [...] ABS NUCLEATED RBCS (test cod e = 39664) 0.00 K/UL Nguyễn TompkinsPSA, [id number] 00:00:00* Test Item Value Reference Range Interpretation Comme nts PSA, TOTAL (test code = 2606) 30.80 NG/ML Nguyễn TompkinsCOMPREHENSIVE METABOLIC [id number] 00:00:00* Test Item Value Reference Range Interpretation Comme nts GLUCOSE (test code = 2217) 100 MG/DL BUN (test code = 2208) 16 MG/DL CREATININE (test code = 2214) 0.94 MG/DL eGFR (2020 CKD-EPI) (test co de = 96363) 79 ML/MIN/1.73 CALC BUN/CREAT (test code = [...] code = 2219) 16 U/L Nguyễn TompkinsLIPID [id number] 00:00:00* Test Item Value Reference Range Interpretation Comme nts CHOLESTEROL (test code = 2210) 161 MG/DL TRIGLYCERIDES (test code = 2232) 84 MG/DL HDL CHOLESTEROL (test code = 2220) 59 MG/DL CALC LDL CHOL (test code = 2237) 85 MG/DL RISK RATIO LDL/HDL (test cod e = 2238) 1.44 RATIO Nguyễn Waller AustinURINALYSIS W/REFLEX [id number] 00:00:00* Test Item Value Reference Range Interpretation [...] 0-2 /HPF EPITHELIAL CELLS (test code = 95548) 0-5 /HPF BACTERIA (test code = 1515) NONE SEEN CASTS, HYALINE (test code = 1517) TRACE Nguyễn Waller AustinCBC W/AUTO [id number] 00:00:00* Test Item Value Reference Range Interpretation [...] ABS NUCLEATED RBCS (test cod e = 48148) 0.00 K/UL Nguyễn TompkinsPSA, [id number] 00:00:00* Test Item Value Reference Range Interpretation Comme nts PSA, TOTAL (test code = 2606) 30.80 NG/ML Nguyễn TompkinsCOMPREHENSIVE METABOLIC [id number] 00:00:00* Test Item Value Reference Range Interpretation Comme nts GLUCOSE (test code = 2217) 100 MG/DL BUN (test code = 2208) 16 MG/DL CREATININE (test code = 2214) 0.94 MG/DL eGFR (2020 CKD-EPI) (test co de = 54916) 79 ML/MIN/1.73 CALC BUN/CREAT (test code = [...] code = 2219) 16 U/L Nguyễn TompkinsLIPID [id number] 00:00:00* Test Item Value Reference Range Interpretation Comme nts CHOLESTEROL (test code = 2210) 161 MG/DL TRIGLYCERIDES (test code = 2232) 84 MG/DL HDL CHOLESTEROL (test code = 2220) 59 MG/DL CALC LDL CHOL (test code = 2237) 85 MG/DL RISK RATIO LDL/HDL (test cod e = 2238) 1.44 RATIO Nguyễn TompkinsURINALYSIS W/REFLEX [id number] 00:00:00* Test Item Value Reference Range Interpretation [...] 0-2 /HPF EPITHELIAL CELLS (test code = 54851) 0-5 /HPF BACTERIA (test code = 1515) NONE SEEN CASTS, HYALINE (test code = 1517) TRACE Nguyễn TompkinsURINALYSIS W/REFLEX [id number] 00:00:00* Test Item Value Reference Range Interpretation [...] 0-2 /HPF EPITHELIAL CELLS (test code = 90404) 0-5 /HPF BACTERIA (test code = 1515) NONE SEEN CRYSTALS (test code = 1516) PRESENT CASTS, HYALINE (test code = 1517) NONE SEEN Nguyễn TompkinsPSA, [id number] 00:00:00* Test Item Value Reference Range Interpretation Comme nts PSA, TOTAL (test code = 2606) 26.40 NG/ML Nguyễn TeranH, THIRD [id number] 00:00:00* Test Item Value Reference Range Interpretation Comme nts TSH, THIRD GENERATION (test code = 2821) 1.440 UIU/ML Nguyễn TompkinsCOMPREHENSIVE METABOLIC [id number] 00:00:00* Test Item Value Reference Range Interpretation Comme nts GLUCOSE (test code = 2217) 93 MG/DL BUN (test code = 2208) 15 MG/DL CREATININE (test code = 2214) 0.95 MG/DL eGFR (2020 CKD-EPI) (test co de = 92814) 78 ML/MIN/1.73 CALC BUN/CREAT (test code = [...] code = 2219) 11 U/L Nguyễn TompkinsLIPID [id number] 00:00:00* Test Item Value Reference Range Interpretation Comme nts CHOLESTEROL (test code = 2210) 166 MG/DL TRIGLYCERIDES (test code = 2232) 96 MG/DL HDL CHOLESTEROL (test code = 2220) 47 MG/DL CALC LDL CHOL (test code = 2237) 100 MG/DL RISK RATIO LDL/HDL (test cod e = 2238) 2.13 RATIO Nguyễn TompkinsCBC W/AUTO [id number] 00:00:00* Test Item Value Reference Range Interpretation [...] ABS NUCLEATED RBCS (test cod e = 28173) 0.00 K/UL Nguyễn Waller AustinURINALYSIS W/REFLEX [id number] 00:00:00* Test Item Value Reference Range Interpretation [...] 0-2 /HPF EPITHELIAL CELLS (test code = 75101) 0-5 /HPF BACTERIA (test code = 1515) NONE SEEN CRYSTALS (test code = 1516) PRESENT CASTS, HYALINE (test code = 1517) NONE SEEN Nguyễn GonzalezA, [id number] 00:00:00* Test Item Value Reference Range Interpretation Comme nts PSA, TOTAL (test code = 2606) 26.40 NG/ML Nguyễn TompkinsTSH, THIRD [id number] 00:00:00* Test Item Value Reference Range Interpretation Comme nts TSH, THIRD GENERATION (test code = 2821) 1.440 UIU/ML Nguyễn TompkinsCOMPREHENSIVE METABOLIC [id number] 00:00:00* Test Item Value Reference Range Interpretation Comme nts GLUCOSE (test code = 2217) 93 MG/DL BUN (test code = 2208) 15 MG/DL CREATININE (test code = 2214) 0.95 MG/DL eGFR (2020 CKD-EPI) (test co de = 65768) 78 ML/MIN/1.73 CALC BUN/CREAT (test code = [...] code = 2219) 11 U/L Nguyễn TompkinsLIPID [id number] 00:00:00* Test Item Value Reference Range Interpretation Comme nts CHOLESTEROL (test code = 2210) 166 MG/DL TRIGLYCERIDES (test code = 2232) 96 MG/DL HDL CHOLESTEROL (test code = 2220) 47 MG/DL CALC LDL CHOL (test code = 2237) 100 MG/DL RISK RATIO LDL/HDL (test cod e = 2238) 2.13 RATIO Nguyễn TompkinsCBC W/AUTO [id number] 00:00:00* Test Item Value Reference Range Interpretation [...] ABS NUCLEATED RBCS (test cod e = 59110) 0.00 K/UL Nguyễn TompkinsURINALYSIS W/REFLEX [id number] 00:00:00* Test Item Value Reference Range Interpretation [...] 0-2 /HPF EPITHELIAL CELLS (test code = 31677) 0-5 /HPF BACTERIA (test code = 1515) NONE SEEN CRYSTALS (test code = 1516) PRESENT CASTS, HYALINE (test code = 1517) NONE SEEN Nguyễn TompkinsPSA, [id number] 00:00:00* Test Item Value Reference Range Interpretation Comme nts PSA, TOTAL (test code = 2606) 26.40 NG/ML Nguyễn TompkinsTSH, THIRD [id number] 00:00:00* Test Item Value Reference Range Interpretation Comme nts TSH, THIRD GENERATION (test code = 2821) 1.440 UIU/ML Nguyễn TompkinsCOMPREHENSIVE METABOLIC [id number] 00:00:00* Test Item Value Reference Range Interpretation Comme nts GLUCOSE (test code = 2217) 93 MG/DL BUN (test code = 2208) 15 MG/DL CREATININE (test code = 2214) 0.95 MG/DL eGFR (2020 CKD-EPI) (test co de = 96869) 78 ML/MIN/1.73 CALC BUN/CREAT (test code = [...] code = 2219) 11 U/L Nguyễn TompkinsLIPID [id number] 00:00:00* Test Item Value Reference Range Interpretation Comme nts CHOLESTEROL (test code = 2210) 166 MG/DL TRIGLYCERIDES (test code = 2232) 96 MG/DL HDL CHOLESTEROL (test code = 2220) 47 MG/DL CALC LDL CHOL (test code = 2237) 100 MG/DL RISK RATIO LDL/HDL (test cod e = 2238) 2.13 RATIO Nguyễn TompkinsCBC W/AUTO [id number] 00:00:00* Test Item Value Reference Range Interpretation [...] ABS NUCLEATED RBCS (test cod e = 62945) 0.00 K/UL Nguyễn TompkinsLactic Acid Whole [id number] 22:37:31* Test Item Value Reference Range Interpretation Comme nts LACTIC ACID (test code = 7457690703) 1.01 mmol/L 0.5-2.2 Lab Interpretation (test cod e = 02241-7) Normal [facility] Notes Date/Time [facility]:00:00 [facility]
--- NOTE | 2024-08-03 19:06 | ER ---
Nurse's Notes [facility] Name: Mati Broderick Age: 89 yrs Sex: Male : 1935 Arrival Date: 08/03/2024 Time: 18:03 Bed 13 Private MD: Diagnosis: Leakage of urinary (indwelling) catheter Presentation: 08/03 18:27 Chief complaint: Patient states: No urine output in Ramirez catheter bag since this ll1 morning. Came from Dr. Mullen office, they changed out the bag only. Coronavirus screen: Client denies travel out of the [place] in the last 14 days. At this time, the client does not indicate any symptoms associated with coronavirus-19. Ebola Screen: Patient denies travel to an Ebola-affected area in the 21 days before illness onset. 18:27 Method Of Arrival: Wheelchair ll1 18:32 Initial Sepsis Screen: Does the patient meet any 2 criteria? No. Patient's initial ll1 sepsis screen is negative. Does the patient have a suspected source of infection? No. Patient's initial sepsis screen is negative. Risk Assessment: Do you want to hurt yourself or someone else? Patient reports no desire to harm self or others. Onset of symptoms was August 03, 2024. 18:32 Acuity: KATIE 3 ll1 Triage Assessment: 18:33 General: Appears uncomfortable, Behavior is calm, cooperative, appropriate for age. ll1 Pain: Complains of pain in pelvis Quality of pain is described as pressure. : Reports pain with urination, pelvic area Ramirez catheter not draining. Historical: - Allergies: 18:27 Iodinated Contrast Media - IV Dye; ll1 - PMHx: 18:27 CAD; Hernia; High Cholesterol; Hypertension; Myocardial infarction; Prostate Cancer; ll1 - Immunization history:: Adult Immunizations up to date. - Infectious Disease History:: Denies. - Social history:: Smoking status: Patient denies any tobacco usage or history of. Screenin:30 [facility] ED Fall Risk Assessment (Adult) History of falling in the last 3 months, bp including since admission No falls in past 3 months (0 pts) Confusion or Disorientation No (0 pts) Intoxicated or Sedated No (0 pts) Impaired Gait No (0 pts) Mobility Assist Device Used No (0 pt) Altered Elimination No (0 pt) Score/Fall Risk Level 0 - 2 = Low Risk Oriented to surroundings. Abuse screen: Denies threats or abuse. Denies injuries from another. Nutritional screening: No deficits noted. Tuberculosis screening: No symptoms or risk factors identified. Assessment: 18:30 General: Appears in no apparent distress. comfortable, Behavior is calm, cooperative, bp appropriate for age. Pain: Denies pain. Neuro: No deficits noted. Cardiovascular: No deficits noted. Respiratory: No deficits noted. GI: No signs and/or symptoms were reported involving the gastrointestinal system. : Ramirez in place to gravity drainage. EENT: No deficits noted. Derm: No deficits noted. Musculoskeletal: No deficits noted. 19:12 General: Appears comfortable, Behavior is calm, cooperative. Pain: Complains of pain in jr13 pelvis Pain currently is 2 out of 10 on a pain scale. Quality of pain is described as pressure. Neuro: Level of Consciousness is awake, alert, obeys commands, Oriented to person, place, time, situation. Cardiovascular: Patient's skin is warm and dry. Respiratory: Airway is patent Respiratory effort is even, unlabored, Respiratory pattern is regular, symmetrical. : Ramirez in place to gravity drainage. Vital Signs: 18:32 BP 145 / 77; Pulse 77; Resp 17; Temp 97.6; Pulse Ox 96% on R/A; Weight 93.44 kg; Height ll1 5 ft. 8 in. ; Pain 7/10; 19:14 BP 120 / 70; Pulse 75; Resp 17; Pulse Ox 100% on R/A; jr13 18:32 Body Mass Index 31.32 (93.44 kg, 172.72 cm) ll1 18:32 Pain Scale: Adult ll1 ED Course: 18:05 Patient arrived in ED. im 18:10 Fern Tomlin FNP-C is PHCP. kb 18:10 Rajesh Zimmerman MD is Attending Physician. kb 18:20 Carmine Salazar, MERON is Primary Nurse. bp 18:27 Arm band placed on Patient placed in an exam room, on a stretcher. ll1 18:30 Patient has correct armband on for positive identification. bp 18:33 Triage completed. ll1 18:50 Coud inserted, using sterile technique, 18 Fr. To gravity drainage. bp 19:35 No provider procedures requiring assistance completed. Patient did not have IV access jr13 during this emergency room visit. 19:36 Provided Education on: Ramirez catheter care. jr13 Administered Medications: No medications were administered Medication: 18:30 VIS not applicable for this client. bp Outcome: 19:05 Discharge ordered by . alexis 19:35 Discharged to home via wheelchair, with family, jr13 19:35 Condition: stable 19:35 Discharge instructions given to patient, family, Instructed on discharge instructions, follow up and referral plans. Demonstrated understanding of instructions, follow-up care, 19:37 Patient left the ED. jr13 Signatures: Fern Tomlin, [employer]-C ASAD-Carmnie Romero, RN RN bp Angelica Theodore RN RN ll1 Ila Maurice Jamike, RN RN jr13
--- NOTE | 2024-08-03 19:06 | EDPHYS ---
Physician Documentation [facility] Name: Mati Broderick Age: 89 yrs Sex: Male : 1935 Arrival Date: 08/03/2024 Time: 18:03 Bed 13 Private MD: ED Physician Rajesh Zimmerman HPI: 08/03 19:32 This 89 yrs old Male presents to ER via Wheelchair with complaints of Problem kb With Urinary Catheter. 19:32 Patient is an 89-year-old male who presents for leaking catheter. Son states that kb catheter was leaking this morning, they went to Dr. Mullen office and they replaced the bag but not the Rolle catheter itself. States they went home and a couple hours later the Rolle was leaking again. Son states is from the tube not the bag. Patient has had a Rolle in for about 2 months, this 1 was placed 1-2 weeks ago. Historical: - Allergies: 18:27 Iodinated Contrast Media - IV Dye; ll1 - PMHx: 18:27 CAD; Hernia; High Cholesterol; Hypertension; Myocardial infarction; Prostate Cancer; ll1 - Immunization history:: Adult Immunizations up to date. - Infectious Disease History:: Denies. - Social history:: Smoking status: Patient denies any tobacco usage or history of. ROS: 19:32 Constitutional: As per HPI kb Exam: 19:32 Constitutional: This is a well developed, well nourished patient who is awake, alert, kb and in no acute distress. Head/Face: Normocephalic, atraumatic. ENT: Moist Mucous membranes Cardiovascular: Regular rate Respiratory: Respirations even and unlabored. No increased work of breathing. Talking in full sentences Abdomen/GI: Soft, non-tender. No distention Skin: Warm, dry with normal turgor. Normal color. MS/ Extremity: Pulses equal, no cyanosis. Neurovascular intact. Full, normal range of motion. Neuro: Awake and alert, GCS 15, oriented to person, place, time, and situation. Vital Signs: 18:32 BP 145 / 77; Pulse 77; Resp 17; Temp 97.6; Pulse Ox 96% on R/A; Weight 93.44 kg; Height ll1 5 ft. 8 in. ; Pain 7/10; 19:14 BP 120 / 70; Pulse 75; Resp 17; Pulse Ox 100% on R/A; jr13 18:32 Body Mass Index 31.32 (93.44 kg, 172.72 cm) ll1 18:32 Pain Scale: Adult ll1 MDM: 18:10 Medical Screening Exam initiated kb 19:34 Differential diagnosis: Rolle catheter malfunction. Data reviewed: vital signs, nurses kb notes. Test considered but Not performed: Labs: CBC, CMP and urinalysis considered but patient has no complaints.. Historians other than the Patient: Daughter/Son: Son. Counseling: I had a detailed discussion with the patient and/or guardian regarding the historical points, exam findings, and any diagnostic results supporting the discharge/admit diagnosis, the need for outpatient follow up, a urologist, to return to the emergency department if symptoms worsen or persist or if there are any questions or concerns that arise at home. 08/03 18:31 Order name: Rolle: discontinue current rolle and place new one; Complete Time: 18:49 kb Administered Medications: No medications were administered Disposition: 20:15 Co-signature as Attending Physician, Rajesh Zimmerman MD I reviewed the patient's care rn provided by the Advanced Practice Provider and agree with the diagnosis and treatment plan. Disposition Summary: 08/03/24 19:05 Discharge Ordered Notes: Location: Home kb Condition: Stable kb Diagnosis - Leakage of urinary (indwelling) catheter kb Followup: kb - With: Emergency Department - When: As needed - Reason: Worsening of condition Followup: kb - With: Private Physician - When: 2 - 3 days - Reason: Recheck today's complaints, Continuance of care, Re-evaluation by your physician Discharge Instructions: - Discharge Summary Sheet kb - Indwelling Urinary Catheter Care, Adult, [id number] kb Forms: - Medication Reconciliation Form kb - Antibiotic Education kb - Prescription Opioid Use kb - Patient Portal Instructions kb - Leadership Thank You Letter kb Signatures: Fern Tomlin FNP-C FNP-Rajesh Newman MD MD rn Peltier, Brian, RN RN bp Lewis, Lynsay, RN RN ll1
[2024-08-03 19:41] VITALS: TEMP 97.6
[2024-08-03 19:43] VITALS: BP 120/70; O2SAT 100
== END 2024-08-03 19:37 | disposition home or self-care (01) ==
LOC: ER 18:03
DX: T83.038A Leakage of other urinary catheter, initial encounter (principal); Z85.46 Personal history of malignant neoplasm of prostate

== ENCOUNTER 2024-08-04 00:05 | Emergency (ER) | payer OTHER ==
--- OUTSIDE RECORDS SUMMARY | 2024-08-04 00:10 | XMS REPORT | Continuity of Care Document ---
Author Name Unknown Address [address] [facility] [place] [address] [facility] Address [address] [place] [address] Care Team Providers Care Elder Counselor Name Role Phone MIKE ISBELL Primary Care Physician Unav ailable Sis Isbell Attending Clinician Unavailmelanie e HEAVENLY KRUEGER Attending Clinician UnavailHeavenly Duenas Attending Clinician Amrita Li DO Attending Clinician [phone] AMRITA LI Attending Clinician Unavailable Payers Payer Name Policy Type Policy Number Effective Date Expirati on Date Source [facility] Dual Complete MCR PPO [id number] 2021 00:00:00 [facility] MEDICAID 2 [id number] 2012 00:00:00 [facility] DUAL COMP CHOICE PPO [id number] 2022 00:00:00 [place] [id number] 2022 00:00:00 Problems Condition Name Condition Details Condition Category Status Onset Date Resolution Date Last Treatment Date Treating Clinician Comments Source [id number] 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 Problem [facility] [id number] Primary osteoarthr itis of right hip Problem [facility] [id number] Other obstructiv e and reflux uropathy Problem [facility] [id number] 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 and PSA greater than 20 Problem [facility] Prostate cancer Prostate cancer Problem [facility] [id number] Urge incontinen ce Problem [facility] Leucocytos is Leucocytos is Problem [facility] [id number] Acute urinary retention Problem [facility] [id number] S/P radiation therapy Problem Active [facility] [id number] Gross hematuria Problem Active [facility] [id number] S/P TURP (status post transureth ral resection of prostate) Problem Active [facility] [id number] Urinary retention Problem Active [facility] [id number] Right hip pain Problem Active [facility] No known active problems No known active problems Disease General acute hospital Allergies, Adverse Reactions, Alerts Allergy Name Allergy Type Status Severity Reaction(s) Onset Date Inactive Date Treating Clinician Comments Source none (Not Checked) Propensi ty to adverse reaction to drug Active 11-03 00:00: 00 Nguyễn Tompkins Iodinate d contrast media (substan ce) Iodinate d contrast media (substan ce) Active Unknown [facility] NO KNOWN ALLERGIE S Drug Class Active [facility] acute hospital Social History Social Habit Start Date Stop Date Quantity Comments Source History of Tobacco Use [facility] Exposure to SARS-CoV-2 (event) 2022-02-11 00:00:2022-02-21 13:43:00 Not sure [facility] Sex Assigned At 1935 00:00:00 1935 00:00:00 [facility] Smoking Status Start Date Stop Date Source Tobacco smoking consumption unknown [facility] Never Smoker [facility] Medications Ordered Medication Name Filled Medication Name Start Date Stop Date Current Medication? Ordering Clinician Indication Dosage Frequency Signature (SIG) Comments Components Source Hillary Thornton 3-20 00:00: 00 No 22.5mg [facility] Bicalutamid e 50 MG Bicalutamid e 50 [...] mg Nguyễn Tompkins losartan 50 mg tablet -17 00:00: 00 Yes 1mg Nguyễn Tompkins allopurinol 300 mg tablet 6-03 00:00: 00 Yes mg Nguyễn Tompkins tamsulosin 0.4 mg capsule 5-08 00:00: 00 Yes mg Nguyễn Tompkins METOPROLOL TARTRATE 25 MG TABS 2-11 00:00: 00 Yes Nguyễn Tompkins AMLODIPINE BESYLATE 10 MG TABS 2- 00:00: 00 Yes Nguyễn Tompkins PREDNISONE 20 MG TABS 2- 00:00: 00 Yes Nguyễn Tompkins BETAMETHASO NE DIPROPIONAT E 0.05 % CREA 06-14 00:00: 00 Yes Nguyễn Tompkins TAKE 1 [...] 1 TABLET DAILY FOR TOENAIL FUNGUS 2022-05 2 00:00: 00 09-09 00:00 :00 No 250 [...] dose, On Thu02/21/22 at 1445, [facility] MUPIROCIN 2 % OINT 2021-05 00:00: 00 Yes Nguyễn Tompkins CEPHALEXIN 500 MG 2021-05 00:00: 00 Yes Nguyễn Tompkins SULFAMETHOX AZOLE/TRIME THOPRIM DS 800-160 MG TABS 2021-05 0- 00:00: 00 Yes Nguyễn Tompkins mupirocin 2 % ointment 2021-05 00:00: 00 Yes [id number] Apply to area(s) 3 (three) times daily. [facility] acute hospital cephALEXin 500 mg tablet 2021-05 0 00:00: 00 02-27 04:59 :00 No [id number] 500mg Take 1 tablet by mouth 4 (four) times daily for 5 days. [facility] acute hospital sulfamethox azole-trime thoprim 800-160 mg per tablet 2021-05 0 00:00: 00 02-27 04:59 :00 No [id number] 1{tbl} Take 1 tablet by mouth every 12 (twelve) hours for 5 days. [facility] acute hospital cefTRIAXone (ROCEPHIN) injection 1,000 mg 2021-05 0-16 00:15: 00 Yes 1000mg 1,000 mg, Slow IV Push, Q24H ABX, First dose on 02/15/22 at 1915, Until Discontinu ed, MANUEL
Re ason for Anti-Infec tive: Empiric Therapy for Suspected Infection< br>Empiric Therapy Site: Skin / Soft tissue
Duration of therapy: 72 hours [facility] acute hospital HYDROCODONE BITARTRATE/ ACETAMINOPH E N 10-325 MG TABS 2021-05 0-15 00:00: 00 Yes Nguyễn Tompkins SULFAMETHOX AZOLE/TRIME THOPRIM DS 800-160 MG TABS 2021-05 0-15 00:00: 00 Yes Nguyễn Tompkins CEPHALEXIN 500 MG 2021-05 0-15 00:00: 00 Yes Nguyễn Tompkins cephALEXin (KEFLEX) 500 mg capsule 2021-05 0-15 00:00: 00 02-23 04:59 :00 No [id number] 500mg Take 1 capsule by mouth 3 (three) times daily for 7 days. [facility] acute hospital sulfamethox azole-trime thoprim 800-160 mg per tablet 2021-05 0-15 00:00: 00 02-23 04:59 :00 No [id number] 1{tbl} Take 1 tablet by mouth 2 (two) times daily for 7 days. [facility] acute hospital HYDROcodone -acetaminop hen (NORCO) 10-325 mg tablet 2021-05 0-15 00:00: 00 02-23 04:59 :00 No 4647 .5{tbl} Take 0.5-1 tablets by mouth every 6 (six) hours as needed for Pain (scale 7-10) for up to 7 days. Indication s: acute pain [facility] POTASSIUM CHLORIDE ER 20 MEQ TBCR [...] Sridhar Tompkins NITROFURANT OIN MONOHYDRATE 100 MG -24 00:00: 00 Yes Nguyễn Sridhar Tompkins FUROSEMIDE 20 MG TABS 6-24 00:00: 00 Yes Nguyễn Sridhar Tompkins ALLOPURINOL 300 MG TABS 6-24 00:00: 00 09-09 00:00 :00 No Nguyễn Sridhar Tompkins METOPROLOL SUCCINATE ER 100 MG TB24 6-15 00:00: 00 Yes Nguyễn Tompkins MELOXICAM 15 MG TABS 6-15 00:00: 00 Yes Nguyễn Sridhar Tompkins METHYLPREDN ISOLONE DOSE PACK 4 MG TBPK 6-15 00:00: 00 Yes Nguyễn Sridhar Tompkins SIMVASTATIN 40 MG TABS 6-15 00:00: 00 Yes Nguyễn Tompkins CYCLOBENZAP RINE HYDROCHLORI DE 10 MG TABS 6-15 00:00: 00 Yes Nguyễn Tompkins Tamsulosin [...] height 2024-07-21 08:15:00 68 [in_i] Commo n [facility] weight 2024-07-21 08:15:00 197.0 [lb_av] Co mmon [facility] temperature 2024-07-21 08:15:00 97.2 [degF] Com mon [facility] bmi 2024-07-21 08:15:00 29.95 kg/m2 Comm on [facility] oximetry 2024-07-21 08:15:00 96 % Commo n [facility] respiratory rate 2024-07-21 08:15:00 18 /min [facility] blood pressure systolic 2024-07-21 08:15:00 135 mm[Hg] [facility] blood pressure diastolic 2024-07-21 08:15:00 64 mm[Hg] [facility] height 2024-06-29 16:30:00 68 [in_i] Commo n [facility] weight 2024-06-29 16:30:00 200.00 [lb_av] C ommon [facility] temperature 2024-06-29 16:30:00 97.5 [degF] Com mon [facility] bmi 2024-06-29 16:30:00 30.41 kg/m2 Comm on [facility] oximetry 2024-06-29 16:30:00 91 % Commo n [facility] respiratory rate 2024-06-29 16:30:00 18 /min [facility] blood pressure systolic 2024-06-29 16:30:00 123 mm[Hg] [facility] blood pressure diastolic 2024-06-29 16:30:00 66 mm[Hg] [facility] height 2024-04-21 16:45:00 68 [in_i] Commo n [facility] weight 2024-04-21 16:45:00 205.6 [lb_av] Co mmon [facility] temperature 2024-04-21 16:45:00 97.4 [degF] Com [facility] bmi 2024-04-21 16:45:00 31.26 kg/m2 Comm on [facility] oximetry 2024-04-21 16:45:00 93 % Commo n [facility] respiratory rate 2024-04-21 16:45:00 18 /min [facility] blood pressure systolic 2024-04-21 16:45:00 155 mm[Hg] [facility] blood pressure diastolic 2024-04-21 16:45:00 79 mm[Hg] [facility] height 2023-10-28 17:15:00 68 [in_i] Commo n [facility] weight 2023-10-28 17:15:00 204.6 [lb_av] Co mmon [facility] temperature 2023-10-28 17:15:00 98.4 [degF] Com mon [facility] bmi 2023-10-28 17:15:00 31.11 kg/m2 Comm on [facility] oximetry 2023-10-28 17:15:00 93 % Commo n [facility] respiratory rate 2023-10-28 17:15:00 18 /min [facility] blood pressure systolic 2023-10-28 17:15:00 143 mm[Hg] [facility] blood pressure diastolic 2023-10-28 17:15:00 81 mm[Hg] [facility] height 2023-05-27 10:15:00 68 [in_i] Commo n [facility] weight 2023-05-27 10:15:00 202 [lb_av] Comm on [facility] temperature 2023-05-27 10:15:00 98.6 [degF] Com mon [facility] bmi 2023-05-27 10:15:00 30.71 kg/m2 Comm on [facility] oximetry 2023-05-27 10:15:00 99 % Commo n [facility] respiratory rate 2023-05-27 10:15:00 18 /min [facility] blood pressure systolic 2023-05-27 10:15:00 126 mm[Hg] [facility] blood pressure diastolic 2023-05-27 10:15:00 68 mm[Hg] [facility] height 2022-12-09 09:00:00 68 [in_i] Commo n [facility] weight 2022-12-09 09:00:00 202.6 [lb_av] Co mmon [facility] bmi 2022-12-09 09:00:00 30.8 kg/m2 Commo n [facility] blood pressure systolic 2022-12-09 09:00:00 126 mm[Hg] [facility] blood pressure diastolic 2022-12-09 09:00:00 80 mm[Hg] [facility] height 2022-11-26 11:15:00 68 [in_i] Commo n [facility] weight 2022-11-26 11:15:00 200 [lb_av] Comm on [facility] temperature 2022-11-26 11:15:00 98.1 [degF] Com mon [facility] bmi 2022-11-26 11:15:00 30.41 kg/m2 Comm on [facility] oximetry 2022-11-26 11:15:00 99 % Commo n [facility] respiratory rate 2022-11-26 11:15:00 18 /min [facility] blood pressure systolic 2022-11-26 11:15:00 147 mm[Hg] [facility] blood pressure diastolic 2022-11-26 11:15:00 66 mm[Hg] [facility] height 2022-10-22 11:00:00 68 [in_i] Commo n [facility] weight 2022-10-22 11:00:00 200 [lb_av] Comm on [facility] temperature 2022-10-22 11:00:00 98.6 [degF] Com [facility] bmi 2022-10-22 11:00:00 30.41 kg/m2 Comm on [facility] oximetry 2022-10-22 11:00:00 99 % Commo n [facility] respiratory rate 2022-10-22 11:00:00 18 /min [facility] blood pressure systolic 2022-10-22 11:00:00 158 mm[Hg] [facility] blood pressure diastolic 2022-10-22 11:00:00 75 mm[Hg] [facility] Systolic blood pressure 2022-02-21 19:00:00 124 mm[Hg] [facility] Diastolic blood pressure 2022-02-21 19:00:00 65 mm[Hg] [facility] Heart rate 2022-02-21 19:00:00 80 /min [facility] Respiratory rate 2022-02-21 19:00:00 18 /min [facility] Oxygen saturation in Arterial blood by Pulse oximetry 2022-02-21 19:00:00 94 /min [facility] Body temperature 2022-02-21 18:44:00 35.78 Amanda [facility] Body height 2022-02-21 18:44:00 172.7 cm [facility] Body weight 2022-02-21 18:44:00 90.719 kg [facility] BMI 2022-02-21 18:44:00 30.41 kg/m2 [facility] Systolic blood pressure 2022-02-15 22:12:00 118 mm[Hg] [facility] Diastolic blood pressure 2022-02-15 22:12:00 69 mm[Hg] [facility] Heart rate 2022-02-15 22:12:00 99 /min [facility] Body temperature 2022-02-15 22:12:00 37.33 Amanda [facility] Respiratory rate 2022-02-15 22:12:00 20 /min [facility] Body height 2022-02-15 22:12:00 69 cm [facility] Body weight 2022-02-15 22:12:00 90.719 kg [facility] BMI 2022-02-15 22:12:00 190.55 kg/m2 [facility] Oxygen saturation in Arterial blood by Pulse oximetry 2022-02-15 22:12:00 97 /min [facility] blood pressure systolic 2021-10-07 11:45:00 146 mm[Hg] [facility] blood pressure diastolic 2021-10-07 11:45:00 68 mm[Hg] [facility] height 2021-10-07 11:45:00 68 [in_i] [facility] weight 2021-10-07 11:45:00 207.4 [lb_av] Co mmon [facility] temperature 2021-10-07 11:45:00 98.3 [degF] Com [facility] bmi 2021-10-07 11:45:00 31.53 kg/m2 Comm on [facility] oximetry 2021-10-07 11:45:00 97 % Commo n [facility] respiratory rate 2021-10-07 11:45:00 16 /min [facility] height 2021-04-11 10:30:00 68 [in_i] Commo n [facility] weight 2021-04-11 10:30:00 190 [lb_av] Comm on [facility] temperature 2021-04-11 10:30:00 98.2 [degF] Com [facility] bmi 2021-04-11 10:30:00 28.89 kg/m2 Comm on [facility] oximetry 2021-04-11 10:30:00 97 % Commo n [facility] respiratory rate 2021-04-11 10:30:00 18 /min [facility] blood pressure systolic 2021-04-11 10:30:00 174 mm[Hg] [facility] blood pressure diastolic 2021-04-11 10:30:00 77 mm[Hg] [facility] height 2020-11-21 13:30:00 68 [in_i] Commo n [facility] weight 2020-11-21 13:30:00 204 [lb_av] Comm on [facility] temperature 2020-11-21 13:30:00 97.3 [degF] Com [facility] bmi 2020-11-21 13:30:00 31.01 kg/m2 Comm on [facility] oximetry 2020-11-21 13:30:00 94 % Commo n [facility] blood pressure systolic 2020-11-21 13:30:00 168 mm[Hg] [facility] blood pressure diastolic 2020-11-21 13:30:00 75 mm[Hg] [facility] height 2020-11-08 10:00:00 68 [in_i] Commo n [facility] weight 2020-11-08 10:00:00 204 [lb_av] Comm on [facility] temperature 2020-11-08 10:00:00 97.7 [degF] Com mon [facility] bmi 2020-11-08 10:00:00 31.01 kg/m2 Comm on [facility] oximetry 2020-11-08 10:00:00 97 % Commo n [facility] blood pressure systolic 2020-11-08 10:00:00 190 mm[Hg] [facility] blood pressure diastolic 2020-11-08 10:00:00 86 mm[Hg] [facility] BP Systolic 2024-06-24 14:41:00 140 mm[Hg] Step [...] Performing Clinicia n Source PVR 2023-10-28 00:00:00 [facility] PVR 2022-10-22 00:00:00 [facility] INCISION AND DRAINAGE 2022-02-21 19:02:54 Moises Krueger [facility] CONSENT/REFUSAL FOR DIAGNOSIS AND TREATMENT 2022-02-21 18:34:14 Doctor Unassigned, [place] [facility] CONSENT/REFUSAL FOR DIAGNOSIS AND TREATMENT 2022-02-15 22:32:08 Doctor Unassigned, [place] [facility] COMP. METABOLIC PANEL ([id number]) 2022-02-15 22:30:00 Amrita Li [facility] CBC WITH DIFF 2022-02-15 22:30:00 Amrita Li [facility] LACTIC ACID WHOLE BLOOD 2022-02-15 22:30:00 Amrita Li [facility] Encounters Start Date/Time End Date/Time Encounter Type Admission Type Attending Clinicians Care Facility Care Department Encounter ID Source 2023-08-21 10:34:00 Outpatient Sis Isbell [facility] [id number] [facility] 2023-05-20 12:42:00 Outpatient Sis Isbell [facility] [id number] [facility] 2022-12-09 09:14:00 Outpatient Sis Isbell [facility] [id number] [facility] 2022-12-05 10:47:00 Outpatient Sis Isbell [facility] [id number] [facility] 2022-11-24 07:38:00 Outpatient Sis Isbell [facility] [id number] [facility] 2022-11-19 11:29:00 Outpatient Sis Isbell [facility] [id number] [facility] 2022-10-20 10:51:00 Outpatient Sis Isbell [facility] [id number] [facility] 2021-10-22 12:14:01 Outpatient Sis Isbell [facility] [id number] [facility] 2021-05-29 14:19:05 Outpatient Sis Isbell [facility] [id number] [facility] 2021-05-29 13:50:42 Outpatient Sis Isbell [facility] [id number] [facility] 2021-05-29 13:30:36 Outpatient Sis Isbell [facility] [id number] [facility] 2021-05-29 13:12:39 Outpatient Sis Isbell [facility] [id number] [facility] 2021-05-29 12:21:00 Outpatient [facility] [id number] [facility] 2021-05-29 11:47:56 Outpatient [facility] [id number] [facility] 2024-07-21 00:00:00 2024-07-21 00:00:00 OFFICE VISIT ESTAB PT LEVEL 4 [facility] [id number] [facility] 2024-07-08 00:00:00 2024-07-08 00:00:00 ([place]) Nurse Visit [facility] [id number] [facility] 2024-06-29 00:00:00 2024-06-29 00:00:00 OFFICE VISIT ESTAB PT LEVEL 5 [facility] [id number] [facility] 2024-06-24 14:40:32 2024-06-24 14:40:32 Outpatient SFA SFA [id number] Nguyễn Tompkins 2024-06-24 00:00:00 2024-06-24 00:00:00 Outpatient Visit SFA [id number] Nguyễn Tompkins 2024-05-19 00:00:00 2024-05-19 00:00:00 (TEL) [facility]C ST[facility] [id number] [facility] 2024-05-12 00:00:00 2024-05-12 00:00:00 (TEL) [facility]LMLC [facility] [id number] [facility] 2024-04-25 00:00:00 2024-04-25 00:00:00 (TEL) [facility]LMLC [facility] [id number] [facility] 2024-04-21 00:00:00 2024-04-21 00:00:00 OFFICE VISIT ESTAB PT LEVEL 4 [facility] [id number] [facility] 2024-04-19 07:55:50 2024-04-19 07:55:50 Outpatient SFA SFA [id number] Nguyễn Tompkins 2024-04-19 00:00:00 2024-04-19 00:00:00 Outpatient Visit SFA [id number] Nguyễn Tompkins 2023-11-03 15:20:51 2023-11-03 15:20:51 Outpatient SFA SFA [id number] Nguyễn Tompkins 2023-11-03 00:00:00 2023-11-03 00:00:00 Outpatient Visit SFA [id number] Nguyễn Tompkins 2023-10-28 00:00:00 2023-10-28 00:00:00 OFFICE VISIT ESTAB PT LEVEL 5 [facility] [id number] [facility] 2023-06-04 00:00:00 2023-06-04 00:00:00 (TEL) STLMLC [facility] [id number] [facility] 2023-05-27 00:00:00 2023-05-27 00:00:00 OFFICE VISIT ESTAB PT LEVEL 5 [facility] [id number] [facility] 2023-05-19 00:00:00 2023-05-19 00:00:00 (TEL) [facility]C [facility] [id number] [facility] 2023-04-07 08:21:22 2023-04-07 08:21:22 Outpatient SFA SFA [id number] Nguyễn Tompkins 2022-12-09 00:00:00 2022-12-09 00:00:00 OFFICE VISIT NEW PT LEVEL 4 [facility] [id number] [facility] 2022-11-26 00:00:00 2022-11-26 00:00:00 OFFICE VISIT ESTAB PT LEVEL 3 [facility] [id number] [facility] 2022-10-22 00:00:00 2022-10-22 00:00:00 OFFICE VISIT ESTAB PT LEVEL 4 [facility] [id number] [facility] 2022-10-15 14:51:56 2022-10-15 14:51:56 Outpatient SFA SFA [id number] Nguyễn Tompkins 2022-10-08 13:59:34 2022-10-08 13:59:34 Outpatient SFA SFA [id number] Nguyễn Tompkins 2022-02-21 13:41:00 2022-02-21 14:55:00 Emergency X HEAVENLY KRUEGER [facility] ERT [id number] General acute hospital 2022-02-21 13:41:00 2022-02-21 14:55:00 Emergency Heavenly Krueger [facility] [id number] General acute hospital 2022-02-15 17:16:00 2022-02-15 18:22:00 Emergency Amrita Li [facility] [id number] General acute hospital 2022-02-15 17:16:00 2022-02-15 18:22:00 Emergency X AMRITA LI [facility] ERT [id number] General acute hospital 2021-10-22 00:00:00 2021-10-22 00:00:00 (TEL) STLMLC [facility] [id number] [facility] 2021-10-11 00:00:00 2021-10-11 00:00:00 (TEL) STLMLC [facility] [id number] [facility] 2021-10-07 00:00:00 2021-10-07 00:00:00 OFFICE VISIT EST PT LEVEL 3 [facility] [id number] [facility] 2021-04-25 00:00:00 2021-04-25 00:00:00 OL DIG E/M SVC 5-10 MIN [facility]C ST[facility]C [id number] [facility] 2021-04-11 00:00:00 2021-04-11 00:00:00 OFFICE VISIT ESTAB PT LEVEL 2 [facility] [id number] [facility] 2020-11-21 00:00:00 2020-11-21 00:00:00 OFFICE VISIT ESTAB PT LEVEL 2 [facility] [id number] [facility] 2020-11-08 00:00:00 2020-11-08 00:00:00 OFFICE VISIT ESTAB PT LEVEL 2 [facility] [id number] [facility] 2020-10-11 00:00:00 2020-10-11 00:00:00 Outpatient [facility] [id number] [facility] 2020-07-09 00:00:00 2020-07-09 00:00:00 Outpatient [facility] [id number] [facility] 2020-03-26 00:00:00 2020-03-26 00:00:00 Outpatient [facility] [id number] [facility] 2020-01-24 00:00:00 2020-01-24 00:00:00 Outpatient [facility] [id number] [facility] Results Test Description Test Time Test Comments Results Result Co mments Source PSA, [id number] 00:00:00* Test Item Value Reference Range Interpretation Comme nts PSA, TOTAL (test code = 2606) 30.80 NG/ML Nguyễn F TurnerCOMPREHENSIVE METABOLIC [id number] 00:00:00* Test Item Value Reference Range Interpretation Comme nts GLUCOSE (test code = 2217) 100 MG/DL BUN (test code = 2208) 16 MG/DL CREATININE (test code = 2214) 0.94 MG/DL eGFR (2020 CKD-EPI) (test co de = 42426) 79 ML/MIN/1.73 CALC BUN/CREAT (test code = [...] code = 2219) 16 U/L Nguyễn TompkinsLIPID [id number] 00:00:00* Test Item Value Reference Range Interpretation Comme nts CHOLESTEROL (test code = 2210) 161 MG/DL TRIGLYCERIDES (test code = 2232) 84 MG/DL HDL CHOLESTEROL (test code = 2220) 59 MG/DL CALC LDL CHOL (test code = 2237) 85 MG/DL RISK RATIO LDL/HDL (test cod e = 2238) 1.44 RATIO Nguyễn Waller AustinURINALYSIS W/REFLEX [id number] 00:00:00* Test Item Value Reference Range Interpretation [...] 0-2 /HPF EPITHELIAL CELLS (test code = 51444) 0-5 /HPF BACTERIA (test code = 1515) NONE SEEN CASTS, HYALINE (test code = 1517) TRACE Nguyễn Waller AustinCBC W/AUTO [id number] 00:00:00* Test Item Value Reference Range Interpretation [...] ABS NUCLEATED RBCS (test cod e = 80623) 0.00 K/UL Nguyễn TompkinsPSA, [id number] 00:00:00* Test Item Value Reference Range Interpretation Comme nts PSA, TOTAL (test code = 2606) 30.80 NG/ML Nguyễn TompkinsCOMPREHENSIVE METABOLIC [id number] 00:00:00* Test Item Value Reference Range Interpretation Comme nts GLUCOSE (test code = 2217) 100 MG/DL BUN (test code = 2208) 16 MG/DL CREATININE (test code = 2214) 0.94 MG/DL eGFR (2020 CKD-EPI) (test co de = 47310) 79 ML/MIN/1.73 CALC BUN/CREAT (test code = [...] code = 2219) 16 U/L Nguyễn TompkinsLIPID [id number] 00:00:00* Test Item Value Reference Range Interpretation Comme nts CHOLESTEROL (test code = 2210) 161 MG/DL TRIGLYCERIDES (test code = 2232) 84 MG/DL HDL CHOLESTEROL (test code = 2220) 59 MG/DL CALC LDL CHOL (test code = 2237) 85 MG/DL RISK RATIO LDL/HDL (test cod e = 2238) 1.44 RATIO Nguyễn Waller AustinURINALYSIS W/REFLEX [id number] 00:00:00* Test Item Value Reference Range Interpretation [...] 0-2 /HPF EPITHELIAL CELLS (test code = 48868) 0-5 /HPF BACTERIA (test code = 1515) NONE SEEN CASTS, HYALINE (test code = 1517) TRACE Nguyễn Waller AustinCBC W/AUTO [id number] 00:00:00* Test Item Value Reference Range Interpretation [...] ABS NUCLEATED RBCS (test cod e = 87308) 0.00 K/UL Nguyễn TompkinsPSA, [id number] 00:00:00* Test Item Value Reference Range Interpretation Comme nts PSA, TOTAL (test code = 2606) 30.80 NG/ML Nguyễn TompkinsCOMPREHENSIVE METABOLIC [id number] 00:00:00* Test Item Value Reference Range Interpretation Comme nts GLUCOSE (test code = 2217) 100 MG/DL BUN (test code = 2208) 16 MG/DL CREATININE (test code = 2214) 0.94 MG/DL eGFR (2020 CKD-EPI) (test co de = 34414) 79 ML/MIN/1.73 CALC BUN/CREAT (test code = [...] code = 2219) 16 U/L Nguyễn TompkinsLIPID [id number] 00:00:00* Test Item Value Reference Range Interpretation Comme nts CHOLESTEROL (test code = 2210) 161 MG/DL TRIGLYCERIDES (test code = 2232) 84 MG/DL HDL CHOLESTEROL (test code = 2220) 59 MG/DL CALC LDL CHOL (test code = 2237) 85 MG/DL RISK RATIO LDL/HDL (test cod e = 2238) 1.44 RATIO Nguyễn Waller AustinURINALYSIS W/REFLEX [id number] 00:00:00* Test Item Value Reference Range Interpretation [...] 0-2 /HPF EPITHELIAL CELLS (test code = 06051) 0-5 /HPF BACTERIA (test code = 1515) NONE SEEN CASTS, HYALINE (test code = 1517) TRACE Nguyễn Waller AustinCBC W/AUTO [id number] 00:00:00* Test Item Value Reference Range Interpretation [...] ABS NUCLEATED RBCS (test cod e = 22259) 0.00 K/UL Nguyễn TompkinsURINALYSIS W/REFLEX [id number] 00:00:00* Test Item Value Reference Range Interpretation [...] 0-2 /HPF EPITHELIAL CELLS (test code = 79511) 0-5 /HPF BACTERIA (test code = 1515) NONE SEEN CRYSTALS (test code = 1516) PRESENT CASTS, HYALINE (test code = 1517) NONE SEEN Nguyễn Queen, [id number] 00:00:00* Test Item Value Reference Range Interpretation Comme nts PSA, TOTAL (test code = 2606) 26.40 NG/ML Nguyễn Venegas, THIRD [id number] 00:00:00* Test Item Value Reference Range Interpretation Comme nts TSH, THIRD GENERATION (test code = 2821) 1.440 UIU/ML Nguyễn TompkinsCOMPREHENSIVE METABOLIC [id number] 00:00:00* Test Item Value Reference Range Interpretation Comme nts GLUCOSE (test code = 2217) 93 MG/DL BUN (test code = 2208) 15 MG/DL CREATININE (test code = 2214) 0.95 MG/DL eGFR (2020 CKD-EPI) (test co de = 83082) 78 ML/MIN/1.73 CALC BUN/CREAT (test code = [...] code = 2219) 11 U/L Nguyễn TompkinsLIPID [id number] 00:00:00* Test Item Value Reference Range Interpretation Comme nts CHOLESTEROL (test code = 2210) 166 MG/DL TRIGLYCERIDES (test code = 2232) 96 MG/DL HDL CHOLESTEROL (test code = 2220) 47 MG/DL CALC LDL CHOL (test code = 2237) 100 MG/DL RISK RATIO LDL/HDL (test cod e = 2238) 2.13 RATIO Nguyễn TompkinsCBC W/AUTO [id number] 00:00:00* Test Item Value Reference Range Interpretation [...] ABS NUCLEATED RBCS (test cod e = 17772) 0.00 K/UL Nguyễn Waller AustinURINALYSIS W/REFLEX [id number] 00:00:00* Test Item Value Reference Range Interpretation [...] 0-2 /HPF EPITHELIAL CELLS (test code = 04110) 0-5 /HPF BACTERIA (test code = 1515) NONE SEEN CRYSTALS (test code = 1516) PRESENT CASTS, HYALINE (test code = 1517) NONE SEEN Nguyễn GonzalezA, [id number] 00:00:00* Test Item Value Reference Range Interpretation Comme nts PSA, TOTAL (test code = 2606) 26.40 NG/ML Nguyễn TompkinsTSH, THIRD [id number] 00:00:00* Test Item Value Reference Range Interpretation Comme nts TSH, THIRD GENERATION (test code = 2821) 1.440 UIU/ML Nguyễn TompkinsCOMPREHENSIVE METABOLIC [id number] 00:00:00* Test Item Value Reference Range Interpretation Comme nts GLUCOSE (test code = 2217) 93 MG/DL BUN (test code = 2208) 15 MG/DL CREATININE (test code = 2214) 0.95 MG/DL eGFR (2020 CKD-EPI) (test co de = 43497) 78 ML/MIN/1.73 CALC BUN/CREAT (test code = [...] code = 2219) 11 U/L Nguyễn TompkinsLIPID [id number] 00:00:00* Test Item Value Reference Range Interpretation Comme nts CHOLESTEROL (test code = 2210) 166 MG/DL TRIGLYCERIDES (test code = 2232) 96 MG/DL HDL CHOLESTEROL (test code = 2220) 47 MG/DL CALC LDL CHOL (test code = 2237) 100 MG/DL RISK RATIO LDL/HDL (test cod e = 2238) 2.13 RATIO Nguyễn TompkinsCBC W/AUTO [id number] 00:00:00* Test Item Value Reference Range Interpretation [...] ABS NUCLEATED RBCS (test cod e = 96590) 0.00 K/UL Nguyễn TompkinsURINALYSIS W/REFLEX [id number] 00:00:00* Test Item Value Reference Range Interpretation [...] 0-2 /HPF EPITHELIAL CELLS (test code = 49238) 0-5 /HPF BACTERIA (test code = 1515) NONE SEEN CRYSTALS (test code = 1516) PRESENT CASTS, HYALINE (test code = 1517) NONE SEEN Nguyễn TompkinsPSA, [id number] 00:00:00* Test Item Value Reference Range Interpretation Comme nts PSA, TOTAL (test code = 2606) 26.40 NG/ML Nguyễn TompkinsTSH, THIRD [id number] 00:00:00* Test Item Value Reference Range Interpretation Comme nts TSH, THIRD GENERATION (test code = 2821) 1.440 UIU/ML Nguyễn TompkinsCOMPREHENSIVE METABOLIC [id number] 00:00:00* Test Item Value Reference Range Interpretation Comme nts GLUCOSE (test code = 2217) 93 MG/DL BUN (test code = 2208) 15 MG/DL CREATININE (test code = 2214) 0.95 MG/DL eGFR (2020 CKD-EPI) (test co de = 87046) 78 ML/MIN/1.73 CALC BUN/CREAT (test code = [...] code = 2219) 11 U/L Nguyễn TompkinsLIPID [id number] 00:00:00* Test Item Value Reference Range Interpretation Comme nts CHOLESTEROL (test code = 2210) 166 MG/DL TRIGLYCERIDES (test code = 2232) 96 MG/DL HDL CHOLESTEROL (test code = 2220) 47 MG/DL CALC LDL CHOL (test code = 2237) 100 MG/DL RISK RATIO LDL/HDL (test cod e = 2238) 2.13 RATIO Nguyễn TompkinsCBC W/AUTO [id number] 00:00:00* Test Item Value Reference Range Interpretation [...] ABS NUCLEATED RBCS (test cod e = 08549) 0.00 K/UL Nguyễn TompkinsLactic Acid Whole [id number] 22:37:31* Test Item Value Reference Range Interpretation Comme nts LACTIC ACID (test code = 4477969728) 1.01 mmol/L 0.5-2.2 Lab Interpretation (test cod e = 97727-9) Normal [facility] Notes Date/Time Note Provider Source Nguyễn Dotson [facility]2024-12-17 00:00:00 Nguyễn Dotson [facility]2024-07-02 00:00[facility]00 [facility]
[2024-08-04] MEDS ORDERED: LIDOCAINE VISCOUS 2% 10ML ORAL SOLN ONE (00:45)
--- NOTE | 2024-08-04 01:08 | ER ---
Nurse's Notes [facility] Name: Mati Broderick Age: 89 yrs Sex: Male : 1935 Arrival Date: 08/04/2024 Time: 00:05 Bed 5 Private MD: Diagnosis: Other mechanical complication of urinary (indwelling) catheter Presentation: 08/04 00:28 Chief complaint: Patient's son or daughter states: came earlier and had rolle changed vc1 and since he has been home urine is only coming out around catheter. Coronavirus screen: Client denies travel out of the [place] in the last 14 days. At this time, the client does not indicate any symptoms associated with coronavirus-19. Ebola Screen: Patient negative for fever greater than or equal to 101.5 degrees Fahrenheit, and additional compatible Ebola Virus Disease symptoms Patient denies exposure to infectious person. Patient denies travel to an Ebola-affected area in the 21 days before illness onset. No symptoms or risks identified at this time. Initial Sepsis Screen: Does the patient meet any 2 criteria? No. Patient's initial sepsis screen is negative. Does the patient have a suspected source of infection? No. Patient's initial sepsis screen is negative. Risk Assessment: Do you want to hurt yourself or someone else? Patient reports no desire to harm self or others. Onset of symptoms was August 04, 2024. 00:28 Method Of Arrival: Wheelchair vc1 00:28 Acuity: KATIE 4 vc1 Triage Assessment: 00:44 General: Appears in no apparent distress. uncomfortable, Behavior is calm, cooperative, vc1 appropriate for age. Pain: Complains of pain in suprapubic area and meatus. EENT: No deficits noted. No signs and/or symptoms were reported regarding the EENT system. Neuro: Level of Consciousness is awake, alert, obeys commands, Oriented to person, place, time, situation, Appropriate for age. Cardiovascular: Capillary refill < 3 seconds. Cardiovascular: Edema is 2+ to right ankle and right foot. Respiratory: Airway is patent Respiratory effort is even, unlabored, Respiratory pattern is regular, symmetrical, Breath sounds are clear. GI: No deficits noted. No signs and/or symptoms were reported involving the gastrointestinal system. : No deficits noted. No signs and/or symptoms were reported regarding the genitourinary system. Derm: Skin is intact, is healthy with good turgor. Historical: - Allergies: 00:30 Iodinated Contrast Media - IV Dye; vc1 - PMHx: 00:30 CAD; Prostate Cancer; Hernia; Myocardial infarction; Hypertension; High Cholesterol; vc1 - PSHx: 00:30 None; vc1 - Immunization history:: Client reports having NOT received the Covid vaccine. Flu vaccine is not up to date. - Infectious Disease History:: Denies. - Social history:: Smoking status: Patient denies any tobacco usage or history of. - Family history:: not pertinent. Screenin:43 [facility] ED Fall Risk Assessment (Adult) History of falling in the last 3 months, vc1 including since admission No falls in past 3 months (0 pts) Confusion or Disorientation No (0 pts) Intoxicated or Sedated No (0 pts) Impaired Gait Yes (1 pt) Mobility Assist Device Used Yes (1 pt) Altered Elimination Yes (1 pt) Score/Fall Risk Level 3 or more points = High Risk Oriented to surroundings, Maintained a safe environment, Educated pt \T\ family on fall prevention, incl call for assistance when getting out of bed. Abuse screen: Denies threats or abuse. Nutritional screening: No deficits noted. Tuberculosis screening: No symptoms or risk factors identified. Assessment: 01:04 Reassessment: Patient appears in no apparent distress at this time. Patient and/or jb4 family updated on plan of care and expected duration. Pain level reassessed. Patient is alert, oriented x 3, equal unlabored respirations, skin warm/dry/pink. Rolle replaced with 20Fr coude, put to gravity, approximately 600 ml out. Vital Signs: 00:28 Weight 93.44 kg; Height 5 ft. 8 in. ; Pain 8/10; vc1 00:42 BP 159 / 84; Pulse 81; Resp 18; Temp 97.1; Pulse Ox 99% ; vc1 00:28 Body Mass Index 31.32 (93.44 kg, 172.72 cm) vc1 00:28 Pain Scale: Adult vc1 ED Course: 00:07 Patient arrived in ED. gm2 00:21 Tom Momin MD is Attending Physician. rt 00:30 Triage completed. vc1 00:30 Annie Ricks, MERON is Primary Nurse. kd3 00:31 Arm band placed on left wrist. vc1 00:44 Patient has correct armband on for positive identification. Bed in low position. Pulse vc1 ox on. NIBP on. 01:07 Gustavo Mullen MD is Referral Physician. rt 01:27 No provider procedures requiring assistance completed. Patient did not have IV access jb4 during this emergency room visit. Administered Medications: 01:01 Drug: Viscous Lidocaine Mucous Membrane Liquid (4 %) 5 ml Mucous Membrane once; for jb4 rolle placement Route: Mucous Membrane; Medication: 00:44 VIS not applicable for this client. vc1 Outcome: 01:07 Discharge ordered by . rt 01:27 Discharged to home via wheelchair, with family, jb4 01:27 Condition: stable 01:27 Discharge instructions given to patient, Instructed on discharge instructions, follow up and referral plans. Demonstrated understanding of instructions, follow-up care, 01:28 Patient left the ED. jb4 Signatures: Luis Alberto Velazco RN RN jb4 Annie Ricks RN RN kd3 Natalie Hoffman RN RN vc1 Tom Momin MD MD rt Miriam Trevino 2
--- NOTE | 2024-08-04 01:08 | EDPHYS ---
Physician Documentation [facility] Name: Mati Broderick Age: 89 yrs Sex: Male : 1935 Arrival Date: 08/04/2024 Time: 00:05 Bed 5 Private MD: ED Physician Tom Momin HPI: 08/04 02:00 This 89 yrs old Male presents to ER via Wheelchair with complaints of Problem rt With Urinary Catheter. 02:00 Patient was seen in the ED earlier today for complication with Rolle catheter, Rolle rt was replaced, patient subsequently discharged. Patient states that he has not had any urine in the catheter bag following discharge, reports pain, swelling to the lower abdomen, states that urine is leaking around the catheter but none is going into the tubing. Denies other acute complaints at this time, symptoms are moderate in severity, no other aggravating alleviating factors.. Historical: - Allergies: 00:30 Iodinated Contrast Media - IV Dye; vc1 - PMHx: 00:30 CAD; Prostate Cancer; Hernia; Myocardial infarction; Hypertension; High Cholesterol; vc1 - PSHx: 00:30 None; vc1 - Immunization history:: Client reports having NOT received the Covid vaccine. Flu vaccine is not up to date. - Infectious Disease History:: Denies. - Social history:: Smoking status: Patient denies any tobacco usage or history of. - Family history:: not pertinent. ROS: 02:00 Eyes: Negative for injury, pain, redness, and discharge, Cardiovascular: Negative for rt chest pain, palpitations, and edema, Respiratory: Negative for shortness of breath, cough, wheezing, and pleuritic chest pain, Abdomen/GI: Negative for abdominal pain, nausea, vomiting, diarrhea, and constipation, Skin: Negative for injury, rash, and discoloration, Neuro: Negative for headache, weakness, numbness, tingling, and seizure, 02:00 : Positive for Rolle catheter complication, Exam: 02:00 Constitutional: This is a well developed, well nourished patient who is awake, alert, rt and in no acute distress. Head/Face: Normocephalic, atraumatic. Chest/axilla: Normal chest wall appearance and motion. Nontender with no deformity. No lesions are appreciated. Cardiovascular: Regular rate and rhythm with a normal S1 and S2. No gallops, murmurs, or rubs. Normal PMI, no JVD. No pulse deficits. Respiratory: Lungs have equal breath sounds bilaterally, clear to auscultation and percussion. No rales, rhonchi or wheezes noted. No increased work of breathing, no retractions or nasal flaring. Skin: Warm, dry with normal turgor. Normal color with no rashes, no lesions, and no evidence of cellulitis. MS/ Extremity: Pulses equal, no cyanosis. Neurovascular intact. Full, normal range of motion. 02:00 Abdomen/GI: Tenderness, fullness to the lower abdomen, 02:00 : Rolle catheter in place, no bleeding noted, Vital Signs: 00:28 Weight 93.44 kg; Height 5 ft. 8 in. ; Pain 8/10; vc1 00:42 BP 159 / 84; Pulse 81; Resp 18; Temp 97.1; Pulse Ox 99% ; vc1 00:28 Body Mass Index 31.32 (93.44 kg, 172.72 cm) vc1 00:28 Pain Scale: Adult vc1 MDM: 00:36 Medical Screening Exam initiated rt 02:00 Differential Diagnosis Rolle catheter complication, urinary retention. Data reviewed: rt vital signs, nurses notes. I considered the following discharge prescriptions or medication management in the emergency department Medications were administered in the Emergency Department. See MAR. Care significantly affected by the following chronic conditions: Hypertension. Counseling: I had a detailed discussion with the patient and/or guardian regarding the historical points, exam findings, and any diagnostic results supporting the discharge/admit diagnosis, the need for outpatient follow up. 08/04 00:41 Order name: Ashley; Complete Time: 01:01 rt Administered Medications: 01:01 Drug: Viscous Lidocaine Mucous Membrane Liquid (4 %) 5 ml Mucous Membrane once; for jb4 rolle placement Route: Mucous Membrane; Disposition Summary: 08/04/24 01:07 Discharge Ordered Notes: Location: Home rt Problem: new rt Symptoms: have improved rt Condition: Stable rt Diagnosis - Other mechanical complication of urinary (indwelling) catheter rt Followup: rt - With: Gustavo Mullen MD - When: 2 - 3 days - Reason: Discharge Instructions: - Discharge Summary Sheet rt - Indwelling Urinary Catheter Insertion, Care After rt Forms: - Medication Reconciliation Form rt - Antibiotic Education rt - Prescription Opioid Use rt - Patient Portal Instructions rt - Leadership Thank You Letter rt Signatures: Luis Alberto Velazco, RN RN jb4 Natalie Hoffman RN RN vc1 Tom Momin MD MD rt
[2024-08-04 01:38] VITALS: BP 159/84; TEMP 97.1; O2SAT 99
== END 2024-08-04 01:28 | disposition home or self-care (01) ==
LOC: ER 00:05
DX: T83.098A Other mechanical complication of other urinary catheter, initial encounter (principal); Z85.46 Personal history of malignant neoplasm of prostate
CPT/HCPCS: 99283

== ENCOUNTER 2024-08-23 07:16 | Day surgery (SDC) | payer OTHER ==
[2024-08-16 08:58] LABS: Absolute Eosinophils 0.1 K/uL (0-0.5); Absolute Lymphocytes (CBC) 0.8 K/uL (0.7-4.9); Absolute Monocytes 0.8 K/uL (0.1-1.3); Absolute Neutrophil 8.4 K/uL (1.8-8.0); Basophils % 0.3 % (0-1.3); Eosinophils % 0.5 % (0-4.4); Hematocrit 34.4 % (39.6-49.0); Hemoglobin 12.1 g/dL (13.6-17.9); Lymphocytes % 7.5 % (15.3-44.8); MCHC 35.1 g/dL (32.0-36.0); MPV 7.9 fL (7.6-11.3); Monocytes % 7.6 % (3.3-12.3); Neutrophils % 84.1 % (41.7-73.7); Platelets 133 thou/uL (152-406); RBC Red Blood Cell Count 3.66 M/uL (4.33-5.43); Red Cell Distribution Width 14.9 % (12.1-15.2)
[2024-08-16 09:02] LABS: Specific Gravity 1.017 (1.005-1.030); Sqamous Epithelial <5 /HPF (None Seen); Urine Bacteria <20 /HPF (<20); Urine Bilirubin NEGATIVE (Negative); Urine Blood 2+ (Negative); Urine Clarity Extremely Turbid (Clear); Urine Color Yellow (Yellow); Urine Crystals Unidentified Few /HPF (None Seen); Urine Culture Reflex Order REFLEXED; Urine Glucose NEGATIVE (Negative); Urine Ketones NEGATIVE (Negative); Urine Microscopic Reflex YN ORDER UMIC; Urine Mucus 4+ /HPF (None Seen); Urine Nitrite 2+ (Negative); Urine Protein 1+ (Negative); Urine RBC 21-50 /HPF (None Seen); Urine Urobilinogen 1+ (Normal); Urine WBC >50 /HPF (<5); Urine WBC Clump Moderate /HPF (None Seen); Urine Yeast (Budding) Few /HPF (None Seen); Urine pH 5.5 (5.0-7.0)
[2024-08-16 09:05] LABS: Protime INR 1.24
[2024-08-16 09:12] LABS: Anion Gap 9.6 mEq/L (5.0-15.0); Potassium 3.6 mEq/L (3.5-5.1)
[2024-08-23] MEDS: Ringers Lactate 1,000 ML IV ONE (07:45)
[2024-08-23] MEDS ORDERED: LIDOCAINE 1% MPF 5 ML VIAL ONE (08:19)
[2024-08-23] MEDS ORDERED: propofoL 200 MG/20 ML VIAL IV ONE (08:19)
[2024-08-23] MEDS ORDERED: FENTANYL CITR 100 MCG/2 ML ONE ×2 (08:20→10:14)
[2024-08-23] MEDS: AMPICILLIN SODIUM 2 GM/VIAL VIAL ONE (09:20)
[2024-08-23] MEDS: GENTAMICIN 80 MG/100 ML BAG 80 MG/100 ML BAG IV ONE (09:35)
[2024-08-23] MEDS: MORPHINE 4 MG/ML SYR ONE (11:52)
[2024-08-23] MEDS ORDERED: OXYBUTYNIN ER 5 MG TAB PO ONE (12:22)
[2024-08-23] MEDS ORDERED: HYDROCODONE/APAP 5/325 MG TAB PO PRN (12:22)
[2024-08-23] MEDS ORDERED: PHENAZOPYRIDINE 100MG TAB PO ONE (12:22)
[2024-08-23] MEDS: ONDANSETRON 4 MG/2 ML VIAL ONE (13:30)
[2024-08-23 14:37] VITALS: BP 121/56; O2SAT 97
[2024-08-23 14:38] VITALS: TEMP 97
--- NOTE | 2024-08-23 14:42 | P.OP ---
Date of Service: 08/23/24 Preoperative diagnoses: Acute urinary retention Lower obstructive uropathy due to BPH versus High risk prostate cancer Use of androgen deprivation therapy Chronic indwelling Ramirez catheter Postoperative diagnoses: Acute urinary retention Lower obstructive uropathy due to BPH versus High risk prostate cancer Use of androgen deprivation therapy Chronic indwelling Ramirez catheter Principal procedures: Bipolar transurethral resection of the prostate -extensive > 2.5 hours resection time required Indication for procedure: 89-year-old gentleman with known low-grade prostate cancer on watchful waiting/modified active surveillance for years whose PSA continued to rise without significant symptoms until recently when he developed acute urinary retention and required catheter placement. He failed attempts at voiding trials and was found to have significant prostatic urethral obstruction cystoscopically. He was initiated on androgen deprivation therapy as this was likely a complication of progression of his known prostate cancer as reflected by the continually rising PSA, but he ultimately required definitive surgical therapy when he failed to void despite adequate time with urethral catheterization and maximal medical therapy with alpha-yakelin and the ADT. Procedure note: The patient was consented in the preoperative holding area before being transferred to the operative suite where general anesthesia was induced. He was given ampicillin 2 g and gentamicin 160 mg IV antimicrobial prophylaxis. Pneumoboots were provided for DVT prophylaxis. He was placed in the lithotomy position, padded and secured to the table appropriately. The catheter was removed and his genitalia was prepped with Hibiclens before being draped in standard fashion. The case was begun using a 26 Sami bipolar resectoscope sheath and visual obturator to traverse the urethra and into the bladder with ease. There was evidence of prior channel TURP done previously when he was obstructed with gross hematuria several years ago. However there was significant interdigitating lateral lobar hypertrophy with an extended prostatic urethral length and intravesical projection causing ongoing obstruction. As a result, identify the ureteral orifices, and starting with the left ureteral orifice in direct vision, I resected the intraluminally projecting prostate tissue and continue that resection posterior laterally until the bladder neck was widely patent on the left side. I continued the resection anteriorly at the bladder neck before then resecting from the bladder neck all the way to the level of the verumontanum on the left side. Over 1 hour of resection time was required just on the left side before I then turned my attention to the right side where I similarly began resection at the bladder neck from posterior to anterior and then from the bladder neck down to the verumontanum. Again, over an hour was required to resect the right side. Multiple rounds of Ilich evacuation were required to remove and enormous amount of prostate chips but also to clarify the urine. Fulguration was performed at multiple phases throug hout the resection process. With the bladder decompressed, additional resection was performed bilaterally for intruding prostate tissue that was observed with the bladder decompressed. Finally, once no significant intruding prostatic urethral tissue was observed and with the channel being widely patent even with the bladder completely decompressed, I ensured all prostate tissue was removed from within the bladder, and then carefully fulgurated to ensure absolute hemostasis. This took several rounds of fulguration, likely because of the abnormal tissue/prostate cancer. Eventually, with perseverance, I was able to achieve complete hemostasis with no bleeding whatsoever observed with the bladder decompressed and no irrigation fluid present/active. As a result, I then retrograde filled his bladder removing the scope on the way out to ensure no prostate chips were within the urethra, and then replaced the scope with a 24 Sami three-way Ramirez catheter with ease into his bladder. 40 cc of sterile water was placed in the balloon. The bladder was allowed to decompress and the fluid was clear to light pink. I placed the catheter to moderate traction after taking the patient out of the lithotomy position, and it was connected to slow drip CBI and was crystal clear to light pink. He was then transferred to a stretcher before being transferred to the recovery room in good condition. Over 2 hours and 45 minutes total time was required for this resection and management of the bleeding/fulguration. Complications: None Discharge disposition: Follow-up should be established with me in the urology clinic, likely next week where I will perform a voiding trial in the absence of medical assistants trained to perform this successfully. We will review the results of the pathology hopefully at that time if it is available. Continued management of his known prostate cancer with Eligard ADT will continue as scheduled every 3 months from his last injection given in July.
== END 2024-08-23 14:00 | disposition home or self-care (01) ==
LOC: OR 07:16
PROVIDERS: ATTEND Urology
PROC: 0VT08ZZ Resection of Prostate, Via Natural or Artificial Opening Endoscopic (ICD-10-PCS; principal; 2024-08-23 08:30)
DX: N40.1 Benign prostatic hyperplasia with lower urinary tract symptoms (principal); N13.8 Other obstructive and reflux uropathy; R33.8 Other retention of urine; C61 Malignant neoplasm of prostate
CPT/HCPCS: 87088; 85025; 81001; 87086; 80048; 36415; 85610; 88305; 87077 ×2; 87186 ×2; 52601; J2704; J2003; J3010 ×2; J2405; J0290; J7120; J1580